=== PATIENT | female | born 1950 | race Caucasian/White ===

== ENCOUNTER 2020-03-21 11:20 | Outpatient (REF) | payer MEDICARE, SELFPAY ==
[2020-03-21 13:16] LABS: Blood Urea Nitrogen 8 mg/dL (9-16); Estimated Glomerular Filt Rate > 60
== END 2020-03-21 11:21 | disposition home or self-care (01) ==
LOC: HO.LAB 11:20
PROVIDERS: PCP Internal Medicine; Visit Provider Psychiatry & Neurology Neurology
DX: G95.9 Disease of spinal cord, unspecified (principal)
CPT/HCPCS: 82565; 84520

== ENCOUNTER 2020-03-28 16:20 | Outpatient (REF) | payer OTHER, SELFPAY ==
--- NOTE | 2020-03-28 | MR_ITS ---
EXAMINATION: MR THORACIC SPINE WITHOUT AND WITH CONTRAST CLINICAL INFORMATION: MYELOPATHY COMPARISON: None TECHNIQUE: MRI of the thoracic spine was obtained using routine sequences with and without contrast. Intravenous contrast: Gadavist 7.5 mL. FINDINGS: There is a leftward convex scoliotic curvature of the thoracic spine and there is an upper to midthoracic kyphosis. Vertebral body heights are producing last year which was totally different old healed in keeping contacts and deviates L1.... Linear ventriculomegaly from Modic type I endplate signal changes noted from at T4-T5 and T7-T8 and sagittal. Partial there are no acute fractures. 03/29/2020. No acute fractures. Moderate to severe disc volume loss at the mid thoracic. No pathologic intrathecal enhancement. 05/26/2018 and with accounting for artifact there is no cord signal abnormality. Accounting for artifact there is no thoracic cord signal abnormality. There are paracentral disc protrusions at the majority of thoracic levels that mildly indent the ventral thecal sac, the largest at the T7-T8 level that mildly flattens the ventral cord. There is no severe central canal stenosis and there is no severe foraminal stenosis within the thoracic spine. There is a right renal cyst. There is a 2.6 cm left adrenal nodule that can be further assessed with an adrenal protocol CT or PET/CT given the above pulmonary finding and concern for a possible metastatic focus. On the localizer series there is the suggestion of a 1.5 cm nodule within the left thyroid lobe that can be further assessed with thyroid ultrasound. There is a 1.7 cm nodule within the right lung posteriorly on image 32 of series 8 for which a contrast-enhanced CT of the chest is recommended. Pulmonary malignancy is not excluded. MR/MR thoracic spine wo/w con IMPRESSION: - There is a 1.7 cm nodule within the right lung posteriorly on image 32 of series 8 for which a contrast-enhanced CT of the chest is recommended. Pulmonary malignancy is not excluded. - There is a 2.6 cm left adrenal nodule that can be further assessed with an adrenal protocol CT or PET/CT given the above pulmonary finding and concern for a possible metastatic focus. - Thoracic kyphoscoliosis. Multilevel thoracic spondylosis, greatest at T7-T8 where a left paracentral disc protrusion slightly flattens the left ventral cord. There is no severe central canal stenosis and there is no severe foraminal stenosis within the thoracic spine. - On the localizer series there is the suggestion of a 1.5 cm nodule within the left thyroid lobe that can be further assessed with thyroid ultrasound. Findings discussed with Dr. Ximena Garcia at 8:35 AM on 03/29/2020.
== END 2020-03-28 17:00 | disposition home or self-care (01) ==
LOC: HO.MRI 16:20
PROVIDERS: PCP Internal Medicine; Visit Provider Psychiatry & Neurology Neurology
DX: G95.9 Disease of spinal cord, unspecified (principal)
CPT/HCPCS: 72157; A9585

== ENCOUNTER 2020-04-18 08:32 | Outpatient (REF) | payer MEDICARE, OTHER, SELFPAY ==
--- NOTE | 2020-04-18 | PFT_ITS ---
FLOWS: FEV1 58% of predicted at 1.16 L. FVC 67% of predicted at 1.76 L. FEV1 to FVC ratio of 0.66. No bronchodilation performed since the patient has had albuterol prior to the test. LUNG VOLUMES: The patient was unable to perform lung volume maneuver secondary to complaints of dizziness. In comparison to pulmonary function test performed in December of 2018 FEV1 has decreased by 0.54 L; FVC has decreased by 0.84 L; slow vital capacity has decreased by 0.80 L; expiratory reserve volume has been without significant changes. IMPRESSION: Moderate obstructive ventilatory defect. Suggestion for underlying restrictive ventilatory defect. The patient was unable to perform lung volume maneuver secondary to complaints of dizziness. MD TORREY Richardson/MODL / [id number]
== END 2020-04-18 08:33 | disposition home or self-care (01) ==
LOC: HO.RESP 08:32
PROVIDERS: PCP Internal Medicine; Visit Provider Internal Medicine
DX: J44.9 Chronic obstructive pulmonary disease, unspecified (principal); R06.02 Shortness of breath; Z87.891 Personal history of nicotine dependence
CPT/HCPCS: 94010

== ENCOUNTER 2020-04-18 19:25 | Inpatient (IN) | payer MEDICARE, SELFPAY ==
[2020-04-18] VITALS (17 sets, daily range): BP systolic 68–102; BP diastolic 31–62; PULSE 93–160; RESP 17–34; TEMP 36.4–36.8; O2SAT 3–98; BMI 23.8
--- NOTE | 2020-04-18 19:33 | ECG_ITS ---
Test Reason : TACHY Blood Pressure : / mmHG Vent. Rate : 154 BPM Atrial Rate : 357 BPM P-R Int : 000 ms QRS Dur : 090 ms QT Int : 306 ms P-R-T Axes : 000 088 267 degrees QTc Int : 490 ms Atrial fibrillation with rapid ventricular response ST & T wave abnormality, consider inferior ischemia ST & T wave abnormality, consider anterolateral ischemia Abnormal ECG When compared with ECG of [id number] Atrial fibrillation is new Heart rate has increased ST more depressed Inferior leads Lateral leads Referred By: Sona Petit Electronically Signed By:BETSY PATEL MD
--- NOTE | 2020-04-18 19:34 | XR_ITS ---
EXAMINATION: XR CHEST CLINICAL INFORMATION: Dyspnea COMPARISON: Chest radiograph 02/16/[address] 02/01/2020 TECHNIQUE: Frontal view of the chest was obtained. FINDINGS: The lungs are hypoinflated. No infiltrates or effusions are seen. The heart size is normal and there is no evidence of CHF. The previously demonstrated 2 cm right lower lung mass is not well appreciated on the current study. XR/XR chest 1V IMPRESSION: No acute intrathoracic disease
--- NOTE | 2020-04-18 19:35 | ED.SOB ---
HPI - SOB/Dyspnea General Chief Complaint: Weakness Stated Complaint: WEAK PULSE Time Seen by Provider: 04/18/20 19:32 Source: patient and EMS Mode of arrival: EMS Limitations: no limitations History of Present Illness HPI Narrative: 69 yo female with reported lung cancer that has spread to lymph nodes but has not seen thoracic or oncology yet and needs a PET scan call to EMS tonight for dizziness and weakness and fall in bathroom she hit her head. She was altered and EMS noted they could not get a radial pulse or BP - paramedics intercepted and attempted to cardiovert the patient with 100J for hypotension, AMS and unable to get a pulse with afib RVR - no response to cardioversion MD elicited complaint: shortness of breath and cough Pertinent past history: COPD Onset (ago): month(s) Context: trauma/injury Timing: constant Severity: severe Exacerbating factors: exertion Relieving factors: oxygen and rest Known history of: COPD Associated symptoms: wheezing and dizziness Treatment prior to arrival: oxygen and other (100J cardioversion) Related Data Home Medications Medication Instructions Recorded Confirmed albuterol sulfate 2.5 mg INHALATION QID PRN 04/18/20 04/18/20 furosemide 1 tab PO DAILY 04/18/20 04/18/20 gabapentin 1 cap PO TID PRN 04/18/20 04/18/20 gabapentin 2 - 3 cap PO BEDTIME 04/18/20 04/18/20 lisinopril 1 tab PO DAILY 04/18/20 04/18/20 omeprazole 20 mg PO DAILY 04/18/20 04/18/20 simvastatin 1 tab PO DAILY 04/18/20 04/18/20 Allergies Allergy/AdvReac Type Severity Reaction Status Date / Time varenicline Allergy Unknown muscle Verified 04/18/20 19:36 cramps No Known Allergies Allergy Verified 04/18/20 19:36 [No Known Allergies*] grass Allergy Unknown allergic Uncoded 03/29/20 09:14 rhinitis statins Allergy Unknown myalgias Uncoded 03/29/20 09:14 Review of Systems Review of Systems: ROS unable to be obtained due to altered mental status [facility] Past Medical History Attestation statement: The following information was validated with the patient. Source: old records reviewed Medical History Cancer COPD (chronic obstructive pulmonary disease) High cholesterol Hypertension Social History Social History (Updated 04/18/20 @ 20:19 by Bernie Simons DO) Smoking Status: Former smoker Use of substances other than those prescribed or required for medical reasons: No Advance Directives: No Advance Directives Information Provided: No Physical Exam Vital Signs: Vital Signs: Last Vital Signs Temp 97.7 F 04/18/20 22:04 Pulse 100 04/18/20 22:04 Resp 17 04/18/20 22:04 BP 86/55 L 04/18/20 22:04 Pulse Ox 95 04/18/20 22:04 Body Mass Index 23.8 Appearance: Somnolent Oriented X2. Moderate acute distress. Eyes: Pupils equal, round and reactive to light. ENT: Pharynx severely dry MM Neck: Normal inspection. Neck supple. CVS: tachycardic heart rate and rhythm irregular. Pulses decreased and hands are cool to touch Respiratory: Mild respiratory distress. Breath sounds with wheezes and rhonchi Abdomen: Soft and nontender. Skin: Skin very dry and cool to touch, color is josue in nature. poor skin turgor. Extremities: No lower extremity edema. No calf ttp Neuro: Oriented X 2. No motor deficit. No sensory deficit. Course Course Course Narrative: BP improving with fluids but patient to be on dilt gtt, no response to 100J cardioversion remains in rapid afib - no anticoagulation done due to recent fall and patient was in severe distress with AMS and hypotension, she is coming around more now and making jokes, she is severely dry on exam - 3L NS ordered, will continue to be at bedside to monitor clinically the patient looks much improved - watching the voice and telling me about how she has watched it all year, color improved, distal pulses now intact discussed with cardiology - gentle fluid resuscitation, can continue dilt, if HR is very high would dig load, repletions of lytes ordered given CT scan - IV hydrocortisone ordered, added cortisol/TSH labs will call [facility]GY at [facility] [place] given CT scan 1005pm BP 102/56 at this time, overall patient improving NSGY PA at [facility] [place] - does not feel pituitary is directly related at this time. follow up with endocrinology and opthalmology as outpatient will hold dilt at this time Procedures Procedure Narrative Procedure Narrative: stat synchronized cardioversion with 100J - verbal consent from patient, pads anterior posterior IV ketamine 50mg ordered, no change in rhythm afterwards, RT at bedside MDM - SOB/Dyspnea MDM Narrative Medical decision making narrative: 69 yo female unwell comes in altered after dizziness and falls with rapid afib AMS, hypotension - EMS attempted cardioversion 100J which did not work, here will need labs, cultures, IV steroids, IV rocephin for cough empiric pneumonia coverage, IV dilt and likely cardioversion given her instability could not anticoagulate due to recent fall and concern for possible trauma, ddimer, lytes, empiric magnesium given as well, planned admit. Lab Data Result diagrams: 04/18/20 20:01 04/18/20 20:12 Labs: Lab Results 04/18/20 04/18/20 04/18/20 Range/Units 19:27 20:01 20:01 WBC 11.1 H (4.8-10.8) X10*3/uL RBC 3.68 L (4.20-5.50) X10*6/uL Hgb 12.7 (12.0-16.0) g/dl Hct 35.9 L (37-47) % MCV 97.6 (80-98) fL MCH 34.5 H (27.0-33.0) pg MCHC 35.4 H (31.0-35.0) g/dl RDW 14.2 (11.0-16.0) % Plt Count 199 (160-400) X10*3/uL MPV 10.2 (9.4-12.3) fL Immature Gran % (Auto) 0.5 H (0.0-0.4) % Neut % (Auto) 70.9 (45-73) % Lymph % (Auto) 19.6 L (20-40) % Pennington % (Auto) 8.0 (2-11) % Eos % (Auto) 0.7 (0-4) % Baso % (Auto) 0.3 (0-2) % Lymph # (Auto) 2.2 (1.2-4.9) X10*3/uL Pennington # (Auto) 0.9 (0.1-1.2) X10*3/uL Eos # (Auto) 0.1 (0.0-0.4) X10*3/uL Baso # (Auto) 0.0 (0.0-0.2) X10*3/uL Abs Immat Gran (auto) 0.06 H (0.00-0.03) X10*3/uL Absolute Neuts (auto) 7.8 (2.0-8.3) X10*3/uL Absolute Nucleated RBC 0.000 (0.0-0.012) X10*3/uL Nucleated RBC % (auto) 0.0 (0.0-0.2) /100WBC PT (10.8-13.0) SEC INR (0.9-1.1) APTT (24.1-38.0) SEC D-Dimer NG/ML VBG pH (7.32-7.43) VBG pCO2 mmhg VBG pO2 mmhg VBG HCO3 mmol/L VBG O2 Saturation % VBG Base Excess mmol/L Sodium (135-145) mmol/L Potassium (3.3-5.1) mmol/l Chloride (96-108) mmol/L Carbon Dioxide (22-29) mmol/L Anion Gap (12-20) BUN (9-16) mg/dL Creatinine (0.5-1.4) mg/dL Estim Creat Clear Calc Estimated GFR POC Glucose 94 (60-115) mg/dL Random Glucose (60-115) mg/dL Lactic Acid (0.5-2.0) mmol/L Calcium (8.4-10.2) mg/dL Magnesium 1.5 L (1.6-2.6) mg/dL Total Bilirubin 0.9 (0.0-1.0) mg/dL Direct Bilirubin 0.5 (0.0-0.5) mg/dL AST 20 (5-31) U/L ALT 10 (0-31) U/L Alkaline Phosphatase 65 (39-117) U/L Troponin I High Sens (<3.5-17.0) ng/L B-Natriuretic Peptide (<100) pg/mL Total Protein 4.0 L (6.5-8.0) g/dL Albumin 2.4 L (3.5-5.0) g/dL Lipase (8-78) U/L COVID-19 (AN) (Negative) COVID-19 Clin Com 04/18/20 04/18/20 04/18/20 Range/Units 20:11 20:11 20:11 WBC (4.8-10.8) X10*3/uL RBC (4.20-5.50) X10*6/uL Hgb (12.0-16.0) g/dl Hct (37-47) % MCV (80-98) fL MCH (27.0-33.0) pg MCHC (31.0-35.0) g/dl RDW (11.0-16.0) % Plt Count (160-400) X10*3/uL MPV (9.4-12.3) fL Immature Gran % (Auto) (0.0-0.4) % Neut % (Auto) (45-73) % Lymph % (Auto) (20-40) % Pennington % (Auto) (2-11) % Eos % (Auto) (0-4) % Baso % (Auto) (0-2) % Lymph # (Auto) (1.2-4.9) X10*3/uL Pennington # (Auto) (0.1-1.2) X10*3/uL Eos # (Auto) (0.0-0.4) X10*3/uL Baso # (Auto) (0.0-0.2) X10*3/uL Abs Immat Gran (auto) (0.00-0.03) X10*3/uL Absolute Neuts (auto) (2.0-8.3) X10*3/uL Absolute Nucleated RBC (0.0-0.012) X10*3/uL Nucleated RBC % (auto) (0.0-0.2) /100WBC PT (10.8-13.0) SEC INR (0.9-1.1) APTT (24.1-38.0) SEC D-Dimer NG/ML VBG pH (7.32-7.43) VBG pCO2 mmhg VBG pO2 mmhg VBG HCO3 mmol/L VBG O2 Saturation % VBG Base Excess mmol/L Sodium (135-145) mmol/L Potassium (3.3-5.1) mmol/l Chloride (96-108) mmol/L Carbon Dioxide (22-29) mmol/L Anion Gap (12-20) BUN (9-16) mg/dL Creatinine (0.5-1.4) mg/dL Estim Creat Clear Calc Estimated GFR POC Glucose (60-115) mg/dL Random Glucose (60-115) mg/dL Lactic Acid 4.5 H* (0.5-2.0) mmol/L Calcium (8.4-10.2) mg/dL Magnesium (1.6-2.6) mg/dL Total Bilirubin (0.0-1.0) mg/dL Direct Bilirubin (0.0-0.5) mg/dL AST (5-31) U/L ALT (0-31) U/L Alkaline Phosphatase (39-117) U/L Troponin I High Sens 13.8 (<3.5-17.0) ng/L B-Natriuretic Peptide 90 (<100) pg/mL Total Protein (6.5-8.0) g/dL Albumin (3.5-5.0) g/dL Lipase (8-78) U/L COVID-19 (AN) (Negative) COVID-19 Clin Com 04/18/20 04/18/20 04/18/20 Range/Units 20:11 20:12 20:20 WBC (4.8-10.8) X10*3/uL RBC (4.20-5.50) X10*6/uL Hgb (12.0-16.0) g/dl Hct (37-47) % MCV (80-98) fL MCH (27.0-33.0) pg MCHC (31.0-35.0) g/dl RDW (11.0-16.0) % Plt Count (160-400) X10*3/uL MPV (9.4-12.3) fL Immature Gran % (Auto) (0.0-0.4) % Neut % (Auto) (45-73) % Lymph % (Auto) (20-40) % Pennington % (Auto) (2-11) % Eos % (Auto) (0-4) % Baso % (Auto) (0-2) % Lymph # (Auto) (1.2-4.9) X10*3/uL Pennington # (Auto) (0.1-1.2) X10*3/uL Eos # (Auto) (0.0-0.4) X10*3/uL Baso # (Auto) (0.0-0.2) X10*3/uL Abs Immat Gran (auto) (0.00-0.03) X10*3/uL Absolute Neuts (auto) (2.0-8.3) X10*3/uL Absolute Nucleated RBC (0.0-0.012) X10*3/uL Nucleated RBC % (auto) (0.0-0.2) /100WBC PT 13.0 (10.8-13.0) SEC INR 1.1 (0.9-1.1) APTT 28.4 (24.1-38.0) SEC D-Dimer < 200 NG/ML VBG pH (7.32-7.43) VBG pCO2 mmhg VBG pO2 mmhg VBG HCO3 mmol/L VBG O2 Saturation % VBG Base Excess mmol/L Sodium 136 (135-145) mmol/L Potassium 2.6 L (3.3-5.1) mmol/l Chloride 101 (96-108) mmol/L Carbon Dioxide 21 L (22-29) mmol/L Anion Gap 17 (12-20) BUN 16 D (9-16) mg/dL Creatinine 0.84 (0.5-1.4) mg/dL Estim Creat Clear Calc 58.3 Estimated GFR > 60 POC Glucose (60-115) mg/dL Random Glucose 92 (60-115) mg/dL Lactic Acid (0.5-2.0) mmol/L Calcium 7.5 L (8.4-10.2) mg/dL Magnesium (1.6-2.6) mg/dL Total Bilirubin (0.0-1.0) mg/dL Direct Bilirubin (0.0-0.5) mg/dL AST (5-31) U/L ALT (0-31) U/L Alkaline Phosphatase (39-117) U/L Troponin I High Sens (<3.5-17.0) ng/L B-Natriuretic Peptide (<100) pg/mL Total Protein (6.5-8.0) g/dL Albumin (3.5-5.0) g/dL Lipase 9 (8-78) U/L COVID-19 (AN) Negative (Negative) COVID-19 Clin Com See Note 04/18/20 04/18/20 Range/Units 20:20 20:20 WBC (4.8-10.8) X10*3/uL RBC (4.20-5.50) X10*6/uL Hgb (12.0-16.0) g/dl Hct (37-47) % MCV (80-98) fL MCH (27.0-33.0) pg MCHC (31.0-35.0) g/dl RDW (11.0-16.0) % Plt Count (160-400) X10*3/uL MPV (9.4-12.3) fL Immature Gran % (Auto) (0.0-0.4) % Neut % (Auto) (45-73) % Lymph % (Auto) (20-40) % Pennington % (Auto) (2-11) % Eos % (Auto) (0-4) % Baso % (Auto) (0-2) % Lymph # (Auto) (1.2-4.9) X10*3/uL Pennington # (Auto) (0.1-1.2) X10*3/uL Eos # (Auto) (0.0-0.4) X10*3/uL Baso # (Auto) (0.0-0.2) X10*3/uL Abs Immat Gran (auto) (0.00-0.03) X10*3/uL Absolute Neuts (auto) (2.0-8.3) X10*3/uL Absolute Nucleated RBC (0.0-0.012) X10*3/uL Nucleated RBC % (auto) (0.0-0.2) /100WBC PT Cancelled (10.8-13.0) SEC INR Cancelled (0.9-1.1) APTT Cancelled (24.1-38.0) SEC D-Dimer NG/ML VBG pH 7.36 (7.32-7.43) VBG pCO2 37 mmhg VBG pO2 32 mmhg VBG HCO3 21 mmol/L VBG O2 Saturation 53.8 % VBG Base Excess -4.0 mmol/L Sodium (135-145) mmol/L Potassium (3.3-5.1) mmol/l Chloride (96-108) mmol/L Carbon Dioxide (22-29) mmol/L Anion Gap (12-20) BUN (9-16) mg/dL Creatinine (0.5-1.4) mg/dL Estim Creat Clear Calc Estimated GFR POC Glucose (60-115) mg/dL Random Glucose (60-115) mg/dL Lactic Acid (0.5-2.0) mmol/L Calcium (8.4-10.2) mg/dL Magnesium (1.6-2.6) mg/dL Total Bilirubin (0.0-1.0) mg/dL Direct Bilirubin (0.0-0.5) mg/dL AST (5-31) U/L ALT (0-31) U/L Alkaline Phosphatase (39-117) U/L Troponin I High Sens (<3.5-17.0) ng/L B-Natriuretic Peptide (<100) pg/mL Total Protein (6.5-8.0) g/dL Albumin (3.5-5.0) g/dL Lipase (8-78) U/L COVID-19 (AN) (Negative) COVID-19 Clin Com ECG Data Attestation: I personally reviewed and interpreted this ECG as follows: ECG interpretation date: 04/18/20 ECG interpretation time: 20:25 Interpretation: Rate: 154 Rhythm: rapid afib with RVR Elcho: normal Normal P waves. Normal GREGORY. wide QRS complex. ST T wave : nonspecific no CLARA qTC: prolonged prior studies: changed from prior The study has been interpreted contemporaneously by me. Rate: 97 Rhythm: NSR, ectopic beats Elcho: rightward Normal P waves. Normal GREGORY. Normal QRS complex. ST T wave : nonspecific no CLARA qTC: prolonged prior studies: changed from prior The study has been interpreted contemporaneously by me. . Critical Care Time Critical Care Time Critical Care Time: Yes Total Critical Care Time: 90 Attestation: iv diltiazem, cardioversion, repeat assessments, 3L of NS I attest to this time spent taking care of the patient Discharge Plan Discharge Clinical Impression: Hypomagnesemia Atrial fibrillation Qualifiers: Atrial fibrillation type: unspecified Qualified Code(s): I48.91 - Unspecified atrial fibrillation Hypotension Qualifiers: Hypotension type: unspecified hypotension type Qualified Code(s): I95.9 - Hypotension, unspecified Patient Disposition: Admitted As Inpatient
[2020-04-18] MEDS: 0.9 % Sodium Chloride 1,000 ML 999 ML IVCONT ×4 (19:40→21:11)
[2020-04-18 19:43] LABS: Glucose, Whole Blood 94 mg/dL (60-115)
[2020-04-18] MEDS: Ketamine HCl/NS 50 MG/5 ML SYRINGE IVPUSH (19:44)
[2020-04-18] MEDS: dilTIAZem HCL 50 MG/10 ML VIAL IVPUSH (19:46)
[2020-04-18] MEDS: Magnesium Sulfate/H2O 2 GM/50 ML PIGGYBACK IV (19:47)
[2020-04-18] MEDS: methylPREDNISolone Sod Succ/PF 125 MG/2 ML VIAL 60 MG IVPUSH (19:49)
[2020-04-18] MEDS: levalbuterol HCL 1.25 MG/3 ML VIAL.NEB INHALE (19:54)
--- NOTE | 2020-04-18 19:56 | CT_ITS ---
EXAMINATION: CT OF THE HEAD AND CERVICAL SPINE WITHOUT CONTRAST CLINICAL INFORMATION: Falls COMPARISON: Neck CT 04/24/2017 TECHNIQUE: Contiguous axial imaging was performed from the vertex to the thoracic inlet, through the head and cervical spine, without intravenous administration of contrast. Coronal and sagittal reformatted images through the cervical spine were obtained on the technologists workstation. This CT examination was performed using dose optimization techniques as appropriate, variously including the following: *Automated exposure control *Adjustment of mA and/or kV according to patient size (this includes techniques or standardized protocols for targeted exams where dose is matched to indication/reason for exam; i.e. extremities or head) *Use of iterative reconstruction technique FINDINGS: Head: No acute intracranial hemorrhage. No extra-axial fluid collection. Higuera-white matter differentiation is preserved without evidence of acute large vessel territory ischemia. Symmetric, concordant ventricles and sulci; no hydrocephalus. No mass effect or midline shift. Mild patchy periventricular and subcortical white matter hypodensity consistent with chronic age-appropriate microvascular white matter ischemic changes. There is new high density in the pituitary gland that measures 7 x 7 mm; this was not of measurable on the PET CT 01/28/2019 nor the prior neck CT 04/24/2017. The osseous structures and soft tissues are normal. There is probably opacification of the right maxillary sinus consistent with acute sinusitis. Cervical spine: Normal pre-vertebral soft tissues. No fracture seen. There is straightening of the normal cervical lordosis. There is multilevel cervical spondylosis throughout the cervical spine greatest at C5-C6 with anterior and posterior disc osteophyte complexes C4-C5, C5-C6, and C6-C7. Moderate to severe multilevel facet arthropathy. Thyroid homogeneous with no nodules seen. Severe emphysema at the lung apices. No cervical lymphadenopathy, mass, or fluid collection. CT/CT cervical spine wo con IMPRESSION: No acute intracranial abnormality seen. There is new abnormal hyperdensity in the pituitary gland. Recommend nonemergent pituitary protocol MRI for further evaluation. Differential considerations would include hemorrhage into an adenoma or Rathke's cleft cyst. Extensive multilevel degenerative changes of the cervical spine but no acute fracture or malalignment seen.
[2020-04-18 20:11] LABS: MANUAL DIFF FLAG NO
[2020-04-18] MEDS: cefTRIAXone sodium 1 GM in 0.9 % Sodium Chloride 50 ML IV (20:12)
--- NOTE | 2020-04-18 20:12 | PC.NURSE ---
Cardizem drip started at 5 mg/hr. VS: 85/40, HR 130 Unable to document Cardizem in JUL.
[2020-04-18 20:15] LABS: Basophils Percent Auto 0.3 % (0-2); Eosinophils Absolute Auto 0.1 X10*3/uL (0.0-0.4); Eosinophils Percent Auto 0.7 % (0-4); Hematocrit 35.9 % (37-47); Hemoglobin 12.7 g/dl (12.0-16.0); Imm Gran Abs Auto 0.06 X10*3/uL (0.00-0.03); Imm Gran Pct Auto 0.5 % (0.0-0.4); Lymphocytes Absolute Auto 2.2 X10*3/uL (1.2-4.9); Lymphocytes Percent Auto 19.6 % (20-40); Mean Corpuscular HGB Conc 35.4 g/dl (31.0-35.0); Mean Corpuscular Hemoglobin 34.5 pg (27.0-33.0); Mean Corpuscular Volume 97.6 fL (80-98); Mean Platelet Volume 10.2 fL (9.4-12.3); Monocytes Absolute Auto 0.9 X10*3/uL (0.1-1.2); Neutrophils Absolute Auto 7.8 X10*3/uL (2.0-8.3); Neutrophils Percent Auto 70.9 % (45-73); Platelet Count 199 X10*3/uL (160-400); Red Blood Count 3.68 X10*6/uL (4.20-5.50); Red Cell Distribution Width 14.2 % (11.0-16.0); White Blood Count 11.1 X10*3/uL (4.8-10.8)
--- NOTE | 2020-04-18 20:28 | PC.NURSE ---
Pt off to CT on monitor with RN and product safety technician.
[2020-04-18 20:35] LABS: Alanine Aminotransferase 10 U/L (0-31); Albumin Level 2.4 g/dL (3.5-5.0); Alkaline Phosphatase 65 U/L (39-117); Aspartate Amino Transferase 20 U/L (5-31); Bilirubin Direct 0.5 mg/dL (0.0-0.5); Bilirubin Total 0.9 mg/dL (0.0-1.0); Magnesium 1.5 mg/dL (1.6-2.6)
--- NOTE | 2020-04-18 20:39 | PC.NURSE ---
Pt returns from CT on hospital bed without incident.
--- NOTE | 2020-04-18 20:42 | PC.NURSE ---
Verbal order from MD to increased Cardizem to 7 mg/hr. 97/57, HR 125
[2020-04-18 20:44] LABS: Blood Gas Serial # 5414; HCO3 VBG 21 mmol/L; Oxygen Saturation VBG 53.8 %; PCO2 VBG 37 mmhg; PO2 VBG 32 mmhg; pH VBG 7.36 (7.32-7.43)
[2020-04-18 20:44] LABS: INTERNATIONAL NORM RATIO 1.1 (0.9-1.1)
[2020-04-18 20:47] LABS: Partial Thromboplastin Time 28.4 SEC (24.1-38.0)
[2020-04-18 20:48] LABS: D Dimer < 200 NG/ML
--- NOTE | 2020-04-18 20:51 | PC.NURSE ---
2044 DILTIAZEM BACK TO 5MG/HR. BP'S ARE HARD TO MAINTAIN. PT IS BACK FROM CT. MENTATING WELL, ASKING PERTANENT QUESTIONS. SKIN DRY PALE. SHALLOW RESP. JUNKY UPPER AIRWAY COUGH. TOLERATED CT VERY WELL. LINENS CHANGED. SKIN INTEGRITY GOOD. ZOLL PADS REMAIN IN PLACE. STATES SHE'S NO LONGER DIZZY. REPORTED BEING DIZZY AT HOME.
--- NOTE | 2020-04-18 20:55 | PC.NURSE ---
PT REMAINS IN A FIB 110-140'S AT TIMES.
[2020-04-18 20:56] LABS: COVID-19 Test Negative (Negative); IDNOW Serial# 9DD0AD1C
--- NOTE | 2020-04-18 20:57 | PC.NURSE ---
LATE ENTRY. PT ARRIVED LETHARGIC, DIFFICULT TO FOLLOW COMMANDS, SKIN DRY PINK, RAPID A FIB, BP'S LOW. WAS GIVEN KETAMINE IV AND SYNC CARDIOVERSION AT 100J X 1 FOLLOWED BY IV DILTIAZEM AND MAGNESIUM. AFTER EFFECTS OF KETAMINE WORE OFF PT'S MENTATION WAS IMPROVED COMPAIRED TO ARRIVAL. PT REMAINS IN A FIB.
[2020-04-18 21:06] LABS: B Type Natriuretic Peptide 90 pg/mL (<100); Troponin-I High Sensitivity 13.8 ng/L (<3.5-17.0)
[2020-04-18 21:06] LABS: Anion Gap 17 (12-20); Blood Urea Nitrogen 16 mg/dL (9-16); Calcium 7.5 mg/dL (8.4-10.2); Carbon Dioxide 21 mmol/L (22-29); Chloride 101 mmol/L (96-108); Creatinine Clr Calc Pharmacy 58.3; Estimated Glomerular Filt Rate > 60; Glucose Random 92 mg/dL (60-115); Lipase 9 U/L (8-78); Potassium 2.6 mmol/l (3.3-5.1); Sodium 136 mmol/L (135-145)
[2020-04-18 21:07] LABS: Lactic Acid 4.5 mmol/L (0.5-2.0)
--- NOTE | 2020-04-18 21:09 | PC.NURSE ---
4TH LITER HUNG. LS CTA P/T ADMINISTRATION. PT REMAINS ALERT. AUTOMATIC BP'S ARE MATCHING MANUAL BP'S SON IN WR GIVEN UPDATE.
[2020-04-18] MEDS: Potassium Chloride ER 20 MEQ TAB.ER.PRT 40 MEQ PO (21:18)
[2020-04-18] MEDS: Potassium Chloride/H20 10 MEQ/100 ML PIGGYBACK 100 MEQ IV ×2 (21:27→22:47)
[2020-04-18] MEDS: Calcium Gluconate/NaCl,Iso-Osm 2 GM/100 ML PLAST..BAG IV (21:27)
--- NOTE | 2020-04-18 21:34 | PC.NURSE ---
REMAINS ALERT. WATCHING TV. SKIN PWD. A FIB ON MONITOR
[2020-04-18] MEDS: Hydrocortisone Sod Succ/PF 100 MG VIAL IVPUSH (21:55)
--- NOTE | 2020-04-18 22:11 | ECG_ITS ---
Test Reason : HYPOTENSION Blood Pressure : / mmHG Vent. Rate : 097 BPM Atrial Rate : 097 BPM P-R Int : 194 ms QRS Dur : 086 ms QT Int : 382 ms P-R-T Axes : 027 092 237 degrees QTc Int : 485 ms Sinus rhythm with Premature supraventricular complexes and Premature ventricular complexes or Fusion complexes Rightward axis ST & T wave abnormality, consider inferolateral ischemia Abnormal ECG When compared with ECG of 16-FEB-2020 13:45, Premature ventricular complexes are now Present T wave inversion now evident in Lateral leads Referred By: Bernie Simons Electronically Signed By:BETSY PATEL MD
[2020-04-18 22:22] LABS: Reflex Lactate? Lactic Acid Added
--- NOTE | 2020-04-18 22:24 | PC.NURSE ---
Per , to pause Taco rouse. Taco rouse DCed at this time.
[2020-04-18 22:50] LABS: Thyroid Stimulating Hormone 0.94 uIU/mL (0.32-4.0)
[2020-04-18 23:56] LABS: Glucose Urine UA NEG (NEG); Leukocyte Esterase Urine 1+ (NEG); Nitrite Urine POS (NEG); Specific Gravity - Urine <= 1.005 (1.005-1.025); Urine Blood NEG (NEG); Urine Ketones NEG (NEG); Urine Protein NEG (NEG-TRACE)
[2020-04-18 23:59] LABS: Appearance Urine CLEAR; Color Urine YELLOW
[2020-04-19] VITALS (12 sets, daily range): BP systolic 90–123; BP diastolic 50–78; PULSE 75–115; RESP 16–19; TEMP 35.6–37; O2SAT 5–100; BMI 26.0
--- NOTE | 2020-04-19 | PM.IMHP ---
History of Present Illness Date of Service: 04/18/20 Chief Complaint: significant weakness, vertigo, fall this is a 69-year-old female with past medical history of hypertension who presents to the hospital with weakness and fall. this is somewhat of a complicated presentation but according to the patient she has been feeling dizzy/vertigo for months now and has been having falling with no loss of consciousness. Patient reports that today she tried to go to the bathroom but her vertigo became so severe that she fell with no loss of consciousness. She was unable to get up due to the weakness and her son had to help her to the bathroom. She sat on the toilet and was not able to get up. EMS was called. She reports no palpitations, no chest pain prior to the fall. No confusion or postictal symptoms. She states that sometime in spring she had an E coli infection (does not know where ) and became numb after that. Patient reports that she has been having numbness all through her body, and was found to have a mass in her lungs and was told that she has some sort of metastatic cancer but has not seen Dr. Boone for biopsy yet to find out the type of cancer. She was also told that she will need a pads can. Patient reports low appetite and loss of weight from 187-140 to since springtime. She also reports a few days ago had right upper extremity weakness and loss of movement for few minutes with no slurred speech no facial droop, and no lower extremity weakness. She also noted that her shortness of breath has worsened and she has cough specially when she lays down. It chills nausea. She also has urinary pressure when she tries to urinate with no dysuria, or frequency. She otherwise denies any fever. According to EMS when they arrive patient was found to have irregular pulse with undetectable blood pressure. the EMS That had initially arrived at her house was basic in did not have an EKG machine, somehow this was intercepted and another ambulance was sent residential prior to arriving to the ED, and they felt the patient was in torsades . due to undetectable blood pressure and fast heart rate patient was cardioverted in the ambulance with 100 joules but remained in AFib with RVR with a heart rate in the 150s. when she arrived to the ED patient was found to be in AFib with RVR with a heart rate in the 140s to 150s. She also had a very low blood pressure in the 70s/40s and therefore cardioverted by the ED physician at 100j It appears the patient has no history of AFib in the past. patient was also given ketamine as well as hydrocortisone in the ED with a 1 dose of diltiazem IV push after blood pressure was stable for heart rate. Her blood pressure is now more stable, her heart rate is in the 90s. Labs on arrival are significant for WBC count of 12.7, left shift with neutrophilia, sodium of 133, lactic acid of 4.5, magnesium of 1.5, albumin of 2.4 TSH of 0.9, UA positive for nitrites, leukocyte Estrace, WBC, COVID-19 negative Imaging showed chest CT significant for 1.8 cm right lower lobe pulmonary nodule that has not changed, right lower lobe consolidation concerning for aspiration. head CT shows new abnormal hyperdensity in the pituitary gland. Cervical spine demonstrates degenerative changes patient will be admitted for further management past medical history: Hypertension, patient on furosemide but unclear if she has any history of heart failure, hyperlipidemia, possible cancer past surgical history: Denies family history: Denies social history: Comes from home, her son lives with her, heavy smoker, smokes more than 1 pack per day, reports that she quit few days ago denies any alcohol or illicit sonia Review of Systems Review of Systems: Yes all other systems are reviewed and are negative [facility] Medical History Cancer COPD (chronic obstructive pulmonary disease) High cholesterol Hypertension Social History (Updated 04/18/20 @ 20:19 by Bernie Simons DO) Household Members: Children Housing: House Do you presently have visiting nurse or other home services: No Smoking Status: Former smoker Patient Interested in Nicotine Replacement: Yes Patient Given Instructions on How to Stop Smoking: Yes Date Education Initiated: 04/19/20 Use of substances other than those prescribed or required for medical reasons: No Currently Displaying Signs/Symptoms of Drug Intoxication Withdrawal: No Have you been hit, kicked, punched, or otherwise hurt by someone within the past year? If so, by whom?: No Do you feel safe in your current relationship?: No Current Relationship Is there a partner from a previous relationship who is making you feel unsafe now?: No Are you made to feel afraid or neglected: No Advance Directives: No Advance Directives Information Provided: No Advance Directives on File: No Do you have thoughts of harming others: None Recently lost weight without trying: Yes Meds Allergies Allergy/AdvReac Type Severity Reaction Status Date / Time varenicline Allergy Unknown muscle Verified 04/18/20 19:36 cramps No Known Allergies Allergy Verified 04/18/20 19:36 [No Known Allergies*] grass Allergy Unknown allergic Uncoded 03/29/20 09:14 rhinitis statins Allergy Unknown myalgias Uncoded 03/29/20 09:14 Home Medications Medication Instructions Recorded Confirmed Type albuterol sulfate 2.5 mg INHALATION QID PRN 04/18/20 04/18/20 History furosemide 1 tab PO DAILY 04/18/20 04/18/20 History gabapentin 1 cap PO TID PRN 04/18/20 04/18/20 History gabapentin 2 - 3 cap PO BEDTIME 04/18/20 04/18/20 History lisinopril 1 tab PO DAILY 04/18/20 04/18/20 History omeprazole 20 mg PO DAILY 04/18/20 04/18/20 History simvastatin 1 tab PO DAILY 04/18/20 04/18/20 History Physical Exam Vital Signs and Narrative: Vital Signs: Last Vital Signs Temp 98.2 F 04/18/20 23:34 Pulse 96 04/18/20 23:34 Resp 18 04/18/20 23:34 BP 100/46 L 04/18/20 23:34 Pulse Ox 97 04/18/20 23:34 Body Mass Index 23.8 Const: General: cooperative and ill appearing Orientation/consciousness: patient oriented x3 Eyes: General: appearance normal, both eyes and all related structures Pupils: Equal, round and reactive pupils present Resp: Effort & Inspection: normal respiratory effort and able to speak in complete sentences Auscultation: clear to auscultation bilaterally Cardio: Other: irregular rate Rhythm: regular rhythm GI: Palpation (GI): Soft to palpation Auscultation: normal bowel sounds Skin: General skin exam: no rashes or lesions noted Neuro: General: patient oriented x3 Cranial nerves: Yes Equal, round and reactive pupils present Cognition (Neuro): normal cognition Extrem: General: Yes normal to inspection and Yes no pedal edema Results Labs CBC and Chem 7: 04/19/20 04:07 04/19/20 04:07 Labs: Laboratory Results - last 24 hr 04/18/20 04/18/20 04/18/20 19:27 20:01 20:01 MCV 97.6 MCH 34.5 H MCHC 35.4 H RDW 14.2 Plt Count 199 MPV 10.2 Immature Gran % (Auto) 0.5 H Neut % (Auto) 70.9 Lymph % (Auto) 19.6 L [place] % (Auto) 8.0 Eos % (Auto) 0.7 Baso % (Auto) 0.3 Lymph # (Auto) 2.2 [place] # (Auto) 0.9 Eos # (Auto) 0.1 Baso # (Auto) 0.0 Abs Immat Gran (auto) 0.06 H Absolute Neuts (auto) 7.8 Absolute Nucleated RBC 0.000 Nucleated RBC % (auto) 0.0 PT INR APTT D-Dimer VBG pH VBG pCO2 VBG pO2 VBG HCO3 VBG O2 Saturation VBG Base Excess Anion Gap Estim Creat Clear Calc Estimated GFR POC Glucose 94 Random Glucose Lactic Acid Calcium Magnesium 1.5 L Total Bilirubin 0.9 Direct Bilirubin 0.5 AST 20 ALT 10 Alkaline Phosphatase 65 Troponin I High Sens B-Natriuretic Peptide Total Protein 4.0 L Albumin 2.4 L Lipase Procalcitonin TSH Urine Color Urine Appearance Urine pH Ur Specific [place] Urine Protein Urine Glucose (UA) Urine Ketones Urine Blood Urine Nitrite Ur Leukocyte Esterase COVID-19 (AN) COVID-19 Clin Com 04/18/20 04/18/20 04/18/20 20:01 20:01 20:11 MCV MCH MCHC RDW Plt Count MPV Immature Gran % (Auto) Neut % (Auto) Lymph % (Auto) [place] % (Auto) Eos % (Auto) Baso % (Auto) Lymph # (Auto) [place] # (Auto) Eos # (Auto) Baso # (Auto) Abs Immat Gran (auto) Absolute Neuts (auto) Absolute Nucleated RBC Nucleated RBC % (auto) PT INR APTT D-Dimer VBG pH VBG pCO2 VBG pO2 VBG HCO3 VBG O2 Saturation VBG Base Excess Anion Gap Estim Creat Clear Calc Estimated GFR POC Glucose Random Glucose Lactic Acid 4.5 H* Calcium Magnesium Total Bilirubin Direct Bilirubin AST ALT Alkaline Phosphatase Troponin I High Sens B-Natriuretic Peptide Total Protein Albumin Lipase Procalcitonin 0.10 TSH 0.94 Urine Color Urine Appearance Urine pH Ur Specific [place] Urine Protein Urine Glucose (UA) Urine Ketones Urine Blood Urine Nitrite Ur Leukocyte Esterase COVID-19 (AN) COVID-19 [employer] Com 04/18/20 04/18/20 04/18/20 20:11 20:11 20:11 MCV MCH MCHC RDW Plt Count MPV Immature Gran % (Auto) Neut % (Auto) Lymph % (Auto) [place] % (Auto) Eos % (Auto) Baso % (Auto) Lymph # (Auto) [place] # (Auto) Eos # (Auto) Baso # (Auto) Abs Immat Gran (auto) Absolute Neuts (auto) Absolute Nucleated RBC Nucleated RBC % (auto) PT 13.0 INR 1.1 APTT 28.4 D-Dimer < 200 VBG pH VBG pCO2 VBG pO2 VBG HCO3 VBG O2 Saturation VBG Base Excess Anion Gap Estim Creat Clear Calc Estimated GFR POC Glucose Random Glucose Lactic Acid Calcium Magnesium Total Bilirubin Direct Bilirubin AST ALT Alkaline Phosphatase Troponin I High Sens 13.8 B-Natriuretic Peptide 90 Total Protein Albumin Lipase Procalcitonin TSH Urine Color Urine Appearance Urine pH Ur Specific [place] Urine Protein Urine Glucose (UA) Urine Ketones Urine Blood Urine Nitrite Ur Leukocyte Esterase COVID-19 (AN) COVID-19 [employer] Com 04/18/20 04/18/20 04/18/20 20:12 20:20 20:20 MCV MCH MCHC RDW Plt Count MPV Immature Gran % (Auto) Neut % (Auto) Lymph % (Auto) [place] % (Auto) Eos % (Auto) Baso % (Auto) Lymph # (Auto) [place] # (Auto) Eos # (Auto) Baso # (Auto) Abs Immat Gran (auto) Absolute Neuts (auto) Absolute Nucleated RBC Nucleated RBC % (auto) PT Cancelled INR Cancelled APTT Cancelled D-Dimer VBG pH VBG pCO2 VBG pO2 VBG HCO3 VBG O2 Saturation VBG Base Excess Anion Gap 17 Estim Creat Clear Calc 58.3 Estimated GFR > 60 POC Glucose Random Glucose 92 Lactic Acid Calcium 7.5 L Magnesium Total Bilirubin Direct Bilirubin AST ALT Alkaline Phosphatase Troponin I High Sens B-Natriuretic Peptide Total Protein Albumin Lipase 9 Procalcitonin TSH Urine Color Urine Appearance Urine pH Ur Specific [place] Urine Protein Urine Glucose (UA) Urine Ketones Urine Blood Urine Nitrite Ur Leukocyte Esterase COVID-19 (AN) Negative COVID-19 Clin Com See Note 04/18/20 04/18/20 20:20 23:39 MCV MCH MCHC RDW Plt Count MPV Immature Gran % (Auto) Neut % (Auto) Lymph % (Auto) [place] % (Auto) Eos % (Auto) Baso % (Auto) Lymph # (Auto) [place] # (Auto) Eos # (Auto) Baso # (Auto) Abs Immat Gran (auto) Absolute Neuts (auto) Absolute Nucleated RBC Nucleated RBC % (auto) PT INR APTT D-Dimer VBG pH 7.36 VBG pCO2 37 VBG pO2 32 VBG HCO3 21 VBG O2 Saturation 53.8 VBG Base Excess -4.0 Anion Gap Estim Creat Clear Calc Estimated GFR POC Glucose Random Glucose Lactic Acid Calcium Magnesium Total Bilirubin Direct Bilirubin AST ALT Alkaline Phosphatase Troponin I High Sens B-Natriuretic Peptide Total Protein Albumin Lipase Procalcitonin TSH Urine Color YELLOW Urine Appearance CLEAR Urine pH 6.0 Ur Specific [place] <= 1.005 Urine Protein NEG Urine Glucose (UA) NEG Urine Ketones NEG Urine Blood NEG Urine Nitrite POS H Ur Leukocyte Esterase 1+ H COVID-19 (AN) COVID-19 Clin Com Imaging Radiologist's Impressions: Impressions Chest X-Ray 04/18/20 19:34 IMPRESSION: No acute intrathoracic disease Cervical Spine CT 04/18/20 19:56 IMPRESSION: No acute intracranial abnormality seen. There is new abnormal hyperdensity in the pituitary gland. Recommend nonemergent pituitary protocol MRI for further evaluation. Differential considerations would include hemorrhage into an adenoma or Rathke's cleft cyst. Extensive multilevel degenerative changes of the cervical spine but no acute fracture or malalignment seen. Head CT 04/18/20 19:56 IMPRESSION: No acute intracranial abnormality seen. There is new abnormal hyperdensity in the pituitary gland. Recommend nonemergent pituitary protocol MRI for further evaluation. Differential considerations would include hemorrhage into an adenoma or Rathke's cleft cyst. Extensive multilevel degenerative changes of the cervical spine but no acute fracture or malalignment seen. Assessment and Plan (1) Atrial fibrillation with RVR: Status: Acute (2) Sepsis: Status: Acute (3) UTI (urinary tract infection): Status: Acute (4) Pneumonia: Status: Acute (5) Vertigo: Status: Acute (6) Hypomagnesemia: Status: Acute (7) High cholesterol: Status: Acute (8) COPD (chronic obstructive pulmonary disease): Status: Acute (9) Pituitary abnormality: Status: Acute (10) Lactic acidosis: Status: Acute this is a 69-year-old female with past medical history as mentioned above who presents to the hospital with vague symptoms including AFib with RVR, vertigo found to have UTI, pneumonia, sepsis AFib with RVR, was cardioverted twice by EMS as well as by the ED physician. Currently hemodynamically stable and will be admitted for further management. # Sepsis - most likely secondary to UTI versus pneumonia - UA positive, with urinary symptoms, CT scan of the chest showed consolidation with possible aspiration pneumonia - patient was initially hypotensive, had tachycardia, she is afebrile but has leukocytosis Plan: - Will start with ceftriaxone as well as Unasyn for aspiration pneumonia - cultured in the ED will follow, antibiotics per cultures - IV fluid # AFib with RVR - appears to be new onset - has no chest pain, troponin is mildly elevated - Was cardioverted twice once by EMS and once by ED physician - currently heart rate is maintained in the 90s plan: - Trend troponin - echocardiogram - start Lopressor 12.5 - consult cardiology - will hold off on anticoagulation and weight cardiology recommendation # UTI - management with ceftriaxone - follow urine cultures # pneumonia - will start Unasyn as there was concern for aspiration pneumonia - follow blood cultures # lactic acidosis - possibly secondary to the sepsis as above as well as hypotension Plan: - IV fluids - trend lactic acid # vertigo - patient reports chronic vertigo for the past few months - consult PT for evaluation # hypomagnesemia - repleted - will follow level # pituitary lesion - seen on head CT - neurosurgery was contacted by ED physician with no acute recommendations - will order MRI of the brain for further evaluation # history of cancer? - patient will need follow-up once her acute status improves with biopsy of mass in the lung # Hypertension - hold antihypertensive in the setting of hypotension DVT prophylaxis: Lovenox
[2020-04-19 00:05] LABS: Bacteria Urine 2+ /LPF; RBC Urine 0 /HPF (0); Squamous Epithelial Cell Urine 1+ /LPF
[2020-04-19 00:22] LABS: ~Lactic Acid-LAB USE ONLY 1.6 mmol/L (0.5-2.0)
--- NOTE | 2020-04-19 00:28 | PC.NURSE ---
Report given to [facility]. Plan for transport to CT and then to floor.
--- NOTE | 2020-04-19 00:56 | PC.NURSE ---
Unable to complete Med Rec, pt is not familiar with home medications. Pt to CT and then to floor.
--- NOTE | 2020-04-19 00:57 | CA_ITS ---
Transthoracic Echocardiogram Patient (Last, First, Middle): Ella Waterman, Gender: Female Date of : 1950 Age: 69 Procedure Date: 04/19/2020 Procedure Type: Transthoracic Echocardiogram Location: [facility] [place] Height: 167.64 cm Weight: 73.03 kg BSA: 1.82 m2 Heart Rate: bpm BP: 101 / 52 mmHg Plate Worker: Referring MD: Sona Petit MD Symptoms: a fib Study Quality: Fair ECG Rhythm: Atrial flutter Conclusions: - Normal left ventricular size and systolic function. - Normal right ventricular cavity size and systolic function. - The left atrium is likely dilated. - The inferior vena cava is dilated and collapses greater than 50% with inspiration. Findings Left Ventricle Normal left ventricular size and systolic function. There is mildly increased left ventricular wall thickness. The visually estimated ejection fraction is between 55-60%. Regional wall motion abnormalities can not be excluded due to suboptimal endocardial definition. Diastolic function is indeterminate on the basis of available data. Spectral Doppler is indicative of an impaired relaxation filling pattern. Right Ventricle Normal right ventricular cavity size and systolic function. Atria The left atrium is likely dilated. Aortic Valve The aortic valve was not well visualized. There is no aortic valve stenosis. Mitral Valve Likely normal mitral valve structure and function. There is trace mitral valve regurgitation. There is no mitral valve stenosis. Pulmonic Valve The pulmonic valve was not well visualized. Tricuspid Valve Likely normal tricuspid valve structure and function. There is trace tricuspid valve regurgitation. Mildly elevated right atrial pressure. There is no evidence of pulmonary hypertension. Great Vessels All visible segments of the aorta are normal in size. Venous The inferior vena cava is dilated and collapses greater than 50% with inspiration. Pericardium/Pleural There is no evidence of pericardial effusion. Measurements 2D Linear Measurements IVSd: 1.07 0.6-0.9/0.6-1.0 cm LVIDd: 5.02 3.9-5.3/4.2-5.9 cm LVIDd Index: 2.76 2.4-3.2/2.2-3.1 cm/m2 LVIDs: 3.90 2.0-3.6 cm LVPWd: 1.00 0.7-1.1 cm Ao Root: 3.10 2.1-3.5 cm LA Diam: 3.20 2.7-3.8/3.0-4.0 cm LAIDs Index: 1.76 1.5-2.3 cm/m2 LV Mass: 239.09 67-162/88-224 g LV Mass Index: 131.37 43-95/49-115 g/m2 LVOT Diam: 2.20 3.0+(-)1.3 cm 2D Systolic Function EF 4C: 49.20 >55% EF 2C: 46.10 >55% Mitral Valve MV Pk E: 1.25 MV Decel Time: 141.00 PHT: 41.00 MVA PHT: 5.37 Decel [place]: 8.89 Aortic Valve AoV Pk [place]: 1.55 AoV Mn [place]: 0.99 AoV VTI: 0.37 AoV Pk Grad: 10.00 Aov Mn Grad: 5.00 NINFA Cont.VTI: 2.14 LVOT LVOT Pk [place]: 0.92 LVOT Mn [place]: 0.56 LVOT VTI: 0.21 LVOT Pk Grad: 3.00 LVOT Mn Grad: 2.00 LVOT Diam: 2.20 LVOT Area: 3.80 Diastolic Function MV Pk E: 1.25 Tricuspid Valve TR Pk [place]: 1.77 TR Pk Grad: 13.00 RA Press: 5.50 RVSP: 21.00 Great Vessels Aorta Ao Root-2D: 3.10 2.0-3.7 cm Pulmonary Valve PV Pk [place]: 0.86 Peak PV Grad: 3.00 Updated in Other Vendor System with Status of Final Abelardo Linares MD electronically signed on 04/19/2020 9:17:57 PM with status of Final
--- NOTE | 2020-04-19 00:58 | PC.NURSE ---
Pt to CT and then to floor.
--- NOTE | 2020-04-19 01:00 | CT_ITS ---
EXAMINATION: CT CHEST WITHOUT CONTRAST CLINICAL INFORMATION: Shortness of breath. Mass. COMPARISON: 02/01/2020 CT. Radiograph 04/18/2020. TECHNIQUE: Multidetector volumetric CT imaging of the chest was done. Axial MIP volume rendering provided. Sagittal and coronal reformatted images were obtained. This CT examination was performed using dose optimization techniques as appropriate, variously including the following: *Automated exposure control *Adjustment of mA and/or kV according to patient size (this includes techniques or standardized protocols for targeted exams where dose is matched to indication/reason for exam; i.e. extremities or head) *Use of iterative reconstruction technique DLP: 294 mGy-cm FINDINGS: LUNGS: The central airways are patent. Bronchial wall thickening with bronchial filling defects. This is particularly evident in the right lower lobe. Moderate centrilobular and paraseptal emphysema. Right lower lobe consolidation. This partially obscures the known right lower lobe nodule. The nodule measures 1.8 cm on series 5 image 316. This is similar to prior. No pneumothorax. MEDIASTINUM: Normal heart size. No pericardial effusion. No mediastinal lymphadenopathy. Coronary artery calcifications. PLEURA: There is no pleural effusion. No pleural mass or thickening. AXILLA: No lymphadenopathy. UPPER ABDOMEN: Cyst in the left lobe of the liver. Left adrenal gland nodule is unchanged, consistent with adenoma. Right renal cyst. Upper abdominal varices. OSSEOUS STRUCTURES: No acute or suspicious osseous abnormality. Degenerative changes throughout the spine. CT/CT chest wo con IMPRESSION: No significant change in a 1.8 cm right lower lobe pulmonary nodule. This is partially obscured by the new right lower lobe consolidation. Associated bronchial filling defects. This may be medical detail representative of aspiration. Moderate emphysema.
[2020-04-19] MEDS: Potassium Chloride/H20 10 MEQ/100 ML PIGGYBACK 100 MEQ IV ×2 (01:37→02:43)
[2020-04-19] MEDS: 0.9 % Sodium Chloride Flush 3 ML SYRINGE IVFLUSH ×3 (01:37→15:00)
[2020-04-19] MEDS: Enoxaparin Sodium 40 MG/0.4 ML SYRINGE SUBCUT (01:38)
--- NOTE | 2020-04-19 02:20 | ECG_ITS ---
Test Reason : RHYTHM CHECK Blood Pressure : / mmHG Vent. Rate : 098 BPM Atrial Rate : 098 BPM P-R Int : 198 ms QRS Dur : 096 ms QT Int : 400 ms P-R-T Axes : 059 077 263 degrees QTc Int : 510 ms Sinus rhythm with marked sinus arrhythmia with occasional Premature ventricular complexes with frequent Premature atrial complexes ST & T wave abnormality, consider inferolateral ischemia Abnormal ECG When compared with ECG of [id number] No significant changes seen Referred By: Sona Petit Electronically Signed By:BETSY PATEL MD
[2020-04-19 04:42] LABS: Basophils Percent Auto 0.1 % (0-2); Hematocrit 33.4 % (37-47); Imm Gran Abs Auto 0.06 X10*3/uL (0.00-0.03); Imm Gran Pct Auto 0.5 % (0.0-0.4); Lymphocytes Absolute Auto 0.8 X10*3/uL (1.2-4.9); Lymphocytes Percent Auto 6.1 % (20-40); MANUAL DIFF FLAG SCAN; Mean Corpuscular HGB Conc 35.9 g/dl (31.0-35.0); Mean Corpuscular Hemoglobin 34.5 pg (27.0-33.0); Mean Platelet Volume 10.4 fL (9.4-12.3); Monocytes Absolute Auto 0.2 X10*3/uL (0.1-1.2); Monocytes Percent Auto 1.5 % (2-11); Neutrophils Absolute Auto 11.7 X10*3/uL (2.0-8.3); Neutrophils Percent Auto 91.8 % (45-73); Platelet Count 244 X10*3/uL (160-400); Red Blood Count 3.48 X10*6/uL (4.20-5.50); Red Cell Distribution Width 14.2 % (11.0-16.0); SCAN SMEAR FLAG 1; White Blood Count 12.7 X10*3/uL (4.8-10.8)
[2020-04-19 05:07] LABS: SLIDE REVIEW VERIFIED
[2020-04-19 05:18] LABS: Anion Gap 12 (12-20); Blood Urea Nitrogen 13 mg/dL (9-16); Calcium 7.6 mg/dL (8.4-10.2); Carbon Dioxide 18 mmol/L (22-29); Chloride 106 mmol/L (96-108); Estimated Glomerular Filt Rate > 60; Glucose Random 135 mg/dL (60-115); Potassium 3.3 mmol/l (3.3-5.1); Sodium 133 mmol/L (135-145)
[2020-04-19] MEDS: Lactated Ringers 1,000 ML 100 ML IVCONT ×2 (06:16→16:10)
--- NOTE | 2020-04-19 06:34 | PC.NURSE ---
0220 Patient had burst of PAT, frequent PAC's, and PVC's on telemetry. EKG done when patient arrived to IM showing Sinus arrythmia with PAC's. Hospitalist notified. Will continue to monitor.
[2020-04-19 06:42] LABS: Lactic Acid 1.5 mmol/L (0.5-2.0)
[2020-04-19 06:55] LABS: Magnesium 1.2 mg/dL (1.6-2.6)
[2020-04-19] MEDS: Magnesium Sulfate/H2O 2 GM/50 ML PIGGYBACK IV ×2 (08:07→15:00)
[2020-04-19] MEDS: Ampicillin Sodium/Sulbactam Na 3 GM in 0.9 % Sodium Chloride 100 ML IV ×3 (08:07→19:58)
[2020-04-19] MEDS: Omeprazole 20 MG CAPSULE.DR PO (08:08)
[2020-04-19] MEDS: Nicotine 21 MG PATCH.TD24 TRANSDERMA (08:08)
[2020-04-19] MEDS: Atorvastatin Calcium 10 MG TABLET PO (08:08)
--- NOTE | 2020-04-19 10:09 | MHC.CM.PN ---
met with who is agreeable to str per physical therapies assesment referrals will be made
[2020-04-19] MEDS: Gabapentin 100 MG CAPSULE PO (11:46)
--- NOTE | 2020-04-19 12:39 | PM.PNCARD ---
Subjective Subjective Date of Service: 04/19/20 Principal diagnosis: Afib, UTI Physical Exam Vital Signs: Last Vital Signs Temp 97.6 F 04/19/20 10:40 Pulse 96 04/19/20 10:40 Resp 18 04/19/20 10:40 BP 102/67 04/19/20 10:40 Pulse Ox 97 04/19/20 10:40 Body Mass Index 26.0 Results Labs and Meds Result diagrams: 04/19/20 04:07 04/19/20 04:07 Lab results: Laboratory Results - last 24 hr 04/18/20 04/18/20 04/18/20 19:27 20:01 20:01 WBC 11.1 H RBC 3.68 L Hgb 12.7 Hct 35.9 L MCV 97.6 MCH 34.5 H MCHC 35.4 H RDW 14.2 Plt Count 199 MPV 10.2 Immature Gran % (Auto) 0.5 H Neut % (Auto) 70.9 Lymph % (Auto) 19.6 L [place] % (Auto) 8.0 Eos % (Auto) 0.7 Baso % (Auto) 0.3 Lymph # (Auto) 2.2 [place] # (Auto) 0.9 Eos # (Auto) 0.1 Baso # (Auto) 0.0 Abs Immat Gran (auto) 0.06 H Absolute Neuts (auto) 7.8 Absolute Nucleated RBC 0.000 Nucleated RBC % (auto) 0.0 Smear Tech's Comments PT INR APTT D-Dimer VBG pH VBG pCO2 VBG pO2 VBG HCO3 VBG O2 Saturation VBG Base Excess Sodium Potassium Chloride Carbon Dioxide Anion Gap BUN Creatinine Estim Creat Clear Calc Estimated GFR POC Glucose 94 Random Glucose Lactic Acid Lactic Acid Fup @ 2Hr Calcium Magnesium 1.5 L Total Bilirubin 0.9 Direct Bilirubin 0.5 AST 20 ALT 10 Alkaline Phosphatase 65 Troponin I High Sens B-Natriuretic Peptide Total Protein 4.0 L Albumin 2.4 L Lipase Procalcitonin TSH Urine Color Urine Appearance Urine pH Ur Specific [place] Urine Protein Urine Glucose (UA) Urine Ketones Urine Blood Urine Nitrite Ur Leukocyte Esterase Urine RBC Urine WBC Ur Squamous Epith Cells Urine Bacteria COVID-19 (AN) COVID-19 Clin Com 04/18/20 04/18/20 04/18/20 20:01 20:01 20:11 WBC RBC Hgb Hct MCV MCH MCHC RDW Plt Count MPV Immature Gran % (Auto) Neut % (Auto) Lymph % (Auto) [place] % (Auto) Eos % (Auto) Baso % (Auto) Lymph # (Auto) [place] # (Auto) Eos # (Auto) Baso # (Auto) Abs Immat Gran (auto) Absolute Neuts (auto) Absolute Nucleated RBC Nucleated RBC % (auto) Smear Tech's Comments PT INR APTT D-Dimer VBG pH VBG pCO2 VBG pO2 VBG HCO3 VBG O2 Saturation VBG Base Excess Sodium Potassium Chloride Carbon Dioxide Anion Gap BUN Creatinine Estim Creat Clear Calc Estimated GFR POC Glucose Random Glucose Lactic Acid 4.5 H* Lactic Acid Fup @ 2Hr Calcium Magnesium Total Bilirubin Direct Bilirubin AST ALT Alkaline Phosphatase Troponin I High Sens B-Natriuretic Peptide Total Protein Albumin Lipase Procalcitonin 0.10 TSH 0.94 Urine Color Urine Appearance Urine pH Ur Specific [place] Urine Protein Urine Glucose (UA) Urine Ketones Urine Blood Urine Nitrite Ur Leukocyte Esterase Urine RBC Urine WBC Ur Squamous Epith Cells Urine Bacteria COVID-19 (AN) COVID-19 [employer] 04/18/20 04/18/20 04/18/20 20:11 20:11 20:11 WBC RBC Hgb Hct MCV MCH MCHC RDW Plt Count MPV Immature Gran % (Auto) Neut % (Auto) Lymph % (Auto) [place] % (Auto) Eos % (Auto) Baso % (Auto) Lymph # (Auto) [place] # (Auto) Eos # (Auto) Baso # (Auto) Abs Immat Gran (auto) Absolute Neuts (auto) Absolute Nucleated RBC Nucleated RBC % (auto) Smear Tech's Comments PT 13.0 INR 1.1 APTT 28.4 D-Dimer < 200 VBG pH VBG pCO2 VBG pO2 VBG HCO3 VBG O2 Saturation VBG Base Excess Sodium Potassium Chloride Carbon Dioxide Anion Gap BUN Creatinine Estim Creat Clear Calc Estimated GFR POC Glucose Random Glucose Lactic Acid Lactic Acid Fup @ 2Hr Calcium Magnesium Total Bilirubin Direct Bilirubin AST ALT Alkaline Phosphatase Troponin I High Sens 13.8 B-Natriuretic Peptide 90 Total Protein Albumin Lipase Procalcitonin TSH Urine Color Urine Appearance Urine pH Ur Specific [place] Urine Protein Urine Glucose (UA) Urine Ketones Urine Blood Urine Nitrite Ur Leukocyte Esterase Urine RBC Urine WBC Ur Squamous Epith Cells Urine Bacteria COVID-19 (AN) COVID-[employer] 04/18/20 04/18/20 04/18/20 20:12 20:20 20:20 WBC RBC Hgb Hct MCV MCH MCHC RDW Plt Count MPV Immature Gran % (Auto) Neut % (Auto) Lymph % (Auto) [place] % (Auto) Eos % (Auto) Baso % (Auto) Lymph # (Auto) [place] # (Auto) Eos # (Auto) Baso # (Auto) Abs Immat Gran (auto) Absolute Neuts (auto) Absolute Nucleated RBC Nucleated RBC % (auto) Smear Tech's Comments PT Cancelled INR Cancelled APTT Cancelled D-Dimer VBG pH VBG pCO2 VBG pO2 VBG HCO3 VBG O2 Saturation VBG Base Excess Sodium 136 Potassium 2.6 L Chloride 101 Carbon Dioxide 21 L Anion Gap 17 BUN 16 D Creatinine 0.84 Estim Creat Clear Calc 58.3 Estimated GFR > 60 POC Glucose Random Glucose 92 Lactic Acid Lactic Acid Fup @ 2Hr Calcium 7.5 L Magnesium Total Bilirubin Direct Bilirubin AST ALT Alkaline Phosphatase Troponin I High Sens B-Natriuretic Peptide Total Protein Albumin Lipase 9 Procalcitonin TSH Urine Color Urine Appearance Urine pH Ur Specific [place] Urine Protein Urine Glucose (UA) Urine Ketones Urine Blood Urine Nitrite Ur Leukocyte Esterase Urine RBC Urine WBC Ur Squamous Epith Cells Urine Bacteria COVID-19 (AN) Negative COVID-19 Clin Com See Note 04/18/20 04/18/20 04/18/20 20:20 23:39 23:39 WBC RBC Hgb Hct MCV MCH MCHC RDW Plt Count MPV Immature Gran % (Auto) Neut % (Auto) Lymph % (Auto) [place] % (Auto) Eos % (Auto) Baso % (Auto) Lymph # (Auto) [place] # (Auto) Eos # (Auto) Baso # (Auto) Abs Immat Gran (auto) Absolute Neuts (auto) Absolute Nucleated RBC Nucleated RBC % (auto) Smear Tech's Comments PT INR APTT D-Dimer VBG pH 7.36 VBG pCO2 37 VBG pO2 32 VBG HCO3 21 VBG O2 Saturation 53.8 VBG Base Excess -4.0 Sodium Potassium Chloride Carbon Dioxide Anion Gap BUN Creatinine Estim Creat Clear Calc Estimated GFR POC Glucose Random Glucose Lactic Acid Lactic Acid Fup @ 2Hr 1.6 Calcium Magnesium Total Bilirubin Direct Bilirubin AST ALT Alkaline Phosphatase Troponin I High Sens B-Natriuretic Peptide Total Protein Albumin Lipase Procalcitonin TSH Urine Color YELLOW Urine Appearance CLEAR Urine pH 6.0 Ur Specific [place] <= 1.005 Urine Protein NEG Urine Glucose (UA) NEG Urine Ketones NEG Urine Blood NEG Urine Nitrite POS H Ur Leukocyte Esterase 1+ H Urine RBC 0 Urine WBC 10-14 H Ur Squamous Epith Cells 1+ Urine Bacteria 2+ COVID-19 (AN) COVID-19 Clin Com 04/19/20 04/19/20 04/19/20 04:07 04:07 05:55 WBC 12.7 H RBC 3.48 L Hgb 12.0 Hct 33.4 L MCV 96.0 MCH 34.5 H MCHC 35.9 H RDW 14.2 Plt Count 244 MPV 10.4 Immature Gran % (Auto) 0.5 H Neut % (Auto) 91.8 H Lymph % (Auto) 6.1 L [place] % (Auto) 1.5 L Eos % (Auto) 0.0 Baso % (Auto) 0.1 Lymph # (Auto) 0.8 L [place] # (Auto) 0.2 Eos # (Auto) 0.0 Baso # (Auto) 0.0 Abs Immat Gran (auto) 0.06 H Absolute Neuts (auto) 11.7 H Absolute Nucleated RBC 0.000 Nucleated RBC % (auto) 0.0 Smear Tech's Comments VERIFIED PT INR APTT D-Dimer VBG pH VBG pCO2 VBG pO2 VBG HCO3 VBG O2 Saturation VBG Base Excess Sodium 133 L Potassium 3.3 D Chloride 106 Carbon Dioxide 18 L Anion Gap 12 BUN 13 Creatinine 0.71 Estim Creat Clear Calc 69.0 Estimated GFR > 60 POC Glucose Random Glucose 135 H D Lactic Acid 1.5 Lactic Acid Fup @ 2Hr Calcium 7.6 L Magnesium Total Bilirubin Direct Bilirubin AST ALT Alkaline Phosphatase Troponin I High Sens B-Natriuretic Peptide Total Protein Albumin Lipase Procalcitonin TSH Urine Color Urine Appearance Urine pH Ur Specific [place] Urine Protein Urine Glucose (UA) Urine Ketones Urine Blood Urine Nitrite Ur Leukocyte Esterase Urine RBC Urine WBC Ur Squamous Epith Cells Urine Bacteria COVID-19 (AN) COVID-19 Clin Com 04/19/20 04/19/20 05:55 05:56 WBC RBC Hgb Hct MCV MCH MCHC RDW Plt Count MPV Immature Gran % (Auto) Neut % (Auto) Lymph % (Auto) [place] % (Auto) Eos % (Auto) Baso % (Auto) Lymph # (Auto) [place] # (Auto) Eos # (Auto) Baso # (Auto) Abs Immat Gran (auto) Absolute Neuts (auto) Absolute Nucleated RBC Nucleated RBC % (auto) Smear Tech's Comments PT INR APTT D-Dimer VBG pH VBG pCO2 VBG pO2 VBG HCO3 VBG O2 Saturation VBG Base Excess Sodium Potassium Chloride Carbon Dioxide Anion Gap BUN Creatinine Estim Creat Clear Calc Estimated GFR POC Glucose Random Glucose Lactic Acid Lactic Acid Fup @ 2Hr Calcium Magnesium 1.2 L* Total Bilirubin Direct Bilirubin AST ALT Alkaline Phosphatase Troponin I High Sens 15.0 B-Natriuretic Peptide Total Protein Albumin Lipase Procalcitonin TSH Urine Color Urine Appearance Urine pH Ur Specific [place] Urine Protein Urine Glucose (UA) Urine Ketones Urine Blood Urine Nitrite Ur Leukocyte Esterase Urine RBC Urine WBC Ur Squamous Epith Cells Urine Bacteria COVID-19 (AN) COVID-19 Clin Com Progress Note: A&P Fall Risk Details Current Medications: Current Medications Generic Name Dose Route Start Last Admin Trade Name Freq PRN Reason Stop Dose Admin Acetaminophen 650 mg 04/19/20 00:57 Acetaminophen 325 Mg Tablet PO Q6H PRN Pain, Mild (Pain Scale 1-3) Albuterol Sulfate 2.5 mg 04/19/20 00:57 Albuterol Sulfate (0.083%) 2.5 Mg/3 Ml Vial.Neb INHALE QID PRN Shortness Of Breath Or Wheezing Atorvastatin Calcium 10 mg 04/19/20 09:00 04/19/20 08:08 Atorvastatin Calcium 10 Mg Tablet PO 10 mg DAILY JULIA Administration Docusate Sodium 100 mg 04/19/20 00:57 Docusate Sodium 100 Mg Capsule PO DAILY PRN Constipation Enoxaparin Sodium 70 mg 04/19/20 18:00 Enoxaparin Sodium 80 Mg/0.8 Ml Syringe SUBCUT Q12H JULIA Furosemide 20 mg 04/19/20 09:00 04/19/20 08:22 Furosemide 20 Mg Tablet PO Not Given DAILY JULIA Protocol Gabapentin 100 mg 04/19/20 00:57 04/19/20 11:46 Gabapentin 100 Mg Capsule PO 100 mg TID PRN Administration pain Gabapentin 600 - 900 mg 04/19/20 21:00 Gabapentin 300 Mg Capsule PO BEDTIME JULIA Ampicillin Sodium/Sulbactam 100 mls @ 200 mls/hr 04/19/20 07:00 04/19/20 08:45 Sodium 3 gm/ Sodium Chloride IV Infused Q6H JULIA Infusion Lactated Ringer's 1,000 mls @ 100 mls/hr 04/19/20 06:00 04/19/20 06:16 Lr IVCONT 100 mls/hr .Q10H JULIA Administration Metoprolol Tartrate 12.5 mg 04/19/20 09:00 04/19/20 08:22 Metoprolol Tartrate 12.5 Mg Halftab PO Not Given BID JULIA Protocol Nicotine 21 mg 04/19/20 09:00 04/19/20 08:08 Nicotine 21 Mg Patch.[id number] TRANSDERMA 21 mg DAILY JULIA Administration Omeprazole 20 mg 04/19/20 09:00 04/19/20 08:08 Omeprazole 20 Mg Capsule.Dr PO 20 mg DAILY JULIA Administration Ondansetron HCl 4 mg 04/19/20 00:57 Ondansetron Hcl 4 Mg/2 Ml Vial IVPUSH Q8H PRN Nausea and Vomiting Pharmacy Consult 1 each 04/18/20 19:35 Consult Rx Perform Med Rec MISCELLANE ONCE PRN Consult order Sodium Chloride 3 ml 04/19/20 00:57 04/19/20 08:08 0.9 % Sodium Chloride Flush 3 Ml Syringe IVFLUSH 3 ml QSHIFT JULIA Administration Time Spent With Patient Time: Total time spent is greater than 50% in coordination of care (as documented) at patient's floor/unit and/or counseling patient:
--- NOTE | 2020-04-19 12:51 | PM.CNCAR ---
History of Present Illness History of Present Illness Date of Service: 04/19/20 Requesting physician: Meg Adler Chief complaint: A. FIB WITH RVR Narrative: Ella is a 69 yo female with PMH of HTN, HLD, smoking, COPD, reported Lung CA. She presented to [facility] [place], via EMS after having a fall at home. She was found to be hypotensive and with narrow complex irregular rhythm. They did attempt cardioversion without effect. In the ED she again had cardioversion without effect. Her Tele strips and EKGs do shows Sinus tachycardia with very freq PACs. She was treated for heart rate control. Given 3 liters of IV fluid for hydration. Her K 2.6 and she was given supplement. Her Mg 1.5 and she was given supplement. Her u/a was positive for UTI and she was started on antibiotics. Chest CT confirmed a 1.8cm RLL nodule. Her home Lisinopril was held. She was started on low dose Metoprolol for heart rate control and admitted to [facility] for ongoing evaluation. Today she is alert and appropriate. She tells me she was lightheaded when she got up to go to the bathroom yesterday, then fell. She did not lose consciousness. She has been very weak, not eating but admits to drinking enough liquids. She denies any prior afib, OK but recalls have CHF in the past. She has been having some sob with activity and is being evaluated for lung CA. She reports having an appnt with Dr Boone in April. She has seen Dr Cannon in the past for this. She tells me in the last 6 months she has lost about 40lbs. She does not get CP, palpitations, PND, orthopnea or edema. She has issues with numbness of her hand and feet and has seen neurology. At home she walks only short distances. Has been complaint with her medications. Review of Systems Review of Systems: Yes all other systems are reviewed and are negative Constitutional: Constitutional: Denies frequent falls Cardiovascular: Cardiovascular: Denies chest pain, Denies chest pain at rest, Denies chest pain with activity, Denies Epigastric Pain, Denies syncope, Denies claudication, Denies radiating jaw, neck or arm pain, Denies palpitations and Denies orthopnea Respiratory: Respiratory: Denies chest congestion, Denies cough, Denies hemoptysis and Denies pain on inspiration Gastrointestinal: Gastrointestinal: Reports no additional gastrointestinal complaints and Denies abdominal pain Musculoskeletal: Musculoskeletal: Reports no additional musculoskeletal complaints Neurologic: Denies Abnormal speech present, Denies confusion, Denies syncope and Denies frequent falls Psychiatric: Psychiatric: Denies confusion Endocrine: Endocrine: Denies palpitations PMF Past Medical History Medical History Cancer COPD (chronic obstructive pulmonary disease) High cholesterol Hypertension Family History Family History (Updated 04/19/20 @ 13:32 by LEWIS Murphy) Other No cardiac disease Social History Social History Household Members: Children Housing: House Do you presently have visiting nurse or other home services: No Smoking Status: Former smoker Patient Interested in Nicotine Replacement: Yes Patient Given Instructions on How to Stop Smoking: Yes Date Education Initiated: 04/19/20 Use of substances other than those prescribed or required for medical reasons: No Currently Displaying Signs/Symptoms of Drug Intoxication Withdrawal: No Have you been hit, kicked, punched, or otherwise hurt by someone within the past year? If so, by whom?: No Do you feel safe in your current relationship?: No Current Relationship Is there a partner from a previous relationship who is making you feel unsafe now?: No Are you made to feel afraid or neglected: No Advance Directives: No Advance Directives Information Provided: No Advance Directives on File: No Do you have thoughts of harming others: None Do you have a plan to hurt others: No Plan Recently lost weight without trying: Yes service: No Meds Allergies Allergy/AdvReac Type Severity Reaction Status Date / Time varenicline Allergy Unknown muscle Verified 04/18/20 19:36 cramps No Known Allergies Allergy Verified 04/18/20 19:36 [No Known Allergies*] grass Allergy Unknown allergic Uncoded 03/29/20 09:14 rhinitis statins Allergy Unknown myalgias Uncoded 03/29/20 09:14 Home Medications Medication Instructions Recorded Confirmed Type albuterol sulfate 2.5 mg INHALATION QID PRN 04/18/20 04/18/20 History furosemide 1 tab PO DAILY 04/18/20 04/18/20 History gabapentin 1 cap PO TID PRN 04/18/20 04/18/20 History gabapentin 2 - 3 cap PO BEDTIME 04/18/20 04/18/20 History lisinopril 1 tab PO DAILY 04/18/20 04/18/20 History omeprazole 20 mg PO DAILY 04/18/20 04/18/20 History simvastatin 1 tab PO DAILY 04/18/20 04/18/20 History Physical Exam Vital Signs: Vital Signs: Last Vital Signs Temp 97.6 F 04/19/20 10:40 Pulse 96 04/19/20 10:40 Resp 18 04/19/20 10:40 BP 102/67 04/19/20 10:40 Pulse Ox 97 04/19/20 10:40 Body Mass Index 26.0 Const: Other: Elderly female, looking older than stated age General: no acute distress, alert and awake; No confusion Orientation/consciousness: No confusion HENMT: Head: Yes normal to inspection Neck: Neck: Yes normal visual inspection and Yes no JVD Resp: Other: Unlabored, wearing O2 with nasal cannula. Coarse congestion upper lung cabrales, productive cough Effort & Inspection: able to speak in complete sentences, not labored, no stridor, not tachypneic and no use of accessory muscles Cardio: Other: Heart tones distant, no clear murmur noted, irregular rapid rhythm Heart sounds: S1 normal heart sound present and S2 normal heart sound present Peripheral pulses: Peripheral pulses 2+ throughout GI: Inspection: Yes normal to inspection Neuro: General: No confusion Speech: No Abnormal speech present Extrem: General: Yes normal to inspection and No edema Results Labs and Meds Result diagrams: 04/19/20 04:07 04/19/20 04:07 Lab results: Laboratory Results - last 24 hr 04/18/20 04/18/20 04/18/20 19:27 20:01 20:01 WBC 11.1 H RBC 3.68 L Hgb 12.7 Hct 35.9 L MCV 97.6 MCH 34.5 H MCHC 35.4 H RDW 14.2 Plt Count 199 MPV 10.2 Immature Gran % (Auto) 0.5 H Neut % (Auto) 70.9 Lymph % (Auto) 19.6 L [place] % (Auto) 8.0 Eos % (Auto) 0.7 Baso % (Auto) 0.3 Lymph # (Auto) 2.2 [place] # (Auto) 0.9 Eos # (Auto) 0.1 Baso # (Auto) 0.0 Abs Immat Gran (auto) 0.06 H Absolute Neuts (auto) 7.8 Absolute Nucleated RBC 0.000 Nucleated RBC % (auto) 0.0 Smear Tech's Comments PT INR APTT D-Dimer VBG pH VBG pCO2 VBG pO2 VBG HCO3 VBG O2 Saturation VBG Base Excess Sodium Potassium Chloride Carbon Dioxide Anion Gap BUN Creatinine Estim Creat Clear Calc Estimated GFR POC Glucose 94 Random Glucose Lactic Acid Lactic Acid Fup @ 2Hr Calcium Magnesium 1.5 L Total Bilirubin 0.9 Direct Bilirubin 0.5 AST 20 ALT 10 Alkaline Phosphatase 65 Troponin I High Sens B-Natriuretic Peptide Total Protein 4.0 L Albumin 2.4 L Lipase Procalcitonin TSH Urine Color Urine Appearance Urine pH Ur Specific Ulen Urine Protein Urine Glucose (UA) Urine Ketones Urine Blood Urine Nitrite Ur Leukocyte Esterase Urine RBC Urine WBC Ur Squamous Epith Cells Urine Bacteria COVID-19 (AN) COVID-19 Projectioneering 04/18/20 04/18/20 04/18/20 20:01 20:01 20:11 WBC RBC Hgb Hct MCV MCH MCHC RDW Plt Count MPV Immature Gran % (Auto) Neut % (Auto) Lymph % (Auto) [place] % (Auto) Eos % (Auto) Baso % (Auto) Lymph # (Auto) [place] # (Auto) Eos # (Auto) Baso # (Auto) Abs Immat Gran (auto) Absolute Neuts (auto) Absolute Nucleated RBC Nucleated RBC % (auto) Smear Tech's Comments PT INR APTT D-Dimer VBG pH VBG pCO2 VBG pO2 VBG HCO3 VBG O2 Saturation VBG Base Excess Sodium Potassium Chloride Carbon Dioxide Anion Gap BUN Creatinine Estim Creat Clear Calc Estimated GFR POC Glucose Random Glucose Lactic Acid 4.5 H* Lactic Acid Fup @ 2Hr Calcium Magnesium Total Bilirubin Direct Bilirubin AST ALT Alkaline Phosphatase Troponin I High Sens B-Natriuretic Peptide Total Protein Albumin Lipase Procalcitonin 0.10 TSH 0.94 Urine Color Urine Appearance Urine pH Ur Specific Ulen Urine Protein Urine Glucose (UA) Urine Ketones Urine Blood Urine Nitrite Ur Leukocyte Esterase Urine RBC Urine WBC Ur Squamous Epith Cells Urine Bacteria COVID-19 (AN) COVID-19 Projectioneering 04/18/20 04/18/20 04/18/20 20:11 20:11 20:11 WBC RBC Hgb Hct MCV MCH MCHC RDW Plt Count MPV Immature Gran % (Auto) Neut % (Auto) Lymph % (Auto) [place] % (Auto) Eos % (Auto) Baso % (Auto) Lymph # (Auto) [place] # (Auto) Eos # (Auto) Baso # (Auto) Abs Immat Gran (auto) Absolute Neuts (auto) Absolute Nucleated RBC Nucleated RBC % (auto) Smear Tech's Comments PT 13.0 INR 1.1 APTT 28.4 D-Dimer < 200 VBG pH VBG pCO2 VBG pO2 VBG HCO3 VBG O2 Saturation VBG Base Excess Sodium Potassium Chloride Carbon Dioxide Anion Gap BUN Creatinine Estim Creat Clear Calc Estimated GFR POC Glucose Random Glucose Lactic Acid Lactic Acid Fup @ 2Hr Calcium Magnesium Total Bilirubin Direct Bilirubin AST ALT Alkaline Phosphatase Troponin I High Sens 13.8 B-Natriuretic Peptide 90 Total Protein Albumin Lipase Procalcitonin TSH Urine Color Urine Appearance Urine pH Ur Specific Ulen Urine Protein Urine Glucose (UA) Urine Ketones Urine Blood Urine Nitrite Ur Leukocyte Esterase Urine RBC Urine WBC Ur Squamous Epith Cells Urine Bacteria COVID-19 (AN) COVID-19 Clin Com 04/18/20 04/18/20 04/18/20 20:12 20:20 20:20 WBC RBC Hgb Hct MCV MCH MCHC RDW Plt Count MPV Immature Gran % (Auto) Neut % (Auto) Lymph % (Auto) [place] % (Auto) Eos % (Auto) Baso % (Auto) Lymph # (Auto) [place] # (Auto) Eos # (Auto) Baso # (Auto) Abs Immat Gran (auto) Absolute Neuts (auto) Absolute Nucleated RBC Nucleated RBC % (auto) Smear Tech's Comments PT Cancelled INR Cancelled APTT Cancelled D-Dimer VBG pH VBG pCO2 VBG pO2 VBG HCO3 VBG O2 Saturation VBG Base Excess Sodium 136 Potassium 2.6 L Chloride 101 Carbon Dioxide 21 L Anion Gap 17 BUN 16 D Creatinine 0.84 Estim Creat Clear Calc 58.3 Estimated GFR > 60 POC Glucose Random Glucose 92 Lactic Acid Lactic Acid Fup @ 2Hr Calcium 7.5 L Magnesium Total Bilirubin Direct Bilirubin AST ALT Alkaline Phosphatase Troponin I High Sens B-Natriuretic Peptide Total Protein Albumin Lipase 9 Procalcitonin TSH Urine Color Urine Appearance Urine pH Ur Specific Ulen Urine Protein Urine Glucose (UA) Urine Ketones Urine Blood Urine Nitrite Ur Leukocyte Esterase Urine RBC Urine WBC Ur Squamous Epith Cells Urine Bacteria COVID-19 (AN) Negative COVID-19 Clin Com See Note 04/18/20 04/18/20 04/18/20 20:20 23:39 23:39 WBC RBC Hgb Hct MCV MCH MCHC RDW Plt Count MPV Immature Gran % (Auto) Neut % (Auto) Lymph % (Auto) [place] % (Auto) Eos % (Auto) Baso % (Auto) Lymph # (Auto) [place] # (Auto) Eos # (Auto) Baso # (Auto) Abs Immat Gran (auto) Absolute Neuts (auto) Absolute Nucleated RBC Nucleated RBC % (auto) Smear Tech's Comments PT INR APTT D-Dimer VBG pH 7.36 VBG pCO2 37 VBG pO2 32 VBG HCO3 21 VBG O2 Saturation 53.8 VBG Base Excess -4.0 Sodium Potassium Chloride Carbon Dioxide Anion Gap BUN Creatinine Estim Creat Clear Calc Estimated GFR POC Glucose Random Glucose Lactic Acid Lactic Acid Fup @ 2Hr 1.6 Calcium Magnesium Total Bilirubin Direct Bilirubin AST ALT Alkaline Phosphatase Troponin I High Sens B-Natriuretic Peptide Total Protein Albumin Lipase Procalcitonin TSH Urine Color YELLOW Urine Appearance CLEAR Urine pH 6.0 Ur Specific Ulen <= 1.005 Urine Protein NEG Urine Glucose (UA) NEG Urine Ketones NEG Urine Blood NEG Urine Nitrite POS H Ur Leukocyte Esterase 1+ H Urine RBC 0 Urine WBC 10-14 H Ur Squamous Epith Cells 1+ Urine Bacteria 2+ COVID-19 (AN) COVID-19 Clin Com 04/19/20 04/19/20 04/19/20 04:07 04:07 05:55 WBC 12.7 H RBC 3.48 L Hgb 12.0 Hct 33.4 L MCV 96.0 MCH 34.5 H MCHC 35.9 H RDW 14.2 Plt Count 244 MPV 10.4 Immature Gran % (Auto) 0.5 H Neut % (Auto) 91.8 H Lymph % (Auto) 6.1 L [place] % (Auto) 1.5 L Eos % (Auto) 0.0 Baso % (Auto) 0.1 Lymph # (Auto) 0.8 L [place] # (Auto) 0.2 Eos # (Auto) 0.0 Baso # (Auto) 0.0 Abs Immat Gran (auto) 0.06 H Absolute Neuts (auto) 11.7 H Absolute Nucleated RBC 0.000 Nucleated RBC % (auto) 0.0 Smear Tech's Comments VERIFIED PT INR APTT D-Dimer VBG pH VBG pCO2 VBG pO2 VBG HCO3 VBG O2 Saturation VBG Base Excess Sodium 133 L Potassium 3.3 D Chloride 106 Carbon Dioxide 18 L Anion Gap 12 BUN 13 Creatinine 0.71 Estim Creat Clear Calc 69.0 Estimated GFR > 60 POC Glucose Random Glucose 135 H D Lactic Acid 1.5 Lactic Acid Fup @ 2Hr Calcium 7.6 L Magnesium Total Bilirubin Direct Bilirubin AST ALT Alkaline Phosphatase Troponin I High Sens B-Natriuretic Peptide Total Protein Albumin Lipase Procalcitonin TSH Urine Color Urine Appearance Urine pH Ur Specific Ulen Urine Protein Urine Glucose (UA) Urine Ketones Urine Blood Urine Nitrite Ur Leukocyte Esterase Urine RBC Urine WBC Ur Squamous Epith Cells Urine Bacteria COVID-19 (AN) COVID-19 [place] Com 04/19/20 04/19/20 05:55 05:56 WBC RBC Hgb Hct MCV MCH MCHC RDW Plt Count MPV Immature Gran % (Auto) Neut % (Auto) Lymph % (Auto) [place] % (Auto) Eos % (Auto) Baso % (Auto) Lymph # (Auto) [place] # (Auto) Eos # (Auto) Baso # (Auto) Abs Immat Gran (auto) Absolute Neuts (auto) Absolute Nucleated RBC Nucleated RBC % (auto) Smear Tech's Comments PT INR APTT D-Dimer VBG pH VBG pCO2 VBG pO2 VBG HCO3 VBG O2 Saturation VBG Base Excess Sodium Potassium Chloride Carbon Dioxide Anion Gap BUN Creatinine Estim Creat Clear Calc Estimated GFR POC Glucose Random Glucose Lactic Acid Lactic Acid Fup @ 2Hr Calcium Magnesium 1.2 L* Total Bilirubin Direct Bilirubin AST ALT Alkaline Phosphatase Troponin I High Sens 15.0 B-Natriuretic Peptide Total Protein Albumin Lipase Procalcitonin TSH Urine Color Urine Appearance Urine pH Ur Specific Ulen Urine Protein Urine Glucose (UA) Urine Ketones Urine Blood Urine Nitrite Ur Leukocyte Esterase Urine RBC Urine WBC Ur Squamous Epith Cells Urine Bacteria COVID-19 (AN) COVID-19 Clin Com Assessment and Plan (1) Atrial fibrillation: Qualifiers: Atrial fibrillation type: unspecified Qualified Code(s): I48.91 - Unspecified atrial fibrillation Status: Acute Admit after fall at home, noted to be hypotensive, electrolyte abn and Tachycardic, concerning for Afib RVR. Did have CVR X2 without clear effect. Tele strips and EKGs reviewed. This is not clearly Afib and looks to be Sinus tachycardia with very freq PACs. She has no hx of AF. No palpitation. She was dehydrated and is being rehydrated. Sepsis present and being treated for UTI. Her K and Mg were low and were replaced. This am, tele shows ST, 90-110 with freq PACs, PVCs. Echo pending. No indication for anticoagulation at present. Dr Linares will further eval strips to determine if actual AF vs ST. Can continue low dose Metoprolol if BP allows. Continue IV fluid and electrolyte replacement as warranted. (2) Hypotension: Qualifiers: Hypotension type: unspecified hypotension type Qualified Code(s): I95.9 - Hypotension, unspecified Status: Acute Her fall at home was likely related to hypotension. It is improving with hydration. This am 102/67. (3) Hypomagnesemia: Status: Acute (4) UTI (urinary tract infection): Status: Acute Being managed by hospitalist (5) Sepsis: Status: Acute
--- NOTE | 2020-04-19 14:28 | P.PNIM_ITS ---
Subjective Subjective Date of Service: 04/19/20 Interval History: the patient was seen and evaluated this morning Laying in bed, feels lethargic and tired Reports feeling dizzy most of the times Denies any fever, chills or shortness of breath No reported other overnight events. Systemic review: No fever, chills but significant dizziness and weakness No chest pain, palpitation reporting mild shortness of breath or coughing No abdominal pain, nausea or vomiting No urinary symptoms No any rash or wounds Physical Exam Vital Signs: Vital Signs: Last Vital Signs Temp 97.6 F 04/19/20 10:40 Pulse 96 04/19/20 10:40 Resp 18 04/19/20 10:40 BP 102/67 04/19/20 10:40 Pulse Ox 97 04/19/20 10:40 Body Mass Index 26.0 Constitutional : Alert, oriented, looks lethargic and tired Neck : Normal inspection, Supple Cardiovascular : irregular rhythm, S1 S2, no lower extremity edema Respiratory : decreased bilateral air entry, basal right-sided crackles, scattered wheezes or rhonchi Gastrointestinal: soft, lax, Normal bowel sounds, Non tender Skin : Warm/Dry, No rash Neurological : Alert & oriented x3, No focal deficit Objective Data Current Medications Generic Name Dose Route Start Last Admin Trade Name Freq PRN Reason Stop Dose Admin Acetaminophen 650 mg 04/19/20 00:57 Acetaminophen 325 Mg Tablet PO Q6H PRN Pain, Mild (Pain Scale 1-3) Albuterol Sulfate 2.5 mg 04/19/20 00:57 Albuterol Sulfate (0.083%) 2.5 Mg/3 Ml Vial.Neb INHALE QID PRN Shortness Of Breath Or Wheezing Atorvastatin Calcium 10 mg 04/19/20 09:00 04/19/20 08:08 Atorvastatin Calcium 10 Mg Tablet PO 10 mg DAILY JULIA Administration Docusate Sodium 100 mg 04/19/20 00:57 Docusate Sodium 100 Mg Capsule PO DAILY PRN Constipation Enoxaparin Sodium 70 mg 04/19/20 18:00 Enoxaparin Sodium 80 Mg/0.8 Ml Syringe SUBCUT Q12H JULIA Furosemide 20 mg 04/19/20 09:00 04/19/20 08:22 Furosemide 20 Mg Tablet PO Not Given DAILY JULIA Protocol Gabapentin 100 mg 04/19/20 00:57 04/19/20 11:46 Gabapentin 100 Mg Capsule PO 100 mg TID PRN Administration pain Gabapentin 600 - 900 mg 04/19/20 21:00 Gabapentin 300 Mg Capsule PO BEDTIME JULIA Ampicillin Sodium/Sulbactam 100 mls @ 200 mls/hr 04/19/20 07:00 04/19/20 14:22 Sodium 3 gm/ Sodium Chloride IV 200 mls/hr Q6H JULIA Administration Lactated Ringer's 1,000 mls @ 100 mls/hr 04/19/20 06:00 04/19/20 06:16 Lr IVCONT 100 mls/hr .Q10H JULIA Administration Metoprolol Tartrate 12.5 mg 04/19/20 09:00 04/19/20 08:22 Metoprolol Tartrate 12.5 Mg Halftab PO Not Given BID JULIA Protocol Nicotine 21 mg 04/19/20 09:00 04/19/20 08:08 Nicotine 21 Mg Patch.Td24 TRANSDERMA 21 mg DAILY JULIA Administration Omeprazole 20 mg 04/19/20 09:00 04/19/20 08:08 Omeprazole 20 Mg Capsule.Dr PO 20 mg DAILY JULIA Administration Ondansetron HCl 4 mg 04/19/20 00:57 Ondansetron Hcl 4 Mg/2 Ml Vial IVPUSH Q8H PRN Nausea and Vomiting Pharmacy Consult 1 each 04/18/20 19:35 Consult Rx Perform Med Rec MISCELLANE ONCE PRN Consult order Sodium Chloride 3 ml 04/19/20 00:57 04/19/20 08:08 0.9 % Sodium Chloride Flush 3 Ml Syringe IVFLUSH 3 ml QSHIFT JULIA Administration Labs CBC & Chem 7: 04/19/20 04:07 04/19/20 04:07 Assessment and Plan (1) Atrial fibrillation with RVR: Status: Acute (2) Sepsis: Status: Acute (3) UTI (urinary tract infection): Status: Acute (4) Pneumonia: Status: Acute (5) Vertigo: Status: Acute (6) Hypomagnesemia: Status: Acute (7) High cholesterol: Status: Acute (8) COPD (chronic obstructive pulmonary disease): Status: Acute (9) Pituitary abnormality: Status: Acute (10) Lactic acidosis: Status: Acute Assessment and Plan: this is a 69-year-old female with past medical history as mentioned above who presents to the hospital with vague symptoms including AFib with RVR, vertigo found to have UTI, pneumonia, sepsis AFib with RVR, was cardioverted twice by EMS as well as by the ED physician. Currently hemodynamically stable and will be admitted for further management. Sepsis Secondary to UTI vs aspiration pneumonia meet sepsis with tachycardia, leukocytosis pending urine culture CT scan of the chest showed consolidation with Likely aspiration pneumonia Continue with Unasyn Discontinue ceftriaxone pending blood cultures continue IV fluid irregular heart rhythm Suspected to be AFib with RVR at time of presentation, seems to be sinus tachycardia with multiple PACs discontinue Lovenox full dose for now Was cardioverted twice once by EMS and once by ED physician pending echo continue Lopressor 12.5 cardiology input appreciated, no need for anticoagulation lactic acidosis secondary to sepsis Resolved dizziness/vertigo seems to be more of postural hypotension given weight loss and using blood pres sure medications Discontinue lisinopril for now PT for evaluation to check orthostatic vitals hypomagnesemia magnesium 1.4 this morning next [place] to give replacement To check in the morning pituitary lesion seen on head CT neurosurgery was contacted by ED physician with no acute recommendations for outpatient MRI of the brain for further evaluation history of cancer follow-up once her acute status improves with biopsy of mass in the lung hypotension Could be secondary to weight loss and using medications Pituitary gland abnormality suspicious also To check cortisol level Hold hypertension medications DVT prophylaxis Lovenox
[2020-04-19] MEDS: ondansetron HCL 4 MG/2 ML VIAL IVPUSH (20:00)
[2020-04-19] MEDS: Gabapentin 300 MG CAPSULE PO (20:18)
[2020-04-19] MEDS: Metoprolol Tartrate 12.5 MG HALFTAB PO (20:18)
[2020-04-20] VITALS (15 sets, daily range): BP systolic 58–114; BP diastolic 46–78; PULSE 69–108; RESP 16–19; TEMP 36–36.6; O2SAT 93–98; BMI 25.6
[2020-04-20] MEDS: Ampicillin Sodium/Sulbactam Na 3 GM in 0.9 % Sodium Chloride 100 ML IV ×4 (00:59→20:26)
[2020-04-20] MEDS: Lactated Ringers 1,000 ML 100 ML IVCONT (02:20)
[2020-04-20] MEDS: Enoxaparin Sodium 40 MG/0.4 ML SYRINGE SUBCUT (06:07)
[2020-04-20 07:33] LABS: Hematocrit 29.4 % (37-47); Hemoglobin 10.7 g/dl (12.0-16.0); Mean Corpuscular HGB Conc 36.4 g/dl (31.0-35.0); Mean Corpuscular Volume 96.1 fL (80-98); Mean Platelet Volume 10.4 fL (9.4-12.3); Platelet Count 180 X10*3/uL (160-400); Red Blood Count 3.06 X10*6/uL (4.20-5.50); Red Cell Distribution Width 14.4 % (11.0-16.0); White Blood Count 13.8 X10*3/uL (4.8-10.8)
[2020-04-20 07:53] LABS: Blood Urea Nitrogen 17 mg/dL (9-16); Estimated Glomerular Filt Rate > 60; Glucose Random 85 mg/dL (60-115)
[2020-04-20 07:54] LABS: Magnesium 1.7 mg/dL (1.6-2.6)
[2020-04-20] MEDS: Nicotine 21 MG PATCH.TD24 TRANSDERMA (08:42)
[2020-04-20] MEDS: Atorvastatin Calcium 10 MG TABLET PO (08:42)
[2020-04-20] MEDS: Digoxin 0.25 MG TABLET PO (08:42)
[2020-04-20] MEDS: Furosemide 20 MG TABLET PO (08:42)
[2020-04-20] MEDS: Omeprazole 20 MG CAPSULE.DR PO (08:43)
[2020-04-20] MEDS: Metoprolol Tartrate 12.5 MG HALFTAB PO (08:43)
[2020-04-20 08:56] LABS: Anion Gap 11 (12-20); Calcium 7.6 mg/dL (8.4-10.2); Carbon Dioxide 19 mmol/L (22-29); Chloride 109 mmol/L (96-108); Potassium 2.7 mmol/l (3.3-5.1); Sodium 136 mmol/L (135-145)
--- NOTE | 2020-04-20 11:44 | PM.PNCARD ---
Subjective Subjective Date of Service: 04/20/20 Interval history: Wheezing and SOB Review of Systems Review of Systems SOB, coughing Yes all other systems are reviewed and are negative Physical Exam Vital Signs: Last Vital Signs Temp 97.8 F 04/20/20 07:16 Pulse 100 04/20/20 08:50 Resp 18 04/20/20 07:16 BP 58/46 L 04/20/20 08:50 Pulse Ox 98 04/20/20 07:16 Body Mass Index 25.6 GENERAL APPEARANCE: Frail, coughing, short of breath HEENT: unremarkable. HEAD: normocephalic, atraumatic. NECK/THYROID: no jugular venous distention. SKIN: warm and dry. HEART: no murmurs, regular rate and rhythm, S1, S2 normal. LUNGS: bilateral expiratory wheezes, upper airway secretions. ABDOMEN: normal, bowel sounds present, soft, nontender, nondistended. EXTREMITIES: no edema PERIPHERAL PULSES: equal. NEUROLOGIC: nonfocal, alert and oriented. PSYCH: depressed. Results Labs and Meds Result diagrams: 04/20/20 06:25 04/20/20 06:25 Lab results: Laboratory Results - last 24 hr 04/20/20 04/20/20 04/20/20 06:25 06:25 06:25 WBC 13.8 H RBC 3.06 L Hgb 10.7 L Hct 29.4 L MCV 96.1 MCH 35.0 H MCHC 36.4 H RDW 14.4 Plt Count 180 D MPV 10.4 Absolute Nucleated RBC 0.000 Nucleated RBC % (auto) 0.0 Sodium 136 Potassium 2.7 L Chloride 109 H Carbon Dioxide 19 L Anion Gap 11 L BUN 17 H Creatinine 0.64 Estim Creat Clear Calc 83.0 Estimated GFR > 60 Random Glucose 85 D Calcium 7.6 L Magnesium 1.7 Progress Note: A&P Assessment and plan (1) Hypertension: Status: Acute (2) Cancer: Status: Acute (3) Tachycardia: Status: Acute Assessment and Plan: 69-year-old female with the advance malignancy which is under workup. She is admitted with the tachycardia which was thought to be atrial fibrillation. On reviewing her telemetry it appears she has sinus tachycardia with frequent premature atrial complexes. I do not see any convincing evidence of atrial fibrillation right now. I will stop her metoprolol right now as her blood pressure is fluctuating up and down. Clinically not in heart failure and I think her Lasix can be held too. I think she should get nebs for the wheezing. Electrolytes replacement. Thank you for allowing me to participate in the care of your patient. Please feel free to contact me if you have any questions. Fall Risk Details Current Medications: Current Medications Generic Name Dose Route Start Last Admin Trade Name Freq PRN Reason Stop Dose Admin Acetaminophen 650 mg 04/19/20 00:57 Acetaminophen 325 Mg Tablet PO Q6H PRN Pain, Mild (Pain Scale 1-3) Albuterol Sulfate 2.5 mg 04/19/20 00:57 Albuterol Sulfate (0.083%) 2.5 Mg/3 Ml Vial.Neb INHALE QID PRN Shortness Of Breath Or Wheezing Atorvastatin Calcium 10 mg 04/19/20 09:00 04/20/20 08:42 Atorvastatin Calcium 10 Mg Tablet PO 10 mg DAILY JULIA Administration Docusate Sodium 100 mg 04/19/20 00:57 Docusate Sodium 100 Mg Capsule PO DAILY PRN Constipation Enoxaparin Sodium 40 mg 04/20/20 07:00 04/20/20 06:07 Enoxaparin Sodium 40 Mg/0.4 Ml Syringe SUBCUT 40 mg Q24H JULIA Administration Furosemide 20 mg 04/19/20 09:00 04/20/20 08:42 Furosemide 20 Mg Tablet PO 20 mg DAILY JULIA Administration Protocol Gabapentin 100 mg 04/19/20 00:57 04/19/20 11:46 Gabapentin 100 Mg Capsule PO 100 mg TID PRN Administration pain Gabapentin 600 mg 04/20/20 21:00 Gabapentin 300 Mg Capsule PO BEDTIME JULIA Ampicillin Sodium/Sulbactam 100 mls @ 200 mls/hr 04/19/20 07:00 04/20/20 06:37 Sodium 3 gm/ Sodium Chloride IV Infused Q6H JULIA Infusion Metoprolol Tartrate 12.5 mg 04/19/20 09:00 04/20/20 08:43 Metoprolol Tartrate 12.5 Mg Halftab PO 12.5 mg BID JULIA Administration Protocol Nicotine 7 mg 04/21/20 09:00 Nicotine 7 Mg Patch.Td24 TRANSDERMA DAILY JULIA Omeprazole 20 mg 04/19/20 09:00 04/20/20 08:43 Omeprazole 20 Mg Capsule.Dr PO 20 mg DAILY JULIA Administration Ondansetron HCl 4 mg 04/19/20 00:57 04/19/20 20:00 Ondansetron Hcl 4 Mg/2 Ml Vial IVPUSH 4 mg Q8H PRN Administration Nausea and Vomiting Pharmacy Consult 1 each 04/18/20 19:35 Consult Rx Perform Med Rec MISCELLANE ONCE PRN Consult order Sodium Chloride 3 ml 04/19/20 00:57 04/20/20 08:44 0.9 % Sodium Chloride Flush 3 Ml Syringe IVFLUSH Not Given QSHIFT JULIA Time Spent With Patient Time: Total time spent is greater than 50% in coordination of care (as documented) at patient's floor/unit and/or counseling patient: Time with patient: less than 15 minutes
[2020-04-20] MEDS: Albuterol/Iprat 2.5/0.5MG 3 ML AMPUL.NEB INHALE ×3 (12:08→20:38)
[2020-04-20] MEDS: Potassium Chloride Packet 20 MEQ PACKET PO (13:02)
[2020-04-20] MEDS: Potassium Chloride/H20 10 MEQ/100 ML PIGGYBACK 100 MEQ IV ×2 (13:03→16:18)
[2020-04-20] MEDS: 0.9 % Sodium Chloride 500 ML IV (13:03)
--- NOTE | 2020-04-20 13:31 | HO.PM.IMPN ---
Subjective Subjective Date of Service: 04/20/20 Interval History: the patient was seen and evaluated this morning Laying in bed, feels tired and weak Feels dizzy, short of breath and continue to cough Denies any fever, chills or No reported other overnight events. Systemic review: No fever, chills but reports generalized weakness No chest pain, palpitation Mild shortness of breath and coughing No abdominal pain, nausea or vomiting No urinary symptoms No any rash or wounds Physical Exam Vital Signs: Vital Signs: Last Vital Signs Temp 97.6 F 04/20/20 11:59 Pulse 77 04/20/20 12:12 Resp 18 04/20/20 11:59 BP 92/56 L 04/20/20 11:59 Pulse Ox 95 04/20/20 11:59 Body Mass Index 25.6 Constitutional : Alert, oriented, looks lethargic and tired Neck : Normal inspection, Supple Cardiovascular : irregular rhythm, S1 S2, no lower extremity edema Respiratory : decreased bilateral air entry, basal right-sided crackles, scattered wheezes or rhonchi Gastrointestinal: soft, lax, Normal bowel sounds, Non tender Skin : Warm/Dry, No rash Neurological : Alert & oriented x3, No focal deficit Objective Data Current Medications Generic Name Dose Route Start Last Admin Trade Name Freq PRN Reason Stop Dose Admin Acetaminophen 650 mg 04/19/20 00:57 Acetaminophen 325 Mg Tablet PO Q6H PRN Pain, Mild (Pain Scale 1-3) Albuterol Sulfate 2.5 mg 04/19/20 00:57 Albuterol Sulfate (0.083%) 2.5 Mg/3 Ml Vial.Neb INHALE QID PRN Shortness Of Breath Or Wheezing Albuterol/Ipratropium 3 ml 04/20/20 12:00 04/20/20 12:08 Albuterol/Iprat 2.5/0.5mg 3 Ml Ampul.Neb INHALE 3 ml RQ4H WHILE AWAKE JULIA Administration Atorvastatin Calcium 10 mg 04/19/20 09:00 04/20/20 08:42 Atorvastatin Calcium 10 Mg Tablet PO 10 mg DAILY JULIA Administration Docusate Sodium 100 mg 04/19/20 00:57 Docusate Sodium 100 Mg Capsule PO DAILY PRN Constipation Enoxaparin Sodium 40 mg 04/20/20 07:00 04/20/20 06:07 Enoxaparin Sodium 40 Mg/0.4 Ml Syringe SUBCUT 40 mg Q24H JULIA Administration Gabapentin 100 mg 04/19/20 00:57 04/19/20 11:46 Gabapentin 100 Mg Capsule PO 100 mg TID PRN Administration pain Gabapentin 600 mg 04/20/20 21:00 Gabapentin 300 Mg Capsule PO BEDTIME [facility] Ampicillin Sodium/Sulbactam 100 mls @ 200 mls/hr 04/19/20 07:00 04/20/20 06:37 Sodium 3 gm/ Sodium Chloride IV Infused Q6H [facility] Infusion Potassium Chloride 10 meq in 100 mls @ 100 mls/hr 04/20/20 12:30 04/20/20 13:03 IV 04/20/20 14:29 100 mls/hr Q1H JULIA Administration Nicotine 7 mg 04/21/20 09:00 Nicotine 7 Mg Patch.Td24 TRANSDERMA DAILY [facility] Omeprazole 20 mg 04/19/20 09:00 04/20/20 08:43 Omeprazole 20 Mg Capsule.Dr PO 20 mg DAILY JULIA Administration Ondansetron HCl 4 mg 04/19/20 00:57 04/19/20 20:00 Ondansetron Hcl 4 Mg/2 Ml Vial IVPUSH 4 mg Q8H PRN Administration Nausea and Vomiting Pharmacy Consult 1 each 04/18/20 19:35 Consult Rx Perform Med Rec MISCELLANE ONCE PRN Consult order Sodium Chloride 3 ml 04/19/20 00:57 04/20/20 08:44 0.9 % Sodium Chloride Flush 3 Ml Syringe IVFLUSH Not Given QSHIFT [facility] Labs CBC & Chem 7: 04/20/20 06:25 04/20/20 06:25 Microbiology Microbiology Results: Microbiology 04/19/20 07:45 Urine [place] Urine Culture - Preliminary No growth to date. 04/18/20 Unknown Urine [place] Urine Culture - Final 04/18/20 22:05 Blood - Arterial Blood Culture - Preliminary No growth after 24 hours. 04/18/20 20:10 Blood - Arterial Blood Culture - Preliminary No growth after 24 hours. Assessment and Plan (1) Atrial fibrillation with RVR: Status: Acute (2) Sepsis: Status: Acute (3) UTI (urinary tract infection): Status: Acute (4) Pneumonia: Status: Acute (5) Vertigo: Status: Acute (6) Hypomagnesemia: Status: Acute (7) High cholesterol: Status: Acute (8) COPD (chronic obstructive pulmonary disease): Status: Acute (9) Pituitary abnormality: Status: Acute (10) Lactic acidosis: Status: Acute Assessment and Plan: this is a 69-year-old female with past medical history as mentioned above who presents to the hospital with vague symptoms including AFib with RVR, vertigo found to have UTI, pneumonia, sepsis AFib with RVR, was cardioverted twice by EMS as well as by the ED physician. Currently hemodynamically stable and will be admitted for further management. Sepsis Secondary to aspiration pneumonia meet sepsis with tachycardia, leukocytosis CT scan of the chest showed consolidation with Likely aspiration pneumonia Continue with Unasyn pending blood cultures Discontinue IV fluid Difficulty swallowing Reporting choking sensation with liquids and solids To get swallow evaluation Modified diet irregular heart rhythm seems to be sinus tachycardia with multiple PACs Was cardioverted twice once by EMS and once by ED physician ECHO within normal discontinue Lovenox full dose Discontinue metoprolol cardiology input appreciated, no need for anticoagulation hypotension Could be secondary to weight loss and using medications Pituitary gland abnormality suspicious also Pending cortisol level Hold hypertension medications Start midodrine b.i.d. lactic acidosis Resolved dizziness/vertigo Secondary to Orthostatic hypotension Recent history of weight loss and using blood pressure medications Discontinue lisinopril PT for evaluation Continue to check orthostatic vitals hypomagnesemia magnesium 1.7 this morning Given replacement Hypokalemia Potassium of 2.7 this morning To hold IV fluid, to give replacement IV and p.o. 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
[2020-04-20] MEDS: Gabapentin 100 MG CAPSULE PO (14:35)
[2020-04-20] MEDS: Midodrine HCl 5 MG TABLET PO ×2 (14:36→20:25)
[2020-04-20] MEDS: Magnesium Sulfate/H2O 2 GM/50 ML PIGGYBACK IV (16:19)
[2020-04-20] MEDS: Gabapentin 300 MG CAPSULE 600 MG PO (20:26)
[2020-04-20] MEDS: 0.9 % Sodium Chloride Flush 3 ML SYRINGE IVFLUSH (20:26)
[2020-04-21] VITALS (10 sets, daily range): BP systolic 95–127; BP diastolic 53–78; PULSE 85–92; RESP 16–20; TEMP 36.1–36.8; O2SAT 92–98; BMI 25.9
[2020-04-21] MEDS: Ampicillin Sodium/Sulbactam Na 3 GM in 0.9 % Sodium Chloride 100 ML IV ×4 (02:33→18:07)
[2020-04-21] MEDS: Enoxaparin Sodium 40 MG/0.4 ML SYRINGE SUBCUT (06:14)
[2020-04-21] MEDS: Albuterol/Iprat 2.5/0.5MG 3 ML AMPUL.NEB INHALE ×4 (07:17→19:43)
[2020-04-21 07:21] LABS: Hematocrit 31.8 % (37-47); Hemoglobin 11.2 g/dl (12.0-16.0); Mean Corpuscular HGB Conc 35.2 g/dl (31.0-35.0); Mean Corpuscular Hemoglobin 34.3 pg (27.0-33.0); Mean Corpuscular Volume 97.2 fL (80-98); Mean Platelet Volume 10.4 fL (9.4-12.3); Platelet Count 202 X10*3/uL (160-400); Red Blood Count 3.27 X10*6/uL (4.20-5.50); Red Cell Distribution Width 14.7 % (11.0-16.0); White Blood Count 12.2 X10*3/uL (4.8-10.8)
[2020-04-21 08:02] LABS: Anion Gap 12 (12-20); Blood Urea Nitrogen 17 mg/dL (9-16); Calcium 7.5 mg/dL (8.4-10.2); Carbon Dioxide 22 mmol/L (22-29); Chloride 104 mmol/L (96-108); Creatinine Clr Calc Pharmacy 82.2; Estimated Glomerular Filt Rate > 60; Glucose Random 72 mg/dL (60-115); Sodium 135 mmol/L (135-145)
[2020-04-21] MEDS: Midodrine HCl 5 MG TABLET 10 MG PO ×2 (08:20→22:24)
[2020-04-21] MEDS: 0.9 % Sodium Chloride Flush 3 ML SYRINGE IVFLUSH ×2 (08:20→15:02)
[2020-04-21] MEDS: Omeprazole 20 MG CAPSULE.DR PO (08:20)
[2020-04-21] MEDS: Atorvastatin Calcium 10 MG TABLET PO (08:20)
[2020-04-21] MEDS: Nicotine 7 MG PATCH.TD24 TRANSDERMA (08:21)
[2020-04-21] MEDS: Potassium Chloride Packet 20 MEQ PACKET 40 MEQ PO (08:43)
--- NOTE | 2020-04-21 09:48 | MHC.CM.PN ---
CM met with pt this morning to discuss DC planning, pt reports she is aware the recommendation is STR and she is willing to go for a couple weeks . Local facilities were reviewed and pt requested referrals be placed to [facility] and [facility], her preferences respectively. Referrals placed, pt likely to be ready for DC in 1-2 days per MD.
[2020-04-21] MEDS: Gabapentin 100 MG CAPSULE PO (10:51)
--- NOTE | 2020-04-21 12:17 | HO.PM.IMPN ---
Subjective Subjective Date of Service: 04/21/20 Interval History: the patient was seen and evaluated this morning Laying in bed, feels tired and weak Feels dizzy, short of breath and continue to cough Denies any fever, chills or No reported other overnight events. Systemic review: No fever, chills but reports generalized weakness No chest pain, palpitation Mild shortness of breath and coughing No abdominal pain, nausea or vomiting No urinary symptoms No any rash or wounds Physical Exam Vital Signs: Vital Signs: Last Vital Signs Temp 97.6 F 04/21/20 07:58 Pulse 90 04/21/20 10:26 Resp 20 04/21/20 07:58 BP 109/66 04/21/20 10:26 Pulse Ox 97 04/21/20 07:58 Body Mass Index 25.9 Constitutional : Alert, oriented, looks lethargic and tired Neck : Normal inspection, Supple Cardiovascular : irregular rhythm, S1 S2, no lower extremity edema Respiratory : decreased bilateral air entry, basal right-sided crackles, scattered wheezes or rhonchi Gastrointestinal: soft, lax, Normal bowel sounds, Non tender Skin : Warm/Dry, No rash Neurological : Alert & oriented x3, No focal deficit Objective Data Current Medications Generic Name Dose Route Start Last Admin Trade Name Freq PRN Reason Stop Dose Admin Acetaminophen 650 mg 04/19/20 00:57 Acetaminophen 325 Mg Tablet PO Q6H PRN Pain, Mild (Pain Scale 1-3) Albuterol Sulfate 2.5 mg 04/19/20 00:57 Albuterol Sulfate (0.083%) 2.5 Mg/3 Ml Vial.Neb INHALE QID PRN Shortness Of Breath Or Wheezing Albuterol/Ipratropium 3 ml 04/20/20 12:00 04/21/20 11:29 Albuterol/Iprat 2.5/0.5mg 3 Ml Ampul.Neb INHALE 3 ml RQ4H WHILE AWAKE JULIA Administration Atorvastatin Calcium 10 mg 04/19/20 09:00 04/21/20 08:20 Atorvastatin Calcium 10 Mg Tablet PO 10 mg DAILY JULIA Administration Docusate Sodium 100 mg 04/19/20 00:57 Docusate Sodium 100 Mg Capsule PO DAILY PRN Constipation Enoxaparin Sodium 40 mg 04/20/20 07:00 04/21/20 06:14 Enoxaparin Sodium 40 Mg/0.4 Ml Syringe SUBCUT 40 mg Q24H JULIA Administration Gabapentin 100 mg 04/19/20 00:57 04/21/20 10:51 Gabapentin 100 Mg Capsule PO 100 mg TID PRN Administration pain Gabapentin 600 mg 04/20/20 21:00 04/20/20 20:26 Gabapentin 300 Mg Capsule PO 600 mg BEDTIME JULIA Administration Ampicillin Sodium/Sulbactam 100 mls @ 200 mls/hr 04/19/20 07:00 04/21/20 07:20 Sodium 3 gm/ Sodium Chloride IV Infused Q6H JULIA Infusion Methylprednisolone Sodium Succinate 40 mg 04/21/20 10:25 04/21/20 10:46 Methylprednisolone Sod Succ/Pf 40 Mg/Ml Vial IVPUSH 40 mg DAILY JULIA Administration Midodrine 10 mg 04/21/20 09:00 04/21/20 08:20 Midodrine Hcl 5 Mg Tablet PO 10 mg BID JULIA Administration Nicotine 7 mg 04/21/20 09:00 04/21/20 08:21 Nicotine 7 Mg Patch.Td24 TRANSDERMA 7 mg DAILY JULIA Administration Omeprazole 20 mg 04/19/20 09:00 04/21/20 08:20 Omeprazole 20 Mg Capsule.Dr PO 20 mg DAILY JULIA Administration Ondansetron HCl 4 mg 04/19/20 00:57 04/19/20 20:00 Ondansetron Hcl 4 Mg/2 Ml Vial IVPUSH 4 mg Q8H PRN Administration Nausea and Vomiting Pharmacy Consult 1 each 04/18/20 19:35 Consult Rx Perform Med Rec MISCELLANE ONCE PRN Consult order Sodium Chloride 3 ml 04/19/20 00:57 04/21/20 08:20 0.9 % Sodium Chloride Flush 3 Ml Syringe IVFLUSH 3 ml QSHIFT JULIA Administration Labs CBC & Chem 7: 04/21/20 05:40 04/21/20 05:40 Microbiology Microbiology Results: Microbiology 04/19/20 07:45 Urine [place] Urine Culture - Final No growth. 04/18/20 22:05 Blood - Arterial Blood Culture - Preliminary No growth after 48 hours. 04/18/20 20:10 Blood - Arterial Blood Culture - Preliminary No growth after 48 hours. 04/18/20 Unknown Urine [place] Urine Culture - Final Assessment and Plan (1) Atrial fibrillation with RVR: Status: Acute (2) Sepsis: Status: Acute (3) UTI (urinary tract infection): Status: Acute (4) Pneumonia: Status: Acute (5) Vertigo: Status: Acute (6) Hypomagnesemia: Status: Acute (7) High cholesterol: Status: Acute (8) COPD (chronic obstructive pulmonary disease): Status: Acute (9) Pituitary abnormality: Status: Acute (10) Lactic acidosis: Status: Acute Assessment and Plan: this is a 69-year-old female with past medical history as mentioned above who presents to the hospital with vague symptoms including AFib with RVR, vertigo found to have UTI, pneumonia, sepsis AFib with RVR, was cardioverted twice by EMS as well as by the ED physician. Currently hemodynamically stable and will be admitted for further management. Sepsis, resolved Secondary to aspiration pneumonia Requiring 3L O2 to keep sats in 90s CT scan of the chest showed consolidation with aspiration pneumonia Continue with Unasyn negative blood cultures Discontinue IV fluid Acute hypoxic respiratory failure 2/2 COPD exacerbations & Pneumonia ATC and p.r.n. bronchodilators nebulizers Start steroids O2 supplement to wean down as tolerated Difficulty swallowing Reporting choking sensation with liquids and solids To get swallow evaluation Modified diet irregular heart rhythm seems to be sinus tachycardia with multiple PACs Was cardioverted twice once by EMS and once by ED physician ECHO within normal discontinue Lovenox full dose Discontinue metoprolol cardiology input appreciated, no need for anticoagulation hypotension Could be secondary to weight loss and using medications Pituitary gland abnormality suspicious also Pending cortisol level Hold hypertension medications Increased midodrine to 10 mg b.i.d. lactic acidosis Resolved dizziness/vertigo Secondary to Orthostatic hypotension Recent history of weight loss and using blood pressure medications Discontinue lisinopril PT for evaluation Continue to check orthostatic vitals hypomagnesemia Given replacement Hypokalemia Potassium of 3 this morning To hold IV fluid, to give replacement IV and p.o. 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
[2020-04-21] MEDS: Gabapentin 300 MG CAPSULE 600 MG PO (22:23)
[2020-04-22] VITALS (11 sets, daily range): BP systolic 103–129; BP diastolic 74–90; PULSE 91–110; RESP 18–22; TEMP 36.2–36.9; O2SAT 92–98; BMI 26.2
[2020-04-22] MEDS: Ampicillin Sodium/Sulbactam Na 3 GM in 0.9 % Sodium Chloride 100 ML IV ×4 (01:33→19:45)
[2020-04-22] MEDS: 0.9 % Sodium Chloride Flush 3 ML SYRINGE IVFLUSH ×3 (01:33→16:08)
[2020-04-22] MEDS: Enoxaparin Sodium 40 MG/0.4 ML SYRINGE SUBCUT (06:25)
[2020-04-22] MEDS: Albuterol/Iprat 2.5/0.5MG 3 ML AMPUL.NEB INHALE ×4 (07:12→19:31)
[2020-04-22] MEDS: Atorvastatin Calcium 10 MG TABLET PO (08:03)
[2020-04-22] MEDS: Midodrine HCl 5 MG TABLET 10 MG PO ×2 (08:03→20:58)
[2020-04-22] MEDS: Nicotine 7 MG PATCH.TD24 TRANSDERMA (08:03)
[2020-04-22] MEDS: Omeprazole 20 MG CAPSULE.DR PO (08:03)
[2020-04-22 08:06] LABS: Anion Gap 13 (12-20); Blood Urea Nitrogen 14 mg/dL (9-16); Calcium 7.7 mg/dL (8.4-10.2); Carbon Dioxide 22 mmol/L (22-29); Chloride 106 mmol/L (96-108); Creatinine Clr Calc Pharmacy 94.4; Estimated Glomerular Filt Rate > 60; Glucose Random 106 mg/dL (60-115); Potassium 3.5 mmol/l (3.3-5.1); Sodium 137 mmol/L (135-145)
[2020-04-22] MEDS: guaiFENesin LA 600 MG TAB.ER.12H PO ×2 (10:31→21:00)
[2020-04-22] MEDS: ondansetron HCL 4 MG/2 ML VIAL IVPUSH (10:35)
--- NOTE | 2020-04-22 12:43 | P.PNIM_ITS ---
Subjective Subjective Date of Service: 04/22/20 Interval History: the patient was seen and evaluated this morning Laying in bed, feels tired and weak Continues to feel dizzy, short of breath and continue to cough Denies any fever, chills or chest pain No reported other overnight events. Systemic review: No fever, chills but reports generalized weakness No chest pain, palpitation Mild shortness of breath and coughing No abdominal pain, nausea or vomiting No urinary symptoms No any rash or wounds Physical Exam Vital Signs: Vital Signs: Last Vital Signs Temp 98.4 F 04/22/20 10:55 Pulse 94 04/22/20 11:21 Resp 18 04/22/20 10:55 BP 114/81 04/22/20 10:55 Pulse Ox 97 04/22/20 10:55 Body Mass Index 26.2 Constitutional : Alert, oriented, not in distress Neck : Normal inspection, Supple Cardiovascular : RRR with irregular pulses sometimes, S1 S2, no lower extremity edema Respiratory : decreased bilateral air entry, bilateral rhonchi and scattered wheezes, no crackles. Gastrointestinal: soft, lax, Normal bowel sounds, Non tender Skin : Warm/Dry, No rash Neurological : Alert & oriented x3, No focal deficit Objective Data Current Medications Generic Name Dose Route Start Last Admin Trade Name Freq PRN Reason Stop Dose Admin Acetaminophen 650 mg 04/19/20 00:57 Acetaminophen 325 Mg Tablet PO Q6H PRN Pain, Mild (Pain Scale 1-3) Albuterol Sulfate 2.5 mg 04/19/20 00:57 Albuterol Sulfate (0.083%) 2.5 Mg/3 Ml Vial.Neb INHALE QID PRN Shortness Of Breath Or Wheezing Albuterol/Ipratropium 3 ml 04/20/20 12:00 04/22/20 11:18 Albuterol/Iprat 2.5/0.5mg 3 Ml Ampul.Neb INHALE 3 ml RQ4H WHILE AWAKE JULIA Administration Atorvastatin Calcium 10 mg 04/19/20 09:00 04/22/20 08:03 Atorvastatin Calcium 10 Mg Tablet PO 10 mg DAILY JULIA Administration Docusate Sodium 100 mg 04/19/20 00:57 Docusate Sodium 100 Mg Capsule PO DAILY PRN Constipation Enoxaparin Sodium 40 mg 04/20/20 07:00 04/22/20 06:25 Enoxaparin Sodium 40 Mg/0.4 Ml Syringe SUBCUT 40 mg Q24H JULIA Administration Gabapentin 100 mg 04/19/20 00:57 04/21/20 10:51 Gabapentin 100 Mg Capsule PO 100 mg TID PRN Administration pain Gabapentin 600 mg 04/20/20 21:00 04/21/20 22:23 Gabapentin 300 Mg Capsule PO 600 mg BEDTIME JULIA Administration Guaifenesin 600 mg 04/22/20 10:15 04/22/20 10:31 Guaifenesin [place] 600 Mg Tab.Er.12h PO 600 mg BID JULIA Administration Ampicillin Sodium/Sulbactam 100 mls @ 200 mls/hr 04/19/20 07:00 04/22/20 06:55 Sodium 3 gm/ Sodium Chloride IV Infused Q6H JULIA Infusion Methylprednisolone Sodium Succinate 40 mg 04/21/20 10:25 04/22/20 08:03 Methylprednisolone Sod Succ/Pf 40 Mg/Ml Vial IVPUSH 40 mg DAILY JULIA Administration Midodrine 10 mg 04/21/20 09:00 04/22/20 08:03 Midodrine Hcl 5 Mg Tablet PO 10 mg BID JULIA Administration Nicotine 7 mg 04/21/20 09:00 04/22/20 08:03 Nicotine 7 Mg Patch.Td24 TRANSDERMA 7 mg DAILY JULIA Administration Omeprazole 20 mg 04/19/20 09:00 04/22/20 08:03 Omeprazole 20 Mg Capsule.Dr PO 20 mg DAILY JULIA Administration Ondansetron HCl 4 mg 04/19/20 00:57 04/22/20 10:35 Ondansetron Hcl 4 Mg/2 Ml Vial IVPUSH 4 mg Q8H PRN Administration Nausea and Vomiting Pharmacy Consult 1 each 04/18/20 19:35 Consult Rx Perform Med Rec MISCELLANE ONCE PRN Consult order Sodium Chloride 3 ml 04/19/20 00:57 04/22/20 08:04 0.9 % Sodium Chloride Flush 3 Ml Syringe IVFLUSH 3 ml QSHIFT JULIA Administration Labs CBC & Chem 7: 04/21/20 05:40 04/22/20 05:59 Microbiology Microbiology Results: Microbiology 04/19/20 07:45 Urine [place] Urine Culture - Final No growth. 04/18/20 22:05 Blood - Arterial Blood Culture - Preliminary No growth after 48 hours. 04/18/20 20:10 Blood - Arterial Blood Culture - Preliminary No growth after 48 hours. 04/18/20 Unknown Urine [place] Urine Culture - Final Assessment and Plan (1) Acute respiratory failure with hypoxia: Status: Acute (2) Sepsis: Status: Acute (3) UTI (urinary tract infection): Status: Acute (4) Pneumonia: Status: Acute (5) Vertigo: Status: Acute (6) Hypomagnesemia: Status: Acute (7) High cholesterol: Status: Acute (8) COPD (chronic obstructive pulmonary disease): Status: Acute (9) Pituitary abnormality: Status: Acute (10) Lactic acidosis: Status: Acute Assessment and Plan: this is a 69-year-old female with past medical history as mentioned above who presents to the hospital with vague symptoms including AFib with RVR, vertigo found to have UTI, pneumonia, sepsis AFib with RVR, was cardioverted twice by EMS as well as by the ED physician. Currently hemodynamically stable and will be admitted for further management. Sepsis, resolved Secondary to aspiration pneumonia Requiring 3L O2 to keep sats in 90s CT scan of the chest showed consolidation with aspiration pneumonia Continue with Unasyn negative blood cultures Discontinue IV fluid Acute hypoxic respiratory failure 2/2 COPD exacerbations & Pneumonia ATC and p.r.n. bronchodilators nebulizers continue steroids O2 supplement to wean down as tolerated Difficulty swallowing Reporting choking sensation with liquids and solids Modified diet suggested by [employer], patient would rather continue regular diet, hypotension Could be secondary to weight loss and using medications Pituitary gland abnormality suspicious also Pending cortisol level Hold hypertension medications Increased midodrine to 10 mg b.i.d. irregular heart rhythm seems to be sinus tachycardia with multiple PACs Was cardioverted twice once by EMS and once by ED physician ECHO within normal discontinue Lovenox full dose Discontinue metoprolol cardiology input appreciated, no need for anticoagulation lactic acidosis Resolved dizziness/vertigo Secondary to Orthostatic hypotension Recent history of weight loss and using blood pressure medications Discontinue lisinopril PT for evaluation Continue to check orthostatic vitals hypomagnesemia Given replacement Hypokalemia Potassium of 3 this morning To hold IV fluid, to give replacement IV and p.o. 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
--- NOTE | 2020-04-22 12:53 | W.MHC.ACPN ---
Advanced Care Planning Note Advanced Care Planning Note Discussed with: patient Time spent (in minutes): 22 Narrative: I had a chance to meet with the patient is here today to discuss current hospital stay and advanced directive. the patient was admitted to the hospital for irregular heart rhythm suspected for AFib, lethargy found to have sepsis secondary to aspiration pneumonia. She has been treated with IV antibiotics, nebulizers and oxygen supplement with partial response up to this point. He We discussed goals of care as the patient requiring oxygen supplement and she might need to be discharged on oxygen. Also a swallowing evaluation was done as the patient was noted to be aspirating. Recommendations for honey thick liquids and pureed diet. The patient is aware of the risk of eating regularly but she would rather do that as she feels she does not have a long time in this life. I explained to her the risk of doing that and she agrees. We also discussed her code status and the CPR process. She decided to change her status to DNR DNI. A MOLST form was signed and her code status was changed in EMR. Problems Discussed (1) Acute respiratory failure with hypoxia: (2) Sepsis: (3) UTI (urinary tract infection): (4) Pneumonia: (5) COPD (chronic obstructive pulmonary disease): (6) Cancer:
[2020-04-22] MEDS: Furosemide 20 MG/2 ML VIAL 10 MG IVPUSH (13:35)
[2020-04-22] MEDS: Gabapentin 300 MG CAPSULE 600 MG PO (21:00)
[2020-04-23] VITALS (11 sets, daily range): BP systolic 100–111; BP diastolic 67–75; PULSE 53–116; RESP 18–20; TEMP 36.4–37.1; O2SAT 95–100; BMI 26.4
[2020-04-23] MEDS: Ampicillin Sodium/Sulbactam Na 3 GM in 0.9 % Sodium Chloride 100 ML IV ×4 (01:36→17:57)
[2020-04-23] MEDS: 0.9 % Sodium Chloride Flush 3 ML SYRINGE IVFLUSH ×3 (01:39→17:36)
[2020-04-23] MEDS: Albuterol Sulfate (0.083%) 2.5 MG/3 ML VIAL.NEB INHALE ×2 (01:52→19:41)
[2020-04-23] MEDS: Enoxaparin Sodium 40 MG/0.4 ML SYRINGE SUBCUT (06:20)
[2020-04-23 07:09] LABS: Hemoglobin 11.4 g/dl (12.0-16.0); Mean Corpuscular HGB Conc 35.6 g/dl (31.0-35.0); Mean Corpuscular Volume 95.5 fL (80-98); Mean Platelet Volume 9.9 fL (9.4-12.3); Platelet Count 220 X10*3/uL (160-400); Red Blood Count 3.35 X10*6/uL (4.20-5.50); Red Cell Distribution Width 14.6 % (11.0-16.0); White Blood Count 12.9 X10*3/uL (4.8-10.8)
[2020-04-23] MEDS: Albuterol/Iprat 2.5/0.5MG 3 ML AMPUL.NEB INHALE ×3 (07:13→15:11)
[2020-04-23 07:39] LABS: Anion Gap 13 (12-20); Blood Urea Nitrogen 11 mg/dL (9-16); Carbon Dioxide 23 mmol/L (22-29); Chloride 103 mmol/L (96-108); Estimated Glomerular Filt Rate > 60; Glucose Random 84 mg/dL (60-115); Potassium 3.4 mmol/l (3.3-5.1); Sodium 136 mmol/L (135-145)
[2020-04-23] MEDS: Nicotine 7 MG PATCH.TD24 TRANSDERMA (08:35)
[2020-04-23] MEDS: Magnesium Oxide 400 MG TABLET PO (08:37)
[2020-04-23] MEDS: Midodrine HCl 5 MG TABLET 10 MG PO ×2 (08:37→21:22)
[2020-04-23] MEDS: Omeprazole 20 MG CAPSULE.DR PO (08:37)
[2020-04-23] MEDS: ondansetron HCL 4 MG/2 ML VIAL IVPUSH (08:38)
[2020-04-23] MEDS: Atorvastatin Calcium 10 MG TABLET PO (08:38)
[2020-04-23] MEDS: guaiFENesin LA 600 MG TAB.ER.12H PO (08:38)
[2020-04-23] MEDS: Gabapentin 100 MG CAPSULE PO (09:41)
[2020-04-23] MEDS: guaiFENesin 200 MG/10 ML 10 ML LIQUID PO ×3 (11:55→21:22)
--- NOTE | 2020-04-23 11:59 | MHC.CM.PN ---
Addendum entered by Gisela Hernández 04/23/20 15:16: Pt reports she has a HCP completed and she believes her PCPs office has a copy. CM will call Friday morning to request a copy. Original Note: Pt will require STR at [place] and is agreeable to going to a facility in the area. Several referrals were placed based on pts preferences and only [facility] offered a bed. Bed offer is contingent on pt completing a HCP, agreeing to follow her diet recommendations and a negative covid test. CM will complete a HPC with pt today and discuss adhering to her diet recommendations. Pt will have a covid test on day of DC.
--- NOTE | 2020-04-23 12:44 | P.PNIM_ITS ---
Subjective Subjective Date of Service: 04/23/20 Interval History: the patient was seen and evaluated this morning Laying in bed, overall but still very weak and tired still complaining of chest congestion and short of breath and continue to cough Denies any fever, chills or chest pain No reported other overnight events. Systemic review: No fever, chills but reports generalized weakness No chest pain, palpitation reporting congestion in her chest,Mild shortness of breath and coughing No abdominal pain, nausea or vomiting No urinary symptoms No any rash or wounds Physical Exam Vital Signs: Vital Signs: Last Vital Signs Temp 97.7 F 04/23/20 07:46 Pulse 100 04/23/20 11:07 Resp 20 04/23/20 07:46 BP 108/71 04/23/20 07:46 Pulse Ox 99 04/23/20 07:46 Body Mass Index 26.4 Constitutional : Alert, oriented, not in distress Neck : Normal inspection, Supple Cardiovascular : RRR with irregular pulses sometimes, S1 S2, no lower extremity edema Respiratory : decreased bilateral air entry, bilateral rhonchi and scattered wheezes, Coarse breathing sounds Gastrointestinal: soft, lax, Normal bowel sounds, Non tender Skin : Warm/Dry, No rash Neurological : Alert & oriented x3, No focal deficit Objective Data Current Medications Generic Name Dose Route Start Last Admin Trade Name Freq PRN Reason Stop Dose Admin Acetaminophen 650 mg 04/19/20 00:57 Acetaminophen 325 Mg Tablet PO Q6H PRN Pain, Mild (Pain Scale 1-3) Albuterol Sulfate 2.5 mg 04/19/20 00:57 04/23/20 01:52 Albuterol Sulfate (0.083%) 2.5 Mg/3 Ml Vial.Neb INHALE 2.5 mg QID PRN Administration Shortness Of Breath Or Wheezing Albuterol/Ipratropium 3 ml 04/20/20 12:00 04/23/20 11:05 Albuterol/Iprat 2.5/0.5mg 3 Ml Ampul.Neb INHALE 3 ml RQ4H WHILE AWAKE JULIA Administration Atorvastatin Calcium 10 mg 04/19/20 09:00 04/23/20 08:38 Atorvastatin Calcium 10 Mg Tablet PO 10 mg DAILY JULIA Administration Docusate Sodium 100 mg 04/19/20 00:57 Docusate Sodium 100 Mg Capsule PO DAILY PRN Constipation Enoxaparin Sodium 40 mg 04/20/20 07:00 04/23/20 06:20 Enoxaparin Sodium 40 Mg/0.4 Ml Syringe SUBCUT 40 mg Q24H JULIA Administration Gabapentin 100 mg 04/19/20 00:57 04/23/20 09:41 Gabapentin 100 Mg Capsule PO 100 mg TID PRN Administration pain Gabapentin 600 mg 04/20/20 21:00 04/22/20 21:00 Gabapentin 300 Mg Capsule PO 600 mg BEDTIME JULIA Administration Guaifenesin 10 ml 04/23/20 11:00 04/23/20 11:55 Guaifenesin 200 Mg/10 Ml 10 Ml Liquid PO 10 ml Q6H JULIA Administration Ampicillin Sodium/Sulbactam 100 mls @ 200 mls/hr 04/19/20 07:00 04/23/20 07:18 Sodium 3 gm/ Sodium Chloride IV Infused Q6H JULIA Infusion Magnesium Oxide 400 mg 04/23/20 09:00 04/23/20 08:37 Magnesium Oxide 400 Mg Tablet PO 400 mg DAILY JULIA Administration Methylprednisolone Sodium Succinate 40 mg 04/21/20 10:25 04/23/20 08:37 Methylprednisolone Sod Succ/Pf 40 Mg/Ml Vial IVPUSH 40 mg DAILY JULIA Administration Midodrine 10 mg 04/21/20 09:00 04/23/20 08:37 Midodrine Hcl 5 Mg Tablet PO 10 mg BID JULIA Administration Nicotine 7 mg 04/21/20 09:00 04/23/20 08:35 Nicotine 7 Mg Patch.Td24 TRANSDERMA 7 mg DAILY JULIA Administration Omeprazole 20 mg 04/19/20 09:00 04/23/20 08:37 Omeprazole 20 Mg Capsule.Dr PO 20 mg DAILY JULIA Administration Ondansetron HCl 4 mg 04/19/20 00:57 04/23/20 08:38 Ondansetron Hcl 4 Mg/2 Ml Vial IVPUSH 4 mg Q8H PRN Administration Nausea and Vomiting Pharmacy Consult 1 each 04/18/20 19:35 Consult Rx Perform Med Rec MISCELLANE ONCE PRN Consult order Sodium Chloride 3 ml 04/19/20 00:57 04/23/20 08:35 0.9 % Sodium Chloride Flush 3 Ml Syringe IVFLUSH 3 ml QSHIFT JULIA Administration Zolpidem Tartrate 5 mg 04/22/20 12:50 Zolpidem Tartrate 5 Mg Tablet PO BEDTIME PRN Insomnia Labs CBC & Chem 7: 04/23/20 06:45 04/23/20 06:45 Microbiology Microbiology Results: Microbiology 04/19/20 07:45 Urine [place] Urine Culture - Final No growth. 04/18/20 22:05 Blood - Arterial Blood Culture - Preliminary No growth after 48 hours. 04/18/20 20:10 Blood - Arterial Blood Culture - Preliminary No growth after 48 hours. 04/18/20 Unknown Urine [place] Urine Culture - Final Assessment and Plan (1) Acute respiratory failure with hypoxia: Status: Acute (2) Sepsis: Status: Acute (3) UTI (urinary tract infection): Status: Acute (4) Pneumonia: Status: Acute (5) COPD (chronic obstructive pulmonary disease): Status: Acute (6) Cancer: Status: Acute Assessment and Plan: this is a 69-year-old female with past medical history as mentioned above who presents to the hospital with vague symptoms including AFib with RVR, vertigo found to have UTI, pneumonia, sepsis AFib with RVR, was cardioverted twice by EMS as well as by the ED physician. Currently hemodynamically stable and will be admitted for further management. Acute hypoxic respiratory failure 2/2 COPD exacerbations & Pneumonia ATC and p.r.n. bronchodilators nebulizers continue steroids O2 supplement to wean down as tolerated encouraged incentive spirometry A cough syrup Sepsis, resolved Secondary to aspiration pneumonia Requiring 3L O2 to keep sats in 90s CT scan of the chest showed consolidation with aspiration pneumonia Continue with Unasyn day 6 negative blood cultures Discontinue IV fluid swallowing problem Reporting choking sensation with liquids and solids Modified diet suggested by LOSS PREVENTION SUPERVISOR after trying the modified diet the patient would rather continue regular diet, she signed DNR DNI Hypotension Could be secondary to weight loss and using medications Pituitary gland abnormality suspicious also Pending cortisol level Hold hypertension medications Increased midodrine to 10 mg b.i.d. dizziness/vertigo Likely secondary to Orthostatic hypotension Recent history of weight loss and using blood pressure medications Discontinue lisinopril Started on midodrine, dose increased to 10 mg b.i.d. PT recommended short-term rehab Continue to check orthostatic vitals Irregular heart rhythm seems to be sinus tachycardia with multiple PACs Was cardioverted twice once by EMS and once by ED physician discontinue Lovenox full dose Discontinue metoprolol ECHO within normal cardiology input appreciated, no need for anticoagulation consider rate control medication if blood pressure improves and continue to have episodes of tachycardia. lactic acidosis Resolved hypomagnesemia Given replacement Hypokalemia corrected received replacement IV and p.o. 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
[2020-04-23] MEDS: Gabapentin 300 MG CAPSULE 600 MG PO (21:22)
[2020-04-24] VITALS (15 sets, daily range): BP systolic 96–113; BP diastolic 58–83; PULSE 81–113; RESP 18–20; TEMP 36.2–36.7; O2SAT 91–99; BMI 27.8
[2020-04-24] MEDS: 0.9 % Sodium Chloride Flush 3 ML SYRINGE IVFLUSH ×3 (01:12→16:47)
[2020-04-24] MEDS: Ampicillin Sodium/Sulbactam Na 3 GM in 0.9 % Sodium Chloride 100 ML IV ×4 (01:17→20:29)
[2020-04-24] MEDS: guaiFENesin 200 MG/10 ML 10 ML LIQUID PO ×4 (05:50→22:30)
[2020-04-24] MEDS: Enoxaparin Sodium 40 MG/0.4 ML SYRINGE SUBCUT (05:50)
[2020-04-24] MEDS: Acetaminophen 325 MG TABLET 650 MG PO (05:56)
[2020-04-24 06:28] LABS: Hematocrit 31.7 % (37-47); Hemoglobin 11.4 g/dl (12.0-16.0); Mean Corpuscular Hemoglobin 34.4 pg (27.0-33.0); Mean Corpuscular Volume 95.8 fL (80-98); Mean Platelet Volume 9.9 fL (9.4-12.3); Platelet Count 233 X10*3/uL (160-400); Red Blood Count 3.31 X10*6/uL (4.20-5.50); Red Cell Distribution Width 14.5 % (11.0-16.0); White Blood Count 11.1 X10*3/uL (4.8-10.8)
[2020-04-24 07:02] LABS: Magnesium 1.5 mg/dL (1.6-2.6)
[2020-04-24] MEDS: Albuterol/Iprat 2.5/0.5MG 3 ML AMPUL.NEB INHALE ×3 (07:26→20:03)
[2020-04-24] MEDS: Magnesium Oxide 400 MG TABLET PO ×3 (10:16→20:31)
[2020-04-24] MEDS: Nicotine 7 MG PATCH.TD24 TRANSDERMA (10:16)
[2020-04-24] MEDS: Omeprazole 20 MG CAPSULE.DR PO (10:16)
[2020-04-24] MEDS: Midodrine HCl 5 MG TABLET 10 MG PO ×2 (10:16→20:36)
[2020-04-24] MEDS: Atorvastatin Calcium 10 MG TABLET PO (10:16)
--- NOTE | 2020-04-24 11:13 | MHC.SLORD ---
Patient has lung cancer and is admitted for sepsis secondary to aspiration pneumonia. Patient was seen by WINDOWS SYSTEMS ARCHITECT on 04/21/20 for bedside dysphagia evaluation. Patient showed overt s/s of aspiration and was recommended ground/mechanically altered solids (NDD2) and honey thick liquids. Per MD note, after trying this modified diet, patient would rather continue a regular diet despite the risks. Patient engaged in a discussion with MD regarding risks. Patient is reportedly aware of these risks and would rather eat as she wishes because she does not feel she has a long time in this life. MD reports that patient signed DNR/DNI. MOLST form was also reportedly completed code status changed to EMR. Further ST intervention is no longer warranted. WINDOWS SYSTEMS ARCHITECT mert messaged MD. WINDOWS SYSTEMS ARCHITECT to be contacted if she can be of further support. Name: Ella Waterman Date of : 1950 Age: 69 Date of Registration: 04/18/20 Speech Language Pathology Order Status:
[2020-04-24] MEDS: polyethylene glycoL 3350 17 GM POWD.PACK PO (11:53)
--- NOTE | 2020-04-24 14:08 | P.PNIM_ITS ---
Subjective Subjective Date of Service: 04/24/20 Interval History: Patient seen and examined at bedside, patient was reporting shortness of breath Constitutional Constitutional: Reports weakness Cardiovascular Cardiovascular: Reports dyspnea Respiratory Respiratory: Reports dyspnea Gastrointestinal Gastrointestinal: Denies vomiting Neurologic Neurologic: Reports weakness Physical Exam Vital Signs: Vital Signs: Last Vital Signs Temp 97.6 F 04/24/20 11:42 Pulse 93 04/24/20 11:42 Resp 18 04/24/20 11:42 BP 106/80 04/24/20 11:42 Pulse Ox 93 04/24/20 11:42 Body Mass Index 27.8 Const: Other: irregular rate General: cooperative and ill appearing Orientation/consciousness: patient oriented x3 Eyes: General: appearance normal, both eyes and all related structures Pupils: Equal, round and reactive pupils present Resp: Effort & Inspection: normal respiratory effort and able to speak in c omplete sentences Auscultation: clear to auscultation bilaterally Cardio: Other: irregular rate Rhythm: regular rhythm GI: Palpation (GI): Soft to palpation Auscultation: normal bowel sounds Skin: General skin exam: no rashes or lesions noted Neuro: General: patient oriented x3 Cranial nerves: Yes Equal, round and reactive pupils present Cognition (Neuro): normal cognition Extrem: General: Yes normal to inspection and Yes no pedal edema Objective Data Current Medications Generic Name Dose Route Start Last Admin Trade Name Ifeanyiq PRN Reason Stop Dose Admin Acetaminophen 650 mg 04/19/20 00:57 04/24/20 05:56 Acetaminophen 325 Mg Tablet PO 650 mg Q6H PRN Administration Pain, Mild (Pain Scale 1-3) Albuterol Sulfate 2.5 mg 04/19/20 00:57 04/23/20 19:41 Albuterol Sulfate (0.083%) 2.5 Mg/3 Ml Vial.Neb INHALE 2.5 mg QID PRN Administration Shortness Of Breath Or Wheezing Albuterol/Ipratropium 3 ml 04/20/20 12:00 04/24/20 11:09 Albuterol/Iprat 2.5/0.5mg 3 Ml Ampul.Neb INHALE 3 ml RQ4H WHILE AWAKE JULIA Administration Atorvastatin Calcium 10 mg 04/19/20 09:00 04/24/20 10:16 Atorvastatin Calcium 10 Mg Tablet PO 10 mg DAILY JULIA Administration Docusate Sodium 100 mg 04/19/20 00:57 Docusate Sodium 100 Mg Capsule PO DAILY PRN Constipation Enoxaparin Sodium 40 mg 04/20/20 07:00 04/24/20 05:50 Enoxaparin Sodium 40 Mg/0.4 Ml Syringe SUBCUT 40 mg Q24H JULIA Administration Gabapentin 100 mg 04/19/20 00:57 04/23/20 09:41 Gabapentin 100 Mg Capsule PO 100 mg TID PRN Administration pain Gabapentin 600 mg 04/20/20 21:00 04/23/20 21:22 Gabapentin 300 Mg Capsule PO 600 mg BEDTIME JULIA Administration Guaifenesin 10 ml 04/23/20 11:00 04/24/20 10:16 Guaifenesin 200 Mg/10 Ml 10 Ml Liquid PO 10 ml Q6H JULIA Administration Ampicillin Sodium/Sulbactam 100 mls @ 200 mls/hr 04/19/20 07:00 04/24/20 06:29 Sodium 3 gm/ Sodium Chloride IV Infused Q6H UJLIA Infusion Magnesium Oxide 400 mg 04/24/20 11:30 04/24/20 11:53 Magnesium Oxide 400 Mg Tablet PO 400 mg TID JULIA Administration Methylprednisolone Sodium Succinate 40 mg 04/21/20 10:25 04/24/20 10:14 Methylprednisolone Sod Succ/Pf 40 Mg/Ml Vial IVPUSH 40 mg DAILY JULIA Administration Midodrine 10 mg 04/21/20 09:00 04/24/20 10:16 Midodrine Hcl 5 Mg Tablet PO 10 mg BID JULIA Administration Nicotine 7 mg 04/21/20 09:00 04/24/20 10:16 Nicotine 7 Mg Patch.Td24 TRANSDERMA 7 mg DAILY JULIA Administration Omeprazole 20 mg 04/19/20 09:00 04/24/20 10:16 Omeprazole 20 Mg Capsule.Dr PO 20 mg DAILY JULIA Administration Ondansetron HCl 4 mg 04/19/20 00:57 04/23/20 08:38 Ondansetron Hcl 4 Mg/2 Ml Vial IVPUSH 4 mg Q8H PRN Administration Nausea and Vomiting Pharmacy Consult 1 each 04/18/20 19:35 Consult Rx Perform Med Rec MISCELLANE ONCE PRN Consult order Polyethylene Glycol 17 gm 04/24/20 11:30 04/24/20 11:53 Polyethylene Glycol 3350 17 Gm Powd.Pack PO 17 gm DAILY JULIA Administration Sodium Chloride 3 ml 04/19/20 00:57 04/24/20 08:17 0.9 % Sodium Chloride Flush 3 Ml Syringe IVFLUSH 3 ml QSHIFT JULIA Administration Zolpidem Tartrate 5 mg 04/22/20 12:50 Zolpidem Tartrate 5 Mg Tablet PO BEDTIME PRN Insomnia Labs CBC & Chem 7: 04/24/20 05:30 04/23/20 06:45 Microbiology Microbiology Results: Microbiology 04/18/20 22:05 Blood - Arterial Blood Culture - Final No growth after 5 days. 04/18/20 20:10 Blood - Arterial Blood Culture - Final No growth after 5 days. 04/19/20 07:45 Urine [place] Urine Culture - Final No growth. 04/18/20 Unknown Urine [place] Urine Culture - Final Assessment and Plan (1) Acute respiratory failure with hypoxia: Status: Acute (2) Sepsis: Status: Acute (3) UTI (urinary tract infection): Status: Acute (4) Pneumonia: Status: Acute (5) COPD (chronic obstructive pulmonary disease): Status: Acute (6) Cancer: Status: Acute Assessment and Plan: 69-year-old female with past medical history as mentioned above who presents to the hospital with vague symptoms including AFib with RVR, vertigo found to have UTI, pneumonia, sepsis AFib with RVR, was cardioverted twice by EMS as well as by the ED physician. Currently hemodynamically stable and will be admitted for further management. Acute hypoxic respiratory failure 2/2 COPD exacerbations & Pneumonia ATC and p.r.n. bronchodilators nebulizers continue steroids O2 supplement to wean down as tolerated Encouraged incentive spirometry Sepsis, resolved Secondary to aspiration pneumonia Requiring 3L O2 to keep sats in 90s CT scan of the chest showed consolidation with aspiration pneumonia Continue with Unasyn day 7 negative blood cultures Discontinue IV fluid swallowing problem Reporting choking sensation with liquids and solids Modified diet suggested by AUTOMATIC SEAMER after trying the modified diet the patient would rather continue regular diet, she signed DNR DNI Hypotension improving Could be secondary to weight loss and using medications Pituitary gland abnormality suspicious also Pending cortisol level continue midodrine to 10 mg b.i.d. dizziness/vertigo Likely secondary to Orthostatic hypotension Recent history of weight loss and using blood pressure medications Discontinue lisinopril Started on midodrine, dose increased to 10 mg b.i.d. PT recommended short-term rehab Continue to check orthostatic vitals Irregular heart rhythm seems to be sinus tachycardia with multiple PACs Was cardioverted twice once by EMS and once by ED physician discontinue Lovenox full dose Discontinue metoprolol ECHO within normal cardiology input appreciated, no need for anticoagulation consider rate control medication if blood pressure improves and continue to have episodes of tachycardia. lactic acidosis Resolved hypomagnesemia Given replacement Hypokalemia corrected received replacement IV and p.o. 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
--- NOTE | 2020-04-24 17:00 | PC.NURSE ---
P-c/o constipation,nausea,no redsults from miralax adm earlier I-will administer Zofran and colace,Dr. Serna notified E-will monitor
[2020-04-24] MEDS: ondansetron HCL 4 MG/2 ML VIAL IVPUSH (17:08)
[2020-04-24] MEDS: Docusate Sodium 100 MG CAPSULE PO (17:08)
[2020-04-24] MEDS: Gabapentin 300 MG CAPSULE 600 MG PO (20:31)
[2020-04-25] VITALS (13 sets, daily range): BP systolic 106–122; BP diastolic 63–83; PULSE 89–103; RESP 16–20; TEMP 36.3–36.9; O2SAT 95–98; BMI 28.0
[2020-04-25] MEDS: 0.9 % Sodium Chloride Flush 3 ML SYRINGE IVFLUSH ×3 (00:29→16:14)
[2020-04-25] MEDS: Acetaminophen 325 MG TABLET 650 MG PO (00:31)
[2020-04-25] MEDS: Ampicillin Sodium/Sulbactam Na 3 GM in 0.9 % Sodium Chloride 100 ML IV ×3 (01:53→12:54)
[2020-04-25] MEDS: guaiFENesin 200 MG/10 ML 10 ML LIQUID PO ×4 (05:59→22:04)
[2020-04-25] MEDS: Albuterol/Iprat 2.5/0.5MG 3 ML AMPUL.NEB INHALE ×4 (07:18→19:14)
[2020-04-25] MEDS: Enoxaparin Sodium 40 MG/0.4 ML SYRINGE SUBCUT (08:00)
[2020-04-25] MEDS: Midodrine HCl 5 MG TABLET 10 MG PO ×2 (08:01→20:20)
[2020-04-25] MEDS: Omeprazole 20 MG CAPSULE.DR PO (08:02)
[2020-04-25] MEDS: Magnesium Oxide 400 MG TABLET PO ×3 (08:02→20:19)
[2020-04-25] MEDS: Atorvastatin Calcium 10 MG TABLET PO (08:02)
[2020-04-25] MEDS: Nicotine 7 MG PATCH.TD24 TRANSDERMA (08:02)
[2020-04-25] MEDS: polyethylene glycoL 3350 17 GM POWD.PACK PO (08:03)
[2020-04-25 09:23] LABS: MANUAL DIFF FLAG NO
[2020-04-25 09:25] LABS: Basophils Percent Auto 0.1 % (0-2); Eosinophils Percent Auto 0.2 % (0-4); Hematocrit 35.2 % (37-47); Hemoglobin 12.2 g/dl (12.0-16.0); Imm Gran Abs Auto 0.06 X10*3/uL (0.00-0.03); Imm Gran Pct Auto 0.6 % (0.0-0.4); Lymphocytes Absolute Auto 2.9 X10*3/uL (1.2-4.9); Lymphocytes Percent Auto 26.6 % (20-40); Mean Corpuscular HGB Conc 34.7 g/dl (31.0-35.0); Mean Corpuscular Hemoglobin 34.3 pg (27.0-33.0); Mean Corpuscular Volume 98.9 fL (80-98); Monocytes Absolute Auto 0.9 X10*3/uL (0.1-1.2); Monocytes Percent Auto 7.9 % (2-11); Neutrophils Absolute Auto 6.9 X10*3/uL (2.0-8.3); Neutrophils Percent Auto 64.6 % (45-73); Platelet Count 260 X10*3/uL (160-400); Red Blood Count 3.56 X10*6/uL (4.20-5.50); White Blood Count 10.7 X10*3/uL (4.8-10.8)
[2020-04-25 09:49] LABS: Anion Gap 14 (12-20); Blood Urea Nitrogen 12 mg/dL (9-16); Calcium 8.2 mg/dL (8.4-10.2); Carbon Dioxide 27 mmol/L (22-29); Chloride 98 mmol/L (96-108); Creatinine Clr Calc Pharmacy 86.6; Estimated Glomerular Filt Rate > 60; Glucose Random 60 mg/dL (60-115); Potassium 3.3 mmol/l (3.3-5.1); Sodium 136 mmol/L (135-145)
[2020-04-25 09:50] LABS: Magnesium 1.6 mg/dL (1.6-2.6)
[2020-04-25] MEDS: Sodium Phosphate,Mono-Dibasic 133 ML ENEMA PR (13:31)
--- NOTE | 2020-04-25 14:07 | PM.DS ---
DS: Providers Provider Date of admission: 04/18/20 23:32 Primary care physician: Unknown Physician Consults: 04/19/20 00:57 Consult to Cardiology Routine Consulting Provider: Abelardo Linares Reason for consultation: afib Has provider been notified: Yes DS: Diagnosis Discharge Diagnosis (1) Acute respiratory failure with hypoxia: Status: Resolved (2) Sepsis: Status: Resolved (3) UTI (urinary tract infection): Status: Resolved (4) Pneumonia: Status: Resolved (5) COPD (chronic obstructive pulmonary disease): Status: Acute (6) Cancer: Status: Acute DS: Medications Discharge Medications Home Medications: Home Medications Medication Instructions Recorded Confirmed albuterol sulfate 2.5 mg INHALATION QID PRN 04/18/20 04/18/20 furosemide 1 tab PO DAILY 04/18/20 04/18/20 gabapentin 1 cap PO TID PRN 04/18/20 04/18/20 gabapentin 2 - 3 cap PO BEDTIME 04/18/20 04/18/20 omeprazole 20 mg PO DAILY 04/18/20 04/18/20 simvastatin 1 tab PO DAILY 04/18/20 04/18/20 Previous Rx's Medication Instructions Recorded docusate sodium 100 mg PO DAILY PRN #20 cap 04/25/20 ipratropium-albuterol 3 ml INHALATION RQ4H WHILE AWAKE 04/25/20 #30 ml magnesium oxide 400 mg PO TID #30 tab 04/25/20 midodrine 10 mg PO BID #60 tab 04/25/20 nicotine 7 mg TRANSDERMAL DAILY #14 ea 04/25/20 polyethylene glycol 3350 17 g PO DAILY #20 ea 04/25/20 DS: Summary Hospital Course Hospital Course: HPI from admission 69-year-old female with past medical history of hypertension who presents to the hospital with weakness and fall. this is somewhat of a complicated presentation but according to the patient she has been feeling dizzy/vertigo for months now and has been having falling with no loss of consciousness. Patient reports that today she tried to go to the bathroom but her vertigo became so severe that she fell with no loss of consciousness. She was unable to get up due to the weakness and her son had to help her to the bathroom. She sat on the toilet and was not able to get up. EMS was called. She reports no palpitations, no chest pain prior to the fall. No confusion or postictal symptoms. She states that sometime in spring she had an E coli infection (does not know where ) and became numb after that. Patient reports that she has been having numbness all through her body, and was found to have a mass in her lungs and was told that she has some sort of metastatic cancer but has not seen Dr. Boone for biopsy yet to find out the type of cancer. She was also told that she will need a pads can. Patient reports low appetite and loss of weight from 187-140 to since springtime. She also reports a few days ago had right upper extremity weakness and loss of movement for few minutes with no slurred speech no facial droop, and no lower extremity weakness. She also noted that her shortness of breath has worsened and she has cough specially when she lays down. It chills nausea. She also has urinary pressure when she tries to urinate with no dysuria, or frequency. According to EMS when they arrive patient was found to have irregular pulse with undetectable blood pressure. the EMS That had initially arrived at her house was basic in did not have an EKG machine, somehow this was intercepted and another ambulance was sent [facility] prior to arriving to the ED, and they felt the patient was in torsades . due to undetectable blood pressure and fast heart rate patient was cardioverted in the ambulance with 100 joules but remained in AFib with RVR with a heart rate in the 150s. when she arrived to the ED patient was found to be in AFib with RVR with a heart rate in the 140s to 150s. She also had a very low blood pressure in the 70s/40s and therefore cardioverted by the ED physician at 100j It appears the patient has no history of AFib in the past. patient was also given ketamine as well as hydrocortisone in the ED with a 1 dose of diltiazem IV push after blood pressure was stable for heart rate. Her blood pressure is now more stable, her heart rate is in the 90s. Labs on arrival are significant for WBC count of 12.7, left shift with neutrophilia, sodium of 133, lactic acid of 4.5, magnesium of 1.5, albumin of 2.4 TSH of 0.9, UA positive for nitrites, leukocyte Estrace, WBC, COVID-19 negative Imaging showed chest CT significant for 1.8 cm right lower lobe pulmonary nodule that has not changed, right lower lobe consolidation concerning for aspiration. head CT shows new abnormal hyperdensity in the pituitary gland. Cervical spine demonstrates degenerative changes HOSPITAL course 69-year-old female admitted with sepsis likely secondary to aspiration pneumonia and possible UTi , patient was also found to have tachycardia with question of AFib with RVR and was cardioverted by EMS and by ER physician For sepsis was likely secondary to pneumonia likely aspiration pneumonia patient was started on Unasyn, blood cultures remain negative, sepsis resolved, patient was seen by speech recommended ground mechanical and honey thick liquids, patient refused modified diet, patient signed DNR DNI, patient understands risk of aspiration and pneumonia, but still refused modified diet wants to continue the regular diet, patient's diet was switched to regular diet acute hypoxic respiratory failure was likely secondary to pneumonia and COPD exacerbation patient received nebulizer treatment and steroid , shortness of breath improved, patient was continued to require 2 L of ox, patient completed steroid, patient was discharged on nebulizer treatment and oxygen supplementation Patient also found to have orthostasis positive , lisinopril was stopped, patient received fluid and was started on midodrine, patient was continued on midodrine and blood pressure remains stable, cortisol level was sent and was pending ,CT head on admission shows pituatary lesion er physician contacted neurosurgery recomended no intervention and patient will need outpatient MRI and follow-up with neurology as outpatient CT chest on admission shows 1.8 centimetre lung nodule on the right side, and will need follow-up with pulmonology as outpatient for possible biopsy given COPD and smoker patient was stable and evaluated by Physical therapy , PT recommended short-term rehab, patient was stable discharged to short-term rehab Time Spent with Patient Time attestation: Total time spent providing and/or coordinating discharge services: Physical Exam Vital Signs: Vital Signs: Last Vital Signs Temp 97.6 F 04/25/20 11:29 Pulse 101 H 04/25/20 11:29 Resp 18 04/25/20 11:29 BP 112/63 04/25/20 11:29 Pulse Ox 96 04/25/20 11:29 Body Mass Index 28.0 DS: Data Data Completed and Pending Labs on day of discharge: 04/18/20 Urine Culture Routine 04/18/20 19:27 Glucose, Whole Blood Routine 04/18/20 19:32 Magnesium Sulfate/H2O 2 gm in 50 ml IV ONCE methylPREDNISolone Sod Succ/PF [SOLU-MedroL] 60 mg IVPUSH ONCE ONE 04/18/20 19:33 ECG 12 lead EKG Stat EKG Documentation DIRECTED 04/18/20 19:34 XR chest 1V Stat dilTIAZem HCL [Cardizem] 5 mg IVPUSH NOW STA 04/18/20 19:45 0.9 % Sodium Chloride [Ns] 1,000 ml IVCONT 999 mls/hr 04/18/20 19:48 levalbuterol HCL [Xopenex] 1.25 mg INHALE ONCE ONE methylPREDNISolone Sod Succ/PF [SOLU-MedroL] 125 mg .ROUTE .STK-MED ONE 04/18/20 19:50 cefTRIAXone sodium [Rocephin] 1 gm 0.9 % Sodium Chloride [Ns] 50 ml IV ONCE 04/18/20 19:53 dilTIAZem HCL [Cardizem] 125 mg IVCONT .STK-MED ONE 04/18/20 19:56 CT cervical spine wo con Stat CT head/brain wo con Stat 04/18/20 19:59 dilTIAZem HCL [Cardizem] 125 mg IVCONT .STK-MED ONE 04/18/20 20:00 0.9 % Sodium Chloride [Ns] 100 ml dilTIAZem HCL [Cardizem] 125 mg IVCONT Per Protocol mg/hr 04/18/20 20:01 Complete Blood Count Auto Diff Stat Liver Panel Stat Magnesium Stat Procalcitonin Stat Thyroid Stimulating Hormone Stat 04/18/20 20:09 cefTRIAXone sodium [Rocephin] 1 gm .ROUTE .STK-MED ONE 04/18/20 20:11 B Type Natriuretic Peptide Stat D Dimer Stat Lactic Acid Stat Partial Thromboplastin Time Stat Prothrombin Time INR Stat Troponin-I High Sensitivity Stat 04/18/20 20:12 Basic Metabolic Panel Stat Lipase Stat 04/18/20 20:20 COVID-19 ID NOW (Fernando) Stat Venous Blood Gas Stat 04/18/20 20:30 0.9 % Sodium Chloride [Ns] 1,000 ml IVCONT 999 mls/hr 0.9 % Sodium Chloride [Ns] 1,000 ml IVCONT 999 mls/hr 04/18/20 20:42 Ketamine HCl/NS 50 mg IVPUSH ONCE ONE 04/18/20 21:09 Calcium Gluconate/NaCl,Iso-Osm [Calcium Gluconate] 2 gm in 100 ml IV ONCE Potassium Chloride ER [Klor-con] 40 meq PO ONCE ONE 04/18/20 21:15 0.9 % Sodium Chloride [Ns] 1,000 ml IVCONT 999 mls/hr Potassium Chloride/H20 10 meq in 100 ml IV Q1H 04/18/20 21:30 0.9 % Sodium Chloride [Ns] 1,000 ml IVCONT 999 mls/hr 04/18/20 21:38 Hydrocortisone Sod Succ/PF [SOLU-Cortef] 100 mg IVPUSH ONCE ONE 04/18/20 21:42 Rad Image Transfer Request Stat 04/18/20 21:49 Insert/maintain urinary catheter NOW 04/18/20 22:05 Blood Culture X2 [BC] Stat 04/18/20 22:11 ECG 12 lead EKG Stat EKG Documentation DIRECTED 04/18/20 23:26 Transfer Order Routine 04/18/20 23:28 Code Status Routine 04/18/20 23:39 ~Lactic Acid-LAB USE ONLY Stat 04/19/20 00:57 Enoxaparin Sodium [Lovenox] 40 mg SUBCUT Q24H 04/19/20 00:57 CA echo transthoracic complete Routine IV insert/maintain Q4HR Intake and Output Q8HR 04/19/20 01:00 CT chest wo con Stat 04/19/20 02:20 ECG 12 lead EKG Stat 04/19/20 02:24 EKG Documentation DIRECTED 04/19/20 04:07 Basic Metabolic Panel Routine Complete Blood Count Auto Diff Routine SLIDE REVIEW Routine 04/19/20 05:55 Lactic Acid Stat Troponin-I High Sensitivity Stat 04/19/20 05:56 Magnesium Stat 04/19/20 06:00 Lactated Ringers [Lr] 1,000 ml IVCONT 100 mls/hr 04/19/20 06:45 Enoxaparin Sodium [Lovenox] 30 mg SUBCUT ONCE ONE 04/19/20 07:45 Urine Culture Stat 04/19/20 07:52 Magnesium Sulfate/H2O 2 gm in 50 ml IV ONCE 04/19/20 08:01 Ampicillin Sodium/Sulbactam Na [Unasyn] 3 gm .ROUTE .STK-MED ONE 04/19/20 09:00 Furosemide [Lasix] 20 mg PO DAILY Metoprolol Tartrate [Lopressor] 12.5 mg PO BID Nicotine [Nicoderm] 21 mg TRANSDERMA DAILY lisinopriL [Zestril] 5 mg PO DAILY 04/19/20 Breakfast Regular Diet 04/19/20 14:18 Ampicillin Sodium/Sulbactam Na [Unasyn] 3 gm .ROUTE .STK-MED ONE 04/19/20 14:38 Magnesium Sulfate/H2O 2 gm in 50 ml IV ONCE 04/19/20 18:00 Enoxaparin Sodium [Lovenox] 70 mg SUBCUT Q12H 04/19/20 19:53 Ampicillin Sodium/Sulbactam Na [Unasyn] 3 gm .ROUTE .STK-MED ONE 04/19/20 20:00 cefTRIAXone sodium [Rocephin] 1 gm 0.9 % Sodium Chloride [Ns] 50 ml IV Q24H 04/19/20 21:00 Gabapentin [Neurontin] 600 - 900 mg PO BEDTIME 04/20/20 00:55 Ampicillin Sodium/Sulbactam Na [Unasyn] 3 gm .ROUTE .STK-MED ONE 04/20/20 05:53 Ampicillin Sodium/Sulbactam Na [Unasyn] 3 gm .ROUTE .STK-MED ONE 04/20/20 06:25 Basic Metabolic Panel DAILY@0600 Complete Blood Count no Diff DAILY@0600 Magnesium Routine 04/20/20 08:00 Digoxin [Lanoxin] 0.25 mg PO ONCE ONE 04/20/20 12:00 0.9 % Sodium Chloride [Ns] 500 ml IV 500 mls/hr 04/20/20 12:20 Potassium Chloride Packet [Klor-Con Packet] 20 meq PO ONCE ONE 04/20/20 12:30 Potassium Chloride/H20 10 meq in 100 ml IV Q1H 04/20/20 13:40 Midodrine HCl [ProAmatine] 5 mg PO BID 04/20/20 13:42 Magnesium Sulfate/H2O 2 gm in 50 ml IV ONCE 04/20/20 14:00 Digoxin [Lanoxin] 0.25 mg PO ONCE ONE 04/20/20 14:30 Ampicillin Sodium/Sulbactam Na [Unasyn] 3 gm .ROUTE .STK-MED ONE 04/20/20 20:20 Ampicillin Sodium/Sulbactam Na [Unasyn] 3 gm .ROUTE .STK-MED ONE 04/21/20 02:30 Ampicillin Sodium/Sulbactam Na [Unasyn] 3 gm .ROUTE .STK-MED ONE 04/21/20 05:40 Basic Metabolic Panel DAILY@0600 Complete Blood Count no Diff DAILY@0600 04/21/20 06:07 Ampicillin Sodium/Sulbactam Na [Unasyn] 3 gm .ROUTE .STK-MED ONE 04/21/20 08:00 Digoxin [Lanoxin] 0.125 mg PO Q2D 04/21/20 08:32 Potassium Chloride Packet [Klor-Con Packet] 40 meq PO ONCE ONE 04/21/20 12:31 Ampicillin Sodium/Sulbactam Na [Unasyn] 3 gm .ROUTE .STK-MED ONE 04/21/20 18:04 Ampicillin Sodium/Sulbactam Na [Unasyn] 3 gm .ROUTE .STK-MED ONE 04/22/20 01:28 Ampicillin Sodium/Sulbactam Na [Unasyn] 3 gm .ROUTE .K-MED ONE 04/22/20 05:59 Basic Metabolic Panel DAILY@0600 04/22/20 06:21 Ampicillin Sodium/Sulbactam Na [Unasyn] 3 gm .ROUTE .STK-MED ONE 04/22/20 10:15 guaiFENesin LA [Mucinex] 600 mg PO BID 04/22/20 13:18 Furosemide [Lasix] 10 mg IVPUSH ONCE ONE 04/22/20 13:29 Ampicillin Sodium/Sulbactam Na [Unasyn] 3 gm .ROUTE .STK-MED ONE 04/22/20 19:38 Ampicillin Sodium/Sulbactam Na [Unasyn] 3 gm .ROUTE .STK-MED ONE 04/23/20 01:31 Ampicillin Sodium/Sulbactam Na [Unasyn] 3 gm .ROUTE .STK-MED ONE 04/23/20 06:11 Ampicillin Sodium/Sulbactam Na [Unasyn] 3 gm .ROUTE .STK-MED ONE 04/23/20 06:45 Basic Metabolic Panel DAILY@0600 Complete Blood Count no Diff DAILY@0600 04/23/20 09:00 Magnesium Oxide [Mag-Ox] 400 mg PO DAILY 04/23/20 13:50 Ampicillin Sodium/Sulbactam Na [Unasyn] 3 gm .ROUTE .STK-MED ONE 04/23/20 17:48 Ampicillin Sodium/Sulbactam Na [Unasyn] 3 gm .ROUTE .STK-MED ONE 04/23/20 21:16 Ampicillin Sodium/Sulbactam Na [Unasyn] 3 gm .ROUTE .STK-MED ONE 04/24/20 01:14 Ampicillin Sodium/Sulbactam Na [Unasyn] 3 gm .ROUTE .K-MED ONE 04/24/20 05:30 Complete Blood Count no Diff DAILY@0600 Magnesium Routine 04/24/20 05:46 Ampicillin Sodium/Sulbactam Na [Unasyn] 3 gm .ROUTE .STK-MED ONE 04/24/20 14:07 Ampicillin Sodium/Sulbactam Na [Unasyn] 3 gm .ROUTE .[facility] ONE 04/24/20 17:30 Magnesium Oxide [Mag-Ox] 400 mg PO BIDPC 04/24/20 20:26 Ampicillin Sodium/Sulbactam Na [Unasyn] 3 gm .ROUTE .STK-MED ONE 04/25/20 01:49 Ampicillin Sodium/Sulbactam Na [Unasyn] 3 gm .ROUTE .STK-MED ONE 04/25/20 07:47 Ampicillin Sodium/Sulbactam Na [Unasyn] [address] .[facility] ONE 04/25/20 08:46 Basic Metabolic Panel Routine Complete Blood Count Auto Diff Routine 04/25/20 08:47 Magnesium Routine 04/25/20 12:52 Ampicillin Sodium/Sulbactam Na [Unasyn] [address] gm .ROUTE .[facility] ONE Laboratory Last Values WBC 10.7 X10*3/uL (4.8-10.8) 04/25/20 08:46 RBC 3.56 X10*6/uL (4.20-5.50) L 04/25/20 08:46 Hgb 12.2 g/dl (12.0-16.0) 04/25/20 08:46 Hct 35.2 % (37-47) L 04/25/20 08:46 MCV 98.9 fL (80-98) H 04/25/20 08:46 MCH 34.3 pg (27.0-33.0) H 04/25/20 08:46 MCHC 34.7 g/dl (31.0-35.0) 04/25/20 08:46 RDW 15.0 % (11.0-16.0) 04/25/20 08:46 Plt Count 260 X10*3/uL (160-400) 04/25/20 08:46 MPV 10.0 fL (9.4-12.3) 04/25/20 08:46 Immature Gran % (Auto) 0.6 % (0.0-0.4) H 04/25/20 08:46 Neut % (Auto) 64.6 % (45-73) 04/25/20 08:46 Lymph % (Auto) 26.6 % (20-40) 04/25/20 08:46 [place] % (Auto) 7.9 % (2-11) 04/25/20 08:46 Eos % (Auto) 0.2 % (0-4) 04/25/20 08:46 Baso % (Auto) 0.1 % (0-2) 04/25/20 08:46 Lymph # (Auto) 2.9 X10*3/uL (1.2-4.9) 04/25/20 08:46 [place] # (Auto) 0.9 X10*3/uL (0.1-1.2) 04/25/20 08:46 Eos # (Auto) 0.0 X10*3/uL (0.0-0.4) 04/25/20 08:46 Baso # (Auto) 0.0 X10*3/uL (0.0-0.2) 04/25/20 08:46 Abs Immat Gran (auto) 0.06 X10*3/uL (0.00-0.03) H 04/25/20 08:46 Absolute Neuts (auto) 6.9 X10*3/uL (2.0-8.3) 04/25/20 08:46 Absolute Nucleated RBC 0.000 X10*3/uL (0.0-0.012) 04/25/20 08:46 Nucleated RBC % (auto) 0.0 /100WBC (0.0-0.2) 04/25/20 08:46 Smear Tech's Comments VERIFIED 04/19/20 04:07 PT Cancelled 04/18/20 20:20 INR Cancelled 04/18/20 20:20 APTT Cancelled 04/18/20 20:20 D-Dimer < 200 NG/ML 04/18/20 20:11 VBG pH 7.36 (7.32-7.43) 04/18/20 20:20 VBG pCO2 37 mmhg 04/18/20 20:20 VBG pO2 32 mmhg 04/18/20 20:20 VBG HCO3 21 mmol/L 04/18/20 20:20 VBG O2 Saturation 53.8 % 04/18/20 20:20 VBG Base Excess -4.0 mmol/L 04/18/20 20:20 Sodium 136 mmol/L (135-145) 04/25/20 08:46 Potassium 3.3 mmol/l (3.3-5.1) 04/25/20 08:46 Chloride 98 mmol/L (96-108) 04/25/20 08:46 Carbon Dioxide 27 mmol/L (22-29) 04/25/20 08:46 Anion Gap 14 (-20) 04/25/20 08:46 BUN 12 mg/dL (9-16) 04/25/20 08:46 Creatinine 0.64 mg/dL (0.5-1.4) 04/25/20 08:46 Estim Creat Clear Calc 86.6 04/25/20 08:46 Estimated GFR > 60 04/25/20 08:46 POC Glucose 94 mg/dL (60-115) 04/18/20 19:27 Random Glucose 60 mg/dL (60-115) 04/25/20 08:46 Lactic Acid 1.5 mmol/L (0.5-2.0) 04/19/20 05:55 Lactic Acid Fup @ 2Hr 1.6 mmol/L (0.5-2.0) 04/18/20 23:39 Calcium 8.2 mg/dL (8.4-10.2) L 04/25/20 08:46 Magnesium 1.6 mg/dL (1.6-2.6) 04/25/20 08:47 Total Bilirubin 0.9 mg/dL (0.0-1.0) 04/18/20 20:01 Direct Bilirubin 0.5 mg/dL (0.0-0.5) 04/18/20 20:01 AST 20 U/L (5-31) 04/18/20 20:01 ALT 10 U/L (0-31) 04/18/20 20:01 Alkaline Phosphatase 65 U/L (39-117) 04/18/20 20:01 Troponin I High Sens 15.0 ng/L (<3.5-17.0) 04/19/20 05:55 B-Natriuretic Peptide 90 pg/mL (<100) 04/18/20 20:11 Total Protein 4.0 g/dL (6.5-8.0) L 04/18/20 20:01 Albumin 2.4 g/dL (3.5-5.0) L 04/18/20 20:01 Lipase 9 U/L (8-78) 04/18/20 20:12 Procalcitonin 0.10 ng/mL 04/18/20 20:01 TSH 0.94 uIU/mL (0.32-4.0) 04/18/20 20:01 Urine Color YELLOW 04/18/20 23:39 Urine Appearance CLEAR 04/18/20 23:39 Urine pH 6.0 (5.0-8.0) 04/18/20 23:39 Ur Specific [place] <= 1.005 (1.005-1.025) 04/18/20 23:39 Urine Protein NEG MG/DL (NEG-TRACE) 04/18/20 23:39 Urine Glucose (UA) NEG MG/DL (NEG) 04/18/20 23:39 Urine Ketones NEG MG/DL (NEG) 04/18/20 23:39 Urine Blood NEG (NEG) 04/18/20 23:39 Urine Nitrite POS (NEG) H 04/18/20 23:39 Ur Leukocyte Esterase 1+ (NEG) H 04/18/20 23:39 Urine RBC 0 /HPF (0) 04/18/20 23:39 Urine WBC 10-14 /HPF (0-4) H 04/18/20 23:39 Ur Squamous Epith Cells 1+ /LPF 04/18/20 23:39 Urine Bacteria 2+ /LPF 04/18/20 23:39 COVID-19 (AN) Negative (Negative) 04/18/20 20:20 COVID-19 Clin Com See Note 04/18/20 20:20 Discharge Plan Discharge Anticipated Discharge Date/Time: 04/26/20 14:51 Patient Disposition: Xfer SNF Referrals: [facility] [Outside] Physician,Unknown [Primary Care Provider] - Discharge Medications: New polyethylene glycol 3350 17 gram Powder In Packet 17 g PO DAILY Qty: 20 RF: 0 magnesium oxide 400 mg (241.3 mg magnesium) Tablet 400 mg PO TID Qty: 30 RF: 0 docusate sodium 100 mg Capsule 100 mg PO DAILY PRN (Reason: Constipation) Qty: 20 RF: 0 midodrine 5 mg Tablet 10 mg PO BID Qty: 60 RF: 0 nicotine 7 mg/24 hr Patch 24 Hour 7 mg transdermal DAILY Qty: 14 RF: 0 cefuroxime axetil 500 mg tablet 500 mg PO BID 5 Days Qty: 10 RF: 0 Continued albuterol sulfate 2.5 mg /3 mL (0.083 %) solution for nebulization 2.5 mg inhalation QID PRN (Reason: Shortness Of Breath Or Wheezing) RF: 0 simvastatin 20 mg tablet 1 tab PO DAILY RF: 0 gabapentin 300 mg capsule 2 - 3 cap PO BEDTIME RF: 0 omeprazole 20 mg capsule,delayed release(DR/EC) 20 mg PO DAILY RF: 0 furosemide 20 mg tablet 1 tab PO DAILY RF: 0 gabapentin 100 mg capsule 1 cap PO TID PRN (Reason: pain) RF: 0 Discontinued lisinopril 5 mg tablet 1 tab PO DAILY RF: 0 Discharge Orders: Discharge Order (Routine); Ordered 04/26/20 Ordered By: Fritz Serna Diet: advance to usual diet Activity on Discharge: As tolerated Discharge Date/Time: 04/26/20 15:07 Visit Report Forms: Patient Portal Discharge page Care Plan Goals: see discharge instruction Health Concerns: see discharge instructions Plan of Treatment: see discharge instructions
[2020-04-25 15:12] LABS: COVID-19 Test Negative (Negative); IDNOW Serial# 9DD0AD1C
[2020-04-25] MEDS: Docusate Sodium 100 MG CAPSULE PO (16:13)
--- NOTE | 2020-04-25 16:49 | HO.PM.IMPN ---
Subjective Subjective Date of Service: 04/25/20 Interval History: Patient seen and examined at bedside, patient was reporting shortness of breath and constipation Constitutional Constitutional: Reports weakness Cardiovascular Cardiovascular: Reports dyspnea Respiratory Respiratory: Reports dyspnea Gastrointestinal Gastrointestinal: Denies vomiting Neurologic Neurologic: Reports weakness Physical Exam Vital Signs: Vital Signs: Last Vital Signs Temp 97.9 F 04/25/20 15:04 Pulse 95 04/25/20 15:04 Resp 18 04/25/20 15:04 BP 111/75 04/25/20 15:04 Pulse Ox 98 04/25/20 15:04 Body Mass Index 28.0 Const: Other: irregular rate General: cooperative and ill appearing Orientation/consciousness: patient oriented x3 Eyes: General: appearance normal, both eyes and all related structures Pupils: Equal, round and reactive pupils present Resp: Effort & Inspection: normal respiratory effort and able to speak in complete sentences Auscultation: clear to auscultation bilaterally Cardio: Other: irregular rate Rhythm: regular rhythm GI: Palpation (GI): Soft to palpation Auscultation: normal bowel sounds Skin: General skin exam: no rashes or lesions noted Neuro: General: patient oriented x3 Cranial nerves: Yes Equal, round and reactive pupils present Cognition (Neuro): normal cognition Extrem: General: Yes normal to inspection and Yes no pedal edema Objective Data Current Medications Generic Name Dose Route Start Last Admin Trade Name Freq PRN Reason Stop Dose Admin Acetaminophen 650 mg 04/19/20 00:57 04/25/20 00:31 Acetaminophen 325 Mg Tablet PO 650 mg Q6H PRN Administration Pain, Mild (Pain Scale 1-3) Albuterol Sulfate 2.5 mg 04/19/20 00:57 04/23/20 19:41 Albuterol Sulfate (0.083%) 2.5 Mg/3 Ml Vial.Neb INHALE 2.5 mg QID PRN Administration Shortness Of Breath Or Wheezing Albuterol/Ipratropium 3 ml 04/20/20 12:00 04/25/20 15:07 Albuterol/Iprat 2.5/0.5mg 3 Ml Ampul.Neb INHALE 3 ml RQ4H WHILE AWAKE JULIA Administration Atorvastatin Calcium 10 mg 04/19/20 09:00 04/25/20 08:02 Atorvastatin Calcium 10 Mg Tablet PO 10 mg DAILY JULIA Administration Docusate Sodium 100 mg 04/19/20 00:57 04/25/20 16:13 Docusate Sodium 100 Mg Capsule PO 100 mg DAILY PRN Administration Constipation Enoxaparin Sodium 40 mg 04/20/20 07:00 04/25/20 08:00 Enoxaparin Sodium 40 Mg/0.4 Ml Syringe SUBCUT 40 mg Q24H JULIA Administration Gabapentin 100 mg 04/19/20 00:57 04/23/20 09:41 Gabapentin 100 Mg Capsule PO 100 mg TID PRN Administration pain Gabapentin 600 mg 04/20/20 21:00 04/24/20 20:31 Gabapentin 300 Mg Capsule PO 600 mg BEDTIME JULIA Administration Guaifenesin 10 ml 04/23/20 11:00 04/25/20 16:12 Guaifenesin 200 Mg/10 Ml 10 Ml Liquid PO 10 ml Q6H JULIA Administration Magnesium Oxide 400 mg 04/24/20 11:30 04/25/20 14:39 Magnesium Oxide 400 Mg Tablet PO 400 mg TID JULIA Administration Midodrine 10 mg 04/21/20 09:00 04/25/20 08:01 Midodrine Hcl 5 Mg Tablet PO 10 mg BID JULIA Administration Nicotine 7 mg 04/21/20 09:00 04/25/20 08:02 Nicotine 7 Mg Patch.Td24 TRANSDERMA 7 mg DAILY JULIA Administration Omeprazole 20 mg 04/19/20 09:00 04/25/20 08:02 Omeprazole 20 Mg Capsule.Dr PO 20 mg DAILY JULIA Administration Ondansetron HCl 4 mg 04/19/20 00:57 04/24/20 17:08 Ondansetron Hcl 4 Mg/2 Ml Vial IVPUSH 4 mg Q8H PRN Administration Nausea and Vomiting Pharmacy Consult 1 each 04/18/20 19:35 Consult Rx Perform Med Rec MISCELLANE ONCE PRN Consult order Polyethylene Glycol 17 gm 04/24/20 11:30 04/25/20 08:03 Polyethylene Glycol 3350 17 Gm Powd.Pack PO 17 gm DAILY JULIA Administration Sodium Biphosphate/Sodium Phosphate 133 ml 04/25/20 10:00 04/25/20 13:31 Sodium Phosphate,Howell-Dibasic 133 Ml Enema ID 133 ml ONCE JULIA Administration Sodium Chloride 3 ml 04/19/20 00:57 04/25/20 16:14 0.9 % Sodium Chloride Flush 3 Ml Syringe IVFLUSH 3 ml QSHIFT JULIA Administration Zolpidem Tartrate 5 mg 04/22/20 12:50 Zolpidem Tartrate 5 Mg Tablet PO BEDTIME PRN Insomnia Labs CBC & Chem 7: 04/25/20 08:46 04/25/20 08:46 Microbiology Microbiology Results: Microbiology 04/18/20 22:05 Blood - Arterial Blood Culture - Final No growth after 5 days. 04/18/20 20:10 Blood - Arterial Blood Culture - Final No growth after 5 days. 04/19/20 07:45 Urine [place] Urine Culture - Final No growth. 04/18/20 Unknown Urine [place] Urine Culture - Final Assessment and Plan (1) Acute respiratory failure with hypoxia: Status: Acute (2) Sepsis: Status: Acute (3) UTI (urinary tract infection): Status: Acute (4) Pneumonia: Status: Acute (5) COPD (chronic obstructive pulmonary disease): Status: Acute (6) Cancer: Status: Acute Assessment and Plan: 69-year-old female with past medical history as mentioned above who presents to the hospital with vague symptoms including AFib with RVR, vertigo found to have UTI, pneumonia, sepsis AFib with RVR, was cardioverted twice by EMS as well as by the ED physician. Currently hemodynamically stable and will be admitted for further management. Acute hypoxic respiratory failure 2/2 COPD exacerbations & Pneumonia ATC and p.r.n. bronchodilators nebulizers continue steroids O2 supplement to wean down as tolerated Encouraged incentive spirometry Sepsis, resolved Secondary to aspiration pneumonia Requiring 3L O2 to keep sats in 90s CT scan of the chest showed consolidation with aspiration pneumonia completed Unasyn day 7 negative blood cultures Discontinue IV fluid swallowing problem Reporting choking sensation with liquids and solids Modified diet suggested by [employer] EXAMINER after trying the modified diet the patient would rather continue regular diet, she signed DNR DNI Hypotension improving Could be secondary to weight loss and using medications Pituitary gland abnormality suspicious also Pending cortisol level continue midodrine to 10 mg b.i.d. dizziness/vertigo Likely secondary to Orthostatic hypotension Recent history of weight loss and using blood pressure medications Discontinue lisinopril Started on midodrine, dose increased to 10 mg b.i.d. PT recommended short-term rehab Continue to check orthostatic vitals Irregular heart rhythm seems to be sinus tachycardia with multiple PACs Was cardioverted twice once by EMS and once by ED physician discontinue Lovenox full dose Discontinue metoprolol ECHO within normal cardiology input appreciated, no need for anticoagulation consider rate control medication if blood pressure improves and continue to have episodes of tachycardia. lactic acidosis Resolved hypomagnesemia Given replacement Hypokalemia corrected received replacement IV and p.o. 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
[2020-04-25] MEDS: Gabapentin 300 MG CAPSULE 600 MG PO (20:20)
[2020-04-26] VITALS (8 sets, daily range): BP systolic 93–116; BP diastolic 57–68; PULSE 93–109; RESP 16–20; TEMP 36.5–36.8; O2SAT 91–97; BMI 28.0
[2020-04-26] MEDS: 0.9 % Sodium Chloride Flush 3 ML SYRINGE IVFLUSH ×2 (00:01→09:54)
[2020-04-26] MEDS: guaiFENesin 200 MG/10 ML 10 ML LIQUID PO (05:07)
[2020-04-26] MEDS: Enoxaparin Sodium 40 MG/0.4 ML SYRINGE SUBCUT (06:14)
[2020-04-26] MEDS: Albuterol/Iprat 2.5/0.5MG 3 ML AMPUL.NEB INHALE ×2 (07:12→12:51)
[2020-04-26] MEDS: Nicotine 7 MG PATCH.TD24 TRANSDERMA (09:45)
[2020-04-26] MEDS: Midodrine HCl 5 MG TABLET 10 MG PO (09:45)
[2020-04-26] MEDS: Omeprazole 20 MG CAPSULE.DR PO (09:45)
[2020-04-26] MEDS: predniSONE 20 MG TABLET PO (09:46)
[2020-04-26] MEDS: Atorvastatin Calcium 10 MG TABLET PO (09:46)
[2020-04-26] MEDS: Magnesium Oxide 400 MG TABLET PO ×2 (09:46→14:50)
[2020-04-26] MEDS: ondansetron HCL 4 MG/2 ML VIAL IVPUSH (10:01)
--- NOTE | 2020-04-26 13:46 | MHC.CM.PN ---
Patient is being discharged today to [facility] via BLS transport at 4pm. Patient, nurse, sister Tennille and HHN all aware.
[2020-04-26 16:52] LABS: Cortisol, Free 51.24 mcg/dL
== END 2020-04-26 15:07 | disposition skilled nursing facility (03) | DRG 871 ==
LOC: HO.ED 20:54 → HO.IMC 04-19 00:02
PROVIDERS: Student in an Organized Health Care Education/Training Program; Admitting Provider Internal Medicine; Emergency Provider Emergency Medicine; Visit Provider Internal Medicine
DX: A41.9 Sepsis, unspecified organism (principal); J69.0 Pneumonitis due to inhalation of food and vomit; J96.01 Acute respiratory failure with hypoxia; N39.0 Urinary tract infection, site not specified; E87.2 Acidosis; J44.1 Chronic obstructive pulmonary disease with (acute) exacerbation; E23.7 Disorder of pituitary gland, unspecified; E87.6 Hypokalemia; R91.1 Solitary pulmonary nodule; R13.10 Dysphagia, unspecified; E78.00 Pure hypercholesterolemia, unspecified; I48.91 Unspecified atrial fibrillation; I95.9 Hypotension, unspecified; E83.42 Hypomagnesemia; Z20.828 Contact with and (suspected) exposure to other viral communicable diseases; Z79.899 Other long term (current) drug therapy; Z66 Do not resuscitate
CPT/HCPCS: 36415; 70450; 71045; 71250; 72125; 80048; 80076; 81001; 82530; 82803; 82947; 83605; 83690; 83735; 83880; 84145; 84443; 84484; 85025; 85027; 85379; 85610; 85730; 87040; 87086; 87635; 92610; 93005; 93306; 94640; 96361; 96365; 96366; 96375; 97110; 97116; 97163; 99285; 99291; J0295; J0610; J0696; J1650; J1940; J2405; J2920; J2930; J3475

== ENCOUNTER → 2020-05-05 11:41 | Outpatient (BNVA) | payer MEDICARE, OTHER, SELFPAY | PROVIDERS: PCP Internal Medicine; Visit Provider Surgery | DX: R91.1 Solitary pulmonary nodule (principal); J44.9 Chronic obstructive pulmonary disease, unspecified; Z99.81 Dependence on supplemental oxygen | CPT/HCPCS: 99215 ==

== ENCOUNTER 2020-09-08 10:50 | Day surgery (SDC) | payer MEDICARE, MEDICAID, SELFPAY ==
[2020-09-08] VITALS (7 sets, daily range): BP systolic 99–115; BP diastolic 55–72; PULSE 79–99; RESP 16–17; TEMP 36.4–36.5; O2SAT 98–100; BMI 20.7
--- NOTE | ~2020-09-08 | CT_ITS ---
PROCEDURE: CT GUIDED BIOPSY, LUNG CLINICAL INFORMATION: Right lower lobe lung nodule. COMPARISON: Previous chest CT most recent March 2020. TECHNIQUE: Procedure and risks and benefits including bleeding, infection and pneumothorax were discussed with the patient and informed consent was obtained. Patient was positioned in the right decubitus position. Limited axial images through the chest were performed. The right back was prepped and draped in the usual sterile fashion. The skin and soft tissues were anesthetized with 1% lidocaine plain. Using ultrasound guidance and a 22-gauge needle, access to the right lower lobe nodule was obtained. A single 22-gauge FNA specimen was obtained. There is no pneumothorax. Patient received intravenous 0.5 mg Versed and 25 mcg fentanyl during the procedure. Total sedation time was 30-minutes. This CT examination was performed using dose optimization techniques as appropriate, variously including the following: *Automated exposure control. *Adjustment of mA and/or kV according to patient size (this includes techniques or standardized protocols for targeted exams where dose is matched to indication/reason for exam; i.e. extremities or head). *Use of iterative reconstruction technique. DLP: 196 mGy-cm. FINDINGS: There is a right lower lobe nodule that was targeted for fine-needle aspiration. No pneumothorax is seen post procedure. CT/CT biopsy lung RT IMPRESSION: CT-guided right lower lobe nodule fine-needle aspiration.
--- NOTE | ~2020-09-08 | XR_ITS ---
EXAMINATION: XR CHEST CLINICAL INFORMATION: Post lung biopsy COMPARISON: Previous chest x-ray March 2020 TECHNIQUE: Frontal view of the chest was obtained. FINDINGS: The cardiac and mediastinal contours are stable. There is subsegmental atelectasis at the right lung base. Right lung nodule is not appreciated. The lungs are otherwise clear. There is no pleural effusion or pneumothorax. There are degenerative changes of the spine. XR/XR chest 1V IMPRESSION: No pneumothorax post right lung biopsy.
--- NOTE | 2020-09-08 12:37 | PM.HEMONCCN ---
Subjective - Subjective Chief complaint: lung tumor Patient: known to practice within the last 3 years Consult date: 09/08/20 Primary Care Provider: Kota Goldsmith MD HPI - Consult Narrative Reason for consult: lung tumor Narrative: She is a 70 year old woman with a rll mass here for biopsy for histology and genetic profiling. I have seen and examined her and she is cleared medically for the procedure with the average risk of a woman her age with tobacco related lung disease. Review of Systems - Cardiovascular Reports fast heart rate, Reports shortness of breath when lying down - Respiratory Reports dyspnea on exertion - Gastrointestinal Reports other - Genitourinary Reports absent period, Reports other - Musculoskeletal Reports decreased muscle mass - Integumentary/Breasts Skin/Breast: Reports other - Neurologic Reports system reviewed and no additional complaints, except as documented - Psychiatric Reports other Oncology Screenings - G8 Geriatric Assessment Change in food intake over past 3 months: Moderate decrease in food intake Weight loss during the last 3 months: Weight loss > 3 kg Mobility: Bed or chair bound Neuropsychological problems: Mild dementia or depression Body Mass Index: 23 or greater Patient takes > 3 prescription drugs per day: Yes Patient's assessment of health status compared to others: Not as good Patient age: < 80 G8 Score: 7 G8 Risk Level: High risk for early functional decline and reduced survival. [facility] Medical History: Medical History (Last Reviewed 05/05/20 @ 13:28 by Jake Claudio MD) Cancer COPD (chronic obstructive pulmonary disease) High cholesterol Hypertension Family History: Family History (Last Reviewed 05/05/20 @ 13:28 by Jake Claudio MD) Other No cardiac disease Social History: Social History (Last Reviewed 05/05/20 @ 13:28 by Jake Claudio MD) Living Situation History: Household Members: Children Housing: House Tobacco History: Smoking Status: Never smoker Substance Use History: Use of substances other than those prescribed or required for medical reasons: No Domestic Abuse History: Have you been hit, kicked, punched, or otherwise hurt by someone within the past year? If so, by whom?: No Advance Directives: Are you DNR?: Yes Advance Directives: No Advance Directives Information Provided: Yes Occupation Assessmet: service: No Smoking status: Never smoker Home Medications and Allergies Home Medications Medication Instructions Recorded Confirmed Type albuterol sulfate 2.5 mg INHALATION QID PRN 04/18/20 04/18/20 History furosemide 1 tab PO DAILY 04/18/20 05/05/20 History gabapentin 1 cap PO TID PRN 04/18/20 05/05/20 History gabapentin 2 - 3 cap PO BEDTIME 04/18/20 05/05/20 History omeprazole 20 mg PO DAILY 04/18/20 05/05/20 History simvastatin 1 tab PO DAILY 04/18/20 05/05/20 History Allergies Allergy/AdvReac Type Severity Reaction Status Date / Time varenicline Allergy Unknown muscle Verified 05/05/20 12:11 cramps grass Allergy Unknown allergic Uncoded 03/29/20 09:14 rhinitis statins Allergy Unknown myalgias Uncoded 09/08/20 10:59 Physical Exam Vital signs: Intake & Output 09/07/20 09/08/20 09/08/20 18:59 06:59 18:59 Other: Weight 54.885 kg [place] Weight in Grams 58897.677 Weight 54.885 kg - Constitutional Present: no acute distress - Routine HEENT Exam Head: Present: atraumatic - Routine Neck Exam Present: supple - Routine Respiratory Exam Present: decreased breath sounds - Routine Cardiovascular Exam Cardiovascular: Present: RRR, S1, S2 - Routine Abdominal Exam Present: hypoactive bowel sounds - Routine Exam Patient deferred: external exam - Detailed Neurological Exam: Coma Scale Eye Opening: Spontaneous (4) Verbal Response: Oriented (5) Assessment and Plan (1) Pulmonary nodule Start date: 09/08/20 (My office has faxed over her labs. She is medically cleared for percutaneous biopsy of a lung mass by interventional radiology. She should have routine histology as well as egfr,alk,braf and pld-1.) Status: Acute
--- NOTE | 2020-09-08 14:45 | HO.RADPN ---
RADIOLOGY Narrative Narrative: Right lower lobe nodule single 22g FNA specien. no complication
== END 2020-09-08 18:53 | disposition home or self-care (01) ==
PROVIDERS: PCP Internal Medicine; Visit Provider Radiology Diagnostic Radiology
DX: C34.31 Malignant neoplasm of lower lobe, right bronchus or lung (principal); J44.9 Chronic obstructive pulmonary disease, unspecified; I11.0 Hypertensive heart disease with heart failure; Z66 Do not resuscitate; Z79.899 Other long term (current) drug therapy; Z88.8 Allergy status to other drugs, medicaments and biological substances
CPT/HCPCS: 10009; 32408; 36415; 71045; 88173; 88305; 88360; 99152; 99153; J2250; J3010

== ENCOUNTER 2021-03-30 08:19 | Outpatient (REF) | payer MEDICARE, MEDICAID, SELFPAY ==
--- NOTE | ~2021-03-30 | CT_ITS ---
EXAMINATION: CT ABDOMEN AND PELVIS WITH CONTRAST CLINICAL INFORMATION: Weight loss. COMPARISON: Previous CT of the abdomen and pelvis January 2020. TECHNIQUE: Multidetector volumetric images were obtained from the superior aspect of the liver through the pubic symphysis following administration 85 mL of Omnipaque 350 intravenous contrast. Sagittal and coronal reformatted images were obtained on the technologist's workstation. Oral contrast: Yes This CT examination was performed using dose optimization techniques as appropriate, variously including the following: *Automated exposure control *Adjustment of mA and/or kV according to patient size (this includes techniques or standardized protocols for targeted exams where dose is matched to indication/reason for exam; i.e. extremities or head) *Use of iterative reconstruction technique DLP: 258 mGy-cm. FINDINGS: LIVER, GALLBLADDER, AND BILIARY TREE: There is a 1.5 cm low-attenuation lesion in the medial segment of the left lobe of the liver suggestive of a cyst that is stable, axial image 7 series 3. The second low-attenuation lesion in the lateral segment of the left lobe of the liver measuring 1 cm on January 2020 exam is no longer seen. No new liver lesion is seen. The gallbladder is normal. There is no intrahepatic biliary duct dilatation. The common bile duct is slightly dilated measuring 8 to 10 mm. PANCREAS: Unremarkable. SPLEEN: Unremarkable. ADRENAL GLANDS: There is a 1.8 x 2.5 cm left adrenal lesion, axial image 17 series 3. This is stable from previous exam. The right adrenal gland is unremarkable. KIDNEYS AND URETERS: There are multiple bilateral renal cysts. These appear similar to previous exam. Largest cyst measures 3.5 cm in the upper pole of the right kidney and 4.5 cm in the lower pole the left kidney. There is excreted contrast seen in the collecting systems bilaterally. This lowers sensitivity for detection of a small stone. No stone or hydronephrosis is seen. BLADDER: Unremarkable. GASTROINTESTINAL TRACT: There is stool throughout the colon suggestive of severe constipation. The small and large bowel is otherwise unremarkable. There is question of diffuse wall thickening of the rectum versus a rectal prolapse. The appendix is not seen. ABDOMINAL WALL: No significant hernia is appreciated. LYMPH NODES: Normal. VASCULAR: There is evidence of atherosclerotic disease. No hernia is seen. PELVIC VISCERA: There are small calcifications in the uterus probably representing calcified fibroids. Uterus and adnexa are otherwise appear unremarkable. OSSEOUS STRUCTURES: There is a left hip replacement. There is scoliosis of lumbar spine with curvature of the lower lumbar spine to the right and degenerative changes. There is arthritis at the right hip joint. There is increased subchondral sclerosis of the right femoral head questionable for changes of early AVN. CT/CT abdomen pelvis w con IMPRESSION: Severe constipation. Question diffuse rectal wall thickening versus rectal prolapse. Stable left adrenal lesion. Stable liver cyst. The previously identified second 1 cm low-attenuation lesion in the lateral segment of the left lobe of the liver on January 2020 CT is no longer seen. Bilateral renal cysts.
--- NOTE | ~2021-03-30 | CT_ITS ---
EXAMINATION: CT CHEST WITH CONTRAST CLINICAL INFORMATION: Weight loss. COMPARISON: Previous chest CT, most recent March 2020. TECHNIQUE: Multidetector volumetric CT imaging of the chest was obtained after the administration of 85 mL of Omnipaque 350 intravenous contrast without immediate adverse reactions. Axial MIP volume rendering provided. Sagittal and coronal reformatted images were obtained. This CT examination was performed using dose optimization techniques as appropriate, variously including the following: *Automated exposure control *Adjustment of mA and/or kV according to patient size (this includes techniques or standardized protocols for targeted exams where dose is matched to indication/reason for exam; i.e. extremities or head) *Use of iterative reconstruction technique DLP: 99 mGy-cm. FINDINGS: LUNGS: There is evidence of emphysema. The right lower lobe nodule appears decreased in size. This measures 0.9 x 1.3 cm compared to 1.8 cm on March 2020 exam. There is adjacent bronchial wall thickening and some bronchial soft tissue opacification in the right lower lobe. There is mild bronchial wall thickening and clustered peribronchial nodules suggestive of airways disease in the left lower lobe. There are new areas of subsegmental atelectasis in the right upper, right middle and right lower lobes. There is increasing abnormal parenchymal density in the posterior medial right lower lobe adjacent to vertebral body bony osteophyte. This area measures 1.5 cm, axial image 3:15 series 7. MEDIASTINUM: There are no enlarged hilar or mediastinal lymph nodes. The heart does not appear enlarged. There is coronary artery calcification. There is a small pericardial effusion. This is slightly increased in size from March 2020 exam. The thoracic aorta is tortuous but normal in caliber. There are bilateral thyroid nodules, largest measuring 1 cm. PLEURA: There is no pleural effusion. No pleural mass or thickening. AXILLA: No lymphadenopathy. OSSEOUS STRUCTURES: There are degenerative changes of the spine. CT/CT chest w con IMPRESSION: Interval decrease in size in the right lower lobe nodule from March 2020. There is still bronchial wall thickening and bronchial wall soft tissue opacification seen in the right lower lobe and new similar changes in the left lower lobe. There are new areas of subsegmental atelectasis in the right lung. Coronary artery calcification. Small pericardial effusion slightly increased in size from March 2020.
[2021-03-30] MEDS: iohexoL 350 MG/ML 100 ML INFUS..BTL 85 ML IV (12:22)
[2021-03-30] MEDS: Barium Sulfate Oral (Mocha) 450 ML ORAL.SUSP 900 ML PO (12:22)
== END 2021-03-30 08:20 | disposition home or self-care (01) ==
LOC: HO.CT 08:19
PROVIDERS: PCP Internal Medicine; Visit Provider Internal Medicine Gastroenterology
DX: R63.4 Abnormal weight loss (principal)
CPT/HCPCS: 71260; 74177; Q9967

== ENCOUNTER 2021-07-21 11:11 | Inpatient (IN) | payer MEDICARE, OTHER, SELFPAY ==
[2021-07-21] VITALS (7 sets, daily range): BP systolic 117–141; BP diastolic 62–83; PULSE 88–101; RESP 13–22; TEMP 36.8–36.9; O2SAT 93–98; BMI 20.3
--- NOTE | ~2021-07-21 | XR_ITS ---
EXAMINATION: XR PELVIS CLINICAL INFORMATION: Left periprosthetic fracture COMPARISON: X-ray 07/21/2021 TECHNIQUE: AP view of the pelvis. FINDINGS: Left total hip arthroplasty. Arthroplasty components demonstrate usual position, alignment. Redemonstrated is acute comminuted periprosthetic fracture involving the lateral aspect of the left proximal femur, involving the greater trochanter and intertrochanteric region with mild displacement on the frontal projection.. The degree of displacement is better appreciated on the prior lateral radiograph of 07/21/2021. Moderate to severe right hip joint arthritis. Bilateral SI joint arthritis. No acute pelvic fractures identified. XR/XR pelvis 1-2V IMPRESSION: Status post left total hip arthroplasty. Redemonstrated is acute comminuted displaced periprosthetic fracture of the proximal left femur, as described above.
--- NOTE | ~2021-07-21 | XR_ITS ---
EXAMINATION: XR CHEST CLINICAL INFORMATION: History of fall and left proximal femur fracture. Preoperative evaluation. COMPARISON: Chest done on 09/08/2020. TECHNIQUE: Frontal view of the chest was obtained. FINDINGS: Curvilinear opacity is noted at right mid to lower lung field, may represent trace effusion within the fissure versus pneumonia or atelectatic changes, new since prior study. The remainder of the lung cabrales are clear. The cardiac mediastinal silhouette is within normal limit. No evidence of any pneumothorax. Visualized upper abdomen is unremarkable. XR/XR chest 1V IMPRESSION: Curvilinear opacity at right mid to lower lung field, may represent trace effusion within the fissure versus pneumonia or atelectatic changes, new since 09/08/2020.
--- NOTE | ~2021-07-21 | CT_ITS ---
EXAMINATION: CT HIP WITHOUT CONTRAST, LEFT CLINICAL INFORMATION: Periprosthetic fracture. COMPARISON: Prior x-rays including 07/23/2021 TECHNIQUE: Axial imaging. Sagittal and coronal reconstructions. This CT examination was performed using dose optimization techniques as appropriate, variously including the following: *Automated exposure control *Adjustment of mA and/or kV according to patient size (this includes techniques or standardized protocols for targeted exams where dose is matched to indication/reason for exam; i.e. extremities or head) *Use of iterative reconstruction technique DLP: 255 mGy-cm FINDINGS: Status post left total hip arthroplasty. Metallic artifact from the arthroplasty components limiting evaluation. There is usually positioning of the arthroplasty components. Normal articulation of the arthroplasty components. Acetabular component of the prosthesis is well seated. Acetabular screw present. Medial positioning of the femoral component of the prosthesis. There is an acute comminuted periprosthetic fracture of the anterior and lateral aspect of the proximal aspect of the remaining left left femur, involving an approximately 5.7 cm craniocaudal length. There is displacement of the fracture fragments, measuring up to 1 cm anteriorly. No acetabular fractures identified. Visualized left pubic rami are intact. Moderate symphysis pubis degeneration. Mild left SI joint arthritis. Metallic artifact limits evaluation of the left hip joint joint space and the surrounding soft tissues. Suspected edema/hematoma in the soft tissues along the lateral aspect of the proximal femur. There is subcutaneous stranding present as well. Within the pelvis, Smith catheter present, bladder nondistended. Calcified uterine fibroids. No adenopathy seen. CT/CT hip LT wo con IMPRESSION: Left total hip arthroplasty present. Acute comminuted displaced periprosthetic fracture of the anterior and lateral aspect of the left proximal femur, described above. There is edema/hematoma in the soft tissues along the lateral aspect of the proximal left femur. Additional findings and details as above.
--- NOTE | ~2021-07-21 | XR_ITS ---
EXAMINATION: XR HIP, LEFT CLINICAL INFORMATION: Fall COMPARISON: None TECHNIQUE: Single AP view the pelvis and Two views of the left hip. XR/XR hip LT w PEL1V FINDINGS/IMPRESSION: Left total hip arthroplasty. Components in expected positions. Acute comminuted fractures involving the anterior cortex of the left proximal femur, periprosthetic, with displacement of the fracture fragments up to 1.0 cm. The fracture extends from the top of the remaining femur distally over length of approximately 4.5 cm. Pelvic ring intact. Moderate right hip joint space narrowing associated subchondral sclerosis. Moderate degenerative changes of the bilateral sacroiliac joints.
--- NOTE | 2021-07-21 11:25 | ED.FALL ---
HPI - Fall General Chief Complaint: Fall Stated Complaint: FALL,L LEG PAIN,NO DEFORMITY, -LOC PER EMS Time Seen by Provider: 07/21/21 11:17 Source: patient and EMS Mode of arrival: EMS History of Present Illness HPI Narrative: 71-year-old female with a past medical history of COPD, HLD, CAD, GERD, OA, tremors, HTN lung CA with brain on radiation, DVT on Eliquis, presenting to the ED complaining of left hip/pelvic pain s/p mechanical slip and fall while putting broom away at 4AM. Patient denies symptoms prior to fall. Denies head trauma or LOC. Has not been ambulatory since the incident. Denies numbness, tingling, weakness, abdominal pain, CP/SOB, headache, neck/back pain, urinary incontinence/retention MD complaint: fall Onset (ago): hour(s) Related Data Home Medications Medication Instructions Recorded Confirmed albuterol sulfate 2.5 mg INHALATION QID PRN 04/18/20 04/18/20 furosemide 20 mg tablet 1 tab PO DAILY 04/18/20 05/05/20 gabapentin 100 mg capsule 1 cap PO TID PRN 04/18/20 05/05/20 gabapentin 300 mg capsule 2 - 3 cap PO BEDTIME 04/18/20 05/05/20 omeprazole 20 mg capsule,delayed 20 mg PO DAILY 04/18/20 05/05/20 release simvastatin 20 mg tablet 1 tab PO DAILY 04/18/20 05/05/20 Previous Rx's Medication Instructions Recorded docusate sodium 100 mg capsule 100 mg PO DAILY PRN #20 cap 04/25/20 magnesium oxide 400 mg (241.3 mg 400 mg PO TID #30 tab 04/25/20 magnesium) tablet midodrine 5 mg tablet 10 mg PO BID #60 tab 04/25/20 nicotine 7 mg/24 hr daily 7 mg TRANSDERMAL DAILY #14 ea 04/25/20 transdermal patch polyethylene glycol 3350 17 gram 17 g PO DAILY #20 ea 04/25/20 oral powder packet cefuroxime axetil 500 mg tablet 500 mg PO BID 5 Days #10 tab 04/26/20 Allergies Allergy/AdvReac Type Severity Reaction Status Date / Time varenicline Allergy Unknown muscle Verified 05/05/20 12:11 cramps grass Allergy Unknown allergic Uncoded 03/29/20 09:14 rhinitis statins Allergy Unknown myalgias Uncoded 09/08/20 10:59 Review of Systems Review of Systems: Constitutional: No Fever, No Chills, No Fatigue, No Malaise ENT/Mouth: No Ear Pain, No Nasal Congestion, No sore throat Eyes: No Eye Pain, No Swelling, No Redness Cardiovascular: No Chest Pain, No SOB, No Dyspnea on Exertion, No Edema Respiratory: No Cough, No Dyspnea Gastrointestinal: No Nausea, No Vomiting, No Diarrhea, No Constipation, No Abdominal pain Genitourinary: No Dysuria, No Urinary Frequency, No Hematuria, No Urinary Incontinence Musculoskeletal: + joint pain, No Myalgias, No Joint Swelling Skin: No Skin Lesions, No rash Neuro: No Weakness, No Numbness, No Paresthesias, No Loss of Consciousness, No Dizziness, No Headache P Yes all other systems are reviewed and are negative REPLACED BY [facility] Past Medical History Attestation statement: The following information was validated with the patient. Medical History COPD (chronic obstructive pulmonary disease) Hyperlipidemia Hypertension O2 dependent Personal history of nicotine dependence Primary adenocarcinoma of lower lobe of right lung (~2020) Surgical History History of bronchoscopy (~2018) History of colonoscopy (~2018) History of lung biopsy (~08/2020) Family History Family History Other No cardiac disease Social History Social History Household Members: Children Housing: House Do you presently have visiting nurse or other home services: No Alcohol intake: current Alcohol intake frequency: 0-2 drinks per day Patient Tobacco Use Status: Current everyday Tobacco user Use of substances other than those prescribed or required for medical reasons: No Advance Directives: No Advance Directives Information Provided: No service: No Physical Exam Vital Signs: Vital Signs: Last Vital Signs Temp 98.2 F 07/21/21 11:18 Pulse 88 07/21/21 11:18 Resp 16 07/21/21 11:25 BP 141/83 H 07/21/21 11:18 Pulse Ox 98 07/21/21 11:18 BMI result Body Mass Index 20.3 Const: Other: in pain General: cooperative and healthy appearing Orientation/consciousness: patient oriented x3 Limitations: no limitations HENMT: Head: Yes normal to inspection and Yes atraumatic Ears: hearing grossly normal bilaterally General nose exam: Normal external nose present Face and sinus: Yes normal facial exam Eyes: General: appearance normal, both eyes and all related structures EOM: EOMs intact bilaterally Neck: Other: No midline cervical spinous tenderness Neck: Yes normal visual inspection Chest: Chest palpation & inspection: no crepitus and no tenderness Resp: Effort & Inspection: normal respiratory effort and no respiratory distress Auscultation: clear to auscultation bilaterally Cardio: Rate: regular rate Heart sounds: S1 normal heart sound present and S2 normal heart sound present Peripheral pulses: dorsalis pedis present GI: Inspection: Yes normal to inspection Palpation (GI): Soft to palpation, nontender, no guarding and not rigid : General: Yes no CVA tenderness Back/Spine/Pelvis: Other: No midline thoracic/lumbar spinous tenderness/step-off or deformity Back: no CVA tenderness Skin: Rashes: no rashes Wounds: no wounds Neuro: General: patient oriented x3, tone normal, moves all extremities and no focal motor deficits Gait exam (Neuro): Normal gait present Extrem: Other: Left hip with tenderness to palpation, no appreciable deformity. Limited ROM secondary to pain. Neurovascular intact distally. Pelvis stable Course Course Course Narrative: XR hip LT w PEL1V FINDINGS/IMPRESSION: Left total hip arthroplasty. Components in expected positions. ? Acute comminuted fractures involving the anterior cortex of the left proximal femur, periprosthetic, with displacement of the fracture fragments up to 1.0 cm. The fracture extends from the top of the remaining femur distally over length of approximately 4.5 cm. ? Pelvic ring intact. Moderate right hip joint space narrowing associated subchondral sclerosis. Moderate degenerative changes of the bilateral sacroiliac joints. >> 1240-- clearance EKG, labs, CXR ordered. Orthopedics consulted -orthopedics recommended medical admit MDM - Fall MDM Narrative Medical decision making narrative: 71-year-old female with a past medical history of COPD, HLD, CAD, GERD, OA, tremors, HTN lung CA with brain on radiation, DVT on Eliquis, presenting to the ED complaining of left hip/pelvic pain s/p mechanical slip and fall while putting broom away at 4AM. On exam vital signs stable, appears in pain, nontoxic, left hip with noted tenderness decreased ROM secondary to pain, neurovascular intact, ribs/abdomen nontender. Concern for fracture vs dislocation vs contusion Plan: X-rays, pain control Differential Diagnosis Differential diagnosis: Likely dislocation, fracture and compression fracture Medical Records Attestation: I reviewed the patient's medical records. Lab Data Attestation: I reviewed the patient's lab results. Result diagrams: 07/21/21 12:53 07/21/21 12:53 Labs: Lab Results 07/21/21 Range/Units 12:53 WBC 10.1 (4.8-10.8) X10*3/uL RBC 3.95 L (4.20-5.50) X10*6/uL Hgb 13.4 (12.0-16.0) g/dl Hct 38.5 (37.0-47.0) % MCV 97.5 (80.0-98.0) fL MCH 33.9 H (27.0-33.0) pg MCHC 34.8 (31.0-35.0) g/dl RDW 13.9 (11.0-16.0) % Plt Count 230 (160-400) X10*3/uL MPV 8.4 L (9.4-12.3) fL Immature Gran % (Auto) 0.3 (0.0-0.4) % Neut % (Auto) 76.6 H (45-73) % Lymph % (Auto) 13.0 L (20-40) % [place] % (Auto) 7.8 (2-11) % Eos % (Auto) 1.8 (0-4) % Baso % (Auto) 0.5 (0-2) % Lymph # (Auto) 1.3 (1.2-4.9) X10*3/uL [place] # (Auto) 0.8 (0.1-1.2) X10*3/uL Eos # (Auto) 0.2 (0.0-0.4) X10*3/uL Baso # (Auto) 0.1 (0.0-0.2) X10*3/uL Abs Immat Gran (auto) 0.03 (0.00-0.03) X10*3/uL Absolute Neuts (auto) 7.8 (2.0-8.3) x10*3/uL Absolute Nucleated RBC 0.000 (0.0-0.012) X10*3/uL Nucleated RBC % (auto) 0.0 (0.0-0.2) /100WBC ECG Data Attestation: I personally reviewed and interpreted this ECG as follows: ECG interpretation date: 07/21/21 ECG interpretation time: 12:41 Prior ECG tracings: available for review Interpretation: EKG sinus rhythm with first-degree AV black rate of 84. QTc 465. Q wave in V1. No STEMI. UT 220 Discharge Plan Discharge Clinical Impression: Closed fracture of proximal end of femur Patient Disposition: Admitted As Inpatient Prescriptions: No Action albuterol sulfate 2.5 mg /3 mL (0.083 %) solution for nebulization 2.5 mg inhalation QID PRN (Reason: Shortness Of Breath Or Wheezing) 0RF simvastatin 20 mg tablet 1 tab PO DAILY 0RF gabapentin 300 mg capsule 2 - 3 cap PO BEDTIME 0RF omeprazole 20 mg capsule,delayed release(DR/EC) 20 mg PO DAILY 0RF furosemide 20 mg tablet 1 tab PO DAILY 0RF gabapentin 100 mg capsule 1 cap PO TID PRN (Reason: pain) 0RF polyethylene glycol 3350 17 gram Powder In Packet 17 g PO DAILY Qty: 20 0RF magnesium oxide 400 mg (241.3 mg magnesium) Tablet 400 mg PO TID Qty: 30 0RF docusate sodium 100 mg Capsule 100 mg PO DAILY PRN (Reason: Constipation) Qty: 20 0RF midodrine 5 mg Tablet 10 mg PO BID Qty: 60 0RF nicotine 7 mg/24 hr Patch 24 Hour 7 mg transdermal DAILY Qty: 14 0RF cefuroxime axetil 500 mg tablet 500 mg PO BID 5 Days Qty: 10 0RF
[2021-07-21] MEDS: oxyCODONE HCl Immed Release 5 MG TABLET PO (11:39)
--- NOTE | 2021-07-21 12:36 | ECG_ITS ---
Test Reason : FALL Blood Pressure : / mmHG Vent. Rate : 084 BPM Atrial Rate : 084 BPM P-R Int : 220 ms QRS Dur : 090 ms QT Int : 394 ms P-R-T Axes : 037 082 083 degrees QTc Int : 465 ms Sinus rhythm with 1st degree A-V block Otherwise normal ECG When compared with ECG of 19-APR-2020 01:31, Premature ventricular complexes are no longer Present Premature atrial complexes are no longer Present T wave inversion no longer evident in Inferior leads T wave inversion no longer evident in Lateral leads Referred By: Julienne Borjas Electronically Signed By:JENIFER DOMINGUEZ
[2021-07-21 12:57] LABS: MANUAL DIFF FLAG NO
[2021-07-21 12:59] LABS: Basophils Absolute Auto 0.1 X10*3/uL (0.0-0.2); Basophils Percent Auto 0.5 % (0-2); Eosinophils Absolute Auto 0.2 X10*3/uL (0.0-0.4); Eosinophils Percent Auto 1.8 % (0-4); Hematocrit 38.5 % (37.0-47.0); Hemoglobin 13.4 g/dl (12.0-16.0); Imm Gran Abs Auto 0.03 X10*3/uL (0.00-0.03); Imm Gran Pct Auto 0.3 % (0.0-0.4); Lymphocytes Absolute Auto 1.3 X10*3/uL (1.2-4.9); Mean Corpuscular HGB Conc 34.8 g/dl (31.0-35.0); Mean Corpuscular Hemoglobin 33.9 pg (27.0-33.0); Mean Corpuscular Volume 97.5 fL (80.0-98.0); Mean Platelet Volume 8.4 fL (9.4-12.3); Monocytes Absolute Auto 0.8 X10*3/uL (0.1-1.2); Monocytes Percent Auto 7.8 % (2-11); Neutrophils Absolute Auto 7.8 x10*3/uL (2.0-8.3); Neutrophils Percent Auto 76.6 % (45-73); Platelet Count 230 X10*3/uL (160-400); Red Blood Count 3.95 X10*6/uL (4.20-5.50); Red Cell Distribution Width 13.9 % (11.0-16.0); White Blood Count 10.1 X10*3/uL (4.8-10.8)
[2021-07-21 13:14] LABS: Anion Gap 11 (12-20); Blood Urea Nitrogen 9 mg/dL (9-16); Calcium 8.9 mg/dL (8.4-10.2); Carbon Dioxide 29 mmol/L (22-29); Chloride 102 mmol/L (96-108); Creatinine Clr Calc Pharmacy 63.4; Estimated Glomerular Filt Rate > 60; Glucose Random 102 mg/dL (60-115); Potassium 4.2 mmol/L (3.3-5.1); Sodium 138 mmol/L (135-145)
[2021-07-21 13:15] LABS: COVID-19 Test Negative (Negative); IDNOW Serial# 16C4AD1C
[2021-07-21 13:29] LABS: INTERNATIONAL NORM RATIO 1.3 (0.9-1.1); Prothrombin Time 14.9 SEC (9.9-13.0)
--- NOTE | 2021-07-21 14:00 | PM.IMHP ---
History of Present Illness Date of Service: 07/21/21 Chief Complaint: Hip pain, fall A 71-year-old female with a past medical history of COPD, HLD, CAD, GERD, OA, tremors, HTN lung CA with brain on radiation, DVT on Eliquis, presenting to the ED complaining of left hip/pelvic pain s/p mechanical slip and fall this morning. The patient denies any dizziness, headache, hitting her head as she fell backward. She was recently treated for physical deconditioning at facility and went back home where her general condition is improving physically. To use a walker at home. She reported taking Eliquis last dose earlier this morning. She just started the loading dose for it. 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 In the emergency XR shows Acute comminuted fractures involving the anterior cortex of the left proximal femur, periprosthetic, with displacement of the fracture fragments up to 1.0 cm. She will be admitted for medical clearance and further evaluation and surgical intervention by orthopedic team. Review of Systems Review of Systems: No fever, chills or weakness No chest pain, palpitation No shortness of breath or coughing No abdominal pain, nausea or vomiting No urinary symptoms No any rash or wounds Complaining of pain in her leg [facility] Medical History COPD (chronic obstructive pulmonary disease) Hyperlipidemia Hypertension O2 dependent Personal history of nicotine dependence Primary adenocarcinoma of lower lobe of right lung (~2020) Family History Father No problems noted. Other No cardiac disease Surgical History History of bronchoscopy (~2018) History of colonoscopy (~2018) History of lung biopsy (~08/2020) Social History Household Members: Children Housing: House Do you presently have visiting nurse or other home services: No Alcohol intake: current Alcohol intake frequency: 0-2 drinks per day Patient Tobacco Use Status: Current everyday Tobacco user Use of substances other than those prescribed or required for medical reasons: No Advance Directives: No Advance Directives Information Provided: No service: No Meds Allergies Allergy/AdvReac Type Severity Reaction Status Date / Time varenicline Allergy Unknown muscle Verified 05/05/20 12:11 cramps grass Allergy Unknown allergic Uncoded 03/29/20 09:14 rhinitis statins Allergy Unknown myalgias Uncoded 09/08/20 10:59 Active Medications: Current Medications Pharmacy Consult (Consult Rx Perform Med Rec) 1 each MISCELLANE ONCE PRN PRN Reason: Consult order Home Medications Medication Instructions Recorded Confirmed Last Taken Type albuterol sulfate 2.5 mg INHALATION QID PRN 04/18/20 07/21/21 Unknown History gabapentin 300 mg capsule 1 cap PO TID 04/18/20 07/21/21 Unknown History omeprazole 20 mg capsule,delayed 20 mg PO BID@0630,1630 04/18/20 07/21/21 Unknown History release simvastatin 20 mg tablet 1 tab PO BEDTIME 04/18/20 07/21/21 Unknown History albuterol sulfate 90 mcg/actuation 2 puff PO QID PRN 07/21/21 07/21/21 Unknown History aerosol inhaler lgjzj-[id number] 300 unit 300 unit PO DAILY 07/21/21 07/21/21 Unknown History disintegrating tablet (Beano) apixaban 5 mg tablet (Eliquis) 5 mg PO BID 07/21/21 07/21/21 Unknown History apixaban 5 mg tablet (Eliquis) 10 mg PO BID 07/21/21 07/21/21 Unknown History baclofen 5 mg tablet 10 mg PO TID 07/21/21 07/21/21 Unknown History diphenoxylate-atropine 2.5 1 tab PO DAILY PRN 07/21/21 07/21/21 Unknown History mg-0.025 mg tablet (Lomotil) meclizine 12.5 mg tablet 12.5 mg PO TID 07/21/21 07/21/21 Unknown History melatonin 5 mg tablet 5 mg PO BEDTIME 07/21/21 07/21/21 Unknown History midodrine 5 mg tablet 10 mg PO TID 07/21/21 07/21/21 Unknown History ondansetron HCl 4 mg tablet 1 tab PO TID PRN 07/21/21 07/21/21 Unknown History oxycodone-acetaminophen 5 mg-325 1 tab PO Q6H PRN 07/21/21 07/21/21 Unknown History mg tablet (Percocet) phenytoin 50 mg chewable tablet 2 tab PO DAILY 07/21/21 07/21/21 Unknown History phenytoin sodium extended 100 mg 1 cap PO BID@1200,2200 07/21/21 07/21/21 Unknown History capsule potassium chloride 10 mEq 1 tab PO DAILY 07/21/21 07/21/21 Unknown History tablet,extended release Physical Exam Vital Signs and Narrative: Vital Signs: Last Vital Signs Temp 98.2 F 07/21/21 11:18 Pulse 88 07/21/21 11:18 Resp 16 07/21/21 11:25 BP 141/83 H 07/21/21 11:18 Pulse Ox 98 07/21/21 11:18 BMI result Body Mass Index 20.3 Const: Other: Constitutional : Alert, oriented to self and place not in distress Neck : Normal inspection, Supple Cardiovascular : RRR, S1 S2, no lower extremity edema Respiratory : Good bilateral air entry, no crackles, wheezes or rhonchi Gastrointestinal: soft, lax, Normal bowel sounds, Non tender Skin : Warm, Dry Extremities: Left leg shorter and externally rotated, good sensation and blood flow Neurological : Alert & oriented x3, No focal deficit Results Labs CBC and Chem 7: 07/21/21 12:53 07/21/21 12:53 Labs: Laboratory Results - last 24 hr 07/21/21 07/21/21 07/21/21 12:53 12:53 12:53 MCV 97.5 MCH 33.9 H MCHC 34.8 RDW 13.9 Plt Count 230 MPV 8.4 L Immature Gran % (Auto) 0.3 Neut % (Auto) 76.6 H Lymph % (Auto) 13.0 L [place] % (Auto) 7.8 Eos % (Auto) 1.8 Baso % (Auto) 0.5 Lymph # (Auto) 1.3 [place] # (Auto) 0.8 Eos # (Auto) 0.2 Baso # (Auto) 0.1 Abs Immat Gran (auto) 0.03 Absolute Neuts (auto) 7.8 Absolute Nucleated RBC 0.000 Nucleated RBC % (auto) 0.0 PT 14.9 H INR 1.3 H Anion Gap 11 L Estim Creat Clear Calc 63.4 Estimated GFR > 60 Random Glucose 102 Calcium 8.9 D COVID-19 (AN) COVID-19 Clin Com 07/21/21 12:53 MCV MCH MCHC RDW Plt Count MPV Immature Gran % (Auto) Neut % (Auto) Lymph % (Auto) [place] % (Auto) Eos % (Auto) Baso % (Auto) Lymph # (Auto) Nance # (Auto) Eos # (Auto) Baso # (Auto) Abs Immat Gran (auto) Absolute Neuts (auto) Absolute Nucleated RBC Nucleated RBC % (auto) PT INR Anion Gap Estim Creat Clear Calc Estimated GFR Random Glucose Calcium COVID-19 (AN) Negative COVID-19 Clin Com See Note Imaging Radiologist's Impressions: Impressions Hip/Pelvis X-Ray 07/21/21 11:57 FINDINGS/IMPRESSION: Left total hip arthroplasty. Components in expected positions. Acute comminuted fractures involving the anterior cortex of the left proximal femur, periprosthetic, with displacement of the fracture fragments up to 1.0 cm. The fracture extends from the top of the remaining femur distally over length of approximately 4.5 cm. Pelvic ring intact. Moderate right hip joint space narrowing associated subchondral sclerosis. Moderate degenerative changes of the bilateral sacroiliac joints. Chest X-Ray 07/21/21 12:46 IMPRESSION: Curvilinear opacity at right mid to lower lung field, may represent trace effusion within the fissure versus pneumonia or atelectatic changes, new since 09/08/2020. Assessment and Plan (1) Closed fracture of proximal end of femur: Status: Acute (2) Personal history of nicotine dependence: Status: Acute (3) DVT (deep venous thrombosis): Status: Acute Plan A 71-year-old female with a past medical history of COPD, HLD, CAD, GERD, OA, tremors, HTN lung CA with brain on radiation, DVT on Eliquis, presenting to the ED complaining of left hip/pelvic pain s/p mechanical slip and fall this morning. Hip fracture As noted by x-ray Pain management Pending Orthopedic consult Preop evaluation None emergency surgery, no acute ACS RCRI score of 1 The patient robson moderate risk for major adverse cardiac event Get cardiology clearance COPD Not in exacerbation Use nebulizers as needed DVT On anticoagulation Hold Eliquis and use Lovenox instead for the time being Metastatic breast cancer Continue Dilantin To follow with Oncology as outpatient continue the rest of her home medications DVT PPX Lovenox Quality Stroke Does the patient have a stroke diagnosis?: No VTE Prior VTE?: No VTE Risk Level:: Medical - moderate - high VTE Device Contraindication: Treatment Not Indicated VTE Drug Contraindication: N/A - Med Ordered
--- NOTE | 2021-07-21 14:17 | PHA.MEDREC ---
Pharmacy Consult ? Medication Reconciliation Pharmacy has completed the medication reconciliation. detailed med list sent in with patient. apixaban 10 mg bid until 07/24 then decrease dose to 5 mg bid.
[2021-07-21] MEDS: Nicotine 21 MG PATCH.TD24 TRANSDERMA (14:27)
[2021-07-21] MEDS: Morphine Sulfate 2 MG/ML CARTRIDGE IVPUSH (15:28)
[2021-07-21] MEDS: ondansetron HCL 4 MG/2 ML VIAL IVPUSH (15:28)
[2021-07-21] MEDS: Baclofen 10 MG TABLET PO ×2 (15:47→20:21)
[2021-07-21] MEDS: Gabapentin 300 MG CAPSULE PO ×2 (15:48→20:21)
[2021-07-21] MEDS: Midodrine HCl 10 MG TABLET PO ×2 (15:48→20:21)
[2021-07-21] MEDS: Magnesium Oxide 400 MG TABLET PO ×2 (15:48→20:22)
--- NOTE | 2021-07-21 18:31 | PC.NURSE ---
Pt A&Ox3, NSR on monitor, moves self in bed, pain 6/10 without movement, goes up to a 10 with movement. Pt refused dinner tray at this time. + pulses to BLE, laying flat on back at this time, pt states it is how she is most comfortable. Pt asking for more pain medication, aware she isn't due until 1930, made aware of pain. Call kraft within reach. Will continue to montitor.
[2021-07-21] MEDS: Morphine Sulfate 4 MG/ML CARTRIDGE IVPUSH (20:20)
[2021-07-21] MEDS: Phenytoin Sodium Extended 100 MG CAPSULE PO (20:21)
[2021-07-21] MEDS: Meclizine HCl 12.5 MG TABLET PO (20:21)
[2021-07-21] MEDS: Enoxaparin Sodium 60 MG/0.6 ML SYRINGE 50 MG SUBCUT (20:21)
[2021-07-21] MEDS: 0.9 % Sodium Chloride Flush 3 ML SYRINGE IVFLUSH (20:22)
--- NOTE | 2021-07-21 23:27 | PC.NURSE ---
Pt seen on bed shift change alert and oriented, c/o severe pain on the left hip, denies any CP nor SOB, tolerating room air sating at low 90s, SR with first deg AVB with some PVCs at 90-low 100s, prn morphine 4 mg IV given with good effect, rest of meds given crusched with pudding, bedrest maintained, both legs has+PP, needs ortho consult. LAter noted with O2 sats at 88-89% RA with some mild rhonchi, O2 placed at 2L/min via NC sats went to high 90s, RT paged for prn Albuterol. Report called to [facility] RN at 2330, awaiting for transport.
[2021-07-21] MEDS: Albuterol Sulfate (0.083%) 2.5 MG/3 ML VIAL.NEB INHALE (23:35)
[2021-07-22] MEDS: Morphine Sulfate 4 MG/ML CARTRIDGE IVPUSH ×6 (00:34→21:46)
[2021-07-22 00:52] VITALS: BMI 21.7
[2021-07-22 03:31] VITALS: BP 141/86; PULSE 88; RESP 20; TEMP 37.3; O2SAT 92
[2021-07-22] MEDS: Omeprazole 20 MG CAPSULE.DR PO ×2 (05:55→15:00)
[2021-07-22 07:08] LABS: Anion Gap 11 (12-20); Blood Urea Nitrogen 11 mg/dL (9-16); Calcium 8.7 mg/dL (8.4-10.2); Carbon Dioxide 27 mmol/L (22-29); Chloride 102 mmol/L (96-108); Creatinine Clr Calc Pharmacy 68.9; Estimated Glomerular Filt Rate > 60; Glucose Random 108 mg/dL (60-115); Sodium 136 mmol/L (135-145)
[2021-07-22 07:14] LABS: Hematocrit 38.1 % (37.0-47.0); Hemoglobin 12.9 g/dl (12.0-16.0); Mean Corpuscular HGB Conc 33.9 g/dl (31.0-35.0); Mean Corpuscular Hemoglobin 33.5 pg (27.0-33.0); Mean Platelet Volume 8.9 fL (9.4-12.3); Platelet Count 234 X10*3/uL (160-400); Red Blood Count 3.85 X10*6/uL (4.20-5.50); Red Cell Distribution Width 13.7 % (11.0-16.0); White Blood Count 9.5 X10*3/uL (4.8-10.8)
[2021-07-22 07:39] VITALS: BP 126/83; PULSE 99; RESP 20; TEMP 36.5; O2SAT 94
[2021-07-22] MEDS: Baclofen 10 MG TABLET PO ×3 (08:12→21:38)
[2021-07-22] MEDS: 0.9 % Sodium Chloride Flush 3 ML SYRINGE IVFLUSH ×3 (08:12→21:38)
[2021-07-22] MEDS: Phenytoin Chewable 50 MG TAB.CHEW 100 MG PO (08:12)
[2021-07-22] MEDS: Midodrine HCl 10 MG TABLET PO ×3 (08:12→21:38)
[2021-07-22] MEDS: Enoxaparin Sodium 60 MG/0.6 ML SYRINGE 50 MG SUBCUT ×2 (08:12→21:37)
[2021-07-22] MEDS: Magnesium Oxide 400 MG TABLET PO ×3 (08:12→21:38)
[2021-07-22] MEDS: Gabapentin 300 MG CAPSULE PO ×3 (08:12→21:38)
[2021-07-22] MEDS: Meclizine HCl 12.5 MG TABLET PO ×3 (08:12→21:38)
--- NOTE | 2021-07-22 09:32 | MHC.CM.PN ---
Patient lives at home alone in a [place] style home. All needs are set up on first floor. Son comes to visit and help w/laundry/home making needs a few times per week. Patient still drives. No prior services or O2 needs in the home. Plan is home w/services vs STR depending on PT eval outcomes. CM to follow.
[2021-07-22 11:01] VITALS: RESP 16
[2021-07-22] MEDS: Phenytoin Sodium Extended 100 MG CAPSULE PO ×2 (11:01→21:38)
--- NOTE | 2021-07-22 11:18 | HO.PM.IMPN ---
Subjective Subjective Date of Service: 07/22/21 Interval History: the patient was seen and evaluated this morning Laying in bed, of significant amount of pain in her leg Decrease the ability to move in the bed Denies any fever, chills or shortness of breath No reported other overnight events. Review of Systems No fever, chills or weakness No chest pain, palpitation No shortness of breath or coughing No abdominal pain, nausea or vomiting No urinary symptoms No any rash or wounds Complaining of pain in her leg Physical Exam Vital Signs: Vital Signs: Last Vital Signs Temp 97.7 F 07/22/21 07:39 Pulse 99 07/22/21 07:39 Resp 16 07/22/21 11:01 BP 126/83 07/22/21 07:39 Pulse Ox 94 07/22/21 07:39 BMI result Body Mass Index 21.7 Const: Other: Constitutional : Alert, oriented to self and place not in distress Neck : Normal inspection, Supple Cardiovascular : RRR, S1 S2, no lower extremity edema Respiratory : Good bilateral air entry, no crackles, wheezes or rhonchi Gastrointestinal: soft, lax, Normal bowel sounds, Non tender Skin : Warm, Dry Extremities: Left leg shorter and externally rotated, good sensation and blood flow but very sensitive Neurological : Alert & oriented x3, No focal deficit Objective Data Active Medications Acetaminophen (Acetaminophen 325 Mg Tablet) 650 mg PO Q6H PRN PRN Reason: Pain, Mild (Pain Scale 1-3) Albuterol Sulfate (Albuterol Sulfate (0.083%) 2.5 Mg/3 Ml Vial.Neb) 2.5 mg INHALE QID PRN PRN Reason: Shortness Of Breath Or Wheezing Last Admin: 07/21/21 23:35 Dose: 2.5 mg Documented by: DAVID Baclofen (Baclofen 10 Mg Tablet) 10 mg PO TID [facility] Last Admin: 07/22/21 08:12 Dose: 10 mg Documented by: GENE Diphenoxylate HCl/Atropine (Diphenoxylate/Atrop 2.5/0.025 Tablet) 1 tab PO DAILY PRN PRN Reason: Diarrhea Enoxaparin Sodium (Enoxaparin Sodium 60 Mg/0.6 Ml Syringe) 50 mg SUBCUT Q12H [facility] Stop: 07/22/21 18:00 Last Admin: 07/22/21 08:12 Dose: 50 mg Documented by: GENE Gabapentin (Gabapentin 300 Mg Capsule) 300 mg PO TID [facility] Last Admin: 07/22/21 08:12 Dose: 300 mg Documented by: GENE Magnesium Oxide (Magnesium Oxide 400 Mg Tablet) 400 mg PO TID [facility] Last Admin: 07/22/21 08:12 Dose: 400 mg Documented by: GENE Meclizine HCl (Meclizine Hcl 12.5 Mg Tablet) 12.5 mg PO TID [facility] Last Admin: 07/22/21 08:12 Dose: 12.5 mg Documented by: GENE Midodrine (Midodrine Hcl 10 Mg Tablet) 10 mg PO TID [facility] Last Admin: 07/22/21 08:12 Dose: 10 mg Documented by: GENE Morphine Sulfate (Morphine Sulfate 4 Mg/Ml Cartridge) 4 mg IVPUSH Q3H PRN; Protocol PRN Reason: Pain, Moderate (Pain Scale 4-6 Last Admin: 07/22/21 11:01 Dose: 4 mg Documented by: GENE Omeprazole (Omeprazole 20 Mg Capsule.Dr) 20 mg PO BID@0630,1630 [facility] Last Admin: 07/22/21 05:55 Dose: 20 mg Documented by: KISHOR Ondansetron HCl (Ondansetron Hcl 4 Mg/2 Ml Vial) 4 mg IVPUSH Q8H PRN PRN Reason: Nausea and Vomiting Last Admin: 07/21/21 15:28 Dose: 4 mg Documented by: LOREN Pharmacy Consult (Consult Rx Perform Med Rec) 1 each MISCELLANE ONCE PRN PRN Reason: Consult order Phenytoin (Phenytoin Chewable 50 Mg Tab.Chew) 100 mg PO DAILY [facility] Last Admin: 07/22/21 08:12 Dose: 100 mg Documented by: GENE Phenytoin Sodium (Phenytoin Sodium Extended 100 Mg Capsule) 100 mg PO BID@1200,2200 [facility] Last Admin: 07/22/21 11:01 Dose: 100 mg Documented by: GENE Potassium Chloride (Potassium Chloride Er 10 Meq Capsule.Er) 10 meq PO DAILY [facility] Last Admin: 07/22/21 08:12 Dose: 10 meq Documented by: GENE Sodium Chloride (0.9 % Sodium Chloride Flush 3 Ml Syringe) 3 ml IVFLUSH QSHIFT [facility] Last Admin: 07/22/21 08:12 Dose: 3 ml Documented by: GENE Labs CBC & Chem 7: 07/22/21 06:18 07/22/21 06:18 Labs: Laboratory Results - last 24 hr 07/21/21 07/21/21 07/21/21 12:53 12:53 12:53 MCV 97.5 MCH 33.9 H MCHC 34.8 RDW 13.9 Plt Count 230 MPV 8.4 L Immature Gran % (Auto) 0.3 Neut % (Auto) 76.6 H Lymph % (Auto) 13.0 L Moody % (Auto) 7.8 Eos % (Auto) 1.8 Baso % (Auto) 0.5 Lymph # (Auto) 1.3 Moody # (Auto) 0.8 Eos # (Auto) 0.2 Baso # (Auto) 0.1 Abs Immat Gran (auto) 0.03 Absolute Neuts (auto) 7.8 Absolute Nucleated RBC 0.000 Nucleated RBC % (auto) 0.0 PT 14.9 H INR 1.3 H Anion Gap 11 L Estim Creat Clear Calc 63.4 Estimated GFR > 60 Random Glucose 102 Calcium 8.9 D COVID-19 (AN) COVID-19 Clin Com 07/21/21 07/22/21 07/22/21 12:53 06:18 06:18 MCV 99.0 H MCH 33.5 H MCHC 33.9 RDW 13.7 Plt Count 234 MPV 8.9 L Immature Gran % (Auto) Neut % (Auto) Lymph % (Auto) Moody % (Auto) Eos % (Auto) Baso % (Auto) Lymph # (Auto) Moody # (Auto) Eos # (Auto) Baso # (Auto) Abs Immat Gran (auto) Absolute Neuts (auto) Absolute Nucleated RBC 0.000 Nucleated RBC % (auto) 0.0 PT INR Anion Gap 11 L Estim Creat Clear Calc 68.9 Estimated GFR > 60 Random Glucose 108 Calcium 8.7 COVID-19 (AN) Negative COVID-19 Clin Com See Note Assessment and Plan (1) Closed fracture of proximal end of femur: Status: Acute (2) DVT (deep venous thrombosis): Status: Acute Plan A 71-year-old female with a past medical history of COPD, HLD, CAD, GERD, OA, tremors, HTN lung CA with brain on radiation, DVT on Eliquis, presenting to the ED complaining of left hip/pelvic pain s/p mechanical slip and fall this morning. Hip fracture As noted by x-ray Pain management Pending Orthopedic consult Will need to hold anticoagulation for 48 hours before any surgical intervention Patient carries moderate risk for cardiac complication per report of time. Pending cardiology clearance To get papers from [facility] COPD Not in exacerbation Use nebulizers as needed DVT On anticoagulation Hold Eliquis and use Lovenox instead for the time being, hold the night before surgery Metastatic breast cancer Continue Dilantin To follow with Oncology as outpatient continue the rest of her home medications DVT PPX Lovenox Quality Stroke Does the patient have a stroke diagnosis?: No VTE Prior VTE?: No VTE Risk Level:: Medical - moderate - high VTE Device Contraindication: Treatment Not Indicated VTE Drug Contraindication: N/A - Med Ordered
--- NOTE | 2021-07-22 11:59 | P.CONCA_ITS ---
History of Present Illness History of Present Illness Date of Service: 07/22/21 Chief complaint: fall, hip fracture Narrative: This is a cardiology consultation regarding preoperative risk stratification for hip fracture requiring surgery. It seems that she had a mechanical fall leading to this. No clear syncopal symptoms. From the cardiac standpoint, she denies any history of coronary disease, myocardial infarction or cardiomyopathy. Based on cardiology consultation from 2019, it seems that she had attempted cardioversion for narrow complex tachycardia but without effect. Thought to have had atrial fibrillation but then felt to be rather sinus rhythm/tachycardia/PACs. In any case, according to patient she has not really had any major cardiac issues at any point in her life. She also denies any symptoms like chest pain of anginal type. When she exerts a lot she can get short of breath but not otherwise. She has a history of metastatic lung cancer with brain Mets. Review of Systems Review of Systems: Yes all other systems are reviewed and are negative Cardiovascular: Cardiovascular: Reports as per HPI, Reports no additional cardiovascular complaints, Denies acrocyanosis, Denies cool extremities, Denies chest pain, Denies diaphoresis, Denies syncope, Denies claudication, Denies leg edema, Denies lightheadedness, Denies palpitations and Denies dyspnea Respiratory: Respiratory: Denies dyspnea Neurologic: Denies syncope Endocrine: Endocrine: Denies palpitations PMFSH Past Medical History Medical History COPD (chronic obstructive pulmonary disease) Hyperlipidemia Hypertension O2 dependent Personal history of nicotine dependence Primary adenocarcinoma of lower lobe of right lung (~2020) Family History Family History Father No problems noted. Other No cardiac disease Surgical History Surgical History History of bronchoscopy (~2018) History of colonoscopy (~2018) History of lung biopsy (~08/2020) Social History Social History Household Members: None Housing: House Do you presently have visiting nurse or other home services: No Alcohol intake: current Alcohol intake frequency: 0-2 drinks per day Patient Tobacco Use Status: Current everyday Tobacco user Tobacco use type: Cigarette service: No Current occupational status: retired Meds Allergies Allergy/AdvReac Type Severity Reaction Status Date / Time varenicline Allergy Unknown muscle Verified 05/05/20 12:11 cramps grass Allergy Unknown allergic Uncoded 03/29/20 09:14 rhinitis statins Allergy Unknown myalgias Uncoded 09/08/20 10:59 Active Medications: Current Medications Acetaminophen (Acetaminophen 325 Mg Tablet) 650 mg PO Q6H PRN PRN Reason: Pain, Mild (Pain Scale 1-3) Albuterol Sulfate (Albuterol Sulfate (0.083%) 2.5 Mg/3 Ml Vial.Neb) 2.5 mg INHALE QID PRN PRN Reason: Shortness Of Breath Or Wheezing Last Admin: 07/21/21 23:35 Dose: 2.5 mg Documented by: Baclofen (Baclofen 10 Mg Tablet) 10 mg PO TID [facility] Last Admin: 07/22/21 08:12 Dose: 10 mg Documented by: Diphenoxylate HCl/Atropine (Diphenoxylate/Atrop 2.5/0.025 Tablet) 1 tab PO DAILY PRN PRN Reason: Diarrhea Enoxaparin Sodium (Enoxaparin Sodium 60 Mg/0.6 Ml Syringe) 50 mg SUBCUT Q12H [facility] Stop: 07/22/21 18:00 Last Admin: 07/22/21 08:12 Dose: 50 mg Documented by: Gabapentin (Gabapentin 300 Mg Capsule) 300 mg PO TID [facility] Last Admin: 07/22/21 08:12 Dose: 300 mg Documented by: Magnesium Oxide (Magnesium Oxide 400 Mg Tablet) 400 mg PO TID [facility] Last Admin: 07/22/21 08:12 Dose: 400 mg Documented by: Meclizine HCl (Meclizine Hcl 12.5 Mg Tablet) 12.5 mg PO TID [facility] Last Admin: 07/22/21 08:12 Dose: 12.5 mg Documented by: Midodrine (Midodrine Hcl 10 Mg Tablet) 10 mg PO TID [facility] Last Admin: 07/22/21 08:12 Dose: 10 mg Documented by: Morphine Sulfate (Morphine Sulfate 4 Mg/Ml Cartridge) 4 mg IVPUSH Q3H PRN; Protocol PRN Reason: Pain, Moderate (Pain Scale 4-6 Last Admin: 07/22/21 11:01 Dose: 4 mg Documented by: Omeprazole (Omeprazole 20 Mg Capsule.Dr) 20 mg PO BID@0630,1630 [facility] Last Admin: 07/22/21 05:55 Dose: 20 mg Documented by: Ondansetron HCl (Ondansetron Hcl 4 Mg/2 Ml Vial) 4 mg IVPUSH Q8H PRN PRN Reason: Nausea and Vomiting Last Admin: 07/21/21 15:28 Dose: 4 mg Documented by: Pharmacy Consult (Consult Rx Perform Med Rec) 1 each MISCELLANE ONCE PRN PRN Reason: Consult order Phenytoin (Phenytoin Chewable 50 Mg Tab.Chew) 100 mg PO DAILY [facility] Last Admin: 07/22/21 08:12 Dose: 100 mg Documented by: Phenytoin Sodium (Phenytoin Sodium Extended 100 Mg Capsule) 100 mg PO BID@1200,2200 [facility] Last Admin: 07/22/21 11:01 Dose: 100 mg Documented by: Potassium Chloride (Potassium Chloride Er 10 Meq Capsule.Er) 10 meq PO DAILY [facility] Last Admin: 07/22/21 08:12 Dose: 10 meq Documented by: Sodium Chloride (0.9 % Sodium Chloride Flush 3 Ml Syringe) 3 ml IVFLUSH QSHIFT [facility] Last Admin: 07/22/21 08:12 Dose: 3 ml Documented by: Home Medications Medication Instructions Recorded Confirmed Last Taken Type albuterol sulfate 2.5 mg INHALATION QID PRN 04/18/20 07/21/21 Unknown History gabapentin 300 mg capsule 1 cap PO TID 04/18/20 07/21/21 Unknown History omeprazole 20 mg capsule,delayed 20 mg PO BID@0630,1630 04/18/20 07/21/21 Unknown History release simvastatin 20 mg tablet 1 tab PO BEDTIME 04/18/20 07/21/21 Unknown History albuterol sulfate 90 mcg/actuation 2 puff PO QID PRN 07/21/21 07/21/21 Unknown History aerosol inhaler [id number] 300 unit 300 unit PO DAILY 07/21/21 07/21/21 Unknown History disintegrating tablet (Beano) apixaban 5 mg tablet (Eliquis) 5 mg PO BID 07/21/21 07/21/21 Unknown History apixaban 5 mg tablet (Eliquis) 10 mg PO BID 07/21/21 07/21/21 Unknown History baclofen 5 mg tablet 10 mg PO TID 07/21/21 07/21/21 Unknown History diphenoxylate-atropine 2.5 1 tab PO DAILY PRN 07/21/21 07/21/21 Unknown History mg-0.025 mg tablet (Lomotil) lorazepam 0.5 mg tablet 1 tab PO BID PRN 07/21/21 07/21/21 Unknown History meclizine 12.5 mg tablet 12.5 mg PO TID 07/21/21 07/21/21 Unknown History melatonin 5 mg tablet 5 mg PO BEDTIME 07/21/21 07/21/21 Unknown History midodrine 5 mg tablet 10 mg PO TID 07/21/21 07/21/21 Unknown History ondansetron HCl 4 mg tablet 1 tab PO TID PRN 07/21/21 07/21/21 Unknown History oxycodone-acetaminophen 5 mg-325 1 tab PO Q6H PRN 07/21/21 07/21/21 Unknown History mg tablet (Percocet) phenytoin 50 mg chewable tablet 2 tab PO DAILY 07/21/21 07/21/21 Unknown History phenytoin sodium extended 100 mg 1 cap PO BID@1200,2200 07/21/21 07/21/21 Unknown History capsule potassium chloride 10 mEq 1 tab PO DAILY 07/21/21 07/21/21 Unknown History tablet,extended release Physical Exam Vital Signs: Vital Signs: Last Vital Signs Temp 97.7 F 07/22/21 07:39 Pulse 99 07/22/21 07:39 Resp 16 07/22/21 11:01 BP 126/83 07/22/21 07:39 Pulse Ox 94 07/22/21 07:39 BMI result Body Mass Index 21.7 Const: General: comfortable HENMT: Other: Unremarkable Neck: Neck: Yes normal visual inspection Chest: Chest palpation & inspection: normal inspection of the chest Resp: Auscultation: clear to auscultation bilaterally Cardio: Palpation: normal PMI Heart sounds: S1 normal heart sound present, S2 normal heart sound present, no gallops, no murmurs and no rubs GI: Palpation (GI): Soft to palpation Back/Spine/Pelvis: Other: unremarkable Skin: Lesions: other Neuro: General: other Extrem: General: Yes other Psych: Mental Status: other Objective Labs and Meds Result diagrams: 07/22/21 06:18 07/22/21 06:18 Lab results: Laboratory Results - last 24 hr 07/21/21 07/21/21 07/21/21 12:53 12:53 12:53 WBC 10.1 RBC 3.95 L Hgb 13.4 Hct 38.5 MCV 97.5 MCH 33.9 H MCHC 34.8 RDW 13.9 Plt Count 230 MPV 8.4 L Immature Gran % (Auto) 0.3 Neut % (Auto) 76.6 H Lymph % (Auto) 13.0 L Lanier % (Auto) 7.8 Eos % (Auto) 1.8 Baso % (Auto) 0.5 Lymph # (Auto) 1.3 [place]ier # (Auto) 0.8 Eos # (Auto) 0.2 Baso # (Auto) 0.1 Abs Immat Gran (auto) 0.03 Absolute Neuts (auto) 7.8 Absolute Nucleated RBC 0.000 Nucleated RBC % (auto) 0.0 PT 14.9 H INR 1.3 H Sodium 138 Potassium 4.2 Chloride 102 Carbon Dioxide 29 Anion Gap 11 L BUN 9 Creatinine 0.66 Estim Creat Clear Calc 63.4 Estimated GFR > 60 Random Glucose 102 Calcium 8.9 D COVID-19 (AN) COVID-21GRAMS 07/21/21 07/22/21 07/22/21 12:53 06:18 06:18 WBC 9.5 RBC 3.85 L Hgb 12.9 Hct 38.1 MCV 99.0 H MCH 33.5 H MCHC 33.9 RDW 13.7 Plt Count 234 MPV 8.9 L Immature Gran % (Auto) Neut % (Auto) Lymph % (Auto) [place] % (Auto) Eos % (Auto) Baso % (Auto) Lymph # (Auto) [place] # (Auto) Eos # (Auto) Baso # (Auto) Abs Immat Gran (auto) Absolute Neuts (auto) Absolute Nucleated RBC 0.000 Nucleated RBC % (auto) 0.0 PT INR Sodium 136 Potassium 4.0 Chloride 102 Carbon Dioxide 27 Anion Gap 11 L BUN 11 Creatinine 0.61 Estim Creat Clear Calc 68.9 Estimated GFR > 60 Random Glucose 108 Calcium 8.7 COVID-19 (AN) Negative COVID-19 Clin Com See Note ECG Interpretation: EKG with sinus rhythm at 84/Min; MI prolongation to 220 millisecond; normal QT. Imaging Radiologist's impression: Impressions Hip/Pelvis X-Ray 07/21/21 11:57 FINDINGS/IMPRESSION: Left total hip arthroplasty. Components in expected positions. Acute comminuted fractures involving the anterior cortex of the left proximal femur, periprosthetic, with displacement of the fracture fragments up to 1.0 cm. The fracture extends from the top of the remaining femur distally over length of approximately 4.5 cm. Pelvic ring intact. Moderate right hip joint space narrowing associated subchondral sclerosis. Moderate degenerative changes of the bilateral sacroiliac joints. Chest X-Ray 07/21/21 12:46 IMPRESSION: Curvilinear opacity at right mid to lower lung field, may represent trace effusion within the fissure versus pneumonia or atelectatic changes, new since 09/08/2020. Assessment and Plan (1) Preoperative cardiovascular examination: Status: Acute (2) Atherosclerotic cardiovascular disease: Status: Acute Plan Based on a chest CT scan from last year 03/2021, there is evidence of coronary artery calcification. She also had a small pericardial effusion at that time. Overall, from the cardiac standpoint, high cardiac risk for hip surgery. However, as there is no other option, may proceed as planned. Discussed with patient about this. Procedures Date of Service Date of Service: 07/22/21
[2021-07-22 12:00] VITALS: BP 145/84; PULSE 89; RESP 20; TEMP 36.9; O2SAT 97
--- NOTE | 2021-07-22 14:15 | P.CONOP_ITS ---
History of Present Illness HPI Consult date: 07/22/21 Chief complaint: fall, hip fracture Narrative: Ms. 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 She Presented to the ED after sustaining a fall and injuring the left hip. She was recently diagnosed with a DVT in the RLE and was recently started on Eliquis. She was walking when she lost balance and fell. Prior to the fall she did not have any dizziness, sob or palpitations. While in the ED, workup revealed a periprosthetic fracture to the left hip. She was admitted to the medical service and orthopedics was consulted for surgical planning. She states her left hip was replaced with Dr Gonsalez at [facility] less than 5 years ago. She had a good recovery. Her treatment plan for the cancer is radiation to the brain once a month followed by bi-monthly imaging. She lives at home alone, has a walker, but does not always use it for ambulation. She has her nieces and a son who help her with laundry etc, but for the most part she is independent. Review of Systems Constitutional: Constitutional: Reports no additional constitutional complaints PMFSH Past Medical History Medical History (Updated 07/22/21 @ 14:33 by Marcela Gonzalez PA-C) COPD (chronic obstructive pulmonary disease) Hyperlipidemia Hypertension O2 dependent Personal history of nicotine dependence Primary adenocarcinoma of lower lobe of right lung (~2020) Family History Family History Father No problems noted. Other No cardiac disease Surgical History Surgical History (Updated 07/22/21 @ 14:28 by Marcela Gonzalez PA-C) History of bronchoscopy (~2018) History of colonoscopy (~2018) History of lung biopsy (~08/2020) Status post total hip replacement, left Social History Social History Household Members: None Housing: House Do you presently have visiting nurse or other home services: No Alcohol intake: current Alcohol intake frequency: 0-2 drinks per day Patient Tobacco Use Status: Current everyday Tobacco user Tobacco use type: Cigarette service: No Current occupational status: retired Meds Allergies Allergy/AdvReac Type Severity Reaction Status Date / Time varenicline Allergy Unknown muscle Verified 05/05/20 12:11 cramps grass Allergy Unknown allergic Uncoded 03/29/20 09:14 rhinitis statins Allergy Unknown myalgias Uncoded 09/08/20 10:59 Active Medications: Current Medications Acetaminophen (Acetaminophen 325 Mg Tablet) 650 mg PO Q6H PRN PRN Reason: Pain, Mild (Pain Scale 1-3) Albuterol Sulfate (Albuterol Sulfate (0.083%) 2.5 Mg/3 Ml Vial.Neb) 2.5 mg INHALE QID PRN PRN Reason: Shortness Of Breath Or Wheezing Last Admin: 07/21/21 23:35 Dose: 2.5 mg Documented by: Baclofen (Baclofen 10 Mg Tablet) 10 mg PO TID [facility] Last Admin: 07/22/21 08:12 Dose: 10 mg Documented by: Diphenoxylate HCl/Atropine (Diphenoxylate/Atrop 2.5/0.025 Tablet) 1 tab PO DAILY PRN PRN Reason: Diarrhea Enoxaparin Sodium (Enoxaparin Sodium 60 Mg/0.6 Ml Syringe) 50 mg SUBCUT Q12H [facility] Stop: 07/22/21 18:00 Last Admin: 07/22/21 08:12 Dose: 50 mg Documented by: Gabapentin (Gabapentin 300 Mg Capsule) 300 mg PO TID [facility] Last Admin: 07/22/21 08:12 Dose: 300 mg Documented by: Lorazepam (Lorazepam 0.5 Mg Tablet) 0.5 mg PO BID PRN PRN Reason: Anxiety Magnesium Oxide (Magnesium Oxide 400 Mg Tablet) 400 mg PO TID [facility] Last Admin: 07/22/21 08:12 Dose: 400 mg Documented by: Meclizine HCl (Meclizine Hcl 12.5 Mg Tablet) 12.5 mg PO TID [facility] Last Admin: 07/22/21 08:12 Dose: 12.5 mg Documented by: Midodrine (Midodrine Hcl 10 Mg Tablet) 10 mg PO TID [facility] Last Admin: 07/22/21 08:12 Dose: 10 mg Documented by: Morphine Sulfate (Morphine Sulfate 4 Mg/Ml Cartridge) 4 mg IVPUSH Q3H PRN; Protocol PRN Reason: Pain, Moderate (Pain Scale 4-6 Last Admin: 07/22/21 11:01 Dose: 4 mg Documented by: Omeprazole (Omeprazole 20 Mg Capsule.) 20 mg PO BID@0630,1630 [facility] Last Admin: 07/22/21 05:55 Dose: 20 mg Documented by: Ondansetron HCl (Ondansetron Hcl 4 Mg/2 Ml Vial) 4 mg IVPUSH Q8H PRN PRN Reason: Nausea and Vomiting Last Admin: 07/21/21 15:28 Dose: 4 mg Documented by: Pharmacy Consult (Consult Rx Perform Med Rec) 1 each MISCELLANE ONCE PRN PRN Reason: Consult order Phenytoin (Phenytoin Chewable 50 Mg Tab.Chew) 100 mg PO DAILY [facility] Last Admin: 07/22/21 08:12 Dose: 100 mg Documented by: Phenytoin Sodium (Phenytoin Sodium Extended 100 Mg Capsule) 100 mg PO BID@1200,2200 [facility] Last Admin: 07/22/21 11:01 Dose: 100 mg Documented by: Potassium Chloride (Potassium Chloride Er 10 Meq Capsule.Er) 10 meq PO DAILY [facility] Last Admin: 07/22/21 08:12 Dose: 10 meq Documented by: Sodium Chloride (0.9 % Sodium Chloride Flush 3 Ml Syringe) 3 ml IVFLUSH QSHIFT [facility] Last Admin: 07/22/21 08:12 Dose: 3 ml Documented by: Home Medications Medication Instructions Recorded Confirmed Last Taken Type albuterol sulfate 2.5 mg INHALATION QID PRN 04/18/20 07/21/21 Unknown History gabapentin 300 mg capsule 1 cap PO TID 04/18/20 07/21/21 Unknown History omeprazole 20 mg capsule,delayed 20 mg PO BID@0630,1630 04/18/20 07/21/21 Unknown History release simvastatin 20 mg tablet 1 tab PO BEDTIME 04/18/20 07/21/21 Unknown History albuterol sulfate 90 mcg/actuation 2 puff PO QID PRN 07/21/21 07/21/21 Unknown History aerosol inhaler [id number]-[id number] 300 unit 300 unit PO DAILY 07/21/21 07/21/21 Unknown History disintegrating tablet (Beano) apixaban 5 mg tablet (Eliquis) 5 mg PO BID 07/21/21 07/21/21 Unknown History apixaban 5 mg tablet (Eliquis) 10 mg PO BID 07/21/21 07/21/21 Unknown History baclofen 5 mg tablet 10 mg PO TID 07/21/21 07/21/21 Unknown History diphenoxylate-atropine 2.5 1 tab PO DAILY PRN 07/21/21 07/21/21 Unknown History mg-0.025 mg tablet (Lomotil) lorazepam 0.5 mg tablet 1 tab PO BID PRN 07/21/21 07/21/21 Unknown History meclizine 12.5 mg tablet 12.5 mg PO TID 07/21/21 07/21/21 Unknown History melatonin 5 mg tablet 5 mg PO BEDTIME 07/21/21 07/21/21 Unknown History midodrine 5 mg tablet 10 mg PO TID 07/21/21 07/21/21 Unknown History ondansetron HCl 4 mg tablet 1 tab PO TID PRN 07/21/21 07/21/21 Unknown History oxycodone-acetaminophen 5 mg-325 1 tab PO Q6H PRN 07/21/21 07/21/21 Unknown History mg tablet (Percocet) phenytoin 50 mg chewable tablet 2 tab PO DAILY 07/21/21 07/21/21 Unknown History phenytoin sodium extended 100 mg 1 cap PO BID@1200,2200 07/21/21 07/21/21 Unknown History capsule potassium chloride 10 mEq 1 tab PO DAILY 07/21/21 07/21/21 Unknown History tablet,extended release Physical Exam Vital Signs: Vital Signs: Last Vital Signs Temp 98.4 F 07/22/21 12:00 Pulse 89 07/22/21 12:00 Resp 20 07/22/21 12:00 BP 145/84 H 07/22/21 12:00 Pulse Ox 97 07/22/21 12:00 BMI result Body Mass Index 21.7 Const: General: cooperative, healthy appearing, comfortable, no acute distress, well developed and alert Orientation/consciousness: patient oriented x3 HENMT: Head: Yes normal to inspection, Yes normocephalic and Yes atraumatic Eyes: General: appearance normal, both eyes and all related structures Neck: Neck: Yes normal visual inspection and Yes no lymphadenopathy Resp: Effort & Inspection: normal respiratory effort and able to speak in complete sentences Cardio: Rate: regular rate Peripheral pulses: Peripheral pulses 2+ throughout GI: Inspection: Yes normal to inspection Palpation (GI): Soft to palpation Skin: General skin exam: no rashes or lesions noted Neuro: General: patient oriented x3 Extrem: Other: Left hip skin intact, surgical scar present. She does have sensation throughuot the leg with good pulses. Unable to perform SLR. Psych: Appearance: grossly normal Mental Status: mental status grossly normal Results Labs Result Diagrams: 07/22/21 06:18 07/22/21 06:18 Labs: Abnormal lab results 07/22/21 07/22/21 Range/Units 06:18 06:18 RBC 3.85 L (4.20-5.50) X10*6/uL MCV 99.0 H (80.0-98.0) fL MCH 33.5 H (27.0-33.0) pg MPV 8.9 L (9.4-12.3) fL Anion Gap 11 L (12-20) H & H 07/21/21 07/22/21 Range/Units 12:53 06:18 Hgb 13.4 12.9 (12.0-16.0) g/dl Hct 38.5 38.1 (37.0-47.0) % Coagulation 07/21/21 Range/Units 12:53 INR 1.3 H (0.9-1.1) All other labs normal. Diagnostic results Hip x-ray: image reviewed (Acute comminuted fractures involving the anterior cortex of the left proximal femur, periprosthetic, with displacement of the fracture fragments up to 1.0 cm. The fracture extends from the top of the remaining femur distally over length of approximately 4.5 cm. ) Assessment and Plan (1) Periprosthetic fracture around internal prosthetic hip joint: Status: Acute Plan I discussed the case with Dr Nickerson and explained the extent of the injury to the patient, with her niece at bedside. I explained the options available which include surgical intervention vs conservative treatment. I explained the procedure in detail along with the length of recovery and rehab course. I explained the risk, benefits and alternatives. Risk including, but not limited to infection, blood clots, bleeding, non union or malunion and nerve/tissue da mage to surrounding areas, dislocation. I answered all their questions and with their understanding the patient would like to proceed with surgery knowing the risk but also states she wants to remain as active as she can . I explained to her the medical and cardiology team will work to optimize her and once completed, we can proceed. The patient will be T&S, and NPO after midnight. Procedures Date of Service Date of Service: 07/22/21
[2021-07-22 15:33] VITALS: BP 128/72; PULSE 89; RESP 18; TEMP 37.1; O2SAT 97
[2021-07-22 19:22] VITALS: BP 126/73; PULSE 89; RESP 18; TEMP 37.2; O2SAT 92
[2021-07-23] VITALS (10 sets, daily range): BP systolic 112–151; BP diastolic 72–86; PULSE 87–95; RESP 16–20; TEMP 36.8–37.4; O2SAT 90–97; BMI 21.7
[2021-07-23] MEDS: Omeprazole 20 MG CAPSULE.DR PO ×2 (06:02→15:38)
[2021-07-23] MEDS: Morphine Sulfate 4 MG/ML CARTRIDGE IVPUSH ×4 (06:02→22:19)
[2021-07-23] MEDS: Phenytoin Chewable 50 MG TAB.CHEW 100 MG PO (08:50)
[2021-07-23] MEDS: Magnesium Oxide 400 MG TABLET PO ×3 (08:52→22:23)
[2021-07-23] MEDS: Baclofen 10 MG TABLET PO ×3 (08:53→22:23)
[2021-07-23] MEDS: Gabapentin 300 MG CAPSULE PO ×3 (08:53→22:22)
[2021-07-23] MEDS: Midodrine HCl 10 MG TABLET PO ×3 (08:54→22:23)
[2021-07-23] MEDS: Meclizine HCl 12.5 MG TABLET PO ×3 (08:54→22:23)
[2021-07-23] MEDS: 0.9 % Sodium Chloride Flush 3 ML SYRINGE IVFLUSH ×3 (09:09→22:25)
[2021-07-23] MEDS: Enoxaparin Sodium 60 MG/0.6 ML SYRINGE 50 MG SUBCUT ×2 (09:52→22:24)
[2021-07-23] MEDS: Albuterol/Iprat 2.5/0.5MG 3 ML AMPUL.NEB INHALE (11:04)
--- NOTE | 2021-07-23 11:19 | P.PNIM_ITS ---
Subjective Subjective Date of Service: 07/23/21 Interval History: the patient was seen and evaluated this morning Laying in bed, still complaining of pain in her leg Decrease the ability to move in the bed Denies any fever, chills or shortness of breath No reported other overnight events. Review of Systems No fever, chills or weakness No chest pain, palpitation No shortness of breath or coughing No abdominal pain, nausea or vomiting No urinary symptoms No any rash or wounds Complaining of pain in her leg Physical Exam Vital Signs: Vital Signs: Last Vital Signs Temp 98.6 F 07/23/21 08:00 Pulse 87 07/23/21 11:07 Resp 16 07/23/21 11:07 BP 133/80 07/23/21 08:00 Pulse Ox 96 07/23/21 08:00 BMI result Body Mass Index 21.7 Const: Other: Constitutional : Alert, oriented to self and place not in distress Neck : Normal inspection, Supple Cardiovascular : RRR, S1 S2, no lower extremity edema Respiratory : Good bilateral air entry, no crackles, wheezes or rhonchi Gastrointestinal: soft, lax, Normal bowel sounds, Non tender Skin : Warm, Dry Extremities: Left leg shorter and externally rotated, good sensation and blood flow but very sensitive Neurological : Alert & oriented x3, No focal deficit Objective Data Active Medications Acetaminophen (Acetaminophen 325 Mg Tablet) 650 mg PO Q6H PRN PRN Reason: Pain, Mild (Pain Scale 1-3) Albuterol Sulfate (Albuterol Sulfate (0.083%) 2.5 Mg/3 Ml Vial.Neb) 2.5 mg INHALE QID PRN PRN Reason: Shortness Of Breath Or Wheezing Last Admin: 07/21/21 23:35 Dose: 2.5 mg Documented by: DAVID Albuterol/Ipratropium (Albuterol/Iprat 2.5/0.5mg 3 Ml Ampul.Neb) 3 ml INHALE RQ6H WHILE AWAKE [facility] Last Admin: 07/23/21 11:04 Dose: 3 ml Documented by: HEIDI Baclofen (Baclofen 10 Mg Tablet) 10 mg PO TID [facility] Last Admin: 07/23/21 08:53 Dose: 10 mg Documented by: JULIET Diphenoxylate HCl/Atropine (Diphenoxylate/Atrop 2.5/0.025 Tablet) 1 tab PO DAILY PRN PRN Reason: Diarrhea Enoxaparin Sodium (Enoxaparin Sodium 60 Mg/0.6 Ml Syringe) 50 mg SUBCUT Q12H [facility] Stop: 07/23/21 18:00 Last Admin: 07/23/21 09:52 Dose: 50 mg Documented by: JULIET Gabapentin (Gabapentin 300 Mg Capsule) 300 mg PO TID [facility] Last Admin: 07/23/21 08:53 Dose: 300 mg Documented by: JULIET Lorazepam (Lorazepam 0.5 Mg Tablet) 0.5 mg PO BID PRN PRN Reason: Anxiety Magnesium Oxide (Magnesium Oxide 400 Mg Tablet) 400 mg PO TID [facility] Last Admin: 07/23/21 08:52 Dose: 400 mg Documented by: JULITE Meclizine HCl (Meclizine Hcl 12.5 Mg Tablet) 12.5 mg PO TID [facility] Last Admin: 07/23/21 08:54 Dose: 12.5 mg Documented by: JULIET Midodrine (Midodrine Hcl 10 Mg Tablet) 10 mg PO TID [facility] Last Admin: 07/23/21 08:54 Dose: 10 mg Documented by: JULIET Morphine Sulfate (Morphine Sulfate 4 Mg/Ml Cartridge) 4 mg IVPUSH Q3H PRN; Protocol PRN Reason: Pain, Moderate (Pain Scale 4-6 Last Admin: 07/23/21 09:09 Dose: 4 mg Documented by: JULIET Omeprazole (Omeprazole 20 Mg Capsule.Dr) 20 mg PO BID@0630,1630 [facility] Last Admin: 07/23/21 06:02 Dose: 20 mg Documented by: LORE Ondansetron HCl (Ondansetron Hcl 4 Mg/2 Ml Vial) 4 mg IVPUSH Q8H PRN PRN Reason: Nausea and Vomiting Last Admin: 07/21/21 15:28 Dose: 4 mg Documented by: LOREN Pharmacy Consult (Consult Rx Perform Med Rec) 1 each MISCELLANE ONCE PRN PRN Reason: Consult order Phenytoin (Phenytoin Chewable 50 Mg Tab.Chew) 100 mg PO DAILY [facility] Last Admin: 07/23/21 08:50 Dose: 100 mg Documented by: JULIET Phenytoin Sodium (Phenytoin Sodium Extended 100 Mg Capsule) 100 mg PO BID@1200,2200 [facility] Last Admin: 07/22/21 21:38 Dose: 100 mg Documented by: LORE Potassium Chloride (Potassium Chloride Er 10 Meq Capsule.Er) 10 meq PO DAILY [facility] Last Admin: 07/23/21 08:52 Dose: 10 meq Documented by: JULIET Sodium Chloride (0.9 % Sodium Chloride Flush 3 Ml Syringe) 3 ml IVFLUSH QSHIFT [facility] Last Admin: 07/23/21 09:09 Dose: 3 ml Documented by: JULIET Labs CBC & Chem 7: 07/22/21 06:18 07/22/21 06:18 Assessment and Plan (1) Periprosthetic fracture around internal prosthetic hip joint: Status: Acute (2) DVT (deep venous thrombosis): Status: Acute Plan A 71-year-old female with a past medical history of COPD, HLD, CAD, GERD, OA, tremors, HTN lung CA with brain on radiation, DVT on Eliquis, presenting to the ED complaining of left hip/pelvic pain s/p mechanical slip and fall this morning. Hip fracture As noted by x-ray Pain management Orthopedic input appreciated, to do the surgery Friday Will need to hold anticoagulation for 48 hours before any surgical intervention Patient carries moderate risk for cardiac complication per report of time. Cardiology input appreciated COPD Not in exacerbation Use nebulizers ATC and as needed DVT On anticoagulation Hold Eliquis and use Lovenox instead for the time being, hold the night before surgery Metastatic breast cancer Continue Dilantin To follow with Oncology as outpatient continue the rest of her home medications DVT PPX Lovenox Quality Stroke Does the patient have a stroke diagnosis?: No VTE Prior VTE?: No VTE Risk Level:: Medical - moderate - high VTE Device Contraindication: Treatment Not Indicated VTE Drug Contraindication: N/A - Med Ordered
--- NOTE | 2021-07-23 12:22 | MHC.CLN ---
RE: CONSULT PT IS SEVERELY MALNOURISHED PT WITH 29% SIGNIFICANT WT LOSS X 14 MONTHS WITH CHRONIC POOR PO INTAKE WITH INCREASED NUTRITION NEEDS R/T RADIATION TX DIET RX: 2GM NA -APPROPRIATE RECOMMEND ADDING ENSURE BID TO INCREASE KCALS SUPP TO PROVIDE 700KCALS, 40G PROTEIN MONITOR PO INTAKE CLOSELY SEE ALSO FULL CLINICAL NUTRITION ASSESSMENT
[2021-07-23] MEDS: Phenytoin Sodium Extended 100 MG CAPSULE PO ×2 (12:52→22:22)
--- NOTE | 2021-07-23 13:10 | P.EN_ITS ---
Event Note Date of Service: 07/23/21 Event Note: CT scan of the left hip was obtained today which showed a nondisplaced greater trochanteric fracture without any signs of loosening of the hip prosthesis. Given this information we can treat this non operatively with toe-touch weight- bearing with a walker. We will follow up with her in our office in 2 weeks for routine x-rays.
[2021-07-23 16:31] LABS: Glucose, Whole Blood 100 mg/dL (60-115)
[2021-07-24] VITALS (10 sets, daily range): BP systolic 116–138; BP diastolic 66–84; PULSE 79–93; RESP 16–18; TEMP 36.4–37.4; O2SAT 92–97
[2021-07-24] MEDS: Acetaminophen 325 MG TABLET 650 MG PO ×3 (01:31→18:03)
[2021-07-24] MEDS: Omeprazole 20 MG CAPSULE.DR PO ×2 (06:27→18:04)
[2021-07-24] MEDS: Albuterol/Iprat 2.5/0.5MG 3 ML AMPUL.NEB INHALE ×3 (08:18→20:26)
--- NOTE | 2021-07-24 09:21 | PM.HEMONCCN ---
Subjective - Subjective Chief complaint: adenocarcinoma of the right lung Patient: known to practice within the last 3 years Consult date: 07/24/21 Primary Care Provider: Kota Goldsmith MD HPI - Consult Narrative Narrative: Ella Waterman is a 71 year old female found to have a 1.3x1,7 cm mass ivirus pandemicn the RLL in December 2018.It was strongly suspicious on a PET/CT scan and she was referred to Jake Bolton MD. She was too ill from multiple illnesses for resection. A bronchoscopy in April 2019 gave no diagnosis but caused a hospitalization for pneumonia. She was lost to follow up during the garrido virus pandemic until January 2020. The tumor on CT was then 1.7x1.8 cm. A bio[sy was done in August of 2020 showing PDL expressed 8% adenocarcinoma. She then received radiation to lthe RLL by Dr. Hyde at [facility] finishing in November of 2020. The tumor was decreased in size. She was too chronically illfor systemic therapy and the disease was localized to lung so she was observed. In April of 2021 She was found to have a 6 mm left temporal obe brain metastasis and was radiated. On July 13, 2021 she was found to have two newbrain lesion: 5x7 mm anterior left frontnal lobe and 8x9 mm right frontal lobe. She is now admitted with a fracture of her greater trochanter. Review of Systems - Cardiovascular Reports fast heart rate - Respiratory Reports dyspnea - Gastrointestinal Reports other - Genitourinary Reports absent period - Musculoskeletal Reports abnormal walking - Neurologic Reports disequilibrium, Denies syncope [facility] Medical History: Medical History (Last Reviewed 07/23/21 @ 13:39 by Melody Edmond, PT) COPD (chronic obstructive pulmonary disease) Hyperlipidemia Hypertension O2 dependent Personal history of nicotine dependence Primary adenocarcinoma of lower lobe of right lung Onset Date: ~2020 Family History: Family History (Last Reviewed 07/21/21 @ 14:21 by Meg Adler MD) Father No problems noted. Other No cardiac disease Surgical History: Surgical History (Last Reviewed 07/23/21 @ 13:39 by Melody Edmond, PT) History of bronchoscopy Onset Date: ~2018 History of colonoscopy Onset Date: ~2018 History of lung biopsy Onset Date: ~08/2020 Status post total hip replacement, left Social History: Social History (Last Reviewed 07/21/21 @ 14:21 by Mge Adler MD) Living Situation History: Household Members: None Housing: House Do you presently have visiting nurse or other home services: No Tobacco History: Patient Tobacco Use Status: Current everyday Tobacco Tobacco use type: Cigarette Occupation Assessmet: service: No Current occupational status: retired Home Medications and Allergies Current Medications: Current Medications Acetaminophen (Acetaminophen 325 Mg Tablet) 650 mg PO Q6H PRN PRN Reason: Pain, Mild (Pain Scale 1-3) Acetaminophen (Acetaminophen 325 Mg Tablet) 650 mg PO QSHIFT [facility] Last Admin: 07/24/21 01:31 Dose: 650 mg Documented by: Albuterol Sulfate (Albuterol Sulfate (0.083%) 2.5 Mg/3 Ml Vial.Neb) 2.5 mg INHALE QID PRN PRN Reason: Shortness Of Breath Or Wheezing Last Admin: 07/21/21 23:35 Dose: 2.5 mg Documented by: Albuterol/Ipratropium (Albuterol/Iprat 2.5/0.5mg 3 Ml Ampul.Neb) 3 ml INHALE RQ6H WHILE AWAKE [facility] Last Admin: 07/24/21 08:18 Dose: 3 ml Documented by: Baclofen (Baclofen 10 Mg Tablet) 10 mg PO TID [facility] Last Admin: 07/23/21 22:23 Dose: 10 mg Documented by: Diphenoxylate HCl/Atropine (Diphenoxylate/Atrop 2.5/0.025 Tablet) 1 tab PO DAILY PRN PRN Reason: Diarrhea Docusate Sodium (Docusate Sodium 100 Mg Capsule) 100 mg PO BID [facility] Enoxaparin Sodium (Enoxaparin Sodium 60 Mg/0.6 Ml Syringe) 50 mg SUBCUT Q12H [facility] Stop: 07/26/21 18:00 Last Admin: 07/23/21 22:24 Dose: 50 mg Documented by: Gabapentin (Gabapentin 300 Mg Capsule) 300 mg PO TID [facility] Last Admin: 07/23/21 22:22 Dose: 300 mg Documented by: Lorazepam (Lorazepam 0.5 Mg Tablet) 0.5 mg PO BID PRN PRN Reason: Anxiety Magnesium Oxide (Magnesium Oxide 400 Mg Tablet) 400 mg PO TID [facility] Last Admin: 07/23/21 22:23 Dose: 400 mg Documented by: Meclizine HCl (Meclizine Hcl 12.5 Mg Tablet) 12.5 mg PO TID [facility] Last Admin: 07/23/21 22:23 Dose: 12.5 mg Documented by: Midodrine (Midodrine Hcl 10 Mg Tablet) 10 mg PO TID [facility] Last Admin: 07/23/21 22:23 Dose: 10 mg Documented by: Omeprazole (Omeprazole 20 Mg Capsule.Dr) 20 mg PO BID@0630,1630 [facility] Last Admin: 07/24/21 06:27 Dose: 20 mg Documented by: Ondansetron HCl (Ondansetron Hcl 4 Mg/2 Ml Vial) 4 mg IVPUSH Q8H PRN PRN Reason: Nausea and Vomiting Last Admin: 07/21/21 15:28 Dose: 4 mg Documented by: Oxycodone HCl (Oxycodone Hcl Immed Release 5 Mg Tablet) 5 mg PO Q6H PRN PRN Reason: Pain, Severe (Pain Scale 7-10) Pharmacy Consult (Consult Rx Perform Med Rec) 1 each MISCELLANE ONCE PRN PRN Reason: Consult order Phenytoin (Phenytoin Chewable 50 Mg Tab.Chew) 100 mg PO DAILY [facility] Last Admin: 07/23/21 08:50 Dose: 100 mg Documented by: Phenytoin Sodium (Phenytoin Sodium Extended 100 Mg Capsule) 100 mg PO BID@1200,2200 [facility] Last Admin: 07/23/21 22:22 Dose: 100 mg Documented by: Potassium Chloride (Potassium Chloride Er 10 Meq Capsule.Er) 10 meq PO DAILY [facility] Last Admin: 07/23/21 08:52 Dose: 10 meq Documented by: Sodium Chloride (0.9 % Sodium Chloride Flush 3 Ml Syringe) 3 ml IVFLUSH QSHIFT [facility] Last Admin: 07/23/21 22:25 Dose: 3 ml Documented by: Home Medications Medication Instructions Recorded Confirmed Type albuterol sulfate 2.5 mg INHALATION QID PRN 04/18/20 07/21/21 History gabapentin 300 mg capsule 1 cap PO TID 04/18/20 07/21/21 History omeprazole 20 mg capsule,delayed 20 mg PO BID@0630,1630 04/18/20 07/21/21 History release simvastatin 20 mg tablet 1 tab PO BEDTIME 04/18/20 07/21/21 History albuterol sulfate 90 mcg/actuation 2 puff PO QID PRN 07/21/21 07/21/21 History aerosol inhaler jilzl-t-[id number] 300 unit 300 unit PO DAILY 07/21/21 07/21/21 History disintegrating tablet (Beano) apixaban 5 mg tablet (Eliquis) 5 mg PO BID 07/21/21 07/21/21 History apixaban 5 mg tablet (Eliquis) 10 mg PO BID 07/21/21 07/21/21 History baclofen 5 mg tablet 10 mg PO TID 07/21/21 07/21/21 History diphenoxylate-atropine 2.5 1 tab PO DAILY PRN 07/21/21 07/21/21 History mg-0.025 mg tablet (Lomotil) lorazepam 0.5 mg tablet 1 tab PO BID PRN 07/21/21 07/21/21 History meclizine 12.5 mg tablet 12.5 mg PO TID 07/21/21 07/21/21 History melatonin 5 mg tablet 5 mg PO BEDTIME 07/21/21 07/21/21 History midodrine 5 mg tablet 10 mg PO TID 07/21/21 07/21/21 History ondansetron HCl 4 mg tablet 1 tab PO TID PRN 07/21/21 07/21/21 History oxycodone-acetaminophen 5 mg-325 1 tab PO Q6H PRN 07/21/21 07/21/21 History mg tablet (Percocet) phenytoin 50 mg chewable tablet 2 tab PO DAILY 07/21/21 07/21/21 History phenytoin sodium extended 100 mg 1 cap PO BID@1200,2200 07/21/21 07/21/21 History capsule potassium chloride 10 mEq 1 tab PO DAILY 07/21/21 07/21/21 History tablet,extended release Allergies Allergy/AdvReac Type Severity Reaction Status Date / Time varenicline Allergy Unknown muscle Verified 05/05/20 12:11 cramps grass Allergy Unknown allergic Uncoded 03/29/20 09:14 rhinitis statins Allergy Unknown myalgias Uncoded 09/08/20 10:59 Physical Exam Vital signs: Vital Signs Temp 98.8 F 07/24/21 07:16 Pulse 92 07/24/21 09:12 Resp 16 07/24/21 08:21 BP 120/72 07/24/21 07:16 Pulse Ox 92 07/24/21 07:16 Intake & Output 07/23/21 07/24/21 07/24/21 18:59 06:59 18:59 Intake Total 500 / 500 Output Total 150 / 650 500 / 650 Balance -150 / -150 0 / -150 Urine Output (Average ml/kg/hr) 0.22 0.75 Intake: Intake, Oral Amount 500 / 500 Output: Output, Urine Amount 300 / 300 Output, Urine Amount (Catheter) 150 / 350 200 / 350 Urethral 150 / 350 200 / 350 Other: Dinner % Eaten 50% Urine downs Urine Color Concentrated Weight 55.7 kg Weight 55.7 kg - Constitutional Present: no acute distress - Routine HEENT Exam Head: Present: atraumatic - Routine Neck Exam Present: supple, full ROM - Routine Respiratory Exam Present: decreased breath sounds - Routine Cardiovascular Exam Cardiovascular: Present: RRR, S2 - Routine Abdominal Exam Present: diminished bowel sounds - Routine Extremities Exam Comments: pain in hip - Routine Skin Exam Present: intact - Routine Neurological Exam Present: alert marked generalized weakness Hem/Onc Consult Result - Labs CBC & Chem 7: 07/22/21 06:18 07/22/21 06:18 Assessment and Plan Patient Active problem list reviewed?: Yes (1) Lung cancer metastatic to brain Status: Acute Assessment and plan: Her performance status is very low and she is not a candidate for chemotherapy. She could receive PDL-1 inhibitor drugs without undue toxicity. So far she has declined sysgemic therapy such as this. - Time Spent With Patient Time Spent with Patient (in minutes): 30
[2021-07-24] MEDS: 0.9 % Sodium Chloride Flush 3 ML SYRINGE IVFLUSH ×3 (09:35→22:23)
[2021-07-24] MEDS: Baclofen 10 MG TABLET PO ×3 (09:35→22:22)
[2021-07-24] MEDS: Meclizine HCl 12.5 MG TABLET PO ×3 (09:37→22:22)
[2021-07-24] MEDS: Magnesium Oxide 400 MG TABLET PO ×3 (09:37→22:22)
[2021-07-24] MEDS: oxyCODONE HCl Immed Release 5 MG TABLET PO ×2 (09:37→18:03)
[2021-07-24] MEDS: Midodrine HCl 10 MG TABLET PO ×3 (09:37→22:22)
[2021-07-24] MEDS: Phenytoin Chewable 50 MG TAB.CHEW 100 MG PO (09:37)
[2021-07-24] MEDS: Gabapentin 300 MG CAPSULE PO ×3 (09:37→22:22)
[2021-07-24] MEDS: Enoxaparin Sodium 60 MG/0.6 ML SYRINGE 50 MG SUBCUT ×2 (09:38→22:22)
--- NOTE | 2021-07-24 10:02 | HO.PM.IMPN ---
Subjective Subjective Date of Service: 07/24/21 Interval History: the patient was seen and evaluated this morning Laying in bed, pain under fair control, worse when she started to move No plans for surgery by orthopedic anymore Denies any fever, chills or shortness of breath No reported other overnight events. Review of Systems No fever, chills or weakness No chest pain, palpitation No shortness of breath or coughing No abdominal pain, nausea or vomiting No urinary symptoms No any rash or wounds Complaining of pain in her leg upon minimal movement Physical Exam Vital Signs: Vital Signs: Last Vital Signs Temp 98.8 F 07/24/21 07:16 Pulse 92 07/24/21 09:12 Resp 16 07/24/21 08:21 BP 120/72 07/24/21 07:16 Pulse Ox 92 07/24/21 07:16 BMI result Body Mass Index 21.7 Const: Other: Constitutional : Alert, oriented to self and place, not in distress Neck : Normal inspection, Supple Cardiovascular : RRR, S1 S2, no lower extremity edema Respiratory : Good bilateral air entry, no crackles, wheezes or rhonchi Gastrointestinal: soft, lax, Normal bowel sounds, Non tender Skin : Warm, Dry Extremities: Left leg externally rotated, good sensation and blood flow Neurological : Alert & oriented x3, No focal deficit Objective Data Active Medications Acetaminophen (Acetaminophen 325 Mg Tablet) 650 mg PO Q6H PRN PRN Reason: Pain, Mild (Pain Scale 1-3) Acetaminophen (Acetaminophen 325 Mg Tablet) 650 mg PO QSHIFT [facility] Last Admin: 07/24/21 09:35 Dose: 650 mg Documented by: POLINA Albuterol Sulfate (Albuterol Sulfate (0.083%) 2.5 Mg/3 Ml Vial.Neb) 2.5 mg INHALE QID PRN PRN Reason: Shortness Of Breath Or Wheezing Last Admin: 07/21/21 23:35 Dose: 2.5 mg Documented by: DAVID Albuterol/Ipratropium (Albuterol/Iprat 2.5/0.5mg 3 Ml Ampul.Neb) 3 ml INHALE RQ6H WHILE AWAKE [facility] Last Admin: 07/24/21 08:18 Dose: 3 ml Documented by: TOBI Baclofen (Baclofen 10 Mg Tablet) 10 mg PO TID [facility] Last Admin: 07/24/21 09:35 Dose: 10 mg Documented by: POLINA Diphenoxylate HCl/Atropine (Diphenoxylate/Atrop 2.5/0.025 Tablet) 1 tab PO DAILY PRN PRN Reason: Diarrhea Docusate Sodium (Docusate Sodium 100 Mg Capsule) 100 mg PO BID [facility] Last Admin: 07/24/21 09:36 Dose: Not Given Documented by: POLINA Non-Admin Reason: Patient Condition Contraindication Enoxaparin Sodium (Enoxaparin Sodium 60 Mg/0.6 Ml Syringe) 50 mg SUBCUT Q12H [facility] Stop: 07/26/21 18:00 Last Admin: 07/24/21 09:38 Dose: 50 mg Documented by: POLINA Gabapentin (Gabapentin 300 Mg Capsule) 300 mg PO TID [facility] Last Admin: 07/24/21 09:37 Dose: 300 mg Documented by: POLINA Lorazepam (Lorazepam 0.5 Mg Tablet) 0.5 mg PO BID PRN PRN Reason: Anxiety Magnesium Oxide (Magnesium Oxide 400 Mg Tablet) 400 mg PO TID [facility] Last Admin: 07/24/21 09:37 Dose: 400 mg Documented by: POLINA Meclizine HCl (Meclizine Hcl 12.5 Mg Tablet) 12.5 mg PO TID [facility] Last Admin: 07/24/21 09:37 Dose: 12.5 mg Documented by: POLINA Midodrine (Midodrine Hcl 10 Mg Tablet) 10 mg PO TID [facility] Last Admin: 07/24/21 09:37 Dose: 10 mg Documented by: POLINA Omeprazole (Omeprazole 20 Mg Capsule.Dr) 20 mg PO BID@0630,1630 [facility] Last Admin: 07/24/21 06:27 Dose: 20 mg Documented by: LYNDA Ondansetron HCl (Ondansetron Hcl 4 Mg/2 Ml Vial) 4 mg IVPUSH Q8H PRN PRN Reason: Nausea and Vomiting Last Admin: 07/21/21 15:28 Dose: 4 mg Documented by: LOREN Oxycodone HCl (Oxycodone Hcl Immed Release 5 Mg Tablet) 5 mg PO Q6H PRN PRN Reason: Pain, Severe (Pain Scale 7-10) Last Admin: 07/24/21 09:37 Dose: 5 mg Documented by: POLINA Pharmacy Consult (Consult Rx Perform Med Rec) 1 each MISCELLANE ONCE PRN PRN Reason: Consult order Phenytoin (Phenytoin Chewable 50 Mg Tab.Chew) 100 mg PO DAILY [facility] Last Admin: 07/24/21 09:37 Dose: 100 mg Documented by: POLINA Phenytoin Sodium (Phenytoin Sodium Extended 100 Mg Capsule) 100 mg PO BID@1200,2200 [facility] Last Admin: 07/23/21 22:22 Dose: 100 mg Documented by: LYNDA Potassium Chloride (Potassium Chloride Er 10 Meq Capsule.Er) 10 meq PO DAILY [facility] Last Admin: 07/24/21 09:36 Dose: 10 meq Documented by: POLINA Sodium Chloride (0.9 % Sodium Chloride Flush 3 Ml Syringe) 3 ml IVFLUSH QSHIFT [facility] Last Admin: 07/24/21 09:35 Dose: 3 ml Documented by: POLINA Labs CBC & Chem 7: 07/22/21 06:18 07/22/21 06:18 Labs: Laboratory Results - last 24 hr 07/23/21 16:26 POC Glucose 100 Assessment and Plan (1) Lung cancer metastatic to brain: Status: Acute (2) Periprosthetic fracture around internal prosthetic hip joint: Status: Acute Plan A 71-year-old female with a past medical history of COPD, HLD, CAD, GERD, OA, tremors, HTN lung CA with brain on radiation, DVT on Eliquis, presenting to the ED complaining of left hip/pelvic pain s/p mechanical slip and fall this morning. Hip fracture As noted by x-ray Orthopedic input appreciated, no plans for surgery as the prosthesis is stable Restart anticoagulation Physical therapy and pain management with oxycodone Cardiology input appreciated COPD Not in exacerbation Use nebulizers ATC and as needed DVT Restarted on Eliquis Metastatic breast cancer Continue Dilantin To follow with Oncology as outpatient continue the rest of her home medications DVT PPX Lovenox Dispo, short-term rehab placement Quality Stroke Does the patient have a stroke diagnosis?: No VTE Prior VTE?: No VTE Risk Level:: Medical - moderate - high VTE Device Contraindication: Treatment Not Indicated VTE Drug Contraindication: N/A - Med Ordered
[2021-07-24] MEDS: Phenytoin Sodium Extended 100 MG CAPSULE PO ×2 (13:53→22:22)
[2021-07-24] MEDS: Morphine Sulfate 2 MG/ML CARTRIDGE IVPUSH (21:41)
[2021-07-25] VITALS (8 sets, daily range): BP systolic 109–127; BP diastolic 62–70; PULSE 73–87; RESP 16–18; TEMP 36.2–36.6; O2SAT 92–97
[2021-07-25] MEDS: Acetaminophen 325 MG TABLET 650 MG PO ×3 (00:12→16:14)
[2021-07-25] MEDS: Omeprazole 20 MG CAPSULE.DR PO ×2 (06:20→16:15)
[2021-07-25] MEDS: Morphine Sulfate 2 MG/ML CARTRIDGE IVPUSH ×2 (06:41→12:56)
[2021-07-25] MEDS: Albuterol/Iprat 2.5/0.5MG 3 ML AMPUL.NEB INHALE ×2 (07:32→13:18)
[2021-07-25] MEDS: Midodrine HCl 10 MG TABLET PO ×2 (07:58→16:13)
[2021-07-25] MEDS: Phenytoin Chewable 50 MG TAB.CHEW 100 MG PO (07:58)
[2021-07-25] MEDS: Magnesium Oxide 400 MG TABLET PO ×2 (07:58→16:13)
[2021-07-25] MEDS: Baclofen 10 MG TABLET PO ×2 (07:59→16:13)
[2021-07-25] MEDS: Gabapentin 300 MG CAPSULE PO ×2 (07:59→16:13)
[2021-07-25] MEDS: Meclizine HCl 12.5 MG TABLET PO ×2 (07:59→16:14)
[2021-07-25] MEDS: Enoxaparin Sodium 60 MG/0.6 ML SYRINGE 50 MG SUBCUT (08:00)
[2021-07-25] MEDS: 0.9 % Sodium Chloride Flush 3 ML SYRINGE IVFLUSH (08:00)
--- NOTE | 2021-07-25 11:52 | HO.PM.IMPN ---
Subjective Subjective Date of Service: 07/25/21 Interval History: cc: fall interval history: no complaints Cardiovascular Cardiovascular: Reports no additional cardiovascular complaints Respiratory Respiratory: Reports no additional respiratory complaints Physical Exam Vital Signs: Vital Signs: Last Vital Signs Temp 97.1 F 07/25/21 11:20 Pulse 81 07/25/21 11:20 Resp 18 07/25/21 11:20 BP 109/67 07/25/21 11:20 Pulse Ox 95 07/25/21 11:20 BMI result Body Mass Index 21.7 General: AO X 3, no acute distress Resp: CTA bilateral, no accessory muscles used CVS: S1,S2,RRR GI: soft, non tender, non distended Neuro: motor grossly intact, alert Psych: appropriate affect, appropriate insight Objective Data Active Medications Acetaminophen (Acetaminophen 325 Mg Tablet) 650 mg PO Q6H PRN PRN Reason: Pain, Mild (Pain Scale 1-3) Acetaminophen (Acetaminophen 325 Mg Tablet) 650 mg PO QSHIFT [facility] Last Admin: 07/25/21 07:59 Dose: 650 mg Documented by: POLINA Albuterol Sulfate (Albuterol Sulfate (0.083%) 2.5 Mg/3 Ml Vial.Neb) 2.5 mg INHALE QID PRN PRN Reason: Shortness Of Breath Or Wheezing Last Admin: 07/21/21 23:35 Dose: 2.5 mg Documented by: DAVID Albuterol/Ipratropium (Albuterol/Iprat 2.5/0.5mg 3 Ml Ampul.Neb) 3 ml INHALE RQ6H WHILE AWAKE [facility] Last Admin: 07/25/21 07:32 Dose: 3 ml Documented by: TOBI Baclofen (Baclofen 10 Mg Tablet) 10 mg PO TID [facility] Last Admin: 07/25/21 07:59 Dose: 10 mg Documented by: POLINA Diphenoxylate HCl/Atropine (Diphenoxylate/Atrop 2.5/0.025 Tablet) 1 tab PO DAILY PRN PRN Reason: Diarrhea Docusate Sodium (Docusate Sodium 100 Mg Capsule) 100 mg PO BID [facility] Last Admin: 07/25/21 08:00 Dose: Not Given Documented by: POLINA Non-Admin Reason: Patient Condition Contraindication Enoxaparin Sodium (Enoxaparin Sodium 60 Mg/0.6 Ml Syringe) 50 mg SUBCUT Q12H [facility] Stop: 07/26/21 18:00 Last Admin: 07/25/21 08:00 Dose: 50 mg Documented by: POLINA Gabapentin (Gabapentin 300 Mg Capsule) 300 mg PO TID [facility] Last Admin: 07/25/21 07:59 Dose: 300 mg Documented by: POLINA Lorazepam (Lorazepam 0.5 Mg Tablet) 0.5 mg PO BID PRN PRN Reason: Anxiety Magnesium Oxide (Magnesium Oxide 400 Mg Tablet) 400 mg PO TID [facility] Last Admin: 07/25/21 07:58 Dose: 400 mg Documented by: POLINA Meclizine HCl (Meclizine Hcl 12.5 Mg Tablet) 12.5 mg PO TID [facility] Last Admin: 07/25/21 07:59 Dose: 12.5 mg Documented by: POLINA Midodrine (Midodrine Hcl 10 Mg Tablet) 10 mg PO TID [facility] Last Admin: 07/25/21 07:58 Dose: 10 mg Documented by: POLINA Morphine Sulfate (Morphine Sulfate 2 Mg/Ml Cartridge) 2 mg IVPUSH Q4H PRN; Protocol PRN Reason: Pain, Severe (Pain Scale 7-10) Last Admin: 07/25/21 06:41 Dose: 2 mg Documented by: LYNDA Omeprazole (Omeprazole 20 Mg Capsule.Dr) 20 mg PO BID@0630,1630 [facility] Last Admin: 07/25/21 06:20 Dose: 20 mg Documented by: LYNDA Ondansetron HCl (Ondansetron Hcl 4 Mg/2 Ml Vial) 4 mg IVPUSH Q8H PRN PRN Reason: Nausea and Vomiting Last Admin: 07/21/21 15:28 Dose: 4 mg Documented by: LOREN Oxycodone HCl (Oxycodone Hcl Immed Release 5 Mg Tablet) 5 mg PO Q6H PRN PRN Reason: Pain, Severe (Pain Scale 7-10) Last Admin: 07/24/21 18:03 Dose: 5 mg Documented by: POLINA Pharmacy Consult (Consult Rx Perform Med Rec) 1 each MISCELLANE ONCE PRN PRN Reason: Consult order Phenytoin (Phenytoin Chewable 50 Mg Tab.Chew) 100 mg PO DAILY [facility] Last Admin: 07/25/21 07:58 Dose: 100 mg Documented by: POLINA Phenytoin Sodium (Phenytoin Sodium Extended 100 Mg Capsule) 100 mg PO BID@1200,2200 [facility] Last Admin: 07/24/21 22:22 Dose: 100 mg Documented by: LYNDA Potassium Chloride (Potassium Chloride Er 10 Meq Capsule.Er) 10 meq PO DAILY [facility] Last Admin: 07/25/21 07:59 Dose: 10 meq Documented by: POLINA Sodium Chloride (0.9 % Sodium Chloride Flush 3 Ml Syringe) 3 ml IVFLUSH QSHIFT [facility] Last Admin: 07/25/21 08:00 Dose: 3 ml Documented by: POLINA Labs CBC & Chem 7: 07/22/21 06:18 07/22/21 06:18 Assessment and Plan (1) Lung cancer metastatic to brain: Status: Acute (2) Periprosthetic fracture around internal prosthetic hip joint: Status: Acute Plan A 71-year-old female with a past medical history of COPD, HLD, CAD, GERD, OA, tremors, HTN lung CA with brain on radiation, DVT on Eliquis, presented to the ED complaining of left hip/pelvic pain s/p mechanical slip and fall Hip fracture As noted by x-ray Orthopedic input appreciated, no plans for surgery as the prosthesis is stable Restarted anticoagulation Physical therapy and pain management with oxycodone Cardiology input appreciated COPD Not in exacerbation Use nebulizers ATC and as needed DVT Restarted on Eliquis Metastatic breast cancer Continue Dilantin To follow with Oncology as outpatient continue the rest of her home medications DVT PPX Lovenox Dispo, short-term rehab placement Quality Stroke Does the patient have a stroke diagnosis?: No VTE Prior VTE?: No VTE Risk Level:: Medical - moderate - high VTE Device Contraindication: Treatment Not Indicated VTE Drug Contraindication: N/A - Med Ordered
--- NOTE | 2021-07-25 12:13 | MHC.CLN ---
F/U PT IS SEVERELY MALNOURISHED SEE FULL CLINICAL NUTRITION ASSESSMENT PO INTAKE POOR 25-50% X 4 MEALS DIET RX: 2GM NA -RECOMMEND LIBERALIZING TO REGULAR TO OFFER MORE VARIETY PT RECEIVING ENSURE BID TO INCREASE KCALS PROVIDES 700KCALS, 40G PROTEIN WITH 100% ACCEPTANCE WILL CHANGE DIET TO REGULAR CONTINUE TO MONITOR PO INTAKE CLOSELY
[2021-07-25] MEDS: Phenytoin Sodium Extended 100 MG CAPSULE PO (12:57)
--- NOTE | 2021-07-25 13:21 | MHC.CM.PN ---
Patient has been medically cleared for dc to SNF/STR today. Patient will dc to her first choice SNF- [facility] today at 3PM, via [facility].IMM addressed with Patient and original has been given to her and a copy has been placed on the chart. CM has informed Patient's Sister/Tennille of the dc plan.
--- NOTE | 2021-07-25 14:00 | P.DS_ITS ---
DS: Providers Provider Date of Service: 07/25/21 Date of admission: 07/21/21 13:52 Primary care physician: Kota Goldsmith MD Consults: 07/21/21 13:51 Consult to Cardiology Routine Consulting Provider: Bar Guerra Reason for consultation: Pre Op eval and clearance , recent heart attack req resuscitation 07/21/21 14:00 Consult to Orthopedics Routine Consulting Provider: Justin Nickerson Reason for consultation: Comminuted fracture of hip 07/23/21 12:39 Consult to Hematology / Oncology Routine Consulting Provider: Gold Cannon Reason for consultation: F\U ongoing cancer treatment DS: Diagnosis Discharge Diagnosis (1) Lung cancer metastatic to brain: Status: Acute (2) Periprosthetic fracture around internal prosthetic hip joint: Status: Acute DS: Summary Hospital Course Hospital Course: 71-year-old female with a past medical history of COPD, HLD, CAD, GERD, OA, tremors, HTN lung CA with brain on radiation, DVT on Eliquis, was admitted for mechanical fall complicated by left periprosthetic hip fracture. Her fall was likely related to deconditioning from her metastatic lung cancer with brain Mets. She was admitted for pain control and orthopedic evaluation. Pain was controlled with oxycodone. She was seen by Orthopedics who recommended non operative approach with toe-touch weight-bearing with a walker.? follow up in Orthopedics office in 2 weeks for routine x-rays. Course was complicated by urinary retention with Smith placement, she should undergo a trial of voiding once ambulating better. Patient is seen by physical therapy recommended halfway facility for short-term rehab. Time Spent with Patient Time attestation: Total time spent providing and/or coordinating discharge services: Discharge coordination time: Greater than 30 minutes Quality: Stroke Does the patient have a stroke diagnosis?: No Physical Exam Vital Signs: Vital Signs: Last Vital Signs Temp 97.1 F 07/25/21 11:20 Pulse 87 07/25/21 13:20 Resp 16 07/25/21 13:20 BP 109/67 07/25/21 11:20 Pulse Ox 95 07/25/21 11:20 BMI result Body Mass Index 21.7 General: AO X 3, no acute distress Resp:? CTA bilateral, no accessory muscles used CVS: S1,S2,RRR GI: soft, non tender, non distended Neuro:? motor grossly intact, alert Psych: appropriate affect, appropriate insight? Discharge Plan Discharge Patient Disposition: Xfer [facility] Discharge Diagnosis: fall Referrals: [facility] [Outside] - 1 Week Kota Goldsmith MD [Primary Care Provider] - 1 Week Marcela Gonzalez PA-C [Physician Receptionist Scheduler] - 2 Weeks (08/06/2021 at 1pm.) Discharge Medications: Continued albuterol sulfate 2.5 mg /3 mL (0.083 %) solution for nebulization 2.5 mg inhalation QID PRN (Reason: Shortness Of Breath Or Wheezing) 0RF simvastatin 20 mg tablet 1 tab PO BEDTIME 0RF gabapentin 300 mg capsule 1 cap PO TID 0RF omeprazole 20 mg capsule,delayed release(DR/EC) 20 mg PO BID@0630,1630 0RF magnesium oxide 400 mg (241.3 mg magnesium) Tablet 400 mg PO TID Qty: 30 0RF ondansetron HCl 4 mg tablet 1 tab PO TID PRN (Reason: Nausea) 0RF diphenoxylate-atropine [Lomotil] 2.5-0.025 mg Tablet 1 tab PO DAILY PRN (Reason: Diarrhea) 0RF meclizine 12.5 mg Tablet 12.5 mg PO TID 0RF potassium chloride 10 mEq tablet extended release 1 tab PO DAILY 0RF phenytoin sodium extended 100 mg capsule 1 cap PO BID@1200,2200 0RF phenytoin 50 mg tablet,chewable 2 tab PO DAILY 0RF oxycodone-acetaminophen [Percocet] 5-325 mg tablet 1 tab PO Q6H PRN (Reason: severe pain) 0RF albuterol sulfate 90 mcg/actuation HFA aerosol inhaler 2 puff PO QID PRN (Reason: Shortness Of Breath) 0RF melatonin 5 mg Tablet 5 mg PO BEDTIME 0RF Beano 300 unit Tablet,Disintegrating 300 unit PO DAILY 0RF Eliquis 5 mg tablet 5 mg PO BID 0RF Rx Instructions: to start after 07/24/21 baclofen 5 mg tablet 10 mg PO TID 0RF midodrine 5 mg tablet 10 mg PO TID 0RF lorazepam 0.5 mg tablet 1 tab PO BID PRN (Reason: Anxiety) 0RF Discontinued Eliquis 5 mg tablet 10 mg PO BID 0RF Rx Instructions: loading dose of 10 mg bid until 07/24/21 Discharge Orders: Discharge Order (Routine); Ordered 07/25/21 Ordered By: Jeremy Jennings Diet: advance to usual diet Activity on Discharge: As tolerated Stand Alone Forms: Patient Portal Discharge page Care Plan Goals: recovery Health Concerns: hip fracture, urinary retention Plan of Treatment: rehab, trial of void once ambulating better Assessment: see above
[2021-07-25 15:35] LABS: COVID-19 Test Negative (Negative); IDNOW Serial# 16C4AD1C
[2021-07-25] MEDS: oxyCODONE HCl Immed Release 5 MG TABLET PO (16:13)
== END 2021-07-25 17:00 | disposition skilled nursing facility (03) | DRG 535 ==
LOC: HO.ED 13:47 → HO.EDOVER 14:02 → HO.IMC 21:05
PROVIDERS: Physician Assistant; Admitting Provider Student in an Organized Health Care Education/Training Program; Emergency Provider Emergency Medicine Emergency Medical Services; PCP Internal Medicine; Visit Provider Internal Medicine
DX: S72.115A Nondisplaced fracture of greater trochanter of left femur, initial encounter for closed fracture (principal); E43 Unspecified severe protein-calorie malnutrition; M97.02XA Periprosthetic fracture around internal prosthetic left hip joint, initial encounter; C34.31 Malignant neoplasm of lower lobe, right bronchus or lung; C79.31 Secondary malignant neoplasm of brain; E78.5 Hyperlipidemia, unspecified; I10 Essential (primary) hypertension; W01.0XXA Fall on same level from slipping, tripping and stumbling without subsequent striking against object, initial encounter; Z20.822 Contact with and (suspected) exposure to COVID-19; I25.10 Atherosclerotic heart disease of native coronary artery without angina pectoris; F17.210 Nicotine dependence, cigarettes, uncomplicated; Z71.6 Tobacco abuse counseling; Z68.21 Body mass index [BMI] 21.0-21.9, adult; Z99.81 Dependence on supplemental oxygen; Z79.01 Long term (current) use of anticoagulants; Z79.899 Other long term (current) drug therapy
CPT/HCPCS: 36415; 71045; 72170; 73502; 73700; 80048; 82947; 85025; 85027; 85610; 87635; 93005; 94640; 97110; 97116; 97162; 97166; 97530; 97535; 99285; C1758; J1650; J2270; J2405

== ENCOUNTER 2021-07-26 06:49 | Outpatient (REF) | payer MEDICARE, OTHER, SELFPAY ==
[2021-07-26 06:56] LABS: MANUAL DIFF FLAG NO
[2021-07-26 07:10] LABS: Basophils Percent Auto 0.7 % (0-2); Eosinophils Absolute Auto 0.3 X10*3/uL (0.0-0.4); Hematocrit 33.3 % (37.0-47.0); Hemoglobin 11.4 g/dl (12.0-16.0); Imm Gran Abs Auto 0.03 X10*3/uL (0.00-0.03); Imm Gran Pct Auto 0.5 % (0.0-0.4); Lymphocytes Absolute Auto 1.1 X10*3/uL (1.2-4.9); Lymphocytes Percent Auto 18.5 % (20-40); Mean Corpuscular HGB Conc 34.2 g/dl (31.0-35.0); Mean Corpuscular Hemoglobin 33.6 pg (27.0-33.0); Mean Corpuscular Volume 98.2 fL (80.0-98.0); Mean Platelet Volume 8.8 fL (9.4-12.3); Monocytes Absolute Auto 0.7 X10*3/uL (0.1-1.2); Monocytes Percent Auto 11.6 % (2-11); Neutrophils Absolute Auto 3.7 x10*3/uL (2.0-8.3); Neutrophils Percent Auto 63.7 % (45-73); Platelet Count 207 X10*3/uL (160-400); Red Blood Count 3.39 X10*6/uL (4.20-5.50); Red Cell Distribution Width 13.4 % (11.0-16.0); White Blood Count 5.8 X10*3/uL (4.8-10.8)
[2021-07-26 07:37] LABS: Alanine Aminotransferase < 6 U/L (0-31); Albumin Level 3.1 g/dL (3.5-5.0); Alkaline Phosphatase 109 U/L (39-117); Anion Gap 10 (12-20); Aspartate Amino Transferase 12 U/L (5-31); Bilirubin Total 0.4 mg/dL (0.0-1.0); Blood Urea Nitrogen 8 mg/dL (9-16); Calcium 8.5 mg/dL (8.4-10.2); Carbon Dioxide 31 mmol/L (22-29); Chloride 100 mmol/L (96-108); Estimated Glomerular Filt Rate > 60; Glucose Random 90 mg/dL (60-115); Potassium 4.1 mmol/L (3.3-5.1); Sodium 137 mmol/L (135-145)
== END 2021-07-26 06:50 | disposition home or self-care (01) ==
LOC: HO.MMNH1L 06:49
PROVIDERS: Visit Provider Family Medicine
DX: I10 Essential (primary) hypertension (principal)
CPT/HCPCS: 36415; 80053; 85025

== ENCOUNTER 2021-07-28 | Outpatient (REF) | payer MEDICARE, OTHER, SELFPAY ==
[2021-07-28 07:37] LABS: Phenytoin Dilantin 2.3 ug/mL (10.0-20.0)
== END 2021-07-28 00:01 | disposition home or self-care (01) ==
LOC: HO.MMNH1L
PROVIDERS: Visit Provider Family Medicine
DX: C79.31 Secondary malignant neoplasm of brain (principal); Z79.899 Other long term (current) drug therapy
CPT/HCPCS: 36415; 80185

== ENCOUNTER 2021-07-30 21:27 | Outpatient (REF) | payer MEDICARE, OTHER, SELFPAY ==
[2021-07-30 06:20] LABS: MANUAL DIFF FLAG NO
[2021-07-30 06:54] LABS: Basophils Absolute Auto 0.1 X10*3/uL (0.0-0.2); Basophils Percent Auto 0.8 % (0-2); Eosinophils Absolute Auto 0.4 X10*3/uL (0.0-0.4); Eosinophils Percent Auto 5.5 % (0-4); Hematocrit 32.7 % (37.0-47.0); Imm Gran Abs Auto 0.04 X10*3/uL (0.00-0.03); Imm Gran Pct Auto 0.6 % (0.0-0.4); Lymphocytes Absolute Auto 1.5 X10*3/uL (1.2-4.9); Lymphocytes Percent Auto 21.5 % (20-40); Mean Corpuscular HGB Conc 33.6 g/dl (31.0-35.0); Mean Corpuscular Hemoglobin 33.6 pg (27.0-33.0); Mean Platelet Volume 8.7 fL (9.4-12.3); Monocytes Absolute Auto 0.8 X10*3/uL (0.1-1.2); Monocytes Percent Auto 11.1 % (2-11); Neutrophils Absolute Auto 4.3 x10*3/uL (2.0-8.3); Neutrophils Percent Auto 60.5 % (45-73); Platelet Count 377 X10*3/uL (160-400); Red Blood Count 3.27 X10*6/uL (4.20-5.50); Red Cell Distribution Width 13.7 % (11.0-16.0); White Blood Count 7.1 X10*3/uL (4.8-10.8)
[2021-07-30 07:21] LABS: Alanine Aminotransferase < 6 U/L (0-31); Albumin Level 3.1 g/dL (3.5-5.0); Alkaline Phosphatase 112 U/L (39-117); Anion Gap 13 (12-20); Aspartate Amino Transferase 10 U/L (5-31); Bilirubin Total 0.3 mg/dL (0.0-1.0); Blood Urea Nitrogen 9 mg/dL (9-16); Calcium 8.7 mg/dL (8.4-10.2); Carbon Dioxide 27 mmol/L (22-29); Chloride 103 mmol/L (96-108); Estimated Glomerular Filt Rate > 60; Glucose Random 77 mg/dL (60-115); Potassium 4.5 mmol/L (3.3-5.1); Sodium 138 mmol/L (135-145); Total Protein 5.1 g/dL (6.5-8.0)
[2021-07-30 07:57] LABS: Phenytoin Dilantin 3.5 ug/mL (10.0-20.0)
== END 2021-07-30 21:28 | disposition home or self-care (01) ==
LOC: HO.MMNH1L 21:27
PROVIDERS: Internal Medicine; Visit Provider Family Medicine
DX: C79.31 Secondary malignant neoplasm of brain (principal); R25.1 Tremor, unspecified; I10 Essential (primary) hypertension; Z79.899 Other long term (current) drug therapy
CPT/HCPCS: 36415; 80053; 80185; 85025

== ENCOUNTER 2021-08-03 | Outpatient (REF) | payer MEDICARE, OTHER, SELFPAY ==
[2021-08-03 07:57] LABS: Phenytoin Dilantin 6.4 ug/mL (10.0-20.0)
== END 2021-08-03 00:01 ==
LOC: HO.MMNH1L
PROVIDERS: Visit Provider Family Medicine
DX: C79.31 Secondary malignant neoplasm of brain (principal); Z79.899 Other long term (current) drug therapy
CPT/HCPCS: 36415; 80185

== ENCOUNTER 2021-08-06 00:35 | Outpatient (REF) | payer MEDICARE, OTHER, SELFPAY ==
[2021-08-06 07:10] LABS: Hematocrit 32.2 % (37.0-47.0); Hemoglobin 10.7 g/dl (12.0-16.0); Mean Corpuscular HGB Conc 33.2 g/dl (31.0-35.0); Mean Corpuscular Hemoglobin 32.8 pg (27.0-33.0); Mean Corpuscular Volume 98.8 fL (80.0-98.0); Mean Platelet Volume 8.4 fL (9.4-12.3); Platelet Count 521 X10*3/uL (160-400); Red Blood Count 3.26 X10*6/uL (4.20-5.50); Red Cell Distribution Width 13.4 % (11.0-16.0); White Blood Count 7.1 X10*3/uL (4.8-10.8)
[2021-08-06 07:30] LABS: Anion Gap 11 (12-20); Blood Urea Nitrogen 9 mg/dL (9-16); Calcium 8.6 mg/dL (8.4-10.2); Carbon Dioxide 26 mmol/L (22-29); Chloride 103 mmol/L (96-108); Estimated Glomerular Filt Rate > 60; Glucose Random 75 mg/dL (60-115); Potassium 4.2 mmol/L (3.3-5.1); Sodium 136 mmol/L (135-145)
== END 2021-08-06 00:36 | disposition home or self-care (01) ==
LOC: HO.MMNH1L 00:35
PROVIDERS: Visit Provider Family Medicine
DX: I10 Essential (primary) hypertension (principal); M97.8XXA Periprosthetic fracture around other internal prosthetic joint, initial encounter; Z96.641 Presence of right artificial hip joint
CPT/HCPCS: 36415; 80048; 85027; 99212

== ENCOUNTER 2021-08-06 12:42 | Outpatient (REF) | payer MEDICARE, OTHER, SELFPAY ==
--- NOTE | ~2021-08-06 | XR_ITS ---
EXAMINATION: XR PELVIS XR HIP, LEFT CLINICAL INFORMATION: Left hip pain COMPARISON: Radiographs pelvis 07/23/2021 and left hip 07/21/2021; CT abdomen and pelvis 03/30/2021 TECHNIQUE: AP view pelvis is performed along with AP and lateral views of the left hip. FINDINGS: There is left hip prosthesis. Hardware is intact. There is questionable loss of cortical white line in area of prior inferior greater trochanteric spur which is no longer clearly demonstrated. Detached ossification not visualized and finding may be related to slight change in positioning from prior exam. There is no periostitis. There are degenerative disc changes lower lumbar spine with disc narrowing and vertebral spurring. There is a short tubular metallic structure overlying the lumbosacral junction, not seen on prior exam, possibly outside of the patient. The SI joints and pubis are unremarkable. Right hip shows uniform joint narrowing similar to CT. XR/XR hip LT min 2V IMPRESSION: 1. Left hip prosthesis in position. Question focal loss of cortical white line inferior aspect left greater trochanter versus variability from positioning. 2. Uniform right hip joint narrowing. 3. Degenerative changes lower lumbar spine.
--- NOTE | ~2021-08-06 | XR_ITS ---
EXAMINATION: XR PELVIS XR HIP, LEFT CLINICAL INFORMATION: Left hip pain COMPARISON: Radiographs pelvis 07/23/2021 and left hip 07/21/2021; CT abdomen and pelvis 03/30/2021 TECHNIQUE: AP view pelvis is performed along with AP and lateral views of the left hip. FINDINGS: There is left hip prosthesis. Hardware is intact. There is questionable loss of cortical white line in area of prior inferior greater trochanteric spur which is no longer clearly demonstrated. Detached ossification not visualized and finding may be related to slight change in positioning from prior exam. There is no periostitis. There are degenerative disc changes lower lumbar spine with disc narrowing and vertebral spurring. There is a short tubular metallic structure overlying the lumbosacral junction, not seen on prior exam, possibly outside of the patient. The SI joints and pubis are unremarkable. Right hip shows uniform joint narrowing similar to CT. XR/XR pelvis 1-2V IMPRESSION: 1. Left hip prosthesis in position. Question focal loss of cortical white line inferior aspect left greater trochanter versus variability from positioning. 2. Uniform right hip joint narrowing. 3. Degenerative changes lower lumbar spine.
== END 2021-08-06 12:43 | disposition home or self-care (01) ==
LOC: HO.HOSX 12:42
PROVIDERS: Visit Provider Physician Assistant
DX: M25.552 Pain in left hip (principal)
CPT/HCPCS: 72170; 73502

== ENCOUNTER 2021-08-13 00:36 | Outpatient (REF) | payer MEDICARE, OTHER, SELFPAY | END 2021-08-13 00:37 | disposition home or self-care (01) | LOC: HO.MMNH1L 00:36 | PROVIDERS: Visit Provider Family Medicine | DX: Z13.89 Encounter for screening for other disorder (principal) ==

== ENCOUNTER 2021-08-23 18:59 | Emergency (ER) | payer MEDICARE, OTHER, SELFPAY ==
--- NOTE | ~2021-08-23 | XR_ITS ---
EXAMINATION: XR CHEST CLINICAL INFORMATION: Shortness of breath COMPARISON: 07/21/2021 TECHNIQUE: Frontal view of the chest was obtained. FINDINGS: Heart size is normal. There is no evidence of CHF, infiltrates or pleural effusions. There has been some interval clearing of the curvilinear opacity adjacent to the minor fissure on the right with some mild residual atelectasis. XR/XR chest 1V IMPRESSION: No acute intrathoracic disease
--- NOTE | ~2021-08-23 | CT_ITS ---
EXAMINATION: CT HEAD WITHOUT CONTRAST CLINICAL INFORMATION: Severe dizziness. On Eliquis COMPARISON: None. TECHNIQUE: Contiguous axial imaging was performed from the skull base to vertex without intravenous administration of contrast. Coronal and sagittal reformatted images are performed at the CT scanner. [This CT examination was performed using dose optimization techniques as appropriate, variously including the following: *Automated exposure control *Adjustment of mA and/or kV according to patient size (this includes techniques or standardized protocols for targeted exams where dose is matched to indication/reason for exam; i.e. extremities or head) *Use of iterative reconstruction technique] DLP: 653 mGy-cm. FINDINGS: There is no evidence of acute intracranial hemorrhage or territorial infarction. No abnormal mass-effect or midline shift is seen. [place] to white matter differentiation is well preserved. No extra-axial fluid collections are identified. There is generalized global volume loss. There is moderate prominence of the ventricles and the sulci . There is mild hypodensity of the periventricular white matter due to chronic small vessel ischemic disease. There are vascular calcifications of the internal carotid arteries bilaterally. There is no osseous abnormality. The mastoid air cells and visualized portions of the paranasal sinuses are well-aerated. CT/CT head/brain wo con IMPRESSION: No acute intracranial pathology.
[2021-08-23 19:10] VITALS: BP 122/84; BP 132/41; PULSE 92; PULSE 99; RESP 16; TEMP 37.3; O2SAT 95; O2SAT 96; BMI 22.2
--- NOTE | 2021-08-23 19:17 | ED.DIZZY ---
HPI - Dizziness General Chief Complaint: Dizziness Stated Complaint: DIZZY Time Seen by Provider: 08/23/21 19:13 Source: patient and EMS Mode of arrival: EMS Limitations: no limitations History of Present Illness HPI Narrative: patient is 71 years old with significant past medical history of COPD, CAD, GERD, osteoarthritis, tremors, hypertension, metastatic lung cancer to brain comes here for increased dizziness since earlier today patient on oxycodone for pain control was did just [facility] for left periprosthetic hip fracture. Patient Eliquis for DVT when seen by EMS no focal deficit noticed Related Data Home Medications Medication Instructions Recorded Confirmed albuterol sulfate 2.5 mg INHALATION QID PRN 04/18/20 07/21/21 gabapentin 300 mg capsule 1 cap PO TID 04/18/20 07/21/21 omeprazole 20 mg capsule,delayed 20 mg PO BID@0630,1630 04/18/20 07/21/21 release simvastatin 20 mg tablet 1 tab PO BEDTIME 04/18/20 07/21/21 albuterol sulfate 90 mcg/actuation 2 puff PO QID PRN 07/21/21 07/21/21 aerosol inhaler [id number] 300 unit 300 unit PO DAILY 07/21/21 07/21/21 disintegrating tablet (Beano) apixaban 5 mg tablet (Eliquis) 5 mg PO BID 07/21/21 07/21/21 baclofen 5 mg tablet 10 mg PO TID 07/21/21 07/21/21 meclizine 12.5 mg tablet 12.5 mg PO TID 07/21/21 07/21/21 melatonin 5 mg tablet 5 mg PO BEDTIME 07/21/21 07/21/21 midodrine 5 mg tablet 10 mg PO TID 07/21/21 07/21/21 ondansetron HCl 4 mg tablet 1 tab PO TID PRN 07/21/21 07/21/21 phenytoin 50 mg chewable tablet 2 tab PO DAILY 07/21/21 07/21/21 phenytoin sodium extended 100 mg 1 cap PO BID@1200,2200 07/21/21 07/21/21 capsule potassium chloride 10 mEq 1 tab PO DAILY 07/21/21 07/21/21 tablet,extended release Previous Rx's Medication Instructions Recorded magnesium oxide 400 mg (241.3 mg 400 mg PO TID #30 tab 04/25/20 magnesium) tablet diphenoxylate-atropine 2.5 1 tab PO DAILY PRN #10 tab 07/25/21 mg-0.025 mg tablet (Lomotil) lorazepam 0.5 mg tablet 1 tab PO BID PRN #20 tab 07/25/21 oxycodone-acetaminophen 5 mg-325 1 tab PO Q6H PRN #15 tab 07/25/21 mg tablet (Percocet) cefuroxime axetil 250 mg tablet 250 mg PO BID 10 Days #20 tab 08/23/21 Allergies Allergy/AdvReac Type Severity Reaction Status Date / Time varenicline Allergy Unknown muscle Verified 08/06/21 13:38 cramps grass Allergy Unknown allergic Uncoded 08/06/21 13:38 rhinitis Review of Systems Review of Systems: Yes all other systems are reviewed and are negative [facility] Past Medical History Medical History COPD (chronic obstructive pulmonary disease) Hyperlipidemia Hypertension O2 dependent Personal history of nicotine dependence Primary adenocarcinoma of lower lobe of right lung (~2020) Surgical History History of bronchoscopy (~2018) History of colonoscopy (~2018) History of lung biopsy (~08/2020) Status post total hip replacement, left Family History Family History Father No problems noted. Other No cardiac disease Social History Social History Household Members: None Housing: House Do you presently have visiting nurse or other home services: No Alcohol intake: current Alcohol intake frequency: 0-2 drinks per day Patient Tobacco Use Status: Current everyday Tobacco user Tobacco use type: Cigarette Advance Directives: No Advance Directives Information Provided: No service: No Current occupational status: retired Physical Exam Vital Signs: Vital Signs: Last Vital Signs Temp 98.5 F 08/24/21 00:16 Pulse 86 08/24/21 01:44 Resp 14 08/24/21 01:44 BP 120/61 08/24/21 01:44 Pulse Ox 95 08/24/21 01:44 BMI result Body Mass Index 22.2 Appearance: Alert. Oriented X3. No acute distress. anxious Eyes: PERRLA, No Nystagmus ENT: Pharynx normal. Oral Mucosa moist Neck: Normal inspection. Neck supple. CVS: Normal heart rate and rhythm. Pulses normal. Respiratory: No respiratory distress. Equal air entry bilateral, no wheezing/rales/rhonchi Abdomen: Soft and nontender. Bowel sounds are present, no mass palpable, no CVA tenderness Skin: Skin warm and dry. Normal skin color. Normal skin turgor. Extremities: No lower extremity edema. No calf tenderness intention tremors present right more than the left Neuro: Oriented X 3. limited lower extremity movement, No sensory deficit.No cerebellar signs , cranial nerves II-XII intact tremors present MDM - Dizziness MDM Narrative Medical decision making narrative: patient with nonspecific dizziness chronic smoker with lung cancer with Mets CT scan head is negative patient already on Eliquis. Workup showed she had a UTI might need a contributing for her weakness and dizziness was given 1 L of IV fluids and IV Rocephin discharge patient home on Ceftin Lab Data Attestation: I reviewed the patient's lab results. Result diagrams: 08/23/21 21:02 08/23/21 21:02 Labs: Lab Results 08/23/21 08/23/21 08/23/21 Range/Units 21:01 21:01 21:01 WBC (4.8-10.8) X10*3/uL RBC (4.20-5.50) X10*6/uL Hgb (12.0-16.0) g/dl Hct (37.0-47.0) % MCV (80.0-98.0) fL MCH (27.0-33.0) pg MCHC (31.0-35.0) g/dl RDW (11.0-16.0) % Plt Count (160-400) X10*3/uL MPV (9.4-12.3) fL Immature Gran % (Auto) (0.0-0.4) % Neut % (Auto) (45-73) % Lymph % (Auto) (20-40) % [place] % (Auto) (2-11) % Eos % (Auto) (0-4) % Baso % (Auto) (0-2) % Lymph # (Auto) (1.2-4.9) X10*3/uL [place] # (Auto) (0.1-1.2) X10*3/uL Eos # (Auto) (0.0-0.4) X10*3/uL Baso # (Auto) (0.0-0.2) X10*3/uL Abs Immat Gran (auto) (0.00-0.03) X10*3/uL Absolute Neuts (auto) (2.0-8.3) x10*3/uL Absolute Nucleated RBC (0.0-0.012) X10*3/uL Nucleated RBC % (auto) (0.0-0.2) /100WBC PT 12.4 (9.9-13.0) SEC INR 1.1 (0.9-1.1) APTT 32.4 (24.1-38.0) SEC Sodium (135-145) mmol/L Potassium (3.3-5.1) mmol/L Chloride (96-108) mmol/L Carbon Dioxide (22-29) mmol/L Anion Gap (12-20) BUN (9-16) mg/dL Creatinine (0.5-1.4) mg/dL Estim Creat Clear Calc Estimated GFR Random Glucose (60-115) mg/dL Calcium (8.4-10.2) mg/dL Magnesium (1.6-2.6) mg/dL Total Bilirubin (0.0-1.0) mg/dL AST (5-31) U/L ALT (0-31) U/L Alkaline Phosphatase (39-117) U/L Troponin I High Sens < 3.5 (<3.5-17.0) ng/L Total Protein (6.5-8.0) g/dL Albumin (3.5-5.0) g/dL Urine Color Urine Appearance Urine pH (5.0-8.0) Ur Specific [place] (1.005-1.025) Urine Protein (NEG-TRACE) MG/DL Urine Glucose (UA) (NEG) MG/DL Urine Ketones (NEG) MG/DL Urine Blood (NEG) Urine Nitrite (NEG) Ur Leukocyte Esterase (NEG) Urine RBC (0) /HPF Urine WBC (0-4) /HPF Ur Squamous Epith Cells /LPF Urine Bacteria /LPF Phenytoin 16.7 (10.0-20.0) ug/mL 08/23/21 08/23/21 08/23/21 Range/Units 21:02 21:02 22:25 WBC 14.4 H (4.8-10.8) X10*3/uL RBC 3.57 L (4.20-5.50) X10*6/uL Hgb 12.2 (12.0-16.0) g/dl Hct 34.5 L (37.0-47.0) % MCV 96.6 (80.0-98.0) fL MCH 34.2 H (27.0-33.0) pg MCHC 35.4 H (31.0-35.0) g/dl RDW 15.9 (11.0-16.0) % Plt Count 252 D (160-400) X10*3/uL MPV 8.3 L (9.4-12.3) fL Immature Gran % (Auto) 0.3 (0.0-0.4) % Neut % (Auto) 76.7 H (45-73) % Lymph % (Auto) 12.4 L (20-40) % [place] % (Auto) 8.4 (2-11) % Eos % (Auto) 1.9 (0-4) % Baso % (Auto) 0.3 (0-2) % Lymph # (Auto) 1.8 (1.2-4.9) X10*3/uL [place] # (Auto) 1.2 (0.1-1.2) X10*3/uL Eos # (Auto) 0.3 (0.0-0.4) X10*3/uL Baso # (Auto) 0.1 (0.0-0.2) X10*3/uL Abs Immat Gran (auto) 0.05 H (0.00-0.03) X10*3/uL Absolute Neuts (auto) 11.0 H (2.0-8.3) x10*3/uL Absolute Nucleated RBC 0.000 (0.0-0.012) X10*3/uL Nucleated RBC % (auto) 0.0 (0.0-0.2) /100WBC PT (9.9-13.0) SEC INR (0.9-1.1) APTT (24.1-38.0) SEC Sodium 137 (135-145) mmol/L Potassium 4.2 (3.3-5.1) mmol/L Chloride 104 (96-108) mmol/L Carbon Dioxide 25 (22-29) mmol/L Anion Gap 12 (12-20) BUN 11 (9-16) mg/dL Creatinine 0.68 (0.5-1.4) mg/dL Estim Creat Clear Calc 64.5 Estimated GFR > 60 Random Glucose 101 (60-115) mg/dL Calcium 8.7 (8.4-10.2) mg/dL Magnesium 2.1 (1.6-2.6) mg/dL Total Bilirubin 0.3 (0.0-1.0) mg/dL AST 15 D (5-31) U/L ALT 8 (0-31) U/L Alkaline Phosphatase 223 H D (39-117) U/L Troponin I High Sens (<3.5-17.0) ng/L Total Protein 5.6 L (6.5-8.0) g/dL Albumin 3.5 (3.5-5.0) g/dL Urine Color YELLOW Urine Appearance HAZY Urine pH 7.0 (5.0-8.0) Ur Specific [place] <= 1.005 (1.005-1.025) Urine Protein NEG (NEG-TRACE) MG/DL Urine Glucose (UA) NEG (NEG) MG/DL Urine Ketones NEG (NEG) MG/DL Urine Blood TRACE (NEG) Urine Nitrite NEG (NEG) Ur Leukocyte Esterase 3+ H (NEG) Urine RBC 0-2 (0) /HPF Urine WBC 15-29 H (0-4) /HPF Ur Squamous Epith Cells 1+ /LPF Urine Bacteria 1+ /LPF Phenytoin (10.0-20.0) ug/mL Discharge Plan Discharge Clinical Impression: Dizziness, nonspecific, UTI (urinary tract infection) Patient Disposition: Home, Self-Care Instructions: Urinary Tract Infection in Women (DC), Dizziness (ED) Additional Instructions: drink plenty of fluids take antibiotic for possible urinary tract infection follow-up with your PCP/neurologist Prescriptions: New cefuroxime axetil 250 mg tablet 250 mg PO BID 10 Days Qty: 20 0RF No Action albuterol sulfate 2.5 mg /3 mL (0.083 %) solution for nebulization 2.5 mg inhalation QID PRN (Reason: Shortness Of Breath Or Wheezing) 0RF simvastatin 20 mg tablet 1 tab PO BEDTIME 0RF gabapentin 300 mg capsule 1 cap PO TID 0RF omeprazole 20 mg capsule,delayed release(DR/EC) 20 mg PO BID@0630,1630 0RF magnesium oxide 400 mg (241.3 mg magnesium) Tablet 400 mg PO TID Qty: 30 0RF ondansetron HCl 4 mg tablet 1 tab PO TID PRN (Reason: Nausea) 0RF meclizine 12.5 mg Tablet 12.5 mg PO TID 0RF potassium chloride 10 mEq tablet extended release 1 tab PO DAILY 0RF phenytoin sodium extended 100 mg capsule 1 cap PO BID@1200,2200 0RF phenytoin 50 mg tablet,chewable 2 tab PO DAILY 0RF albuterol sulfate 90 mcg/actuation HFA aerosol inhaler 2 puff PO QID PRN (Reason: Shortness Of Breath) 0RF melatonin 5 mg Tablet 5 mg PO BEDTIME 0RF Beano 300 unit Tablet,Disintegrating 300 unit PO DAILY 0RF Eliquis 5 mg tablet 5 mg PO BID 0RF Rx Instructions: to start after 07/24/21 baclofen 5 mg tablet 10 mg PO TID 0RF midodrine 5 mg tablet 10 mg PO TID 0RF diphenoxylate-atropine [Lomotil] 2.5-0.025 mg Tablet 1 tab PO DAILY PRN (Reason: Diarrhea) Qty: 10 0RF oxycodone-acetaminophen [Percocet] 5-325 mg tablet 1 tab PO Q6H PRN (Reason: severe pain) Qty: 15 0RF lorazepam 0.5 mg tablet 1 tab PO BID PRN (Reason: Anxiety) Qty: 20 0RF Interventions: ED Discharge Assessment Last Done: 08/24/21 01:47 Discharge Date/Time: 08/24/21 01:48
--- NOTE | 2021-08-23 19:39 | ECG_ITS ---
Test Reason : dizziness Blood Pressure : / mmHG Vent. Rate : 106 BPM Atrial Rate : 106 BPM P-R Int : 202 ms QRS Dur : 088 ms QT Int : 332 ms P-R-T Axes : 029 087 027 degrees QTc Int : 441 ms Sinus tachycardia Anteroseptal infarct , age undetermined Abnormal ECG When compared with ECG of 21-JUL-2021 12:41, No significant changes seen Referred By: Cullen Salazar Electronically Signed By:JENIFER DOMINGUEZ
[2021-08-23 21:09] LABS: MANUAL DIFF FLAG NO
[2021-08-23 21:10] LABS: Basophils Absolute Auto 0.1 X10*3/uL (0.0-0.2); Basophils Percent Auto 0.3 % (0-2); Eosinophils Absolute Auto 0.3 X10*3/uL (0.0-0.4); Eosinophils Percent Auto 1.9 % (0-4); Hematocrit 34.5 % (37.0-47.0); Hemoglobin 12.2 g/dl (12.0-16.0); Imm Gran Abs Auto 0.05 X10*3/uL (0.00-0.03); Imm Gran Pct Auto 0.3 % (0.0-0.4); Lymphocytes Absolute Auto 1.8 X10*3/uL (1.2-4.9); Lymphocytes Percent Auto 12.4 % (20-40); Mean Corpuscular HGB Conc 35.4 g/dl (31.0-35.0); Mean Corpuscular Hemoglobin 34.2 pg (27.0-33.0); Mean Corpuscular Volume 96.6 fL (80.0-98.0); Mean Platelet Volume 8.3 fL (9.4-12.3); Monocytes Absolute Auto 1.2 X10*3/uL (0.1-1.2); Monocytes Percent Auto 8.4 % (2-11); Neutrophils Percent Auto 76.7 % (45-73); Platelet Count 252 X10*3/uL (160-400); Red Blood Count 3.57 X10*6/uL (4.20-5.50); Red Cell Distribution Width 15.9 % (11.0-16.0); White Blood Count 14.4 X10*3/uL (4.8-10.8)
[2021-08-23 21:16] LABS: INTERNATIONAL NORM RATIO 1.1 (0.9-1.1); Prothrombin Time 12.4 SEC (9.9-13.0)
[2021-08-23 21:18] LABS: Partial Thromboplastin Time 32.4 SEC (24.1-38.0)
[2021-08-23 21:27] LABS: Alanine Aminotransferase 8 U/L (0-31); Albumin Level 3.5 g/dL (3.5-5.0); Alkaline Phosphatase 223 U/L (39-117); Anion Gap 12 (12-20); Aspartate Amino Transferase 15 U/L (5-31); Bilirubin Total 0.3 mg/dL (0.0-1.0); Blood Urea Nitrogen 11 mg/dL (9-16); Calcium 8.7 mg/dL (8.4-10.2); Carbon Dioxide 25 mmol/L (22-29); Chloride 104 mmol/L (96-108); Creatinine Clr Calc Pharmacy 64.5; Estimated Glomerular Filt Rate > 60; Glucose Random 101 mg/dL (60-115); Magnesium 2.1 mg/dL (1.6-2.6); Potassium 4.2 mmol/L (3.3-5.1); Sodium 137 mmol/L (135-145); Total Protein 5.6 g/dL (6.5-8.0)
[2021-08-23 21:31] LABS: Phenytoin Dilantin 16.7 ug/mL (10.0-20.0); Troponin-I High Sensitivity < 3.5 ng/L (<3.5-17.0)
[2021-08-23 22:10] VITALS: BP 133/72; PULSE 95; RESP 12; TEMP 36.9; O2SAT 95
[2021-08-23 22:33] LABS: Appearance Urine HAZY; Color Urine YELLOW; Glucose Urine UA NEG (NEG); Leukocyte Esterase Urine 3+ (NEG); Nitrite Urine NEG (NEG); Specific Gravity - Urine <= 1.005 (1.005-1.025); UACC Culture Trigger YES; Urine Blood TRACE (NEG); Urine Ketones NEG (NEG); Urine Protein NEG (NEG-TRACE)
[2021-08-23 22:42] LABS: RBC Urine 0-2 /HPF (0); Squamous Epithelial Cell Urine 1+ /LPF
[2021-08-23 22:43] LABS: Bacteria Urine 1+ /LPF
[2021-08-23] MEDS: cefTRIAXone sodium 1 GM in 0.9 % Sodium Chloride 50 ML IV (23:26)
[2021-08-23] MEDS: 0.9 % Sodium Chloride 1,000 ML 999 ML IV (23:26)
[2021-08-24 00:16] VITALS: BP 136/70; PULSE 87; RESP 16; TEMP 36.9; O2SAT 94
[2021-08-24 01:39] VITALS: RESP 12
[2021-08-24] MEDS: Morphine Sulfate 4 MG/ML CARTRIDGE IVPUSH (01:39)
[2021-08-24 01:44] VITALS: BP 120/61; PULSE 86; RESP 14; O2SAT 95
[2021-08-24 01:53] LABS: COVID-19 Test Negative (Negative); IDNOW Serial# 55D5AD1C
== END 2021-08-24 01:48 | disposition home or self-care (01) ==
PROVIDERS: Emergency Provider Internal Medicine; PCP Internal Medicine
DX: N39.0 Urinary tract infection, site not specified (principal); R42 Dizziness and giddiness; Z20.822 Contact with and (suspected) exposure to COVID-19; I10 Essential (primary) hypertension; E78.5 Hyperlipidemia, unspecified; F17.200 Nicotine dependence, unspecified, uncomplicated; J44.9 Chronic obstructive pulmonary disease, unspecified; Z85.118 Personal history of other malignant neoplasm of bronchus and lung; Z85.841 Personal history of malignant neoplasm of brain; Z86.718 Personal history of other venous thrombosis and embolism; Z99.81 Dependence on supplemental oxygen; Z79.01 Long term (current) use of anticoagulants; Z79.02 Long term (current) use of antithrombotics/antiplatelets; Z79.899 Other long term (current) drug therapy
CPT/HCPCS: 36415; 70450; 71045; 80053; 80185; 81001; 83735; 84484; 85025; 85610; 85730; 87086; 87088; 87186; 87635; 93005; 96361; 96374; 96375; 99284; J0696; J2270

== ENCOUNTER 2021-09-02 14:32 | Inpatient (IN) | payer MEDICARE, OTHER, SELFPAY ==
--- NOTE | ~2021-09-02 | XR_ITS ---
EXAMINATION: XR CHEST CLINICAL INFORMATION: Pneumonia COMPARISON: Previous CT of the abdomen and pelvis from yesterday and chest x-ray July 2021 TECHNIQUE: Frontal view of the chest was obtained. FINDINGS: The cardiac silhouette is slightly enlarged but stable. Hilar and mediastinal contours are unremarkable. There is airspace disease at the right lung base suggestive of pneumonia. There is subsegmental atelectasis at the left lung base. There is no pleural effusion or pneumothorax. There are distended loops of bowel. There are degenerative changes of the spine. XR/XR chest 1V IMPRESSION: Right base pneumonia. Atelectasis at the left lung base.
--- NOTE | ~2021-09-02 | CT_ITS ---
EXAMINATION: CT ABDOMEN AND PELVIS WITH AND WITHOUT CONTRAST CLINICAL INFORMATION: Black diarrhea x5 days on a liquid is COMPARISON: CT abdomen pelvis 03/30/2021 TECHNIQUE: Multidetector volumetric imaging was performed of the abdomen and pelvis before and following administration of 80 mL of Omnipaque 350 intravenous contrast. Sagittal and coronal reformatted images were obtained on the technologist's workstation. This CT examination was performed using dose optimization techniques as appropriate, variously including the following: *Automated exposure control *Adjustment of mA and/or kV according to patient size (this includes techniques or standardized protocols for targeted exams where dose is matched to indication/reason for exam; i.e. extremities or head) *Use of iterative reconstruction technique DLP: 1074 mGy-cm FINDINGS: LUNG BASES: Patchy consolidation in the right lung base which may reflect airways infection or aspiration. A new 6 mm solid left lower lobe pulmonary nodule. ABDOMINAL AND PELVIC WALL: Unremarkable. LIVER AND BILIARY TREE: Benign-appearing hepatic cyst. GALLBLADDER: Unremarkable. PANCREAS: Unremarkable. SPLEEN: Unremarkable. ADRENAL GLANDS: A 2.5 cm heterogeneously enhancing left adrenal nodule unchanged from 2014, which measures intrinsically low density on noncontrast images compatible with an adenoma, no follow-up imaging recommended. KIDNEYS AND URETERS: Benign-appearing Bosniak 1 bilateral renal cysts, no follow-up imaging recommended. Bilateral renal hypodensities too small to characterize. Bilateral nonobstructing renal stones measuring up to 3 mm in the right midpole. GASTROINTESTINAL TRACT: There is masslike thickening and apple core like enhancing soft tissue involving the gastric antrum measuring at least 4.1 cm in span. Diffuse wall thickening involving the rectosigmoid colon. No intraluminal contrast identified to suggest active bleeding. VASCULAR: Atherosclerosis of the abdominal aorta. LYMPH NODES/PERITONEUM: No lymphadenopathy. FREE FLUID: None. BLADDER: Unremarkable. PELVIC VISCERA: Calcified myomas. OSSEOUS STRUCTURES: Streak artifact from hip arthroplasty somewhat obscures evaluation of the pelvis. Sclerosis along the bilateral sacroiliac joints which could be seen in the setting of osteitis condensans ilii or sacroiliitis. Left total hip arthroplasty with an associated subacute appearing periprosthetic fracture involving the greater trochanter, only partially imaged. CT/CT gi bleed abd pel wo/w con IMPRESSION: There is masslike thickening and apple core like enhancing soft tissue involving the gastric antrum measuring at least 4.1 cm in span, suspicious for malignancy. Recommend GI referral for endoscopic evaluation. No intraluminal contrast identified to suggest site of active GI bleeding. Left total hip arthroplasty with an associated subacute appearing periprosthetic fracture involving the greater trochanter, only partially imaged. A new 6 mm solid left lower lobe pulmonary nodule. Given suspicion for underlying malignancy metastasis cannot be excluded and if malignancy is confirmed a CT chest is recommended for staging. Diffuse wall thickening involving the rectosigmoid colon to be seen in the setting of proctocolitis. Patchy consolidation in the right lung base which may reflect airways infection or aspiration. Bilateral nonobstructing renal stones measuring up to 3 mm in the right midpole. The findings and recommendations were discussed with Laverne Polanco CNP by telephone at 09/02/2021 6:12 PM and it was ascertained that the content and urgency of the report was understood at the time of direct communication.
--- NOTE | ~2021-09-02 | XR_ITS ---
EXAMINATION: XR HIP, LEFT CLINICAL INFORMATION: Follow-up recent surgery COMPARISON: Previous x-ray most recent July 2021 TECHNIQUE: Two views of the left hip. FINDINGS: There is a left hip replacement that appears unchanged in position. There is anterior orientation of the acetabular component. There is a healing comminuted nondisplaced fracture of the left greater trochanter. There is increasing bony callus formation compared to previous 08/14/2021 exam. Soft tissues are unremarkable. XR/XR hip LT min 2V IMPRESSION: Stable position of left hip replacement. Healing comminuted nondisplaced left greater trochanter fracture.
[2021-09-02 14:47] VITALS: BP 145/98; PULSE 90; RESP 20; TEMP 36.9; O2SAT 93; BMI 21.2
--- NOTE | 2021-09-02 15:14 | PC.NURSE ---
pt is alert, moderate bed mobility, dry mm, skin tenting, clean brief at this time.
--- NOTE | 2021-09-02 15:17 | ECG_ITS ---
Test Reason : ABDOMINAL PAIN Blood Pressure : / mmHG Vent. Rate : 085 BPM Atrial Rate : 085 BPM P-R Int : 220 ms QRS Dur : 088 ms QT Int : 370 ms P-R-T Axes : -01 084 070 degrees QTc Int : 440 ms Sinus rhythm with 1st degree A-V block Septal infarct (cited on or before 23-AUG-2021) Abnormal ECG When compared with ECG of 23-AUG-2021 21:00, Nonspecific T wave abnormality has replaced inverted T waves in Inferior leads Referred By: Laverne Polanco Electronically Signed By:Abelardo Linares
[2021-09-02 15:19] VITALS: BP 157/86; PULSE 85; RESP 18; TEMP 36.8; O2SAT 93
[2021-09-02 15:23] LABS: OBS1 POSITIVE (NEGATIVE)
[2021-09-02 15:24] LABS: OBS Int Ctl Valid YES
--- NOTE | 2021-09-02 15:35 | ED.NAVMDI ---
HPI - Nausea/Vomiting/Diarrhea General Chief complaint: GI Bleed Stated complaint: Black diarrhea Time Seen by Provider: 09/02/21 14:56 Source: patient Mode of arrival: ambulatory Limitations: no limitations History of Present Illness HPI Narrative: Patient presents emergency department with reports of black diarrhea for about 5 days. Increased frequency at night. Associated abdominal discomfort. Associated nausea. Related Data Home Medications Medication Instructions Recorded Confirmed albuterol sulfate 2.5 mg INHALATION QID PRN 04/18/20 07/21/21 gabapentin 300 mg capsule 1 cap PO TID 04/18/20 07/21/21 omeprazole 20 mg capsule,delayed 20 mg PO BID@0630,1630 04/18/20 07/21/21 release simvastatin 20 mg tablet 1 tab PO BEDTIME 04/18/20 07/21/21 albuterol sulfate 90 mcg/actuation 2 puff PO QID PRN 07/21/21 07/21/21 aerosol inhaler caoun-e-xsobmnmhgyifn 300 unit 300 unit PO DAILY 07/21/21 07/21/21 disintegrating tablet (Beano) apixaban 5 mg tablet (Eliquis) 5 mg PO BID 07/21/21 07/21/21 baclofen 5 mg tablet 10 mg PO TID 07/21/21 07/21/21 meclizine 12.5 mg tablet 12.5 mg PO TID 07/21/21 07/21/21 melatonin 5 mg tablet 5 mg PO BEDTIME 07/21/21 07/21/21 midodrine 5 mg tablet 10 mg PO TID 07/21/21 07/21/21 ondansetron HCl 4 mg tablet 1 tab PO TID PRN 07/21/21 07/21/21 phenytoin 50 mg chewable tablet 2 tab PO DAILY 07/21/21 07/21/21 phenytoin sodium extended 100 mg 1 cap PO BID@1200,2200 07/21/21 07/21/21 capsule potassium chloride 10 mEq 1 tab PO DAILY 07/21/21 07/21/21 tablet,extended release Previous Rx's Medication Instructions Recorded magnesium oxide 400 mg (241.3 mg 400 mg PO TID #30 tab 04/25/20 magnesium) tablet diphenoxylate-atropine 2.5 1 tab PO DAILY PRN #10 tab 07/25/21 mg-0.025 mg tablet (Lomotil) lorazepam 0.5 mg tablet 1 tab PO BID PRN #20 tab 07/25/21 oxycodone-acetaminophen 5 mg-325 1 tab PO Q6H PRN #15 tab 07/25/21 mg tablet (Percocet) cefuroxime axetil 250 mg tablet 250 mg PO BID 10 Days #20 tab 08/23/21 Allergies Allergy/AdvReac Type Severity Reaction Status Date / Time varenicline Allergy Unknown muscle Verified 08/06/21 13:38 cramps grass Allergy Unknown allergic Uncoded 08/06/21 13:38 rhinitis Review of Systems Review of Systems: Constitutional : No Weight loss, No Fever, reports cold sweats at night ENT/Mouth :? No sore throat, No Rhinorrhea Eyes: No Swelling, No Redness Cardiovascular : No Chest Pain, No SOB, No Edema Respiratory : No Cough, No Sputum, No Wheezing Gastrointestinal : Positive Nausea, no Vomiting, positive Diarrhea, positive abdominal pain, No Hematochezia, positive Melena Genitourinary : No Dysuria, No Urinary Frequency, No Hematuria, No Urgency? Musculoskeletal : Positive left hip pain. No Myalgias, No Joint Swelling Skin : No Skin Lesions, No rash Neuro : Positive generalized Weakness, No Numbness, No Dizziness, No Headache Psych : No Anxiety/Panic, No Depression Heme/Lymph: No Bruising, No Lymphadenopathy Endocrine : No Polyuria, No Polydipsia Yes all other systems are reviewed and are negative [facility] Past Medical History Medical History COPD (chronic obstructive pulmonary disease) Hyperlipidemia Hypertension O2 dependent Personal history of nicotine dependence Primary adenocarcinoma of lower lobe of right lung (~2020) Surgical History History of bronchoscopy (~2018) History of colonoscopy (~2018) History of lung biopsy (~08/2020) Status post total hip replacement, left Family History Family History Father No problems noted. Other No cardiac disease Social History Social History Household Members: None Housing: House Do you presently have visiting nurse or other home services: No Alcohol intake: current Alcohol intake frequency: 3 or more drinks per day Patient Tobacco Use Status: Current everyday Tobacco user Tobacco use type: Cigarette Use of substances other than those prescribed or required for medical reasons: No Advance Directives: No Advance Directives Information Provided: No service: No Current occupational status: retired Physical Exam Vital Signs: Vital Signs: Last Vital Signs Temp 98.5 F 09/02/21 17:13 Pulse 93 09/02/21 17:13 Resp 15 09/02/21 17:13 BP 142/76 H 09/02/21 17:13 Pulse Ox 93 09/02/21 17:13 BMI result Body Mass Index 21.2 Vital signs have been reviewed and appeared to be correct. Blood pressure elevated 157/86. Heart rate normal.? Respiration rate normal. Temperature normal.? Oxygen saturation normal. Appearance: Alert.?Oriented to person, place and time. No acute distress.?Normal affect. Frail Eyes: Pupils equal, round and reactive to light.? ENT: Pharynx normal.?? Neck: Normal inspection.? Neck supple.?? CVS: Heart sounds normal. Normal heart rate and rhythm.? Pulses normal.?? Respiratory: No respiratory distress.? Lung sounds clear to auscultation bilaterally?? Abdomen: Soft and non-tender. Normoactive bowel sounds. No pulsatile mass.? Rectal: Performed with [employer] Gr[employer] Operator, TONIE Vaughan. External hemorrhoids, no acute bleeding or concern for thrombosed hemorrhoids. No fissures. Digital rectal exam performed, pain specimen for occult stool, black stool within the vault. Skin: Skin warm and dry.? Normal skin color.? Normal skin turgor.?? Extremities: No lower extremity edema.? No calf ttp? Neuro: Moves all extremities spontaneously. Sensation intact bilaterally. CN II-XII intact. No focal neuro deficits. Ambulates with normal steady gait. Course Course Course Narrative: Patient is a 71-year-old female with a complex past medical history including COPD, CAD, GERD, osteoarthritis, tremors, hypertension, metastatic lung cancer to the brain, DVT on Eliquis, recent nondisplaced greater trochanteric fracture without signs of loosening of hip prosthesis, recently seen in the emergency department on 08/23/2021 for weakness found to have urinary tract infection treated with cefuroxime for 10 days, culture grew Proteus Miarabalis, susceptible to ceftriaxone. She presents to the emergency department for evaluation of black diarrhea stools. Reevaluation(s) Reevaluation #1: Occult stool is positive. CBC reveals hemoglobin 12.7 hematocrit 36.4, platelets normal. Urinalysis without sign of infection Troponin <3.5, EKG reveals sinus rhythm with first-degree AV block, seen on previous EKG June 2021, no acute concern for ischemia. CT of the abdomen is pending at this time. Spoke with hospitalist Service Dr. Adler for admission to Medicine for GI bleeding, patient accepted to service. Time: 17:15 Reevaluation #2: Received call from Radiology regarding CT scan, no obvious source of bleeding, masslike thickening with soft tissue involvement of the stomach suspicious for malignancy. New 6 mm solid left lower lobe nodule. Diffuse wall thickening involving the rectosigmoid colon concerning for proctocolitis No leukocytosis, tachycardia, and fever to suggest infectious cause, likely to be inflammatory. Would defer IV antibiotics at this time to hospitalist service. Time: 18:12 MDM - Nausea/Vomiting/Diarrhea Medical Records Attestation: I reviewed the patient's medical records. Lab Data Attestation: I reviewed the patient's lab results. Result diagrams: 09/02/21 15:46 09/02/21 15:46 Labs: Lab Results 09/02/21 09/02/21 09/02/21 Range/Units 15:20 15:46 15:46 WBC 10.4 (4.8-10.8) X10*3/uL RBC 3.66 L (4.20-5.50) X10*6/uL Hgb 12.7 (12.0-16.0) g/dl Hct 36.4 L (37.0-47.0) % MCV 99.5 H (80.0-98.0) fL MCH 34.7 H (27.0-33.0) pg MCHC 34.9 (31.0-35.0) g/dl RDW 17.4 H (11.0-16.0) % Plt Count 351 D (160-400) X10*3/uL MPV 8.3 L (9.4-12.3) fL Immature Gran % (Auto) 0.4 (0.0-0.4) % Neut % (Auto) 72.8 (45-73) % Lymph % (Auto) 15.9 L (20-40) % [place] % (Auto) 8.5 (2-11) % Eos % (Auto) 1.9 (0-4) % Baso % (Auto) 0.5 (0-2) % Lymph # (Auto) 1.7 (1.2-4.9) X10*3/uL [place] # (Auto) 0.9 (0.1-1.2) X10*3/uL Eos # (Auto) 0.2 (0.0-0.4) X10*3/uL Baso # (Auto) 0.1 (0.0-0.2) X10*3/uL Abs Immat Gran (auto) 0.04 H (0.00-0.03) X10*3/uL Absolute Neuts (auto) 7.6 (2.0-8.3) x10*3/uL Absolute Nucleated RBC 0.000 (0.0-0.012) X10*3/uL Nucleated RBC % (auto) 0.0 (0.0-0.2) /100WBC Sodium 133 L (135-145) mmol/L Potassium 4.1 (3.3-5.1) mmol/L Chloride 99 (96-108) mmol/L Carbon Dioxide 28 (22-29) mmol/L Anion Gap 10 L (12-20) BUN 9 (9-16) mg/dL Creatinine 0.59 (0.5-1.4) mg/dL Estim Creat Clear Calc 71.2 Estimated GFR > 60 Random Glucose 93 (60-115) mg/dL Lactic Acid (0.5-2.0) mmol/L Calcium 8.5 (8.4-10.2) mg/dL Magnesium 2.3 (1.6-2.6) mg/dL Total Bilirubin 0.4 (0.0-1.0) mg/dL AST 13 (5-31) U/L ALT 8 (0-31) U/L Alkaline Phosphatase 211 H (39-117) U/L Troponin I High Sens (<3.5-17.0) ng/L Total Protein 5.9 L (6.5-8.0) g/dL Albumin 3.7 (3.5-5.0) g/dL Urine Color Urine Appearance Urine pH (5.0-8.0) Ur Specific [place] (1.005-1.025) Urine Protein (NEG-TRACE) MG/DL Urine Glucose (UA) (NEG) MG/DL Urine Ketones (NEG) MG/DL Urine Blood (NEG) Urine Nitrite (NEG) Ur Leukocyte Esterase (NEG) Stool Occult Blood POSITIVE (NEGATIVE) Blood Type Antibody Screen 09/02/21 09/02/21 09/02/21 Range/Units 15:46 15:46 15:46 WBC (4.8-10.8) X10*3/uL RBC (4.20-5.50) X10*6/uL Hgb (12.0-16.0) g/dl Hct (37.0-47.0) % MCV (80.0-98.0) fL MCH (27.0-33.0) pg MCHC (31.0-35.0) g/dl RDW (11.0-16.0) % Plt Count (160-400) X10*3/uL MPV (9.4-12.3) fL Immature Gran % (Auto) (0.0-0.4) % Neut % (Auto) (45-73) % Lymph % (Auto) (20-40) % [place] % (Auto) (2-11) % Eos % (Auto) (0-4) % Baso % (Auto) (0-2) % Lymph # (Auto) (1.2-4.9) X10*3/uL [place] # (Auto) (0.1-1.2) X10*3/uL Eos # (Auto) (0.0-0.4) X10*3/uL Baso # (Auto) (0.0-0.2) X10*3/uL Abs Immat Gran (auto) (0.00-0.03) X10*3/uL Absolute Neuts (auto) (2.0-8.3) x10*3/uL Absolute Nucleated RBC (0.0-0.012) X10*3/uL Nucleated RBC % (auto) (0.0-0.2) /100WBC Sodium (135-145) mmol/L Potassium (3.3-5.1) mmol/L Chloride (96-108) mmol/L Carbon Dioxide (22-29) mmol/L Anion Gap (12-20) BUN (9-16) mg/dL Creatinine (0.5-1.4) mg/dL Estim Creat Clear Calc Estimated GFR Random Glucose (60-115) mg/dL Lactic Acid 1.0 (0.5-2.0) mmol/L Calcium (8.4-10.2) mg/dL Magnesium (1.6-2.6) mg/dL Total Bilirubin (0.0-1.0) mg/dL AST (5-31) U/L ALT (0-31) U/L Alkaline Phosphatase (39-117) U/L Troponin I High Sens < 3.5 (<3.5-17.0) ng/L Total Protein (6.5-8.0) g/dL Albumin (3.5-5.0) g/dL Urine Color Urine Appearance Urine pH (5.0-8.0) Ur Specific [place] (1.005-1.025) Urine Protein (NEG-TRACE) MG/DL Urine Glucose (UA) (NEG) MG/DL Urine Ketones (NEG) MG/DL Urine Blood (NEG) Urine Nitrite (NEG) Ur Leukocyte Esterase (NEG) Stool Occult Blood (NEGATIVE) Blood Type O Positive Antibody Screen NEGATIVE 09/02/21 Range/Units 15:58 WBC (4.8-10.8) X10*3/uL RBC (4.20-5.50) X10*6/uL Hgb (12.0-16.0) g/dl Hct (37.0-47.0) % MCV (80.0-98.0) fL MCH (27.0-33.0) pg MCHC (31.0-35.0) g/dl RDW (11.0-16.0) % Plt Count (160-400) X10*3/uL MPV (9.4-12.3) fL Immature Gran % (Auto) (0.0-0.4) % Neut % (Auto) (45-73) % Lymph % (Auto) (20-40) % [place] % (Auto) (2-11) % Eos % (Auto) (0-4) % Baso % (Auto) (0-2) % Lymph # (Auto) (1.2-4.9) X10*3/uL [place] # (Auto) (0.1-1.2) X10*3/uL Eos # (Auto) (0.0-0.4) X10*3/uL Baso # (Auto) (0.0-0.2) X10*3/uL Abs Immat Gran (auto) (0.00-0.03) X10*3/uL Absolute Neuts (auto) (2.0-8.3) x10*3/uL Absolute Nucleated RBC (0.0-0.012) X10*3/uL Nucleated RBC % (auto) (0.0-0.2) /100WBC Sodium (135-145) mmol/L Potassium (3.3-5.1) mmol/L Chloride (96-108) mmol/L Carbon Dioxide (22-29) mmol/L Anion Gap (12-20) BUN (9-16) mg/dL Creatinine (0.5-1.4) mg/dL Estim Creat Clear Calc Estimated GFR Random Glucose (60-115) mg/dL Lactic Acid (0.5-2.0) mmol/L Calcium (8.4-10.2) mg/dL Magnesium (1.6-2.6) mg/dL Total Bilirubin (0.0-1.0) mg/dL AST (5-31) U/L ALT (0-31) U/L Alkaline Phosphatase (39-117) U/L Troponin I High Sens (<3.5-17.0) ng/L Total Protein (6.5-8.0) g/dL Albumin (3.5-5.0) g/dL Urine Color YELLOW Urine Appearance CLEAR Urine pH 5.5 (5.0-8.0) Ur Specific [place] 1.010 (1.005-1.025) Urine Protein NEG (NEG-TRACE) MG/DL Urine Glucose (UA) NEG (NEG) MG/DL Urine Ketones NEG (NEG) MG/DL Urine Blood NEG (NEG) Urine Nitrite NEG (NEG) Ur Leukocyte Esterase NEG (NEG) Stool Occult Blood (NEGATIVE) Blood Type Antibody Screen Imaging Data CT scan - abdomen: Radiologist's impression: CT/CT gi bleed abd pel wo/w con IMPRESSION: ? There is masslike thickening and apple core like enhancing soft tissue involving the gastric antrum measuring at least 4.1 cm in span, suspicious for malignancy. Recommend GI referral for endoscopic evaluation. No intraluminal contrast identified to suggest site of active GI bleeding. ? Left total hip arthroplasty with an associated subacute appearing periprosthetic fracture involving the greater trochanter, only partially imaged.? ? A new 6 mm solid left lower lobe pulmonary nodule. Given suspicion for underlying malignancy metastasis cannot be excluded and if malignancy is confirmed a CT chest is recommended for staging. ? Diffuse wall thickening involving the rectosigmoid colon to be seen in the setting of proctocolitis. ? Patchy consolidation in the right lung base which may reflect airways infection or aspiration. ? Bilateral nonobstructing renal stones measuring up to 3 mm in the right midpole ECG Data Attestation: I personally reviewed and interpreted this ECG as follows: ECG interpretation date: 09/02/21 ECG interpretation time: 17:17 Prior ECG tracings: available for review Interpretation: Rate: 85 Rhythm:? Sinus rhythm first-degree AV block [place]:? Normal Normal P waves.? Prolonged GREGORY 220 Normal QRS complex.?? ST T wave :??No ST elevation, no ST depression, no T-wave inversion qTC: 440 prior studies:? July 2021 The study has been interpreted contemporaneously by me. Discharge Plan Discharge Clinical Impression: Acute GI bleeding Patient Disposition: Admitted As Inpatient
[2021-09-02 15:52] LABS: MANUAL DIFF FLAG NO
[2021-09-02 16:04] LABS: Basophils Absolute Auto 0.1 X10*3/uL (0.0-0.2); Basophils Percent Auto 0.5 % (0-2); Eosinophils Absolute Auto 0.2 X10*3/uL (0.0-0.4); Eosinophils Percent Auto 1.9 % (0-4); Hematocrit 36.4 % (37.0-47.0); Hemoglobin 12.7 g/dl (12.0-16.0); Imm Gran Abs Auto 0.04 X10*3/uL (0.00-0.03); Imm Gran Pct Auto 0.4 % (0.0-0.4); Lymphocytes Absolute Auto 1.7 X10*3/uL (1.2-4.9); Lymphocytes Percent Auto 15.9 % (20-40); Mean Corpuscular HGB Conc 34.9 g/dl (31.0-35.0); Mean Corpuscular Hemoglobin 34.7 pg (27.0-33.0); Mean Corpuscular Volume 99.5 fL (80.0-98.0); Mean Platelet Volume 8.3 fL (9.4-12.3); Monocytes Absolute Auto 0.9 X10*3/uL (0.1-1.2); Monocytes Percent Auto 8.5 % (2-11); Neutrophils Absolute Auto 7.6 x10*3/uL (2.0-8.3); Neutrophils Percent Auto 72.8 % (45-73); Platelet Count 351 X10*3/uL (160-400); Red Blood Count 3.66 X10*6/uL (4.20-5.50); Red Cell Distribution Width 17.4 % (11.0-16.0); White Blood Count 10.4 X10*3/uL (4.8-10.8)
[2021-09-02 16:05] LABS: Appearance Urine CLEAR; Color Urine YELLOW; Glucose Urine UA NEG (NEG); Leukocyte Esterase Urine NEG (NEG); Nitrite Urine NEG (NEG); PH 5.5 (5.0-8.0); Urine Blood NEG (NEG); Urine Ketones NEG (NEG); Urine Protein NEG (NEG-TRACE)
[2021-09-02 16:07] LABS: Alanine Aminotransferase 8 U/L (0-31); Albumin Level 3.7 g/dL (3.5-5.0); Alkaline Phosphatase 211 U/L (39-117); Anion Gap 10 (12-20); Aspartate Amino Transferase 13 U/L (5-31); Bilirubin Total 0.4 mg/dL (0.0-1.0); Blood Urea Nitrogen 9 mg/dL (9-16); Calcium 8.5 mg/dL (8.4-10.2); Carbon Dioxide 28 mmol/L (22-29); Chloride 99 mmol/L (96-108); Creatinine Clr Calc Pharmacy 71.2; Estimated Glomerular Filt Rate > 60; Glucose Random 93 mg/dL (60-115); Magnesium 2.3 mg/dL (1.6-2.6); Potassium 4.1 mmol/L (3.3-5.1); Sodium 133 mmol/L (135-145); Total Protein 5.9 g/dL (6.5-8.0)
[2021-09-02 16:13] LABS: Troponin-I High Sensitivity < 3.5 ng/L (<3.5-17.0)
[2021-09-02 17:13] VITALS: BP 142/76; PULSE 93; RESP 15; TEMP 36.9; O2SAT 93
[2021-09-02] MEDS: iohexoL 350 MG/ML 100 ML INFUS..BTL IV (17:15)
[2021-09-02] MEDS: ondansetron HCL 4 MG/2 ML VIAL IVPUSH (17:29)
[2021-09-02] MEDS: 0.9 % Sodium Chloride 1,000 ML 999 ML IV (17:29)
[2021-09-02] MEDS: Morphine Sulfate 4 MG/ML CARTRIDGE IVPUSH (20:14)
[2021-09-02] MEDS: metroNIDAZOLE 500 MG TABLET PO (20:15)
[2021-09-02] MEDS: Azithromycin 500 MG in 0.9 % Sodium Chloride 250 ML 125 MG IV (20:15)
--- NOTE | 2021-09-02 20:15 | PHA.MEDREC ---
Pharmacy Consult ? Medication Reconciliation Pharmacy has completed the medication reconciliation. Spoke with patient and daughter in ED who had a list. Patient is off omeprazole while on antibiotic. patient took all AM medications but did not take her afternoon and evening meds.
[2021-09-02 20:38] LABS: COVID-19 Test Negative (Negative); IDNOW Serial# 16C4AD1C
[2021-09-02 22:05] VITALS: BP 105/61; PULSE 83; RESP 26; TEMP 36.8; O2SAT 95
--- NOTE | 2021-09-02 22:29 | P.HPHOSP_ITS ---
History of Present Illness Date of Service: 09/02/21 Chief Complaint: BLACK STOOLS 71-year-old female with past medical history of lung cancer with metastasis to the brain, hypertension, hyperlipidemia, COPD on O2 2 L, presents to the hospital with complaints of diarrhea and black stools. Patient reports that th is has been happening for the past 4 days, had worse symptoms during the night. She reports that everything she eats comes right through her. She reports that the diarrhea is constant, and throughout the night She has had no abdominal pain, denies no chest pain, no nausea or vomiting, she reports no weakness more than usual, some dizziness, shortness of breath that is chronic, she has had increase cough and sputum production For the past few days as well. She has had no fever or chills. And no lower extremity edema. she denies any urinary symptoms. patient has a left hip arthroplasty but reports that she had a recent fracture was supposed to follow-up outpatient orthopedic tomorrow for follow-up x-rays P On arrival to the ED patient with dynamic least stable no significant abnormal vitals Labs are significant for WBC count of 10.4, hemoglobin of 12.7, sodium of 133, UA negative, stool occult positive her abdominal pelvic CT is grossly abnormal with findings of masslike thickening an apple-core like enhancing soft tissue involving the gastric antrum measuring at least 4 cm in span suspicious for malignancy. a new 6 mm solid left lower lobe pulmonary nodule suspicious for malignancy, diffuse wall thickening involving the rectosigmoid colon to be seen in the sett ing of procto colitis. Patchy consolidation in the right lung base which may reflect aspiration versus infection. Given the above findings patient will be admitted for further management and evaluation Review of Systems Review of Systems: Yes all other systems are reviewed and are negative [facility] Medical History (Updated 09/03/21 @ 06:37 by Sona Petit MD) COPD (chronic obstructive pulmonary disease) Hyperlipidemia Hypertension O2 dependent Personal history of nicotine dependence Primary adenocarcinoma of lower lobe of right lung (~2020) Seizures Family History Father No problems noted. Other No cardiac disease Surgical History History of bronchoscopy (~2018) History of colonoscopy (~2018) History of lung biopsy (~08/2020) Status post total hip replacement, left Social History Household Members: None Housing: House Do you presently have visiting nurse or other home services: No Alcohol intake: current Alcohol intake frequency: 3 or more drinks per day Patient Tobacco Use Status: Former Tobacco user Tobacco use type: Cigarette Use of substances other than those prescribed or required for medical reasons: No Advance Directives: No Advance Directives Information Provided: No service: No Current occupational status: retired Meds Allergies Allergy/AdvReac Type Severity Reaction Status Date / Time varenicline Allergy Unknown muscle Verified 08/06/21 13:38 cramps grass Allergy Unknown allergic Uncoded 08/06/21 13:38 rhinitis Active Medications: Current Medications Acetaminophen (Acetaminophen 325 Mg Tablet) 650 mg PO Q6H PRN PRN Reason: Pain, Mild (Pain Scale 1-3) Ceftriaxone Sodium 1 gm/ (Sodium Chloride) 50 mls @ 100 mls/hr IV Q24H JULIA Azithromycin 500 mg/ Sodium (Chloride) 250 mls @ 125 mls/hr IV Q24H [facility] Last Admin: 09/02/21 20:15 Dose: 125 mls/hr Documented by: Metronidazole (Metronidazole 500 Mg Tablet) 500 mg PO Q8H [facility] Last Admin: 09/02/21 20:15 Dose: 500 mg Documented by: Morphine Sulfate (Morphine Sulfate 4 Mg/Ml Cartridge) 4 mg IVPUSH Q4H PRN; Protocol PRN Reason: Pain, Severe (Pain Scale 7-10) Last Admin: 09/02/21 20:14 Dose: 4 mg Documented by: Ondansetron HCl (Ondansetron Hcl 4 Mg/2 Ml Vial) 4 mg IVPUSH Q8H PRN PRN Reason: Nausea and Vomiting Pharmacy Consult (Consult Rx Perform Med Rec) 1 each MISCELLANE ONCE PRN PRN Reason: Consult order Sodium Chloride (0.9 % Sodium Chloride Flush 3 Ml Syringe) 3 ml IVFLUSH QSHIFT [facility] Home Medications Medication Instructions Recorded Confirmed Last Taken Type albuterol sulfate 2.5 mg INHALATION QID PRN 04/18/20 09/02/21 Unknown History gabapentin 300 mg capsule 1 cap PO TID 04/18/20 09/02/21 09/02/21 History omeprazole 20 mg capsule,delayed 20 mg PO BID@0630,1630 04/18/20 09/02/21 Unknown History release simvastatin 20 mg tablet 1 tab PO BEDTIME 04/18/20 09/02/21 09/01/21 History albuterol sulfate 90 mcg/actuation 2 puff PO QID PRN 07/21/21 09/02/21 Unknown History aerosol inhaler apixaban 5 mg tablet (Eliquis) 5 mg PO BID 07/21/21 09/02/21 09/02/21 History baclofen 5 mg tablet 10 mg PO TID 07/21/21 09/02/21 09/02/21 History meclizine 12.5 mg tablet 12.5 mg PO TID PRN 07/21/21 09/02/21 Unknown History midodrine 5 mg tablet 10 mg PO TID 07/21/21 09/02/21 09/02/21 History ondansetron HCl 4 mg tablet 1 tab PO TID PRN 07/21/21 09/02/21 Unknown History potassium chloride 10 mEq 1 tab PO DAILY 07/21/21 09/02/21 09/02/21 History tablet,extended release morphine concentrate 100 mg/5 mL 0.5 ml PO Q3H PRN 09/02/21 09/02/21 09/02/21 History (20 mg/mL) oral solution phenytoin sodium extended 200 mg 1 cap PO BID 09/02/21 09/02/21 09/02/21 History capsule Physical Exam Vital Signs and Narrative: Vital Signs: Last Vital Signs Temp 98.3 F 09/02/21 22:05 Pulse 83 09/02/21 22:05 Resp 26 H 09/02/21 22:05 BP 105/61 09/02/21 22:05 Pulse Ox 95 09/02/21 22:05 BMI result Body Mass Index 21.2 Const: General: cooperative and no acute distress Orientation/consciousness: patient oriented x3 Eyes: General: appearance normal, both eyes and all related structures Pupils: Equal, round and reactive pupils present Resp: Other: rhonchi bilaterally Effort & Inspection: normal respiratory effort Cardio: Rate: regular rate Rhythm: regular rhythm GI: Palpation (GI): Soft to palpation Auscultation: normal bowel sounds Skin: General skin exam: no rashes or lesions noted Neuro: General: patient oriented x3 Cranial nerves: Yes Equal, round and reactive pupils present Cognition (Neuro): normal cognition Extrem: General: Yes normal to inspection and Yes no pedal edema Results Labs CBC and Chem 7: 09/02/21 15:46 09/02/21 15:46 Labs: Laboratory Results - last 24 hr 09/02/21 09/02/21 09/02/21 15:20 15:46 15:46 MCV 99.5 H MCH 34.7 H MCHC 34.9 RDW 17.4 H Plt Count 351 D MPV 8.3 L Immature Gran % (Auto) 0.4 Neut % (Auto) 72.8 Lymph % (Auto) 15.9 L Hale % (Auto) 8.5 Eos % (Auto) 1.9 Baso % (Auto) 0.5 Lymph # (Auto) 1.7 Hale # (Auto) 0.9 Eos # (Auto) 0.2 Baso # (Auto) 0.1 Abs Immat Gran (auto) 0.04 H Absolute Neuts (auto) 7.6 Absolute Nucleated RBC 0.000 Nucleated RBC % (auto) 0.0 Anion Gap 10 L Estim Creat Clear Calc 71.2 Estimated GFR > 60 Random Glucose 93 Lactic Acid Calcium 8.5 Magnesium 2.3 Total Bilirubin 0.4 AST 13 ALT 8 Alkaline Phosphatase 211 H Troponin I High Sens Total Protein 5.9 L Albumin 3.7 Urine Color Urine Appearance Urine pH Ur Specific [employer] Urine Protein Urine Glucose (UA) Urine Ketones Urine Blood Urine Nitrite Ur Leukocyte Esterase Stool Occult Blood POSITIVE COVID-19 (AN) COVID-19 Clin Com Blood Type Antibody Screen 09/02/21 09/02/21 09/02/21 15:46 15:46 15:46 MCV MCH MCHC RDW Plt Count MPV Immature Gran % (Auto) Neut % (Auto) Lymph % (Auto) Hale % (Auto) Eos % (Auto) Baso % (Auto) Lymph # (Auto) Hale # (Auto) Eos # (Auto) Baso # (Auto) Abs Immat Gran (auto) Absolute Neuts (auto) Absolute Nucleated RBC Nucleated RBC % (auto) Anion Gap Estim Creat Clear Calc Estimated GFR Random Glucose Lactic Acid 1.0 Calcium Magnesium Total Bilirubin AST ALT Alkaline Phosphatase Troponin I High Sens < 3.5 Total Protein Albumin Urine Color Urine Appearance Urine pH Ur Specific [employer] Urine Protein Urine Glucose (UA) Urine Ketones Urine Blood Urine Nitrite Ur Leukocyte Esterase Stool Occult Blood COVID-19 (AN) COVID-19 Clin Com Blood Type O Positive Antibody Screen NEGATIVE 09/02/21 09/02/21 15:58 20:19 MCV MCH MCHC RDW Plt Count MPV Immature Gran % (Auto) Neut % (Auto) Lymph % (Auto) Hale % (Auto) Eos % (Auto) Baso % (Auto) Lymph # (Auto) Hale # (Auto) Eos # (Auto) Baso # (Auto) Abs Immat Gran (auto) Absolute Neuts (auto) Absolute Nucleated RBC Nucleated RBC % (auto) Anion Gap Estim Creat Clear Calc Estimated GFR Random Glucose Lactic Acid Calcium Magnesium Total Bilirubin AST ALT Alkaline Phosphatase Troponin I High Sens Total Protein Albumin Urine Color YELLOW Urine Appearance CLEAR Urine pH 5.5 Ur Specific [employer] 1.010 Urine Protein NEG Urine Glucose (UA) NEG Urine Ketones NEG Urine Blood NEG Urine Nitrite NEG Ur Leukocyte Esterase NEG Stool Occult Blood COVID-19 (AN) Negative COVID-19 Clin Com See Note Blood Type Antibody Screen Imaging Radiologist's Impressions: Impressions Abdomen/Pelvis CT 09/02/21 17:24 IMPRESSION: There is masslike thickening and apple core like enhancing soft tissue involving the gastric antrum measuring at least 4.1 cm in span, suspicious for malignancy. Recommend GI referral for endoscopic evaluation. No intraluminal contrast identified to suggest site of active GI bleeding. Left total hip arthroplasty with an associated subacute appearing periprosthetic fracture involving the greater trochanter, only partially imaged. A new 6 mm solid left lower lobe pulmonary nodule. Given suspicion for underlying malignancy metastasis cannot be excluded and if malignancy is confirmed a CT chest is recommended for staging. Diffuse wall thickening involving the rectosigmoid colon to be seen in the setting of proctocolitis. Patchy consolidation in the right lung base which may reflect airways infection or aspiration. Bilateral nonobstructing renal stones measuring up to 3 mm in the right midpole. The findings and recommendations were discussed with Laverne Polanco CNP by telephone at 09/02/2021 6:12 PM and it was ascertained that the content and urgency of the report was understood at the time of direct communication. Assessment and Plan (1) Acute GI bleeding: Status: Acute (2) Lung cancer metastatic to brain: Status: Acute (3) Gastric mass: Status: Acute (4) Pneumonia: Status: Acute (5) COPD with acute exacerbation: Status: Acute (6) Proctocolitis: Status: Acute Plan 71 -year-old female with past medical history of lung cancer with metastasis to the brain currently undergoing radiation therapy who presents to the hospital with complaints of bloody diarrhea # acute GI bleed - positive stool occult - hemodynamically stable with stable hemoglobin - likely secondary source is the gastric mass identified on CT abdomen - at this time will consult GI for possible endoscopy/ colonoscopy - NPO - follow CBC # gastric antrum mass - concerning for malignancy - GI consulted # pneumonia /COPD exacerbation - has increased cough, sputum production, and findings of infiltrate on abdominal CT - at this times no significant evidence of systemic infection, patient has no leukocytosis, is afebrile, no tachycardia or tachypnea - will treat with IV antibiotics - will obtain blood cultures # COPD exacerbation - increased cough, sputum production - Solu-Medrol, DuoNeb p.r.n. - on baseline 2 L of oxygen, will continue # proctocoliltis - with diarrhea - r/o Cdiff - start flagyl along w ceftriaxone # lung cancer with Mets to the brain - evidence of new nodule that according to the patient was not present previously - patient's oncologist is outpatient - recommend follow-up discharge # history of DVT - hold Eliquis - SCDs # history of seizures - continue phenytoin DVT prophylaxis: SCDs Quality Stroke Does the patient have a stroke diagnosis?: No VTE Prior VTE?: Yes VTE Risk Level:: Medical - moderate - high VTE Device Contraindication: N/A - Device Ordered VTE Drug Contraindication: Treatment Not Indicated
[2021-09-02] MEDS: cefTRIAXone sodium 1 GM in 0.9 % Sodium Chloride 50 ML IV (22:55)
[2021-09-02 23:35] VITALS: BP 106/73; PULSE 80; RESP 15; O2SAT 95
[2021-09-03 01:26] VITALS: BP 123/65; PULSE 77; RESP 13; O2SAT 96
[2021-09-03] MEDS: Morphine Sulfate 4 MG/ML CARTRIDGE IVPUSH ×3 (01:29→23:57)
[2021-09-03] MEDS: metroNIDAZOLE 500 MG TABLET PO ×2 (06:09→22:11)
[2021-09-03 07:02] LABS: MANUAL DIFF FLAG NO
[2021-09-03 07:08] LABS: Basophils Absolute Auto 0.1 X10*3/uL (0.0-0.2); Basophils Percent Auto 0.8 % (0-2); Eosinophils Absolute Auto 0.2 X10*3/uL (0.0-0.4); Eosinophils Percent Auto 3.1 % (0-4); Hematocrit 31.8 % (37.0-47.0); Hemoglobin 10.8 g/dl (12.0-16.0); Imm Gran Abs Auto 0.02 X10*3/uL (0.00-0.03); Imm Gran Pct Auto 0.3 % (0.0-0.4); Lymphocytes Absolute Auto 1.6 X10*3/uL (1.2-4.9); Lymphocytes Percent Auto 25.8 % (20-40); Mean Corpuscular Hemoglobin 34.5 pg (27.0-33.0); Mean Corpuscular Volume 101.6 fL (80.0-98.0); Mean Platelet Volume 8.1 fL (9.4-12.3); Monocytes Absolute Auto 0.7 X10*3/uL (0.1-1.2); Monocytes Percent Auto 11.8 % (2-11); Neutrophils Absolute Auto 3.5 x10*3/uL (2.0-8.3); Neutrophils Percent Auto 58.2 % (45-73); Platelet Count 276 X10*3/uL (160-400); Red Blood Count 3.13 X10*6/uL (4.20-5.50); Red Cell Distribution Width 17.9 % (11.0-16.0); White Blood Count 6.1 X10*3/uL (4.8-10.8)
--- NOTE | 2021-09-03 07:17 | PM.GICN ---
History of Present Illness Data of Consult Service Date: 09/03/21 Requesting physician: Sona Petit Primary Care Provider: Kota Goldsmith MD HPI Reason for consult: Black stools 71 YF with history of lung cancer with brain metastasis, Htn, HLD, COPD on O2 2 L came to [facility] on 09/02/21 with diarrhea and black stools for the past 4 days. Her symptoms are worse during the night.? She reports that everything she eats comes right through her. She reports that the diarrhea is constant, and throughout the night Patient denies abdominal pain, chest pain, nausea or vomiting, fever or chills. She reports some dizziness and denies increased in her usual amount of weakness. Patient has chronic shortness of breath due to COPD and has noted increase cough and sputum production for the past few days. ? She denies any urinary symptoms. Patient has a left hip arthroplasty but reports that she had a recent fracture was supposed to follow-up outpatient orthopedic tomorrow for follow-up x-rays P Labs are significant for? WBC count of 10.4, hemoglobin of 12.7, sodium of 133, UA negative, stool occult positive IMAGING STUDIES: 09/02/[address] SCAN SHOWED: abdominal pelvic CT is grossly abnormal with findings of masslike thickening an apple-core like enhancing soft tissue involving the gastric antrum measuring at least 4 cm in span suspicious for malignancy.? ?a new 6 mm solid left lower lobe pulmonary nodule suspicious for malignancy, diffuse wall thickening involving the rectosigmoid colon to be seen in the setting of procto colitis.? Patchy consolidation in the right lung base which may reflect aspiration versus infection. Review of Systems Constitutional: Constitutional: Reports weakness Cardiovascular: Cardiovascular: Reports dyspnea and Reports dyspnea on exertion Respiratory: Respiratory: Reports cough, Reports dyspnea and Reports dyspnea on exertion Gastrointestinal: Gastrointestinal: Reports diarrhea Neurologic: Reports weakness PMFSH Past Medical History Medical History (Updated 09/03/21 @ 06:37 by Soan Petit MD) COPD (chronic obstructive pulmonary disease) Hyperlipidemia Hypertension O2 dependent Personal history of nicotine dependence Primary adenocarcinoma of lower lobe of right lung (~2020) Seizures Family History Family History Father No problems noted. Other No cardiac disease Surgical History Surgical History History of bronchoscopy (~2018) History of colonoscopy (~2018) History of lung biopsy (~08/2020) Status post total hip replacement, left Social History Social History Household Members: None Housing: House Do you presently have visiting nurse or other home services: No Alcohol intake: current Alcohol intake frequency: 3 or more drinks per day Patient Tobacco Use Status: Former Tobacco user Tobacco use type: Cigarette Use of substances other than those prescribed or required for medical reasons: No Advance Directives: No Advance Directives Information Provided: No service: No Current occupational status: retired Meds Allergies Allergy/AdvReac Type Severity Reaction Status Date / Time varenicline Allergy Unknown muscle Verified 08/06/21 13:38 cramps grass Allergy Unknown allergic Uncoded 08/06/21 13:38 rhinitis Active Medications: Current Medications Acetaminophen (Acetaminophen 325 Mg Tablet) 650 mg PO Q6H PRN PRN Reason: Pain, Mild (Pain Scale 1-3) Albuterol Sulfate (Albuterol Sulfate (0.083%) 2.5 Mg/3 Ml Vial.Neb) 2.5 mg INHALE QID PRN PRN Reason: Shortness Of Breath Or Wheezing Albuterol/Ipratropium (Albuterol/Iprat 2.5/0.5mg 3 Ml Ampul.Neb) 3 ml INHALE RQ4H PRN PRN Reason: Shortness of Breath/Wheezing Baclofen (Baclofen 10 Mg Tablet) 10 mg PO TID JULIA Gabapentin (Gabapentin 300 Mg Capsule) 300 mg PO TID JULIA Ceftriaxone Sodium 1 gm/ (Sodium Chloride) 50 mls @ 100 mls/hr IV Q24H [facility] Last Infusion: 09/03/21 00:08 Dose: Infused Documented by: Azithromycin 500 mg/ Sodium (Chloride) 250 mls @ 125 mls/hr IV Q24H [facility] Last Infusion: 09/03/21 00:08 Dose: Infused Documented by: Lorazepam (Lorazepam 0.5 Mg Tablet) 0.5 mg PO BID PRN PRN Reason: Anxiety Magnesium Oxide (Magnesium Oxide 400 Mg Tablet) 400 mg PO TID JULIA Meclizine HCl (Meclizine Hcl 12.5 Mg Tablet) 12.5 mg PO TID PRN PRN Reason: Dizziness Methylprednisolone Sodium Succinate (Methylprednisolone Sod Succ 40 Mg/Ml Vial) 40 mg IVPUSH Q12H [facility] Metronidazole (Metronidazole 500 Mg Tablet) 500 mg PO Q8H [facility] Last Admin: 09/03/21 06:09 Dose: 500 mg Documented by: Midodrine (Midodrine Hcl 10 Mg Tablet) 10 mg PO TID [facility] Morphine Sulfate (Morphine Sulfate 4 Mg/Ml Cartridge) 4 mg IVPUSH Q4H PRN; Protocol PRN Reason: Pain, Severe (Pain Scale 7-10) Last Admin: 09/03/21 06:08 Dose: 4 mg Documented by: Non-Formulary Medication (Morphine Concentrate) 0.5 ml PO Q3H PRN PRN Reason: Moderate Pain (Scale Score 5-6) Non-Formulary Medication (Phenytoin Sodium Extended) 1 cap PO BID [facility] Non-Formulary Medication (Simvastatin) 1 tab PO BEDTIME [facility] Ondansetron HCl (Ondansetron Hcl 4 Mg/2 Ml Vial) 4 mg IVPUSH Q8H PRN PRN Reason: Nausea and Vomiting Pantoprazole Sodium (Pantoprazole Sodium 40 Mg/10 Ml Vial) 40 mg IVPUSH BID@0630,1630 [facility] Pharmacy Consult (Consult Rx Perform Med Rec) 1 each MISCELLANE ONCE PRN PRN Reason: Consult order Potassium Chloride (Potassium Chloride Er 10 Meq Capsule.Er) 10 meq PO DAILY [facility] Sodium Chloride (0.9 % Sodium Chloride Flush 3 Ml Syringe) 3 ml IVFLUSH QSHIFT [facility] Last Admin: 09/03/21 00:08 Dose: Not Given Documented by: Home Medications Medication Instructions Recorded Confirmed Last Taken Type albuterol sulfate 2.5 mg INHALATION QID PRN 04/18/20 09/02/21 Unknown History gabapentin 300 mg capsule 1 cap PO TID 04/18/20 09/02/21 09/02/21 History omeprazole 20 mg capsule,delayed 20 mg PO BID@0630,1630 04/18/20 09/02/21 Unknown History release simvastatin 20 mg tablet 1 tab PO BEDTIME 04/18/20 09/02/21 09/01/21 History albuterol sulfate 90 mcg/actuation 2 puff PO QID PRN 07/21/21 09/02/21 Unknown History aerosol inhaler apixaban 5 mg tablet (Eliquis) 5 mg PO BID 07/21/21 09/02/2122 History baclofen 5 mg tablet 10 mg PO TID 07/21/21 09/02/21 09/02/21 History meclizine 12.5 mg tablet 12.5 mg PO TID PRN 07/21/21 09/02/21 Unknown History midodrine 5 mg tablet 10 mg PO TID 07/21/21 09/02/21 09/02/21 History ondansetron HCl 4 mg tablet 1 tab PO TID PRN 07/21/21 09/02/21 Unknown History potassium chloride 10 mEq 1 tab PO DAILY 07/21/21 09/02/21 09/02/21 History tablet,extended release morphine concentrate 100 mg/5 mL 0.5 ml PO Q3H PRN 09/02/21 09/02/21 09/02/21 History (20 mg/mL) oral solution phenytoin sodium extended 200 mg 1 cap PO BID 09/02/21 09/02/21 09/02/21 History capsule Physical Exam Vital Signs: Vital Signs: Last Vital Signs Temp 98.3 F 09/02/21 22:05 Pulse 77 09/03/21 01:26 Resp 13 09/03/21 01:26 BP 123/65 09/03/21 01:26 Pulse Ox 96 09/03/21 01:26 BMI result Body Mass Index 21.2 Results Labs CBC & Chem 7: 09/03/21 06:44 09/02/21 15:46 Labs: Short CBC 09/02/21 09/03/21 Range/Units 15:46 06:44 WBC 10.4 6.1 (4.8-10.8) X10*3/uL Hgb 12.7 10.8 L (12.0-16.0) g/dl Hct 36.4 L 31.8 L (37.0-47.0) % Plt Count 351 D 276 (160-400) X10*3/uL BMP 09/02/21 15:46 Sodium 133 L Potassium 4.1 Chloride 99 Carbon Dioxide 28 BUN 9 Creatinine 0.59 Calcium 8.5 Liver Function 09/02/21 Range/Units 15:46 Total Bilirubin 0.4 (0.0-1.0) mg/dL AST 13 (5-31) U/L ALT 8 (0-31) U/L Alkaline Phosphatase 211 H (39-117) U/L Albumin 3.7 (3.5-5.0) g/dL Urine 09/02/21 Range/Units 15:58 Urine Color YELLOW Urine Appearance CLEAR Urine pH 5.5 (5.0-8.0) Ur Specific Kevin 1.010 (1.005-1.025) Urine Protein NEG (NEG-TRACE) MG/DL Urine Glucose (UA) NEG (NEG) MG/DL
[2021-09-03 07:18] VITALS: BP 120/63; PULSE 71; RESP 13; O2SAT 97
[2021-09-03 07:19] LABS: Anion Gap 10 (12-20); Blood Urea Nitrogen 7 mg/dL (9-16); Calcium 8.2 mg/dL (8.4-10.2); Carbon Dioxide 26 mmol/L (22-29); Chloride 104 mmol/L (96-108); Creatinine Clr Calc Pharmacy 76.4; Estimated Glomerular Filt Rate > 60; Glucose Random 83 mg/dL (60-115); Potassium 4.1 mmol/L (3.3-5.1); Sodium 136 mmol/L (135-145)
[2021-09-03] MEDS: methylPREDNISolone Sod Succ 40 MG/ML VIAL IVPUSH ×2 (07:27→19:41)
[2021-09-03] MEDS: Pantoprazole Sodium 40 MG/10 ML VIAL IVPUSH ×2 (07:39→18:14)
[2021-09-03] MEDS: 0.9 % Sodium Chloride Flush 3 ML SYRINGE IVFLUSH ×3 (09:19→22:12)
[2021-09-03] MEDS: Phenytoin Sodium Extended 100 MG CAPSULE 200 MG PO ×2 (10:20→22:11)
[2021-09-03] MEDS: Baclofen 10 MG TABLET PO ×2 (10:20→22:12)
[2021-09-03] MEDS: Magnesium Oxide 400 MG TABLET PO ×2 (10:20→22:12)
[2021-09-03] MEDS: Midodrine HCl 10 MG TABLET PO ×2 (10:20→22:11)
[2021-09-03] MEDS: Gabapentin 300 MG CAPSULE PO ×2 (10:21→22:12)
--- NOTE | 2021-09-03 11:56 | MHC.CM.PN ---
CM MET WITH PT AND HER NIECE WHO WAS AT BEDSIDE PT LIVES ALONE AND HAS HAD [facility] FOR PT/OT/RN FILM TESTS CHECKER PT HAS A CANE, WALKER, ROLLATOR WHEEL CHAIR AND HOSPITAL BED AT HOME PT REPORTS SHE HAS A HCP NAMING HER SISTER, MARY ([phone]) HER AGENT-COPY REQUESTED PT CONFIRMS HER PCP IS PREETHI PATEL IMM DELIVERED, COPY SENT TO [facility] PT WAS INFORMED [facility] HAS INDICATED THEY ARE UNWILLING TO RESUME SERVICES UNLESS THE PT GOES TO STR. PT AND NIECE REPORT THEY DO NOT FEEL STR WOULD BE HELPFUL. PT REPORTS SHE HAS BEEN TO STR IN THE PAST AND IT MADE HER MORE DEBILITATED, NIECE INDICATES AGREEMENT. PT WOULD LIKE REFERRALS TO OTHER VN AGENCIES THEY ALSO REPORT THEY HAVE AN APPT WITH [facility] TOMORROW TO GET HOME SERVICES. THEY DO NOT WANT TO MISS THE APPT WHICH IS AT 1000 HOURS. THEY ARE AWARE CM DOES NOT KNOW WHEN THE RECOMMENDED PROCEDURES WILL BE COMPLETED
[2021-09-03 12:00] VITALS: BP 142/79; PULSE 78; RESP 15; TEMP 36.8; O2SAT 92
[2021-09-03] MEDS: Nicotine 21 MG PATCH.TD24 TRANSDERMA (12:05)
--- NOTE | 2021-09-03 12:15 | PC.NURSE ---
pt daughter unsure if leaving belongings. they are in her possesion at this time.
--- NOTE | 2021-09-03 12:58 | MHC.SHP ---
Pre-Procedural Eval Section A Date of Service: 09/03/21 The patient is an INPATIENT: Yes Changes since office visit: No Cold of Flu in the past 2 weeks, No New Medical Problems, No Changes in Medication and No Patient answered all questions The History & Physical has been completed within 30 days and I have reviewed it.: Yes Section B Chief Complaint: GI bleed,PNA,gastic malignancy Allergies: Allergies Allergy/AdvReac Type Severity Reaction Status Date / Time varenicline Allergy Unknown muscle Verified 08/06/21 13:38 cramps grass Allergy Unknown allergic Uncoded 08/06/21 13:38 rhinitis Plan I have reviewed the history and physical and performed a pertinent physical examination on my patient. No changes have occurred unless specified.
--- NOTE | 2021-09-03 13:03 | PM.EVENT ---
Event Note Date of Service: 09/03/21 Event Note: GI consult dictated 4 days of black stools on Eliquis, last dose yest am per pt. CT shows probable gastric cancer. EGD planned for diagnosis. Pt understands risks and benefits and agrees to proceed.
--- NOTE | 2021-09-03 14:50 | P.PNIM_ITS ---
Subjective Subjective Date of Service: 09/03/21 Interval History: No acute issues overnight. Hemoglobin has remained stable Review of Systems Denies chest pain Denies shortness of breath Denies nausea vomiting diarrhea Denies fever chills Physical Exam Vital Signs: Vital Signs: Last Vital Signs Temp 98.2 F 09/03/21 12:00 Pulse 78 09/03/21 12:00 Resp 15 09/03/21 12:00 BP 142/79 H 09/03/21 12:00 Pulse Ox 92 09/03/21 12:00 BMI result Body Mass Index 21.2 Const: Other: Awake alert oriented x3 no acute distress Resp: Other: Diminished at bases with scant expiratory wheezes throughout Cardio: Other: Soft nontender nondistended with normoactive bowel sounds. There is no rebound tenderness Extrem: Other: No edema bilaterally Objective Data Active Medications Acetaminophen (Acetaminophen 325 Mg Tablet) 650 mg PO Q6H PRN PRN Reason: Pain, Mild (Pain Scale 1-3) Albuterol Sulfate (Albuterol Sulfate (0.083%) 2.5 Mg/3 Ml Vial.Neb) 2.5 mg INHALE QID PRN PRN Reason: Shortness Of Breath Or Wheezing Albuterol/Ipratropium (Albuterol/Iprat 2.5/0.5mg 3 Ml Ampul.Neb) 3 ml INHALE RQ4H PRN PRN Reason: Shortness of Breath/Wheezing Atorvastatin Calcium (Atorvastatin Calcium 10 Mg Tablet) 10 mg PO BEDTIME [facility] Baclofen (Baclofen 10 Mg Tablet) 10 mg PO TID [facility] Last Admin: 09/03/21 10:20 Dose: 10 mg Documented by: ANDRIA Gabapentin (Gabapentin 300 Mg Capsule) 300 mg PO TID [facility] Last Admin: 09/03/21 10:21 Dose: 300 mg Documented by: ANDRIA Ceftriaxone Sodium 1 gm/ (Sodium Chloride) 50 mls @ 100 mls/hr IV Q24H [facility] Last Infusion: 09/03/21 00:08 Dose: 0 mls/hr Documented by: LADAN Azithromycin 500 mg/ Sodium (Chloride) 250 mls @ 125 mls/hr IV Q24H [facility] Last Infusion: 09/03/21 00:08 Dose: 0 mls/hr Documented by: LADAN Lorazepam (Lorazepam 0.5 Mg Tablet) 0.5 mg PO BID PRN PRN Reason: Anxiety Magnesium Oxide (Magnesium Oxide 400 Mg Tablet) 400 mg PO TID [facility] Last Admin: 09/03/21 10:20 Dose: 400 mg Documented by: ANDRIA Meclizine HCl (Meclizine Hcl 12.5 Mg Tablet) 12.5 mg PO TID PRN PRN Reason: Dizziness Methylprednisolone Sodium Succinate (Methylprednisolone Sod Succ 40 Mg/Ml Vial) 40 mg IVPUSH Q12H [facility] Last Admin: 09/03/21 07:27 Dose: 40 mg Documented by: ANDRIA Metronidazole (Metronidazole 500 Mg Tablet) 500 mg PO Q8H [facility] Last Admin: 09/03/21 06:09 Dose: 500 mg Documented by: LADAN Midodrine (Midodrine Hcl 10 Mg Tablet) 10 mg PO TID [facility] Last Admin: 09/03/21 10:20 Dose: 10 mg Documented by: ANDRIA Morphine Sulfate (Morphine Sulfate 4 Mg/Ml Cartridge) 4 mg IVPUSH Q4H PRN; Protocol PRN Reason: Pain, Severe (Pain Scale 7-10) Last Admin: 09/03/21 06:08 Dose: 4 mg Documented by: LADAN Nicotine (Nicotine 21 Mg Patch.Td24) 21 mg TRANSDERMA DAILY [facility] Last Admin: 09/03/21 12:05 Dose: 21 mg Documented by: ANDRIA Pt Own (Morphine Concentrate 100 Mg/5 Ml (20 Mg/Ml) Solution) 0.5 each PO Q3H PRN PRN Reason: Moderate Pain (Scale Score 5-6) Ondansetron HCl (Ondansetron Hcl 4 Mg/2 Ml Vial) 4 mg IVPUSH Q8H PRN PRN Reason: Nausea and Vomiting Pantoprazole Sodium (Pantoprazole Sodium 40 Mg/10 Ml Vial) 40 mg IVPUSH BID@0630,1630 [facility] Last Admin: 09/03/21 07:39 Dose: 40 mg Documented by: ANDRIA Pharmacy Consult (Consult Rx Perform Med Rec) 1 each MISCELLANE ONCE PRN PRN Reason: Consult order Phenytoin Sodium (Phenytoin Sodium Extended 100 Mg Capsule) 200 mg PO BID [facility] Last Admin: 09/03/21 10:20 Dose: 200 mg Documented by: ANDRIA Potassium Chloride (Potassium Chloride Er 10 Meq Capsule.Er) 10 meq PO DAILY [facility] Last Admin: 09/03/21 10:20 Dose: 10 meq Documented by: ANDRIA Sodium Chloride (0.9 % Sodium Chloride Flush 3 Ml Syringe) 3 ml IVFLUSH QSHIFT [facility] Last Admin: 09/03/21 09:19 Dose: 3 ml Documented by: ANDRIA Labs CBC & Chem 7: 09/03/21 06:44 09/03/21 06:44 Labs: Laboratory Results - last 24 hr 09/02/21 09/02/21 09/02/21 15:20 15:46 15:46 MCV 99.5 H MCH 34.7 H MCHC 34.9 RDW 17.4 H Plt Count 351 D MPV 8.3 L Immature Gran % (Auto) 0.4 Neut % (Auto) 72.8 Lymph % (Auto) 15.9 L [place] % (Auto) 8.5 Eos % (Auto) 1.9 Baso % (Auto) 0.5 Lymph # (Auto) 1.7 [place] # (Auto) 0.9 Eos # (Auto) 0.2 Baso # (Auto) 0.1 Abs Immat Gran (auto) 0.04 H Absolute Neuts (auto) 7.6 Absolute Nucleated RBC 0.000 Nucleated RBC % (auto) 0.0 Anion Gap 10 L Estim Creat Clear Calc 71.2 Estimated GFR > 60 Random Glucose 93 Lactic Acid Calcium 8.5 Magnesium 2.3 Total Bilirubin 0.4 AST 13 ALT 8 Alkaline Phosphatase 211 H Troponin I High Sens Total Protein 5.9 L Albumin 3.7 Urine Color Urine Appearance Urine pH Ur Specific [place] Urine Protein Urine Glucose (UA) Urine Ketones Urine Blood Urine Nitrite Ur Leukocyte Esterase Stool Occult Blood POSITIVE COVID-19 (AN) COVID-19 Clin Com Blood Type Antibody Screen 09/02/21 09/02/21 09/02/21 15:46 15:46 15:46 MCV MCH MCHC RDW Plt Count MPV Immature Gran % (Auto) Neut % (Auto) Lymph % (Auto) [place] % (Auto) Eos % (Auto) Baso % (Auto) Lymph # (Auto) [place] # (Auto) Eos # (Auto) Baso # (Auto) Abs Immat Gran (auto) Absolute Neuts (auto) Absolute Nucleated RBC Nucleated RBC % (auto) Anion Gap Estim Creat Clear Calc Estimated GFR Random Glucose Lactic Acid 1.0 Calcium Magnesium Total Bilirubin AST ALT Alkaline Phosphatase Troponin I High Sens < 3.5 Total Protein Albumin Urine Color Urine Appearance Urine pH Ur Specific [place] Urine Protein Urine Glucose (UA) Urine Ketones Urine Blood Urine Nitrite Ur Leukocyte Esterase Stool Occult Blood COVID-19 (AN) COVID-19 Clin Com Blood Type O Positive Antibody Screen NEGATIVE 09/02/21 09/02/21 09/03/21 15:58 20:19 06:44 MCV 101.6 H MCH 34.5 H MCHC 34.0 RDW 17.9 H Plt Count 276 MPV 8.1 L Immature Gran % (Auto) 0.3 Neut % (Auto) 58.2 Lymph % (Auto) 25.8 [place] % (Auto) 11.8 H Eos % (Auto) 3.1 Baso % (Auto) 0.8 Lymph # (Auto) 1.6 [place] # (Auto) 0.7 Eos # (Auto) 0.2 Baso # (Auto) 0.1 Abs Immat Gran (auto) 0.02 Absolute Neuts (auto) 3.5 Absolute Nucleated RBC 0.000 Nucleated RBC % (auto) 0.0 Anion Gap Estim Creat Clear Calc Estimated GFR Random Glucose Lactic Acid Calcium Magnesium Total Bilirubin AST ALT Alkaline Phosphatase Troponin I High Sens Total Protein Albumin Urine Color YELLOW Urine Appearance CLEAR Urine pH 5.5 Ur Specific [place] 1.010 Urine Protein NEG Urine Glucose (UA) NEG Urine Ketones NEG Urine Blood NEG Urine Nitrite NEG Ur Leukocyte Esterase NEG Stool Occult Blood COVID-19 (AN) Negative COVID-19 Clin Com See Note Blood Type Antibody Screen 09/03/21 06:44 MCV MCH MCHC RDW Plt Count MPV Immature Gran % (Auto) Neut % (Auto) Lymph % (Auto) [place] % (Auto) Eos % (Auto) Baso % (Auto) Lymph # (Auto) [place] # (Auto) Eos # (Auto) Baso # (Auto) Abs Immat Gran (auto) Absolute Neuts (auto) Absolute Nucleated RBC Nucleated RBC % (auto) Anion Gap 10 L Estim Creat Clear Calc 76.4 Estimated GFR > 60 Random Glucose 83 Lactic Acid Calcium 8.2 L Magnesium Total Bilirubin AST ALT Alkaline Phosphatase Troponin I High Sens Total Protein Albumin Urine Color Urine Appearance Urine pH Ur Specific [place] Urine Protein Urine Glucose (UA) Urine Ketones Urine Blood Urine Nitrite Ur Leukocyte Esterase Stool Occult Blood COVID-19 (AN) COVID-19 Clin Com Blood Type Antibody Screen Assessment and Plan (1) Acute GI bleeding: Status: Acute (2) Gastric mass: Status: Acute (3) Pneumonia: Status: Acute (4) COPD with acute exacerbation: Status: Acute (5) Proctocolitis: Status: Acute Plan 71year-old female with past medical history of lung cancer with metastasis to the brain currently undergoing radiation therapy who presents to the hospital with complaints of bloody diarrhea. Hemoglobin stable overnight 1.Acute GI bleed - seen by GI EGD today -follow serial CBCs 2.Gastric antrum mass - concerning for malignancy - EGD currently 3.Pneumonia /COPD exacerbation - continue azithromycin and ceftriaxone as ordered -pulse dose steroids -DuoNebs p.r.n. -supplemental O2 to keep sats > 90 % 4.Proctocoliltis - with diarrhea - at metronidazole to antibiotic regimen -stool for C diff 5.Lung cancer with Mets to the brain - evidence of new nodule that according to the patient was not present previously - patient's oncologist is outpatient - recommend follow-up discharge DVT prophylaxis: SCDs Full code Patient will likely require 2 midnights going forward for treatment and definition of GI bleeding Quality Stroke Does the patient have a stroke diagnosis?: No VTE Prior VTE?: Yes VTE Risk Level:: Medical - moderate - high VTE Device Contraindication: N/A - Device Ordered VTE Drug Contraindication: Treatment Not Indicated
[2021-09-03 15:14] VITALS: BP 147/67; PULSE 78; RESP 18; TEMP 36.3; O2SAT 97
--- NOTE | 2021-09-03 16:15 | PM.EVENT ---
Event Note Date of Service: 09/03/21 Event Note: GI Patient seen by anesthesia earlier today and was found to have had pudding at 10AM. Therefore, procedure postponed until 6PM at the earliest. Since procedure is not emergent it will be done on Friday, 09/04, by Dr. Bray. Thanks
--- NOTE | 2021-09-03 18:21 | PC.NURSE ---
Patient has been NPO since yesterday 09/02 for endoscopy procedure that was scheduled for today but didn't get to go. I then called PACU who said they they could not do today but has been rescheduled to tomorrow morning, and since the patient was hungry and needed something to eat, they gave an ok that the patient can take dinner and remain npo after midnight tonight. They rescheduled the procedure to tomorrow 09/04 morning.
[2021-09-03 19:05] VITALS: BP 146/81; PULSE 80; RESP 18; TEMP 36.6; O2SAT 93
[2021-09-03] MEDS: cefTRIAXone sodium 1 GM in 0.9 % Sodium Chloride 50 ML IV (19:41)
[2021-09-03] MEDS: Azithromycin 500 MG in 0.9 % Sodium Chloride 250 ML 125 MG IV (20:13)
[2021-09-03] MEDS: Atorvastatin Calcium 10 MG TABLET PO (22:12)
[2021-09-03 23:29] VITALS: BP 134/72; PULSE 84; RESP 20; TEMP 36.4; O2SAT 92
[2021-09-04] VITALS (11 sets, daily range): BP systolic 96–155; BP diastolic 51–82; PULSE 77–94; RESP 16–20; TEMP 36.1–37.3; O2SAT 94–99; BMI 21.2
[2021-09-04] MEDS: metroNIDAZOLE 500 MG TABLET PO ×2 (05:24→19:54)
[2021-09-04] MEDS: Pantoprazole Sodium 40 MG/10 ML VIAL IVPUSH (05:25)
[2021-09-04 06:02] LABS: MANUAL DIFF FLAG NO
[2021-09-04 06:06] LABS: Basophils Percent Auto 0.5 % (0-2); Eosinophils Absolute Auto 0.1 X10*3/uL (0.0-0.4); Hematocrit 35.1 % (37.0-47.0); Hemoglobin 11.8 g/dl (12.0-16.0); Imm Gran Abs Auto 0.02 X10*3/uL (0.00-0.03); Imm Gran Pct Auto 0.3 % (0.0-0.4); Lymphocytes Absolute Auto 1.7 X10*3/uL (1.2-4.9); Lymphocytes Percent Auto 20.9 % (20-40); Mean Corpuscular HGB Conc 33.6 g/dl (31.0-35.0); Mean Corpuscular Hemoglobin 34.3 pg (27.0-33.0); Mean Platelet Volume 8.4 fL (9.4-12.3); Monocytes Absolute Auto 0.5 X10*3/uL (0.1-1.2); Monocytes Percent Auto 5.8 % (2-11); Neutrophils Absolute Auto 5.7 x10*3/uL (2.0-8.3); Neutrophils Percent Auto 71.5 % (45-73); Platelet Count 304 X10*3/uL (160-400); Red Blood Count 3.44 X10*6/uL (4.20-5.50); Red Cell Distribution Width 17.7 % (11.0-16.0)
[2021-09-04] MEDS: methylPREDNISolone Sod Succ 40 MG/ML VIAL IVPUSH ×2 (06:30→19:53)
[2021-09-04 06:31] LABS: Alanine Aminotransferase 7 U/L (0-31); Albumin Level 3.4 g/dL (3.5-5.0); Alkaline Phosphatase 180 U/L (39-117); Anion Gap 14 (12-20); Aspartate Amino Transferase 12 U/L (5-31); Bilirubin Total 0.3 mg/dL (0.0-1.0); Blood Urea Nitrogen 7 mg/dL (9-16); Calcium 9.1 mg/dL (8.4-10.2); Carbon Dioxide 28 mmol/L (22-29); Chloride 99 mmol/L (96-108); Creatinine Clr Calc Pharmacy 73.8; Estimated Glomerular Filt Rate > 60; Glucose Fasting 88 mg/dL (60-99); Potassium 4.2 mmol/L (3.3-5.1); Sodium 137 mmol/L (135-145); Total Protein 5.4 g/dL (6.5-8.0)
[2021-09-04] MEDS: 0.9 % Sodium Chloride Flush 3 ML SYRINGE IVFLUSH ×3 (07:40→23:41)
[2021-09-04] MEDS: Phenytoin Sodium Extended 100 MG CAPSULE 200 MG PO ×2 (10:05→19:54)
[2021-09-04] MEDS: Magnesium Oxide 400 MG TABLET PO ×3 (10:06→23:03)
[2021-09-04] MEDS: Baclofen 10 MG TABLET PO ×3 (10:07→23:03)
[2021-09-04] MEDS: Nicotine 21 MG PATCH.TD24 TRANSDERMA (10:08)
[2021-09-04] MEDS: Gabapentin 300 MG CAPSULE PO ×3 (10:08→23:03)
[2021-09-04] MEDS: Midodrine HCl 10 MG TABLET PO ×3 (10:08→23:03)
--- NOTE | 2021-09-04 12:46 | MHC.CM.PN ---
PER CONVERSATION WITH PATIENT, FACE SHEET FAXED TO [facility] [place] [employer] AT [phone] PATIENT LOOKING FOR ASSISTANCE RESECURING HER [place] (RECENTLY LOST BENEFITS)
[2021-09-04] MEDS: Albuterol/Iprat 2.5/0.5MG 3 ML AMPUL.NEB INHALE (14:41)
--- NOTE | 2021-09-04 14:53 | P.PNIM_ITS ---
Subjective Subjective Date of Service: 09/04/21 Interval History: No acute issues overnight. Hemoglobin has remained stable Review of Systems Denies chest pain Denies shortness of breath Denies nausea vomiting diarrhea Denies fever chills Physical Exam Vital Signs: Vital Signs: Last Vital Signs Temp 98.8 F 09/04/21 14:05 Pulse 84 09/04/21 14:41 Resp 20 09/04/21 14:41 BP 136/80 09/04/21 14:05 Pulse Ox 94 09/04/21 14:05 BMI result Body Mass Index 21.2 Const: Other: Awake alert oriented x3 no acute distress Resp: Other: Diminished at bases with scant expiratory wheezes throughout Cardio: Other: Soft nontender nondistended with normoactive bowel sounds. There is no rebound tenderness Extrem: Other: No edema bilaterally Objective Data Active Medications Acetaminophen (Acetaminophen 325 Mg Tablet) 650 mg PO Q6H PRN PRN Reason: Pain, Mild (Pain Scale 1-3) Albuterol Sulfate (Albuterol Sulfate (0.083%) 2.5 Mg/3 Ml Vial.Neb) 2.5 mg INHALE QID PRN PRN Reason: Shortness Of Breath Or Wheezing Albuterol/Ipratropium (Albuterol/Iprat 2.5/0.5mg 3 Ml Ampul.Neb) 3 ml INHALE RQ4H PRN PRN Reason: Shortness of Breath/Wheezing Last Admin: 09/04/21 14:41 Dose: 3 ml Documented by: LISA Atorvastatin Calcium (Atorvastatin Calcium 10 Mg Tablet) 10 mg PO BEDTIME [facility] Last Admin: 09/03/21 22:12 Dose: 10 mg Documented by: MUNIRA Baclofen (Baclofen 10 Mg Tablet) 10 mg PO TID [facility] Last Admin: 09/04/21 10:07 Dose: 10 mg Documented by: SHANNAN Gabapentin (Gabapentin 300 Mg Capsule) 300 mg PO TID [facility] Last Admin: 09/04/21 10:08 Dose: 300 mg Documented by: SHANNAN Ceftriaxone Sodium 1 gm/ (Sodium Chloride) 50 mls @ 100 mls/hr IV Q24H [facility] Last Infusion: 09/03/21 20:21 Dose: 100 mls/hr Documented by: MUNIRA Azithromycin 500 mg/ Sodium (Chloride) 250 mls @ 125 mls/hr IV Q24H [facility] Last Infusion: 09/03/21 22:29 Dose: 125 mls/hr Documented by: MUNIRA Lorazepam (Lorazepam 0.5 Mg Tablet) 0.5 mg PO BID PRN PRN Reason: Anxiety Magnesium Oxide (Magnesium Oxide 400 Mg Tablet) 400 mg PO TID [facility] Last Admin: 09/04/21 10:06 Dose: 400 mg Documented by: SHANNAN Meclizine HCl (Meclizine Hcl 12.5 Mg Tablet) 12.5 mg PO TID PRN PRN Reason: Dizziness Methylprednisolone Sodium Succinate (Methylprednisolone Sod Succ 40 Mg/Ml Vial) 40 mg IVPUSH Q12H [facility] Last Admin: 09/04/21 06:30 Dose: 40 mg Documented by: MUNIRA Metronidazole (Metronidazole 500 Mg Tablet) 500 mg PO Q8H [facility] Last Admin: 09/04/21 14:17 Dose: Not Given Documented by: SHANNAN Non-Admin Reason: Off Unit: Surgery Midodrine (Midodrine Hcl 10 Mg Tablet) 10 mg PO TID [facility] Last Admin: 09/04/21 10:08 Dose: 10 mg Documented by: SHANNAN Morphine Sulfate (Morphine Sulfate 4 Mg/Ml Cartridge) 4 mg IVPUSH Q4H PRN; Protocol PRN Reason: Pain, Severe (Pain Scale 7-10) Last Admin: 09/03/21 23:57 Dose: 4 mg Documented by: MUNIRA Nicotine (Nicotine 21 Mg Patch.Td24) 21 mg TRANSDERMA DAILY [facility] Last Admin: 09/04/21 10:08 Dose: 21 mg Documented by: SHANNAN Pt Own (Morphine Concentrate 100 Mg/5 Ml (20 Mg/Ml) Solution) 0.5 each PO Q3H PRN PRN Reason: Moderate Pain (Scale Score 5-6) Ondansetron HCl (Ondansetron Hcl 4 Mg/2 Ml Vial) 4 mg IVPUSH Q8H PRN PRN Reason: Nausea and Vomiting Pantoprazole Sodium (Pantoprazole Sodium 40 Mg/10 Ml Vial) 40 mg IVPUSH BID@0630,1630 [facility] Last Admin: 09/04/21 05:25 Dose: 40 mg Documented by: MUNIRA Pharmacy Consult (Consult Rx Perform Med Rec) 1 each MISCELLANE ONCE PRN PRN Reason: Consult order Phenytoin Sodium (Phenytoin Sodium Extended 100 Mg Capsule) 200 mg PO BID [facility] Last Admin: 09/04/21 10:05 Dose: 200 mg Documented by: SHANNAN Potassium Chloride (Potassium Chloride Er 10 Meq Capsule.Er) 10 meq PO DAILY [facility] Last Admin: 09/04/21 10:04 Dose: 10 meq Documented by: SHANNAN Sodium Chloride (0.9 % Sodium Chloride Flush 3 Ml Syringe) 3 ml IVFLUSH QSHIFT [facility] Last Admin: 09/04/21 07:40 Dose: 3 ml Documented by: SHANNAN Labs CBC & Chem 7: 09/04/21 05:39 09/04/21 05:39 Labs: Laboratory Results - last 24 hr 09/04/21 09/04/21 05:39 05:39 MCV 102.0 H MCH 34.3 H MCHC 33.6 RDW 17.7 H Plt Count 304 MPV 8.4 L Immature Gran % (Auto) 0.3 Neut % (Auto) 71.5 Lymph % (Auto) 20.9 [place] % (Auto) 5.8 Eos % (Auto) 1.0 Baso % (Auto) 0.5 Lymph # (Auto) 1.7 [place] # (Auto) 0.5 Eos # (Auto) 0.1 Baso # (Auto) 0.0 Abs Immat Gran (auto) 0.02 Absolute Neuts (auto) 5.7 Absolute Nucleated RBC 0.000 Nucleated RBC % (auto) 0.0 Anion Gap 14 Estim Creat Clear Calc 73.8 Estimated GFR > 60 Fasting Glucose 88 Calcium 9.1 D Total Bilirubin 0.3 AST 12 ALT 7 Alkaline Phosphatase 180 H Total Protein 5.4 L Albumin 3.4 L Assessment and Plan (1) Acute GI bleeding: Status: Acute (2) Primary adenocarcinoma of lower lobe of right lung: Status: Acute (3) Gastric mass: Status: Acute (4) Pneumonia: Status: Acute (5) Proctocolitis: Status: Acute Plan 71year-old female with past medical history of lung cancer with metastasis to the brain currently undergoing radiation therapy who presents to the hospital with complaints of bloody diarrhea. Hemoglobin stable overnight 1.Acute GI bleed - EGD today -Hgb stable -follow serial CBCs 2.Gastric antrum mass - concerning for malignancy - EGD today 3.Pneumonia /COPD exacerbation - continue azithromycin(2) ceftriaxone (2) as ordered -pulse dose steroids -DuoNebs p.r.n. -supplemental O2 to keep sats > 90 % 4.Proctocoliltis - with diarrhea -at metronidazole to antibiotic regimen -stool for C diff negative 5.Lung cancer with Mets to the brain - evidence of new nodule that according to the patient was not present previously - patient's oncologist as outpatient - recommend follow-up discharge DVT prophylaxis: SCDs Full code Patient will likely require 2 midnights going forward for treatment and definiti on of GI bleeding Quality Stroke Does the patient have a stroke diagnosis?: No VTE Prior VTE?: Yes VTE Risk Level:: Medical - moderate - high VTE Device Contraindication: N/A - Device Ordered VTE Drug Contraindication: Treatment Not Indicated
--- NOTE | 2021-09-04 15:26 | P.CONAN_ITS ---
[facility] Active Problems Active Problems: All Active Problems (Updated 09/03/21 @ 06:37 by Sona Petit MD) Proctocolitis (Acute) COPD with acute exacerbation (Acute) Pneumonia (Acute) Gastric mass (Acute) Acute GI bleeding (Acute) Lung cancer metastatic to brain (Acute) Periprosthetic fracture around internal prosthetic hip joint (Acute) Atherosclerotic cardiovascular disease (Acute) Preoperative cardiovascular examination (Acute) DVT (deep venous thrombosis) (Acute) Closed fracture of proximal end of femur (Acute) Hyperlipidemia (Acute) O2 dependent (Acute) Personal history of nicotine dependence (Acute) Primary adenocarcinoma of lower lobe of right lung (Acute ~2020) Pulmonary nodule (Acute) Pituitary abnormality (Acute) COPD (chronic obstructive pulmonary disease) (Acute) Hypertension (Acute) Past Medical History Medical History (Updated 09/03/21 @ 06:37 by Sona Petit MD) COPD (chronic obstructive pulmonary disease) Hyperlipidemia Hypertension O2 dependent Personal history of nicotine dependence Primary adenocarcinoma of lower lobe of right lung (~2020) Seizures Family History Family History Father No problems noted. Other No cardiac disease Family history of problems with anesthesia: No Surgical History Surgical History History of bronchoscopy (~2018) History of colonoscopy (~2018) History of lung biopsy (~08/2020) Status post total hip replacement, left History of Problems with Anesthesia: No Social History Social History Household Members: Family Housing: House Do you presently have visiting nurse or other home services: Yes Alcohol intake: current Alcohol intake frequency: 0-2 drinks per day Patient Tobacco Use Status: Current everyday Tobacco user Tobacco use type: Cigarette Cigarette Packs Per Day: 1.5 Cigarettes Per Day: 30.0 Years Smoked: 55 service: No Current occupational status: retired Meds Allergies Allergy/AdvReac Type Severity Reaction Status Date / Time varenicline Allergy Unknown muscle Verified 08/06/21 13:38 cramps grass Allergy Unknown allergic Uncoded 08/06/21 13:38 rhinitis Active Medications: Current Medications Acetaminophen (Acetaminophen 325 Mg Tablet) 650 mg PO Q6H PRN PRN Reason: Pain, Mild (Pain Scale 1-3) Albuterol Sulfate (Albuterol Sulfate (0.083%) 2.5 Mg/3 Ml Vial.Neb) 2.5 mg INHALE QID PRN PRN Reason: Shortness Of Breath Or Wheezing Albuterol/Ipratropium (Albuterol/Iprat 2.5/0.5mg 3 Ml Ampul.Neb) 3 ml INHALE RQ4H PRN PRN Reason: Shortness of Breath/Wheezing Last Admin: 09/04/21 14:41 Dose: 3 ml Documented by: Atorvastatin Calcium (Atorvastatin Calcium 10 Mg Tablet) 10 mg PO BEDTIME [facility] Last Admin: 09/03/21 22:12 Dose: 10 mg Documented by: Baclofen (Baclofen 10 Mg Tablet) 10 mg PO TID [facility] Last Admin: 09/04/21 10:07 Dose: 10 mg Documented by: Gabapentin (Gabapentin 300 Mg Capsule) 300 mg PO TID [facility] Last Admin: 09/04/21 10:08 Dose: 300 mg Documented by: Ceftriaxone Sodium 1 gm/ (Sodium Chloride) 50 mls @ 100 mls/hr IV Q24H [facility] Last Infusion: 09/03/21 20:21 Dose: Infused Documented by: Azithromycin 500 mg/ Sodium (Chloride) 250 mls @ 125 mls/hr IV Q24H [facility] Last Infusion: 09/03/21 22:29 Dose: Infused Documented by: Lorazepam (Lorazepam 0.5 Mg Tablet) 0.5 mg PO BID PRN PRN Reason: Anxiety Magnesium Oxide (Magnesium Oxide 400 Mg Tablet) 400 mg PO TID [facility] Last Admin: 09/04/21 10:06 Dose: 400 mg Documented by: Meclizine HCl (Meclizine Hcl 12.5 Mg Tablet) 12.5 mg PO TID PRN PRN Reason: Dizziness Methylprednisolone Sodium Succinate (Methylprednisolone Sod Succ 40 Mg/Ml Vial) 40 mg IVPUSH Q12H [facility] Last Admin: 09/04/21 06:30 Dose: 40 mg Documented by: Metronidazole (Metronidazole 500 Mg Tablet) 500 mg PO Q8H [facility] Last Admin: 09/04/21 14:17 Dose: Not Given Documented by: Midodrine (Midodrine Hcl 10 Mg Tablet) 10 mg PO TID [facility] Last Admin: 09/04/21 10:08 Dose: 10 mg Documented by: Morphine Sulfate (Morphine Sulfate 4 Mg/Ml Cartridge) 4 mg IVPUSH Q4H PRN; Protocol PRN Reason: Pain, Severe (Pain Scale 7-10) Last Admin: 09/03/21 23:57 Dose: 4 mg Documented by: Nicotine (Nicotine 21 Mg Patch.Td24) 21 mg TRANSDERMA DAILY [facility] Last Admin: 09/04/21 10:08 Dose: 21 mg Documented by: Pt Own (Morphine Concentrate 100 Mg/5 Ml (20 Mg/Ml) Solution) 0.5 each PO Q3H PRN PRN Reason: Moderate Pain (Scale Score 5-6) Ondansetron HCl (Ondansetron Hcl 4 Mg/2 Ml Vial) 4 mg IVPUSH Q8H PRN PRN Reason: Nausea and Vomiting Pantoprazole Sodium (Pantoprazole Sodium 40 Mg/10 Ml Vial) 40 mg IVPUSH BID@0630,1630 [facility] Last Admin: 09/04/21 05:25 Dose: 40 mg Documented by: Pharmacy Consult (Consult Rx Perform Med Rec) 1 each MISCELLANE ONCE PRN PRN Reason: Consult order Phenytoin Sodium (Phenytoin Sodium Extended 100 Mg Capsule) 200 mg PO BID [facility] Last Admin: 09/04/21 10:05 Dose: 200 mg Documented by: Potassium Chloride (Potassium Chloride Er 10 Meq Capsule.Er) 10 meq PO DAILY [facility] Last Admin: 09/04/21 10:04 Dose: 10 meq Documented by: Sodium Chloride (0.9 % Sodium Chloride Flush 3 Ml Syringe) 3 ml IVFLUSH QSHIFT [facility] Last Admin: 09/04/21 07:40 Dose: 3 ml Documented by: Home Medications Medication Instructions Recorded Confirmed Last Taken Type albuterol sulfate 2.5 mg INHALATION QID PRN 04/18/20 09/02/21 Unknown History gabapentin 300 mg capsule 1 cap PO TID 04/18/20 09/02/21 09/02/21 History omeprazole 20 mg capsule,delayed 20 mg PO BID@0630,1630 04/18/20 09/02/21 Unknown History release simvastatin 20 mg tablet 1 tab PO BEDTIME 04/18/20 09/02/21 09/01/21 History albuterol sulfate 90 mcg/actuation 2 puff PO QID PRN 07/21/21 09/02/21 Unknown History aerosol inhaler apixaban 5 mg tablet (Eliquis) 5 mg PO BID 07/21/21 09/02/21 09/02/21 History baclofen 5 mg tablet 10 mg PO TID 07/21/21 09/02/21 09/02/21 History meclizine 12.5 mg tablet 12.5 mg PO TID PRN 07/21/21 09/02/21 Unknown History midodrine 5 mg tablet 10 mg PO TID 07/21/21 09/02/21 09/02/21 History ondansetron HCl 4 mg tablet 1 tab PO TID PRN 07/21/21 09/02/21 Unknown History potassium chloride 10 mEq 1 tab PO DAILY 07/21/21 09/02/21 09/02/21 History tablet,extended release morphine concentrate 100 mg/5 mL 0.5 ml PO Q3H PRN 09/02/21 09/02/21 09/02/21 History (20 mg/mL) oral solution phenytoin sodium extended 200 mg 1 cap PO BID 09/02/21 09/02/21 09/02/21 History capsule Exam Exam Date and Time: September 04, 2021 1526 Height,Weight and Vital Signs: Height 5 ft 3 in Weight 54.431 kg Last Vital Signs Temp 98.8 F 09/04/21 14:05 Pulse 84 09/04/21 14:41 Resp 20 09/04/21 14:41 BP 136/80 09/04/21 14:05 Pulse Ox 94 09/04/21 14:05 Pertinent Lab Results Pertinent Lab Results: Laboratory Tests 09/02/21 09/02/21 09/02/21 15:20 15:46 15:46 WBC 10.4 RBC 3.66 L Hgb 12.7 Hct 36.4 L MCV 99.5 H MCH 34.7 H MCHC 34.9 RDW 17.4 H Plt Count 351 D MPV 8.3 L Immature Gran % (Auto) 0.4 Neut % (Auto) 72.8 Lymph % (Auto) 15.9 L [place] % (Auto) 8.5 Eos % (Auto) 1.9 Baso % (Auto) 0.5 Lymph # (Auto) 1.7 [place] # (Auto) 0.9 Eos # (Auto) 0.2 Baso # (Auto) 0.1 Abs Immat Gran (auto) 0.04 H Absolute Neuts (auto) 7.6 Absolute Nucleated RBC 0.000 Nucleated RBC % (auto) 0.0 Sodium 133 L Potassium 4.1 Chloride 99 Carbon Dioxide 28 Anion Gap 10 L BUN 9 Creatinine 0.59 Estim Creat Clear Calc 71.2 Estimated GFR > 60 Random Glucose 93 Fasting Glucose Lactic Acid Calcium 8.5 Magnesium 2.3 Total Bilirubin 0.4 AST 13 ALT 8 Alkaline Phosphatase 211 H Troponin I High Sens Total Protein 5.9 L Albumin 3.7 Urine Color Urine Appearance Urine pH Ur Specific [place] Urine Protein Urine Glucose (UA) Urine Ketones Urine Blood Urine Nitrite Ur Leukocyte Esterase Stool Occult Blood POSITIVE COVID-19 (AN) COVID-19 [facility] Blood Type Antibody Screen 09/02/21 09/02/21 09/02/21 15:46 15:46 15:46 WBC RBC Hgb Hct MCV MCH MCHC RDW Plt Count MPV Immature Gran % (Auto) Neut % (Auto) Lymph % (Auto) [place] % (Auto) Eos % (Auto) Baso % (Auto) Lymph # (Auto) [place] # (Auto) Eos # (Auto) Baso # (Auto) Abs Immat Gran (auto) Absolute Neuts (auto) Absolute Nucleated RBC Nucleated RBC % (auto) Sodium Potassium Chloride Carbon Dioxide Anion Gap BUN Creatinine Estim Creat Clear Calc Estimated GFR Random Glucose Fasting Glucose Lactic Acid 1.0 Calcium Magnesium Total Bilirubin AST ALT Alkaline Phosphatase Troponin I High Sens < 3.5 Total Protein Albumin Urine Color Urine Appearance Urine pH Ur Specific [place] Urine Protein Urine Glucose (UA) Urine Ketones Urine Blood Urine Nitrite Ur Leukocyte Esterase Stool Occult Blood COVID-19 (AN) COVID-19 [facility] Blood Type O Positive Antibody Screen NEGATIVE 09/02/21 09/02/21 09/03/21 15:58 20:19 06:44 WBC 6.1 RBC 3.13 L Hgb 10.8 L Hct 31.8 L MCV 101.6 H MCH 34.5 H MCHC 34.0 RDW 17.9 H Plt Count 276 MPV 8.1 L Immature Gran % (Auto) 0.3 Neut % (Auto) 58.2 Lymph % (Auto) 25.8 [place] % (Auto) 11.8 H Eos % (Auto) 3.1 Baso % (Auto) 0.8 Lymph # (Auto) 1.6 [place] # (Auto) 0.7 Eos # (Auto) 0.2 Baso # (Auto) 0.1 Abs Immat Gran (auto) 0.02 Absolute Neuts (auto) 3.5 Absolute Nucleated RBC 0.000 Nucleated RBC % (auto) 0.0 Sodium Potassium Chloride Carbon Dioxide Anion Gap BUN Creatinine Estim Creat Clear Calc Estimated GFR Random Glucose Fasting Glucose Lactic Acid Calcium Magnesium Total Bilirubin AST ALT Alkaline Phosphatase Troponin I High Sens Total Protein Albumin Urine Color YELLOW Urine Appearance CLEAR Urine pH 5.5 Ur Specific [place] 1.010 Urine Protein NEG Urine Glucose (UA) NEG Urine Ketones NEG Urine Blood NEG Urine Nitrite NEG Ur Leukocyte Esterase NEG Stool Occult Blood COVID-19 (AN) Negative COVID-19 Clin Com See Note Blood Type Antibody Screen 09/03/21 09/04/21 09/04/21 06:44 05:39 05:39 WBC 8.0 RBC 3.44 L Hgb 11.8 L Hct 35.1 L MCV 102.0 H MCH 34.3 H MCHC 33.6 RDW 17.7 H Plt Count 304 MPV 8.4 L Immature Gran % (Auto) 0.3 Neut % (Auto) 71.5 Lymph % (Auto) 20.9 [place] % (Auto) 5.8 Eos % (Auto) 1.0 Baso % (Auto) 0.5 Lymph # (Auto) 1.7 [place] # (Auto) 0.5 Eos # (Auto) 0.1 Baso # (Auto) 0.0 Abs Immat Gran (auto) 0.02 Absolute Neuts (auto) 5.7 Absolute Nucleated RBC 0.000 Nucleated RBC % (auto) 0.0 Sodium 136 137 Potassium 4.1 4.2 Chloride 104 99 Carbon Dioxide 26 28 Anion Gap 10 L 14 BUN 7 L 7 L Creatinine 0.55 0.57 Estim Creat Clear Calc 76.4 73.8 Estimated GFR > 60 > 60 Random Glucose 83 Fasting Glucose 88 Lactic Acid Calcium 8.2 L 9.1 D Magnesium Total Bilirubin 0.3 AST 12 ALT 7 Alkaline Phosphatase 180 H Troponin I High Sens Total Protein 5.4 L Albumin 3.4 L Urine Color Urine Appearance Urine pH Ur Specific [place] Urine Protein Urine Glucose (UA) Urine Ketones Urine Blood Urine Nitrite Ur Leukocyte Esterase Stool Occult Blood COVID-19 (AN) COVID-19 Clin Com Blood Type Antibody Screen Airway Mallampati Class: II TM Dist: >3cm Neck ROM: Full Assessment and Plan Assessment Anesthesia Assessment: Anesthesia Plan Discussed and Chart Reviewed Final Anesthetic Review Family History of Problems with Anesthesia: No History of Problems with Anesthesia: No NPO: Yes ASA Class: III Final Preanesthetic Review: No Changes in Pt Med Stat, Meds/Allgs Chart Reviewed, Consent Obtained/Reviewed and Anes Risks/Benef Reviewed Patient Risk: Intermediate Procedure Risk: Low Anesthetic Plan Anesthetic Plan: MAC: Disposition: Standard PACU
--- NOTE | 2021-09-04 15:56 | MHC.CM.PN ---
[facility] TO MEET WITH PATIENT FOR POSSIBLE START OF FRAIL ELDER APPLICATION [facility] [employer] COUNSELOR AWARE OF FAMILY SUPPORT, REPORTED BY PATIENT.
--- NOTE | 2021-09-04 15:57 | PM.EVENT ---
Event Note Date of Service: 09/04/21 Event Note: EGD note dictated 6x8x4 cm antral mass involving the pylorus with 2 large areas of ulceration and no bleeding. Biopsies taken Rec: oral ppi bid advance diet f/u bx results discontinue anticoagulation permanently.
[2021-09-04] MEDS: Omeprazole 20 MG CAPSULE.DR PO (17:24)
[2021-09-04] MEDS: Atorvastatin Calcium 10 MG TABLET PO (19:53)
[2021-09-04] MEDS: cefTRIAXone sodium 1 GM in 0.9 % Sodium Chloride 50 ML IV (19:53)
[2021-09-04] MEDS: Azithromycin 500 MG in 0.9 % Sodium Chloride 250 ML 125 MG IV (20:46)
[2021-09-05] VITALS (8 sets, daily range): BP systolic 102–132; BP diastolic 57–75; PULSE 70–110; RESP 16–73; TEMP 36.2–37.6; O2SAT 95–99
--- NOTE | 2021-09-05 02:42 | OP_ITS ---
SURGEON: Gustavo Bray MD INDICATIONS: Abnormal CAT scan of the stomach. PREOPERATIVE DIAGNOSIS: POSTOPERATIVE DIAGNOSIS: PROCEDURE PERFORMED: Upper endoscopy with biopsy. ESTIMATED BLOOD LOSS: COMPLICATIONS: ANESTHESIA: ASSISTANTS: SPECIMENS: MEDICATIONS: Monitored anesthesia care. DESCRIPTION OF PROCEDURE: History and physical performed. The risks and benefits of the procedure were explained to the patient. Informed consent was obtained. The patient was placed in a left lateral decubitus position. The Olympus videogastroscope was introduced into the esophagus, stomach, and duodenum. Examination was performed. The scope was removed. She tolerated the procedure well and was taken to Recovery in stable condition. FINDINGS: Esophagus: The esophagus was normal. Stomach: The stomach showed an antral mass involving the pylorus measuring 6 x 8 x 4 cm with 2 large areas of ulceration approximately 10 x 15 cm and 15 x 20 cm with no active bleeding. The lesion was friable and had the appearance of malignancy. Biopsies were obtained from the mass. Duodenum: The scope was able to be passed easily into the duodenal bulb through the antral mass lesion and into the second portion. The mucosa in the bulb and second portion were normal. IMPRESSION: Gastric antral mass consistent with malignancy. RECOMMENDATIONS: 1. Follow up the biopsy results. 2. Continue proton pump inhibitor. 3. Advanced diet. 4. Discontinue anticoagulation permanently. MD PER Brunner/DAVIS / [id number]
[2021-09-05 05:22] LABS: MANUAL DIFF FLAG NO
[2021-09-05 05:28] LABS: Basophils Percent Auto 0.4 % (0-2); Eosinophils Absolute Auto 0.1 X10*3/uL (0.0-0.4); Eosinophils Percent Auto 0.9 % (0-4); Hematocrit 31.2 % (37.0-47.0); Hemoglobin 10.5 g/dl (12.0-16.0); Imm Gran Abs Auto 0.02 X10*3/uL (0.00-0.03); Imm Gran Pct Auto 0.2 % (0.0-0.4); Lymphocytes Absolute Auto 1.5 X10*3/uL (1.2-4.9); Lymphocytes Percent Auto 19.2 % (20-40); Mean Corpuscular HGB Conc 33.7 g/dl (31.0-35.0); Mean Corpuscular Hemoglobin 34.4 pg (27.0-33.0); Mean Corpuscular Volume 102.3 fL (80.0-98.0); Mean Platelet Volume 8.3 fL (9.4-12.3); Monocytes Absolute Auto 0.4 X10*3/uL (0.1-1.2); Monocytes Percent Auto 5.5 % (2-11); Neutrophils Absolute Auto 5.9 x10*3/uL (2.0-8.3); Neutrophils Percent Auto 73.8 % (45-73); Platelet Count 287 X10*3/uL (160-400); Red Blood Count 3.05 X10*6/uL (4.20-5.50); Red Cell Distribution Width 17.8 % (11.0-16.0)
[2021-09-05 05:46] LABS: Alanine Aminotransferase 7 U/L (0-31); Albumin Level 3.1 g/dL (3.5-5.0); Alkaline Phosphatase 154 U/L (39-117); Anion Gap 13 (12-20); Aspartate Amino Transferase 12 U/L (5-31); Bilirubin Total 0.2 mg/dL (0.0-1.0); Blood Urea Nitrogen 14 mg/dL (9-16); Calcium 8.7 mg/dL (8.4-10.2); Carbon Dioxide 27 mmol/L (22-29); Chloride 103 mmol/L (96-108); Creatinine Clr Calc Pharmacy 65.7; Estimated Glomerular Filt Rate > 60; Glucose Fasting 114 mg/dL (60-99); Potassium 3.8 mmol/L (3.3-5.1); Sodium 139 mmol/L (135-145)
[2021-09-05] MEDS: Omeprazole 20 MG CAPSULE.DR PO ×2 (05:48→15:05)
[2021-09-05] MEDS: metroNIDAZOLE 500 MG TABLET PO ×3 (05:48→19:59)
[2021-09-05] MEDS: methylPREDNISolone Sod Succ 40 MG/ML VIAL IVPUSH ×2 (06:40→19:56)
--- NOTE | 2021-09-05 10:11 | HO.POSTANES ---
Post Anesthesia Evaluation Post Anesthesia Evaluation Vital Signs: Vital Signs Temp Pulse Resp BP Pulse Ox 09/05/21 07:16 99.6 F 74 20 108/58 L 95 09/05/21 03:46 98.1 F 70 18 122/75 97 09/04/21 23:25 98.5 F 77 18 96/63 96 Anesthesia: Monitored Mental Status: Awake Pain Control: Satisfactory Nausea/Vomiting: None Hydration: Adequate Anesthesia-Related Issues: No Anes. Related Issues
[2021-09-05] MEDS: Phenytoin Sodium Extended 100 MG CAPSULE 200 MG PO ×2 (10:19→19:58)
[2021-09-05] MEDS: Midodrine HCl 10 MG TABLET PO ×3 (10:19→19:59)
[2021-09-05] MEDS: Baclofen 10 MG TABLET PO ×3 (10:20→20:00)
[2021-09-05] MEDS: Nicotine 21 MG PATCH.TD24 TRANSDERMA (10:21)
[2021-09-05] MEDS: Gabapentin 300 MG CAPSULE PO ×3 (10:21→20:00)
[2021-09-05] MEDS: Magnesium Oxide 400 MG TABLET PO ×3 (10:21→19:59)
[2021-09-05] MEDS: 0.9 % Sodium Chloride Flush 3 ML SYRINGE IVFLUSH ×2 (10:22→15:05)
--- NOTE | 2021-09-05 11:49 | MHC.CLN ---
F/U DIET ADVANCED TO REGULAR 09/04 IN PM. LIMITED PO INFORMATION BUT APPEARS TO BE EATING. CONTINUE TO MONITOR PO CLOSELY.
--- NOTE | 2021-09-05 12:51 | MHC.CM.PN ---
Per ROUNDS discussion, Patient is not yet medically cleared for dc (IV Azithromycin, IV Ceftriaxone, IV Solu Medrol);Home with services is the goal for dc and CM will continue to follow.
--- NOTE | 2021-09-05 13:59 | HO.PM.IMPN ---
Subjective Subjective Date of Service: 09/05/21 Interval History: no further episodes of bloody stools, complaining of coughing unable to bring up phlegm, no acute issues overnight, concern about not being on anticoagulation. 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 Neck supple no JVD. CVS regular rate rhythm, Respiratory lungs bilateral expiratory wheeze, decreased air entry,no respiratory distress Gastrointestinal abdomen soft, nontender, bowel sounds audible. Extremities no edema, no cough tenderness or swelling. Neuro nonfocal , speech clear. Skin no rash Objective Data Active Medications Acetaminophen (Acetaminophen 325 Mg Tablet) 650 mg PO Q6H PRN PRN Reason: Pain, Mild (Pain Scale 1-3) Albuterol Sulfate (Albuterol Sulfate (0.083%) 2.5 Mg/3 Ml Vial.Neb) 2.5 mg INHALE QID PRN PRN Reason: Shortness Of Breath Or Wheezing Albuterol/Ipratropium (Albuterol/Iprat 2.5/0.5mg 3 Ml Ampul.Neb) 3 ml INHALE RQ4H PRN PRN Reason: Shortness of Breath/Wheezing Last Admin: 09/04/21 14:41 Dose: 3 ml Documented by: LISA Atorvastatin Calcium (Atorvastatin Calcium 10 Mg Tablet) 10 mg PO BEDTIME [facility] Last Admin: 09/04/21 19:53 Dose: 10 mg Documented by: GIRSEL Baclofen (Baclofen 10 Mg Tablet) 10 mg PO TID [facility] Last Admin: 09/05/21 10:20 Dose: 10 mg Documented by: SHANNAN Gabapentin (Gabapentin 300 Mg Capsule) 300 mg PO TID [facility] Last Admin: 09/05/21 10:21 Dose: 300 mg Documented by: SHANNAN Ceftriaxone Sodium 1 gm/ (Sodium Chloride) 50 mls @ 100 mls/hr IV Q24H [facility] Last Infusion: 09/04/21 20:36 Dose: 0 mls/hr Documented by: GRISEL Azithromycin 500 mg/ Sodium (Chloride) 250 mls @ 125 mls/hr IV Q24H [facility] Last Infusion: 09/04/21 23:04 Dose: 0 mls/hr Documented by: GRISEL Lorazepam (Lorazepam 0.5 Mg Tablet) 0.5 mg PO BID PRN PRN Reason: Anxiety Magnesium Oxide (Magnesium Oxide 400 Mg Tablet) 400 mg PO TID [facility] Last Admin: 09/05/21 10:21 Dose: 400 mg Documented by: SHANNAN Meclizine HCl (Meclizine Hcl 12.5 Mg Tablet) 12.5 mg PO TID PRN PRN Reason: Dizziness Methylprednisolone Sodium Succinate (Methylprednisolone Sod Succ 40 Mg/Ml Vial) 40 mg IVPUSH Q12H [facility] Last Admin: 09/05/21 06:40 Dose: 40 mg Documented by: DARCI Metronidazole (Metronidazole 500 Mg Tablet) 500 mg PO Q8H [facility] Last Admin: 09/05/21 05:48 Dose: 500 mg Documented by: DARCI Midodrine (Midodrine Hcl 10 Mg Tablet) 10 mg PO TID [facility] Last Admin: 09/05/21 10:19 Dose: 10 mg Documented by: SHANNAN Morphine Sulfate (Morphine Sulfate 4 Mg/Ml Cartridge) 4 mg IVPUSH Q4H PRN; Protocol PRN Reason: Pain, Severe (Pain Scale 7-10) Last Admin: 09/03/21 23:57 Dose: 4 mg Documented by: MUNIRA Nicotine (Nicotine 21 Mg Patch.Td24) 21 mg TRANSDERMA DAILY [facility] Last Admin: 09/05/21 10:21 Dose: 21 mg Documented by: SHANNAN Pt Own (Morphine Concentrate 100 Mg/5 Ml (20 Mg/Ml) Solution) 0.5 each PO Q3H PRN PRN Reason: Moderate Pain (Scale Score 5-6) Omeprazole (Omeprazole 20 Mg Capsule.Dr) 20 mg PO BID@0630,1630 [facility] Last Admin: 09/05/21 05:48 Dose: 20 mg Documented by: DARCI Ondansetron HCl (Ondansetron Hcl 4 Mg/2 Ml Vial) 4 mg IVPUSH Q8H PRN PRN Reason: Nausea and Vomiting Pharmacy Consult (Consult Rx Perform Med Rec) 1 each MISCELLANE ONCE PRN PRN Reason: Consult order Phenytoin Sodium (Phenytoin Sodium Extended 100 Mg Capsule) 200 mg PO BID [facility] Last Admin: 09/05/21 10:19 Dose: 200 mg Documented by: SHANNAN Potassium Chloride (Potassium Chloride Er 10 Meq Capsule.Er) 10 meq PO DAILY [facility] Last Admin: 09/05/21 10:20 Dose: 10 meq Documented by: SHANNAN Sodium Chloride (0.9 % Sodium Chloride Flush 3 Ml Syringe) 3 ml IVFLUSH QSHIFT [facility] Last Admin: 09/05/21 10:22 Dose: 3 ml Documented by: SHANNAN Labs CBC & Chem 7: 09/05/21 05:14 09/05/21 05:14 Labs: Laboratory Results - last 24 hr 09/05/21 09/05/21 05:14 05:14 MCV 102.3 H MCH 34.4 H MCHC 33.7 RDW 17.8 H Plt Count 287 MPV 8.3 L Immature Gran % (Auto) 0.2 Neut % (Auto) 73.8 H Lymph % (Auto) 19.2 L Bladen % (Auto) 5.5 Eos % (Auto) 0.9 Baso % (Auto) 0.4 Lymph # (Auto) 1.5 Bladen # (Auto) 0.4 Eos # (Auto) 0.1 Baso # (Auto) 0.0 Abs Immat Gran (auto) 0.02 Absolute Neuts (auto) 5.9 Absolute Nucleated RBC 0.000 Nucleated RBC % (auto) 0.0 Anion Gap 13 Estim Creat Clear Calc 65.7 Estimated GFR > 60 Fasting Glucose 114 H Calcium 8.7 Total Bilirubin 0.2 AST 12 ALT 7 Alkaline Phosphatase 154 H Total Protein 5.0 L Albumin 3.1 L Assessment and Plan (1) Acute GI bleeding: Status: Acute (2) Primary adenocarcinoma of lower lobe of right lung: Status: Acute (3) Gastric mass: Status: Acute (4) Pneumonia: Status: Acute (5) Proctocolitis: Status: Acute Plan 71year-old female with past medical history of lung cancer with metastasis to the brain currently undergoing radiation therapy who presents to the hospital with complaints of bloody diarrhea. Hemoglobin stable overnight 1.Acute GI bleed status post EGD that showed antral mass/ ulceration, biopsy taken, GI recommend PPI twice daily and to discontinue anticoagulation permanently -Hgb stable,follow serial CBCs 2.Pneumonia /COPD exacerbation - on IV azithromycin and iv ceftriaxone day 3, chest x-ray showed right base pneumonia, afebrile normal WBC, will transition to by mouth antibiotic - on IV steroid 40 mg q.12 hours and DuoNeb prn, will change to scheduled updraft, wean oxygen patient not on home O2, encourage out of bed and ambulation 3. history of DVT was on Eliquis, discontinued due to bloody stool and antral mass case discussed with patient's PCP Dr. Goldsmith will hold off on IVC filter placement for now till all workup was completed and once patient is more stable 4.Proctocoliltis CT abdomen showed diffuse wall thickening involving rectosigmoid, no further bout of diarrhea, C diff negative on metronidazole day / 5.Lung cancer with Mets to the brain - evidence of new pulmonary nodule that according to the patient was not present previously - recommend outpatient Oncology follow-up 6. recent left hip surgery obtain follow-up chest x-ray 7. tobacco use disorder continue nicotine patch DVT prophylaxis: SCDs Full code will need continued inpatient hospitalization for pneumonia with COPD exacerbation and proctocolitis on IV antibiotics Quality Stroke Does the patient have a stroke diagnosis?: No VTE Prior VTE?: Yes VTE Risk Level:: Medical - moderate - high VTE Device Contraindication: N/A - Device Ordered VTE Drug Contraindication: Treatment Not Indicated
[2021-09-05] MEDS: Albuterol/Iprat 2.5/0.5MG 3 ML AMPUL.NEB INHALE ×2 (15:39→20:03)
[2021-09-05] MEDS: Atorvastatin Calcium 10 MG TABLET PO (19:59)
[2021-09-06] MEDS: 0.9 % Sodium Chloride Flush 3 ML SYRINGE IVFLUSH ×3 (00:05→15:12)
[2021-09-06 03:29] VITALS: BP 105/61; PULSE 76; RESP 20; TEMP 36.4; O2SAT 95
[2021-09-06] MEDS: metroNIDAZOLE 500 MG TABLET PO ×2 (05:57→13:22)
[2021-09-06] MEDS: Omeprazole 20 MG CAPSULE.DR PO ×2 (05:57→15:11)
[2021-09-06 06:06] LABS: MANUAL DIFF FLAG NO
[2021-09-06 06:14] LABS: Basophils Percent Auto 0.2 % (0-2); Eosinophils Absolute Auto 0.1 X10*3/uL (0.0-0.4); Eosinophils Percent Auto 0.6 % (0-4); Hemoglobin 10.1 g/dl (12.0-16.0); Imm Gran Abs Auto 0.03 X10*3/uL (0.00-0.03); Imm Gran Pct Auto 0.4 % (0.0-0.4); Lymphocytes Absolute Auto 1.4 X10*3/uL (1.2-4.9); Lymphocytes Percent Auto 17.2 % (20-40); Mean Corpuscular HGB Conc 33.7 g/dl (31.0-35.0); Mean Corpuscular Hemoglobin 34.5 pg (27.0-33.0); Mean Corpuscular Volume 102.4 fL (80.0-98.0); Mean Platelet Volume 8.4 fL (9.4-12.3); Monocytes Absolute Auto 0.7 X10*3/uL (0.1-1.2); Monocytes Percent Auto 8.1 % (2-11); Neutrophils Absolute Auto 6.2 x10*3/uL (2.0-8.3); Neutrophils Percent Auto 73.5 % (45-73); Platelet Count 285 X10*3/uL (160-400); Red Blood Count 2.93 X10*6/uL (4.20-5.50); Red Cell Distribution Width 18.1 % (11.0-16.0); White Blood Count 8.4 X10*3/uL (4.8-10.8)
[2021-09-06] MEDS: methylPREDNISolone Sod Succ 40 MG/ML VIAL IVPUSH (06:27)
[2021-09-06 06:31] LABS: Alanine Aminotransferase 7 U/L (0-31); Albumin Level 3.3 g/dL (3.5-5.0); Alkaline Phosphatase 148 U/L (39-117); Anion Gap 11 (12-20); Aspartate Amino Transferase 11 U/L (5-31); Bilirubin Total 0.2 mg/dL (0.0-1.0); Blood Urea Nitrogen 12 mg/dL (9-16); Calcium 8.7 mg/dL (8.4-10.2); Carbon Dioxide 28 mmol/L (22-29); Chloride 104 mmol/L (96-108); Creatinine Clr Calc Pharmacy 64.7; Estimated Glomerular Filt Rate > 60; Glucose Fasting 92 mg/dL (60-99); Potassium 3.9 mmol/L (3.3-5.1); Sodium 139 mmol/L (135-145); Total Protein 5.2 g/dL (6.5-8.0)
[2021-09-06 07:35] VITALS: BP 111/65; PULSE 73; RESP 18; TEMP 36.8; O2SAT 97
[2021-09-06] MEDS: Albuterol/Iprat 2.5/0.5MG 3 ML AMPUL.NEB INHALE ×2 (08:10→12:05)
[2021-09-06 08:12] VITALS: PULSE 73; RESP 18; O2SAT 97
[2021-09-06] MEDS: Nicotine 21 MG PATCH.TD24 TRANSDERMA (09:02)
[2021-09-06] MEDS: Midodrine HCl 10 MG TABLET PO ×2 (09:03→15:11)
[2021-09-06] MEDS: Phenytoin Sodium Extended 100 MG CAPSULE 200 MG PO (09:04)
[2021-09-06] MEDS: Baclofen 10 MG TABLET PO ×2 (09:04→15:11)
[2021-09-06] MEDS: Magnesium Oxide 400 MG TABLET PO ×2 (09:07→15:11)
[2021-09-06] MEDS: Gabapentin 300 MG CAPSULE PO ×2 (09:07→15:11)
[2021-09-06 11:14] VITALS: BP 111/65; PULSE 73; RESP 18; TEMP 36.8; O2SAT 97
[2021-09-06 12:06] VITALS: PULSE 73; RESP 16; O2SAT 97
[2021-09-06] MEDS: LORazepam 0.5 MG TABLET PO (13:22)
--- NOTE | 2021-09-06 13:45 | MHC.CM.PN ---
NURSE HEALTHCARE TRANSLATOR NOTE ELECTRONIC MEDICAL RECORD REVIEWED - PER HOSPITLAIST DISCHARGE TODAY , NEW A [facility]Boss [phone] FOR NRUSING AND HOME PT. PCP DR PATEL 3. [facility] FINANCIAL SERVICES FOR [facility] APPLICATION FOR FUTURE SERVICES WITH [facility] TRANPOSTATION [facility]
--- NOTE | 2021-09-06 14:29 | P.DS_ITS ---
DS: Providers Provider Date of Service: 09/06/21 Date of admission: 09/02/21 19:56 Primary care physician: Kota Patel MD Consults: 09/02/21 19:54 Consult to Gastroenterology Routine Consulting Provider: Spencer Miller Reason for consultation: GI bleed Has provider been notified: No DS: Diagnosis Discharge Diagnosis (1) Acute GI bleeding: Status: Acute (2) Primary adenocarcinoma of lower lobe of right lung: Status: Acute (3) Gastric mass: Status: Acute (4) Pneumonia: Status: Acute (5) Proctocolitis: Status: Acute DS: Summary Hospital Course Hospital Course: Chief Complaint: BLACK STOOLS ?71-year-old female with past medical history of lung cancer with metastasis to the brain, hypertension, hyperlipidemia, COPD on O2 2 L, presents to the hospital with complaints of diarrhea and black stools.? Patient reports that this has been happening for the past 4 days, had worse symptoms during the night.? She reports that everything she eats comes right through her. She reports that the diarrhea is constant, and throughout the night She has had no abdominal pain, denies no chest pain, no nausea or vomiting, she reports no weakness more than usual, some dizziness, shortness of breath that is chronic, she has had increase cough and sputum production? For the past few days as well. ? She has had no fever or chills.? And no lower extremity edema.? she denies any urinary symptoms. ?patient has a left hip arthroplasty but reports that she had a recent fracture was supposed to follow-up outpatient orthopedic tomorrow for follow-up x-rays P ? On arrival to the ED patient with dynamic least stable no significant ab normal? vitals Labs are significant for? WBC count of 10.4, hemoglobin of 12.7, sodium of 133, UA negative, stool occult positive ?her abdominal pelvic CT is grossly abnormal with findings of masslike thickening an apple-core like enhancing soft tissue involving the gastric antrum measuring at least 4 cm in span suspicious for malignancy.? ?a new 6 mm solid left lower lobe pulmonary nodule suspicious for malignancy, diffuse wall thickening involving the rectosigmoid colon to be seen in the setting of procto colitis.? Patchy consolidation in the right lung base which may reflect aspiration versus infection. Given the above findings patient will be admitted for further management and evaluation. Hospital course 71year-old female with past medical history of lung cancer with metastasis to the brain currently undergoing radiation therapy who presents to the hospital with complaints of bloody diarrhea.? 1.Acute GI bleed patient admitted to medical floor and underwent EGD that showed antral mass/ ulceration, biopsy taken, GI recommended PPI twice daily and to discontinue anticoagulation permanently ? Biopsy report remains pending patient had no recurrent episode of acute GI bleed. 2.Pneumonia /COPD exacerbation, patient was treated with IV azithromycin and ceftriaxone x3 days since patient received 10 days of antibiotic prior to admission, she remained afebrile with normal WBC count chest x-ray showed right base pneumonia, she received 3 days of IV steroids, that have not been continued due to GI bleed, patient is being discharged home with strong recommendation to abstain from smoking and recommend to continue DuoNeb updraft 4 times a day patient oxygenation is stable on room air, patient had no acute hypoxic respiratory failure. 3. history of DVT? was on Eliquis, discontinued due to bloody stool and antral mass 4.Proctocoliltis?? CT abdomen showed diffuse wall thickening involving rectosigmoid, C diff negative. ? 5.Lung cancer with Mets to the brain noted to have new pulmonary nodule , recommend outpatient Oncology follow-up 6. Status post recent left replacement, follow-up x-ray left hip showed stable position, healing comminuted nondisplaced left greater trochanter fracture. Time Spent with Patient Time attestation: Total time spent providing and/or coordinating discharge services: Discharge coordination time: Greater than 30 minutes Quality: Safe Use of Opioids Does Pt have an Active Cancer Diagnosis on the Problem List?: No Quality: Stroke Does the patient have a stroke diagnosis?: No Physical Exam Vital Signs: Vital Signs: Last Vital Signs Temp 98.2 F 09/06/21 11:14 Pulse 73 09/06/21 12:06 Resp 16 09/06/21 12:06 BP 111/65 09/06/21 11:14 Pulse Ox 97 09/06/21 15:00 BMI result Body Mass Index 21.2 Const: Other: General? resting in bed,no acute distress.? Neck? supple no JVD. CVS? regular rate rhythm, Respiratory lungs?coarse breath sounds, no respiratory distress Gastrointestinal abdomen soft, nontender, bowel sounds audible. Extremities no edema, Neuro nonfocal , speech clear. Skin no rash DS: Data Data Completed and Pending Pending studies at discharge: Pending at discharge 09/04/21 15:46 Surgical [PTH] Routine Discharge Plan Discharge Patient Disposition: Home Health Service Discharge Diagnosis: Acute GI bleed COPD exacerbation Community-acquired pneumonia Proctocolitis Tobacco use disorder [facility]: [facility] [Other] - 3-5 Days (vna to provise you with nursing visits for diagnosis sign symptom management assessments and home physical therapy PCP DR SHAD PATEL [facility] follow up with [facility] financial counselors bonifacio beckfordasad [phone] [facility] reinstTEMENT APPLIXCATION) Kota Patel MD [Primary Care Provider] - 1 Week Discharge Medications: New nicotine 21 mg/24 hr Patch 24 Hour 21 mg transdermal DAILY Qty: 28 0RF Breo Ellipta 100-25 mcg/dose blister with device 1 inh inhalation DAILY Qty: 60 0RF Continued albuterol sulfate 2.5 mg /3 mL (0.083 %) solution for nebulization 2.5 mg inhalation QID PRN (Reason: Shortness Of Breath Or Wheezing) 0RF simvastatin 20 mg tablet 1 tab PO BEDTIME 0RF gabapentin 300 mg capsule 1 cap PO TID 0RF omeprazole 20 mg capsule,delayed release(DR/EC) 20 mg PO BID@0630,1630 0RF Rx Instructions: Stopped while on Antibiotic Cefuroxime magnesium oxide 400 mg (241.3 mg magnesium) Tablet 400 mg PO TID Qty: 30 0RF morphine concentrate 100 mg/5 mL (20 mg/mL) solution 0.5 ml PO Q3H PRN (Reason: Moderate Pain (Scale Score 5-6)) 0RF phenytoin sodium extended 200 mg capsule 1 cap PO BID 0RF ondansetron HCl 4 mg tablet 1 tab PO TID PRN (Reason: Nausea) 0RF meclizine 12.5 mg Tablet 12.5 mg PO TID PRN (Reason: Dizziness) 0RF potassium chloride 10 mEq tablet extended release 1 tab PO DAILY 0RF albuterol sulfate 90 mcg/actuation HFA aerosol inhaler 2 puff PO QID PRN (Reason: Shortness Of Breath) 0RF baclofen 5 mg tablet 10 mg PO TID 0RF midodrine 5 mg tablet 10 mg PO TID 0RF lorazepam 0.5 mg tablet 1 tab PO BID PRN (Reason: Anxiety) Qty: 20 0RF Discontinued cefuroxime axetil 250 mg tablet 250 mg PO BID 10 Days Qty: 20 0RF Rx Instructions: STARTED 08/24/21 X 10 DAYS Eliquis 5 mg tablet 5 mg PO BID 0RF Rx Instructions: to start after 07/24/21 Discharge Orders: Discharge Order (Routine); Ordered 09/06/21 Ordered By: Jayesh Bertrand Diet: advance to usual diet Activity on Discharge: As tolerated Stand Alone Forms: Patient Portal Discharge page Care Plan Goals: Upper GI bleed, found to have mass in stomach biopsies sent follow-up with primary care physician and Gastroenterology for biopsy report, stop taking Eliquis, no aspirin, no Advil Motrin or similar drugs In regard to COPD and pneumonia, continue DuoNeb 4 times a day, take Breo inhaler, abstain from smoking since it will exacerbate his underlying COPD use nicotine patch Health Concerns: Tobacco use/COPD/lung cancer take all home medications Plan of Treatment: Follow-up with Dr. Dr. Patel call to make an appointment in 1-2 weeks Assessment: As per discharge summary Discharge Date/Time: 09/06/21 19:31
[2021-09-06 15:00] VITALS: O2SAT 97
--- NOTE | 2021-09-06 15:12 | P.F2F_ITS ---
Service Date Service Date: 09/06/21 Encounter Date of encounter: 09/06/21 Reasons for Services Signs and symptoms assessed: Upper GI bleed/COPD exacerbation and pneumonia Reason for intermediate: medication management and GI/ assessment Reason for physical therapy: home safety and mobility MD Overseeing Care: Kota Goldsmith Homebound: Leaving the home is medically contraindicated at this time without the asist of a device and/or another person due th the listed conditions above and below. Reason homebound: weakness related to hospital stay Certification: Based on the above findings, I certify that this patient is confined to the home and needs intermittent intermediate care, physical therapy and/or speech therapy, or continues to need occupational therapy. The patient is under my care, and I have initiated the establishment of the plan of care. The patient will be followed by a physician who will periodically review the plan of care.
--- NOTE | 2021-09-07 08:44 | P.CDIC_ITS ---
CDI Concurrent Query Documentation Clarification: cdiPHYSICIAN'S DOCUMENTATION REQUEST Date of Query: 09/07/21 0845 Patient Name: Ella Waterman Admit Date: 09/02/21 Dear Doctor, A review of the medical record indicates additional documentation may be needed. Please review below and update the documentation accordingly. Clinical Indicators: Risk Factors/Clinical Indicators/Treatments H&P 09/02 - COPD Exacerbation, O2 dependent with Pneumonia. Respiratory: 09/02 - RR 22 pulse ox 93 on 1 liter O2 NC O2 requirements increased to 2 liters NC 09/03-09/05 with pulse ox 95. Solumedrol, Duoneb p.r.n. on baseline 2 liters oxygen. Clarify which of the following accurately represents the patient's respiratory status: * Chronic respiratory failure * O2 Dependent only * Other (please specify) * Unable to determine Use of terms such as suspected, likely, concern for, or probable (associated with a specific diagnosis that is being evaluated, monitored, or treated as if it exists) are acceptable and can be coded in the inpatient setting, when docu mented at the time of discharge. Thank you, Aye Espinal [facility], CDIS Extension: [phone] Please use your independent medical judgment in providing your response. THIS QUERY IS PART OF THE PERMANENT MEDICAL RECORD Provider Response: Other Other Diagnosis: Not O2 dependent at home no history of chronic respiratory failure was treated for COPD exacerbation and pneumonia
== END 2021-09-06 19:31 | disposition home health service (06) | DRG 374 ==
LOC: HO.ED 18:40 → HO.EDOVER 20:06 → HO.S3 09-03 11:42
PROVIDERS: Hospitalist; Internal Medicine; Internal Medicine Gastroenterology; Nurse Practitioner Family; Physician Assistant; Admitting Provider Internal Medicine; Emergency Provider Emergency Medicine; PCP Internal Medicine; Visit Provider Hospitalist
PROC: 0DJ08ZZ Inspection of Upper Intestinal Tract, Via Natural or Artificial Opening Endoscopic (ICD-10-PCS; CPT 43235; principal; 2021-09-04 13:30)
DX: C78.89 Secondary malignant neoplasm of other digestive organs (principal); K25.4 Chronic or unspecified gastric ulcer with hemorrhage; J18.9 Pneumonia, unspecified organism; C79.31 Secondary malignant neoplasm of brain; C34.31 Malignant neoplasm of lower lobe, right bronchus or lung; J44.0 Chronic obstructive pulmonary disease with (acute) lower respiratory infection; J44.1 Chronic obstructive pulmonary disease with (acute) exacerbation; K52.9 Noninfective gastroenteritis and colitis, unspecified; F17.210 Nicotine dependence, cigarettes, uncomplicated; E78.5 Hyperlipidemia, unspecified; Z96.642 Presence of left artificial hip joint; Z20.822 Contact with and (suspected) exposure to COVID-19; Z99.81 Dependence on supplemental oxygen; Z87.891 Personal history of nicotine dependence; Z71.6 Tobacco abuse counseling; Z79.51 Long term (current) use of inhaled steroids; Z79.899 Other long term (current) drug therapy; Z86.718 Personal history of other venous thrombosis and embolism
CPT/HCPCS: 36415; 71045; 73502; 74178; 80048; 80053; 81003; 82272; 83605; 83735; 84484; 85025; 86850; 86900; 86901; 87635; 88305; 88341; 88342; 88360; 93005; 94640; 96361; 96374; 99285; J0456; J0696; J2270; J2405; J2920; Q9967

== ENCOUNTER 2021-09-03 09:07 | Outpatient (REF) | payer MEDICARE, OTHER, SELFPAY ==
--- NOTE | 2021-09-03 15:16 | CONS_ITS ---
DATE OF SERVICE: 09/03/2021 REFERRING PHYSICIAN: Jose Szymanski MD REASON FOR CONSULTATION: Black stool and abnormal CT scan of the stomach. HISTORY OF PRESENT ILLNESS: The patient is a pleasant 71-year-old woman who was admitted to the hospital after presenting to the emergency room with complaints of black stool for 4 days. She has a history of a DVT and has been on Eliquis. She denies any epigastric pain, but reports black diarrhea for 4 days prior to admission. She was evaluated in the Emergency Department with laboratory studies showing a hematocrit of 36.4, which was up slightly from 34.5 on August 23. Subsequently, she underwent CT scanning, which is reviewed. This is interpreted as showing mass-like thickening and apple-core like enhancing soft tissue involving the gastric antrum measuring 4.1 cm in span. Also noted was diffuse wall thickening involving the rectosigmoid colon. She was admitted to the hospital and followup hematocrit was slightly lower at 31.8, but she has had no black stool today. The patient has previously undergone evaluation with upper endoscopy and colonoscopy in February 2019 showing duodenitis and multiple colonic polyps as well as diverticulosis involving the sigmoid. PAST MEDICAL HISTORY: 1. Lung cancer with brain metastasis. 2. COPD. 3. Hypertension. 4. Hyperlipidemia. 5. Seizures. CURRENT MEDICATIONS: Her current medication list is reviewed in the chart. ALLERGIES: VARENICLINE. FAMILY HISTORY: This is reviewed with the patient and is noncontributory. SOCIAL HISTORY: There is a history of tobacco use. She denies other substance use. She does use approximately 3 drinks on a daily basis. REVIEW OF SYSTEMS: SKIN: No pruritus. HEENT: Negative. CARDIOPULMONARY: No shortness of breath or chest pain. GASTROINTESTINAL: As above. GENITOURINARY: Negative. NEUROPSYCHIATRIC: Negative. PHYSICAL EXAMINATION: GENERAL: Shows a pleasant female, lying comfortably in bed. VITAL SIGNS: Reviewed in electronic medical record and are stable. SKIN: Anicteric. HEENT: Shows no scleral icterus. NECK: Without lymphadenopathy or thyromegaly. LUNGS: Clear. HEART: Shows a regular rate and rhythm. S1, S2. No murmur. ABDOMEN: Soft without focal masses or tenderness. Bowel sounds are present. No organomegaly is noted. EXTREMITIES: Without edema. LABORATORY DATA AND CT SCAN: Reviewed. IMPRESSION: Upper gastrointestinal bleeding with gastric mass lesion on CT scan. 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 I would recommend holding Eliquis as you are doing and she will be scheduled for upper endoscopy for further evaluation and diagnosis. We discussed risks and benefits of the procedure today. She understands and agrees to proceed. MD PER Brunner/DAVIS / [phone]
== END 2021-09-03 09:08 | disposition home or self-care (01) ==
LOC: HO.HOSX 09:07
PROVIDERS: Visit Provider Physician Assistant
DX: Z13.89 Encounter for screening for other disorder (principal)

== ENCOUNTER 2021-10-24 13:30 | Outpatient (REF) | payer MEDICARE, OTHER, SELFPAY ==
[2021-10-24 14:25] LABS: Influenza A PCR NEGATIVE (Negative); Influenza B PCR NEGATIVE (Negative); Resp Syncy Virus RNA Qual PCR NEGATIVE (Negative); SARS COV2 PCR INHOUSE NEGATIVE (Negative)
== END 2021-10-24 13:31 | disposition home or self-care (01) ==
LOC: HO.LNP 13:30
PROVIDERS: Visit Provider Internal Medicine
DX: Z20.822 Contact with and (suspected) exposure to COVID-19 (principal); R05.9 Cough, unspecified; R50.9 Fever, unspecified; R19.7 Diarrhea, unspecified
CPT/HCPCS: 0241U

== ENCOUNTER 2022-04-01 14:29 | Emergency (ER) | payer MEDICARE, OTHER, SELFPAY ==
--- NOTE | ~2022-04-01 | XR_ITS ---
EXAMINATION: XR CHEST CLINICAL INFORMATION: Cough COMPARISON: Chest radiograph 09/03/2021 TECHNIQUE: Frontal view of the chest was obtained. FINDINGS: Heart size normal. No evidence of CHF. Since the prior study, there's been improvement in bibasilar opacities was only some minimal atelectasis remaining degenerative changes are seen in the spine. XR/XR chest 1V IMPRESSION: No acute intrathoracic disease.
--- NOTE | ~2022-04-01 | XR_ITS ---
EXAMINATION: XR KNEE, LEFT CLINICAL INFORMATION: Pain and swelling COMPARISON: None TECHNIQUE: Four views of the left knee. FINDINGS: Small joint effusion. Advanced patellofemoral degenerative change. There is advanced medial degenerative changes well with marginal osteophyte formation. Small spurs project of the medial and lateral tibial plateau. No evidence though for fracture, dislocation or destructive process. Vascular calcifications are noted. XR/XR knee LT 4V IMPRESSION: Degenerative changes observed. Joint effusion.
--- NOTE | ~2022-04-01 | US_ITS ---
EXAMINATION: US VENOUS ULTRASOUND WITH DOPPLER LOWER EXTREMITY, LEFT CLINICAL INFORMATION: Left lower extremity pain, swelling and redness COMPARISON: Bilateral DVT study 12/14/2018 TECHNIQUE: Ultrasound of the deep veins is performed from the hip to the calf with compression sonography and color and pulse Doppler assessment. Spectral analysis with color-flow imaging is performed. FINDINGS: There is new thrombus present in the mid and distal posterior tibial vein below the knee. The peroneal veins show minimal color flow but Doppler signal can be seen. The pains [id number] are unremarkable with normal venous compression and respiratory variation and augmented flow in the common femoral vein, superficial femoral vein, profunda femoral vein, and popliteal vein. Of note, there is superficial thrombophlebitis with clot present in the great saphenous vein as well as some thrombosed calf varices. There is no significant popliteal fossa cyst. US/US venous duplex LE LT IMPRESSION: 1. DVT present in the posterior tibial vein below the knee. 2. Superficial thrombophlebitis with clot present in the great saphenous vein.
[2022-04-01 15:01] VITALS: BP 112/82; PULSE 84; O2SAT 96
[2022-04-01 15:18] VITALS: PULSE 85; RESP 16; TEMP 36.8; O2SAT 94; BMI 22.6
--- OUTSIDE RECORDS SUMMARY | 2022-04-01 15:45 | XMS_ITS | Continuity of Care Document ---
:1950 Author Organization [facility] Address [address] [place] [address]- Care Team Providers Name Role Phone Kota Goldsmith MD Primary Care Phys[id number] Date(s): 04/18/21 - 08/16/21 [facility] [address] [place] [id number]- Attending Physician: Not on Staff, Attending MD Referring Physician: Kota Goldsmith MD Allergies, Adverse Reactions, Alerts Substance Reaction Severity Status Pollen Active varenicline Active Chantix muscle pain Persistent Severe Active Medications acetaminophen 325 mg oral tablet 650 mg, By Mouth, Every 6 hours, Refills 0, Maintenance, 12/08/18 15:23:34 EDT Start Date: 12/08/18 Status: OrderedAlbuterol 0.083% / Ipratropium 0.017% Inhalation Solution Inhalation, 3 times a day, Maintenance, 08/02/13 14:53:10 Start Date: 08/02/13 Status: Orderedaspirin 162.5 mg oral capsule, extended release = 325 mg, By Mouth, 2 times a day, 0 Refills, Maintenance, 12/08/18 15:23:39 EDT, ER Capsule Start Date: 12/08/18 Status: Ordereddocusate sodium 100 mg oral capsule 100 mg, 1, capsule, By Mouth, 2 times a day, Refills 0, Maintenance, 12/08/18 15:24:02 EDT Start Date: 12/08/18 Status: OrderedHYDROmorphone 2 mg oral tablet = 2 mg, By Mouth, Every 4 hours, PRN Pain , Mild, 0 Refills, Maintenance, 12/08/18 15:24:06 EDT, Tablet, Partial fill upon patient request Start Date: 12/08/18 Status: OrderedHYDROmorphone 4 mg oral tablet = 4 mg, By Mouth, Every 4 hours, PRN Pain , Moderate, 0 Refills, Maintenance, 12/08/18 15:24:04 EDT,Tablet, Partial fill upon patient request Start Date: 12/08/18 Status: Orderedlisinopril 5 mg oral tablet 1 tablet = 5 mg, By Mouth, Daily, 0 Refills, Maintenance, 08/02/13 14:52:51 Start Date: 08/02/13 Status: OrderedMaalox Plus Liquid 30 mL, By Mouth, Every 4 hours, PRN Other, Heartburn, 0 Refills, Maintenance, 12/08/18 15:23:37 EDT,Suspension Start Date: 12/08/18 Status: OrderedMiraLax Powder 1 pack/packet = 17 Gm, By Mouth, Daily, 0 Refills, Maintenance, 12/08/18 15:24:26 EDT, Powder Start Date: 12/08/18 Status: OrderedMOM Liquid 30 mL, By Mouth, Daily, PRN Constipation, 0 Refills, Maintenance, 12/08/18 15:24:18 EDT, Suspension Start Date: 12/08/18 Status: Orderedpantoprazole 40 mg oral delayed release tablet = 40 mg, By Mouth, Daily in AM, 0 Refills, Maintenance, 12/08/18 15:24:23 EDT, EC Tablet Start Date: 12/08/18 Status: OrderedProAir HFA 90 mcg/inh inhalation aerosol with adapter 2 puffs, Inhalation, 4 times a day, PRN Wheezing/Shortness of Breath, 0 Refills, Maintenance, 08/02/13 14:53:49 Start Date: 08/02/13 Status: Orderedsenna 187 mg oral tablet 1 tablet = 8.6 mg, By Mouth, Daily at bedtime, 0 Refills, Maintenance, 12/08/18 15:24:28 EDT, Tablet Start Date: 12/08/18 Status: Orderedsimvastatin 20 mg oral tablet 1 tablet = 20 mg, By Mouth, Daily at bedtime, 0 Refills, Maintenance, 08/02/13 14:52:35 Start Date: 08/02/13 Status: OrderedVitamin D3 5000 intl units oral capsule See Instructions, 1 capsule By Mouth Daily, 0 Refills, Maintenance, 12/07/18 7:41:05 EDT, Capsule Start Date: 12/07/18 Status: Ordered Problem List Condition Effective Dates Status Health Status Informant 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
--- OUTSIDE RECORDS SUMMARY | 2022-04-01 15:45 | XMS_ITS | Continuity of Care Document ---
:1950 Author Organization [facility] Address [address] [place] [address]- Care Team Providers Name Role Phone Kota Goldsmith MD Primary Care Physician Encounter [facility] Date(s): 07/17/21 - 08/16/21 [facility] [address] [place] [id number]- Attending Physician: Yoly Ruth Admitting Physician: Yoly Ruth Referring Physician: Yoly Ruth Allergies, Adverse Reactions, Alerts Substance Reaction Severity [...]
--- OUTSIDE RECORDS SUMMARY | 2022-04-01 15:45 | XMS_ITS | Continuity of Care Document ---
:1950 Author Organization [facility] [employer] [facility] Address [address] [facility], [facility] [address] [place] [address]- Care Team Providers Name Role Phone Kota Goldsmith MD Primary Care Physician Encounter 07/19/20 - 07/26/20 [facility] [address], [facility] [address] [place] [address]- Attending Physician: Jeet CROSS, Kimi Dominguez Admitting Physician: Jeet CROSS, Kimi Dominguez Referring Physician: Jeet CROSS, Kimi Dominguez Allergies, Adverse Reactions, Alerts Substance Reaction Severity [...]
--- NOTE | 2022-04-01 15:49 | ED.EXTPRO ---
HPI - Extremity Problem General Chief complaint: Weakness Stated complaint: FLACO LEG PAIN/STIFFNESS,DIFF AMBULATING PER EMS Time Seen by Provider: 04/01/22 15:23 Source: patient Mode of arrival: EMS Limitations: no limitations History of Present Illness HPI Narrative: Patient is a 71-year-old female who presents to the emergency department for evaluation of left leg pain and difficulty ambulating. She states that this began 2 nights ago. Sudden onset. Has limited range of motion to the left knee. It is very painful even to minimal touch, and she reports feeling lumps along her left calf. She denies any injury to this extremity. Denies any numbness or tingling to the extremity. Denies fevers, chills, any recent wounds or cuts, chest pain, palpitations, shortness of breath, difficulty breathing. Related Data Home Medications Medication Instructions Recorded Confirmed albuterol sulfate 2.5 mg/3 mL 2.5 mg inhalation QID PRN 04/18/20 09/02/21 (0.083 %) solution for nebulization Shortness Of Breath Or Wheezing gabapentin 300 mg capsule 1 cap PO TID 04/18/20 09/02/21 omeprazole 20 mg capsule,delayed 20 mg PO BID@0630,1630 04/18/20 09/02/21 release simvastatin 20 mg tablet 1 tab PO BEDTIME 04/18/20 09/02/21 albuterol sulfate 90 mcg/actuation 2 puff PO QID PRN Shortness Of 07/21/21 09/02/21 aerosol inhaler Breath baclofen 5 mg tablet 10 mg PO TID 07/21/21 09/02/21 meclizine 12.5 mg tablet 12.5 mg PO TID PRN Dizziness 07/21/21 09/02/21 midodrine 5 mg tablet 10 mg PO TID 07/21/21 09/02/21 ondansetron HCl 4 mg tablet 1 tab PO TID PRN Nausea 07/21/21 09/02/21 potassium chloride 10 mEq 1 tab PO DAILY 07/21/21 09/02/21 tablet,extended release morphine concentrate 100 mg/5 mL 0.5 ml PO Q3H PRN Moderate Pain 09/02/21 09/02/21 (20 mg/mL) oral solution (Scale Score 5-6) phenytoin sodium extended 200 mg 1 cap PO BID 09/02/21 09/02/21 capsule Previous Rx's Medication Instructions Recorded magnesium oxide 400 mg (241.3 mg 400 mg PO TID #30 tabs 04/25/20 magnesium) tablet lorazepam 0.5 mg tablet 1 tab PO BID PRN Anxiety #20 tabs 07/25/21 fluticasone furoate 100 1 inh inhalation DAILY #60 ea 09/06/21 mcg-vilanterol 25 mcg/dose inhalation powder (Breo Ellipta) nicotine 21 mg/24 hr daily 21 mg transdermal DAILY #28 ea 09/06/21 transdermal patch Allergies Allergy/AdvReac Type Severity Reaction Status Date / Time varenicline Allergy Unknown muscle Verified 08/06/21 13:38 cramps grass Allergy Unknown allergic Uncoded 08/06/21 13:38 rhinitis Review of Systems Review of Systems: Constitutional: No weight loss, fever, chills, weakness or fatigue. Skin: No rash or itching. Cardiovascular: No chest pain, chest pressure or chest discomfort. No palpitations or pedal edema. Respiratory: No shortness of breath, cough or sputum production. Gastrointestinal: No anorexia, nausea, vomiting or diarrhea. No abdominal pain or blood in stool. Genitourinary: No burning micturition. No urinary frequency or incontinence. Musculoskeletal: Left lower extremity pain as noted in HPI Psychiatric: No depression or anxiety. Yes all other systems are reviewed and are negative [facility] Past Medical History Attestation statement: The following information was validated with the patient. 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 Other No cardiac disease Social History Social History Household Members: Family Housing: House Do you presently have visiting nurse or other home services: Yes Alcohol intake: current Alcohol intake frequency: 0-2 drinks per day Patient Tobacco Use Status: Current everyday Tobacco user Tobacco use type: Cigarette Cigarette Packs Per Day: 1.5 Cigarettes Per Day: 30.0 Years Smoked: 56 Advance Directives: Yes Advance Directives Information Provided: No Advance Directives on File: No service: No Current occupational status: retired Physical Exam Vital Signs: Vital Signs: Last Vital Signs Temp 98.2 F 04/01/22 20:48 Pulse 79 04/01/22 20:48 Resp 16 04/01/22 15:18 BP 144/84 H 04/01/22 20:48 Pulse Ox 93 04/01/22 20:48 O2 Del Method 04/01/22 20:48 BMI result Body Mass Index 22.6 Appearance: Alert.?Oriented to person, place and time. No acute distress.?Normal affect. Eyes: Pupils equal, round and reactive to light.? ENT: Pharynx normal.?? Neck: Normal inspection.? Neck supple.?? CVS: Heart sounds normal. Normal heart rate and rhythm.? Pulses normal.?? Respiratory: No respiratory distress.? Lung sounds clear to auscultation bilaterally?? Abdomen: Soft and non-tender. Normoactive bowel sounds. Skin: Skin warm and dry.? Normal skin color.? Extremities: No lower extremity edema.? Left calf palpable lumps posteriorly, without erythema or warmth, or tenderness. 2+ DP/PT pulse bilaterally. Left knee with erythema, warmth, swelling, decreased AROM Neuro: Moves all extremities spontaneously. Sensation intact bilaterally. CN II-XII intact. No focal neuro deficits. Ambulates with normal steady gait. Course Course Course Narrative: Patient is a 71-year-old female with a past medical history of COPD, CAD, GERD, osteoarthritis, tremors, hypertension, metastatic lung cancer to the brain, history of DVT no longer on Eliquis given history of Gastrointestinal ulceration and antral mass. Presenting today for evaluation of atraumatic right knee/leg pain and inability to bear weight. Physical exam concerning for left knee decreased range of motion, erythema and warmth, with palpable masses to left calf which may be lymphatic process verses superficial phlebitis. Will obtain CBC, CMP, XR to evaluate for acute osseous abnormality, venous ultrasound to evaluate for DVT. Reevaluation(s) Reevaluation #1: X-ray reveals advanced patellofemoral degenerative changes, no evidence of acute fracture or dislocation, small joint effusion is present. Ultrasound upon review is concerning for DVT, reading from Radiology is pending at this time, labs are also pending at this time. Given her history of GI bleeding which is the reason that her Eliquis was stopped in the past, obtained occult stool sample, stool appears brown, lower suspicion for occult bleeding at this time, no melena or hematochezia, however she will likely require anticoagulation for DVT. Patient signed out to Emmie Andrade MD pending ultrasound reading from Radiology, and labs. Given patient's decreased mobility, inability to get around at home she may also require physical therapy evaluation pending and disposition Time: 17:50 Medications Administered Discontinued Medications Generic Name Dose Route Start Last Admin Trade Name Freq PRN Reason Stop Dose Admin Lidocaine HCl 5 ml 04/01/22 19:42 04/01/22 20:35 Lidocaine Hcl 1 % Mpf 5 Ml Vial INFILTRATI 04/01/22 19:43 5 ml ONCE ONE Administration MDM - Extremity (Nontraumatic) Medical Records Attestation: I reviewed the patient's medical records. Lab Data Attestation: I reviewed the patient's lab results. Result diagrams: 04/01/22 18:05 04/01/22 19:38 Labs: Lab Results 04/01/22 04/01/22 04/01/22 Range/Units 18:04 18:04 18:04 WBC (4.8-10.8) X10*3/uL RBC (4.20-5.50) X10*6/uL Hgb (12.0-16.0) g/dl Hct (37.0-47.0) % MCV (80.0-98.0) fL MCH (27.0-33.0) pg MCHC (31.0-35.0) g/dl RDW (11.0-16.0) % Plt Count (160-400) X10*3/uL MPV (9.4-12.3) fL Immature Gran % (Auto) (0.0-0.4) % Neut % (Auto) (45-73) % Lymph % (Auto) (20-40) % [place] % (Auto) (2-11) % Eos % (Auto) (0-4) % Baso % (Auto) (0-2) % Lymph # (Auto) (1.2-4.9) X10*3/uL [place] # (Auto) (0.1-1.2) X10*3/uL Eos # (Auto) (0.0-0.4) X10*3/uL Baso # (Auto) (0.0-0.2) X10*3/uL Abs Immat Gran (auto) (0.00-0.03) X10*3/uL Absolute Neuts (auto) (2.0-8.3) x10*3/uL Absolute Nucleated RBC (0.0-0.012) X10*3/uL Nucleated RBC % (auto) (0.0-0.2) /100WBC ESR 7 (0-20) MM/HR PT 10.2 (10.0-13.1) SEC INR 0.9 (0.9-1.1) APTT 28.2 (26.0-36.4) SEC Sodium (135-145) mmol/L Potassium (3.3-5.1) mmol/L Chloride (96-108) mmol/L Carbon Dioxide (22-29) mmol/L Anion Gap (12-20) BUN (9-16) mg/dL Creatinine (0.5-1.4) mg/dL Estim Creat Clear Calc Estimated GFR Random Glucose (60-115) mg/dL Uric Acid (2.4-5.7) mg/dL Calcium (8.4-10.2) mg/dL Magnesium (1.6-2.6) mg/dL Total Bilirubin (0.0-1.0) mg/dL AST (5-31) U/L ALT (0-31) U/L Alkaline Phosphatase (39-117) U/L C-Reactive Protein (< or = 0.50) mg/dL Total Protein (6.5-8.0) g/dL Albumin (3.5-5.0) g/dL Stool Occult Blood (NEGATIVE) COVID-19 (AN) Negative (Negative) COVID-19 Clin Com See Note 04/01/22 04/01/22 04/01/22 Range/Units 18:05 18:06 19:38 WBC 6.7 (4.8-10.8) X10*3/uL RBC 4.07 L D (4.20-5.50) X10*6/uL Hgb 12.6 D (12.0-16.0) g/dl Hct 36.3 L D (37.0-47.0) % MCV 89.2 (80.0-98.0) fL MCH 31.0 (27.0-33.0) pg MCHC 34.7 (31.0-35.0) g/dl RDW 15.2 (11.0-16.0) % Plt Count 209 D (160-400) X10*3/uL MPV 8.8 L (9.4-12.3) fL Immature Gran % (Auto) 0.1 (0.0-0.4) % Neut % (Auto) 79.7 H (45-73) % Lymph % (Auto) 13.1 L (20-40) % [place] % (Auto) 5.4 (2-11) % Eos % (Auto) 1.3 (0-4) % Baso % (Auto) 0.4 (0-2) % Lymph # (Auto) 0.9 L (1.2-4.9) X10*3/uL [place] # (Auto) 0.4 (0.1-1.2) X10*3/uL Eos # (Auto) 0.1 (0.0-0.4) X10*3/uL Baso # (Auto) 0.0 (0.0-0.2) X10*3/uL Abs Immat Gran (auto) 0.01 (0.00-0.03) X10*3/uL Absolute Neuts (auto) 5.3 (2.0-8.3) x10*3/uL Absolute Nucleated RBC 0.000 (0.0-0.012) X10*3/uL Nucleated RBC % (auto) 0.0 (0.0-0.2) /100WBC ESR (0-20) MM/HR PT (10.0-13.1) SEC INR (0.9-1.1) APTT (26.0-36.4) SEC Sodium 137 (135-145) mmol/L Potassium 3.9 (3.3-5.1) mmol/L Chloride 101 (96-108) mmol/L Carbon Dioxide 27 (22-29) mmol/L Anion Gap 13 (12-20) BUN 6 L (9-16) mg/dL Creatinine 0.56 (0.5-1.4) mg/dL Estim Creat Clear Calc 75.1 Estimated GFR > 60 Random Glucose 92 (60-115) mg/dL Uric Acid 3.6 (2.4-5.7) mg/dL Calcium 8.4 (8.4-10.2) mg/dL Magnesium 1.9 (1.6-2.6) mg/dL Total Bilirubin 0.5 (0.0-1.0) mg/dL AST 12 (5-31) U/L ALT 7 (0-31) U/L Alkaline Phosphatase 136 H (39-117) U/L C-Reactive Protein 1.67 H (< or = 0.50) mg/dL Total Protein 5.2 L (6.5-8.0) g/dL Albumin 3.2 L (3.5-5.0) g/dL Stool Occult Blood NEGATIVE (NEGATIVE) COVID-19 (AN) (Negative) COVID-19 Clin Com Imaging Data XR knee: Radiologist's impression: FINDINGS: Small joint effusion. Advanced patellofemoral degenerative change. There is advanced medial degenerative changes well with marginal osteophyte formation. Small spurs project of the medial and lateral tibial plateau. No evidence though for fracture, dislocation or destructive process. Vascular calcifications are noted.? XR/XR knee LT 4V IMPRESSION: Degenerative changes observed. Joint effusion. Discharge Plan Discharge Clinical Impression: Acute pain of left lower extremity, Effusion of knee joint, left Patient Disposition: Still a Patient Prescriptions: No Action albuterol sulfate 2.5 mg /3 mL (0.083 %) solution for nebulization 2.5 mg inhalation QID PRN (Reason: Shortness Of Breath Or Wheezing) simvastatin 20 mg tablet 1 tab PO BEDTIME gabapentin 300 mg capsule 1 cap PO TID omeprazole 20 mg capsule,delayed release(DR/EC) 20 mg PO BID@0630,1630 Rx Instructions: Stopped while on Antibiotic Cefuroxime magnesium oxide 400 mg (241.3 mg magnesium) Tablet 400 mg PO TID Qty: 30 0RF morphine concentrate 100 mg/5 mL (20 mg/mL) solution 0.5 ml PO Q3H PRN (Reason: Moderate Pain (Scale Score 5-6)) phenytoin sodium extended 200 mg capsule 1 cap PO BID nicotine 21 mg/24 hr Patch 24 Hour 21 mg transdermal DAILY Qty: 28 0RF Breo Ellipta 100-25 mcg/dose blister with device 1 inh inhalation DAILY Qty: 60 0RF ondansetron HCl 4 mg tablet 1 tab PO TID PRN (Reason: Nausea) meclizine 12.5 mg Tablet 12.5 mg PO TID PRN (Reason: Dizziness) potassium chloride 10 mEq tablet extended release 1 tab PO DAILY albuterol sulfate 90 mcg/actuation HFA aerosol inhaler 2 puff PO QID PRN (Reason: Shortness Of Breath) baclofen 5 mg tablet 10 mg PO TID midodrine 5 mg tablet 10 mg PO TID lorazepam 0.5 mg tablet 1 tab PO BID PRN (Reason: Anxiety) Qty: 20 0RF
[2022-04-01 16:51] VITALS: TEMP 37.7
[2022-04-01 18:11] LABS: MANUAL DIFF FLAG NO
[2022-04-01 18:15] LABS: Basophils Percent Auto 0.4 % (0-2); Eosinophils Absolute Auto 0.1 X10*3/uL (0.0-0.4); Eosinophils Percent Auto 1.3 % (0-4); Hematocrit 36.3 % (37.0-47.0); Hemoglobin 12.6 g/dl (12.0-16.0); Imm Gran Abs Auto 0.01 X10*3/uL (0.00-0.03); Imm Gran Pct Auto 0.1 % (0.0-0.4); Lymphocytes Absolute Auto 0.9 X10*3/uL (1.2-4.9); Lymphocytes Percent Auto 13.1 % (20-40); Mean Corpuscular HGB Conc 34.7 g/dl (31.0-35.0); Mean Corpuscular Volume 89.2 fL (80.0-98.0); Mean Platelet Volume 8.8 fL (9.4-12.3); Monocytes Absolute Auto 0.4 X10*3/uL (0.1-1.2); Monocytes Percent Auto 5.4 % (2-11); Neutrophils Absolute Auto 5.3 x10*3/uL (2.0-8.3); Neutrophils Percent Auto 79.7 % (45-73); Platelet Count 209 X10*3/uL (160-400); Red Blood Count 4.07 X10*6/uL (4.20-5.50); Red Cell Distribution Width 15.2 % (11.0-16.0); White Blood Count 6.7 X10*3/uL (4.8-10.8)
[2022-04-01 18:16] LABS: OBS Int Ctl Valid YES; OBS1 NEGATIVE (NEGATIVE)
[2022-04-01 18:22] LABS: INTERNATIONAL NORM RATIO 0.9 (0.9-1.1); Prothrombin Time 10.2 SEC (10.0-13.1)
[2022-04-01 18:24] LABS: COVID-19 Test Negative (Negative)
[2022-04-01 18:25] LABS: Partial Thromboplastin Time 28.2 SEC (26.0-36.4)
[2022-04-01 18:47] LABS: Erythrocyte Sedimentation Rate 7 MM/HR (0-20)
[2022-04-01 19:58] LABS: Alanine Aminotransferase 7 U/L (0-31); Albumin Level 3.2 g/dL (3.5-5.0); Alkaline Phosphatase 136 U/L (39-117); Anion Gap 13 (12-20); Aspartate Amino Transferase 12 U/L (5-31); Bilirubin Total 0.5 mg/dL (0.0-1.0); Blood Urea Nitrogen 6 mg/dL (9-16); C Reactive Protein 1.67 mg/dL (< or = 0.50); Calcium 8.4 mg/dL (8.4-10.2); Carbon Dioxide 27 mmol/L (22-29); Chloride 101 mmol/L (96-108); Creatinine Clr Calc Pharmacy 75.1; Estimated Glomerular Filt Rate > 60; Glucose Random 92 mg/dL (60-115); Magnesium 1.9 mg/dL (1.6-2.6); Potassium 3.9 mmol/L (3.3-5.1); Sodium 137 mmol/L (135-145); Total Protein 5.2 g/dL (6.5-8.0); Uric Acid 3.6 mg/dL (2.4-5.7)
[2022-04-01] MEDS: Lidocaine HCl 1 % MPF 5 ML VIAL INFILTRATI (20:35)
[2022-04-01 20:48] VITALS: BP 144/84; PULSE 79; TEMP 36.8; O2SAT 93
[2022-04-01 21:18] VITALS: BP 128/86; PULSE 80; RESP 18; TEMP 36.8; O2SAT 95
== END 2022-04-01 21:31 | disposition home or self-care (01) ==
PROVIDERS: Nurse Practitioner Family; Emergency Provider Emergency Medicine; PCP Internal Medicine
DX: I82.442 Acute embolism and thrombosis of left tibial vein (principal); I80.02 Phlebitis and thrombophlebitis of superficial vessels of left lower extremity; M25.462 Effusion, left knee; M79.605 Pain in left leg; I10 Essential (primary) hypertension; E78.5 Hyperlipidemia, unspecified; C34.90 Malignant neoplasm of unspecified part of unspecified bronchus or lung; C79.31 Secondary malignant neoplasm of brain; F17.210 Nicotine dependence, cigarettes, uncomplicated; Z79.02 Long term (current) use of antithrombotics/antiplatelets; Z79.899 Other long term (current) drug therapy; Z86.718 Personal history of other venous thrombosis and embolism; Z20.822 Contact with and (suspected) exposure to COVID-19
CPT/HCPCS: 20610; 36415; 71045; 73564; 80053; 82272; 83735; 84550; 85025; 85610; 85652; 85730; 86140; 87635; 93971; 99283; 99284